=== PATIENT | female | born 1960 | race Caucasian/White ===

== ENCOUNTER → 2017-06-03 19:57 | Outpatient (CLI) | payer OTHER, SELFPAY | PROVIDERS: Family Provider Internal Medicine Critical Care Medicine; PCP Internal Medicine Critical Care Medicine; Visit Provider Nurse Practitioner Acute Care | DX: G47.33 Obstructive sleep apnea (adult) (pediatric) (principal) | CPT/HCPCS: 95810 ==

== ENCOUNTER → 2017-06-17 23:10 | Outpatient (CLI) | payer OTHER, SELFPAY | PROVIDERS: Family Provider Internal Medicine Critical Care Medicine; PCP Internal Medicine Critical Care Medicine; Visit Provider Nurse Practitioner Acute Care | DX: G47.33 Obstructive sleep apnea (adult) (pediatric) (principal) | CPT/HCPCS: 95811 ==

== ENCOUNTER → 2017-11-09 09:52 | Outpatient (CLI) | payer MEDICARE, SELFPAY ==
--- NOTE | 2017-11-09 14:39 | PFT ---
INTRODUCTION: The patient is a 57-year-old male presents for pulmonary function testing secondary to a diagnosis of COPD. Respiratory therapy reports good patient effort. Bronchodilators were used during testing. INTERPRETATION: Forced expiration spirometry demonstrates the presence of a moderate large airways obstructive ventilatory defect. There was a significant response to aerosolized bronchodilators noted in FEV1. Spirograms are of good quality and do not plateau indicating slow emptying of the lungs. Body plethysmography was performed and reveals lung volumes to be within normal limits. Diffusing capacity by single breath CO is moderately reduced at 59% of predicted. When compared to previous pulmonary function studies dated October 2016, there has been a 27% reduction in the patient's DLCO. IMPRESSION: These pulmonary function studies demonstrate the presence of a partially reversible moderate large airways obstructive ventilatory defect with symmetric reduction in diffusing capacity. There is been worsening the patient's DLCO since October 2016 as noted above.
== END ==
PROVIDERS: Family Provider Physician Assistant; PCP Physician Assistant; Visit Provider Internal Medicine Critical Care Medicine
DX: J44.9 Chronic obstructive pulmonary disease, unspecified (principal)
CPT/HCPCS: 94060; 94726; 94729

== ENCOUNTER → 2017-11-23 06:10 | Outpatient (CLI) | payer MEDICARE, SELFPAY ==
--- NOTE | 2017-11-23 21:58 | STRESSREP ---
Stress Test Report Pharmacologic myocardial perfusion stress test. 57-year-old lady with a history of chest pain. Medications atorvastatin aspirin Celebrex hydrochlorothiazide. Stress protocol: Resting EKG demonstrates normal sinus rhythm with rate of 56 bpm normal intervals and noted resting blood pressures 138/82 mmHg. 0.4 mg of regadenoson was infused per usual protocol followed by rapid intravenous and flush injection continuous EKG monitoring was performed. The patient maintained sinus rhythm throughout the recording. At rest there were no ST or T-wave changes noted suggest ischemia peak infusion no ST or T-wave changes were noted suggest ischemia. No clinical angina was noted the test was terminated due to completion of the test. Resting blood pressure is 132/82 with a peak blood pressure 148/92. Myocardial perfusion protocol. 11.9 mCi of technetium 99m sestamibi was injected at rest 0.4 mg of regadenoson was infused per usual protocol peak infusion 11.9 mCi of technetium 99m sestamibi was injected stress images were obtained stress and rest images were reconstructed and compared in the short axis vertical long and horizontal long axis. Gated images were also obtained next Perfusion SPECT analysis: Review of the stress images demonstrate normal uptake of tracer noted in all areas of myocardium. The resting images similarly demonstrate normal uptake of tracer noted in all areas myocardium. No areas of reversibility are noted suggest ischemia no previous infarct is noted. Gated SPECT analysis: The gated ejection fraction is noted to be 76%. Conclusion: Normal pharmacologic myocardial perfusion stress test. Preserved ejection fraction.
== END ==
PROVIDERS: Family Provider Physician Assistant; PCP Physician Assistant; Visit Provider Physician Assistant
DX: R07.9 Chest pain, unspecified (principal)
CPT/HCPCS: 78452; 93017; A9500; A4216; J2785

== ENCOUNTER → 2017-11-26 10:57 | Outpatient (CLI) | payer MEDICARE, SELFPAY ==
--- NOTE | 2017-11-26 10:59 | ECHOD_ITS ---
Reason For Study: DYSPNEA/SOB Procedure This was a 2D Doppler, Color Flow transthoracic echocardiogram. Exam performed in department. Left Ventricle Normal size and thickness. The estimated ejection fraction is 65 %. Stage 1 diastolic dysfunction. No regional wall motion abnormalities noted. Right Ventricle Normal size and thickness. Normal systolic function. Atria Normal left atrium. Normal right atrium. Normal atrial septum. Mitral Valve The mitral valve is structurally normal. No prolapse or stenosis seen. Trivial mitral valve insufficiency. Tricuspid Valve Normal tricuspid valve. Trivial tricuspid valve insufficiency. Right ventricular systolic pressure estimated to be 28 mmHg. Aortic Valve Normal aortic valve. Trisinus/trileaflet aortic valve. Pulmonic Valve Normal pulmonic valve. Great Vessels Normal aortic root. Normal arch. Normal inferior vena cava. Inferior vena cava collapse with sniff. Pericardium/Pleural No pericardial effusion. MMode/2D Measurements & Calculations LVIDd: 3.5 cm IVSd: 1.2 cm Ao root diam: 3.0 cm LVIDs: 2.4 cm LVPWd: 1.2 cm LA dimension: 3.4 cm RVDd: 2.3 cm FS: 30.1 % LAV(MOD-bp): 24.9 ml EDV(MOD-sp4): 61.2 ml SV(MOD-sp4): 39.1 ml LAV(MOD-bp) Indexed: 12.9 ml/m2 ESV(MOD-sp4): 22.1 ml LAV(MOD-sp2): 29.4 ml EF(MOD-sp4): 63.9 % LAV(MOD-sp4): 21.0 ml LA A4 area: 10.5 cm2 RA A4 area: 11.8 cm2 Time Measurements MV dec time: 0.31 sec Doppler Measurements & Calculations MV E max refugio: 62.7 cm/sec Lat Peak E' Refugio: 7.0 cm/sec Med Peak E' Refugio: 5.4 cm/sec MV A max refugio: 79.4 cm/sec E/E' lat: 9.0 E/E' med: 11.5 MV E/A: 0.79 Ao V2 max: 131.5 cm/sec LV V1 max: 127.3 cm/sec PA V2 max: 92.8 cm/sec Ao max P.9 mmHg LV V1 max P.5 mmHg TR max refugio: 240.9 cm/sec TR max P.2 mmHg Interpretation Summary The estimated ejection fraction is 65 %. Stage 1 diastolic dysfunction. Trivial mitral valve insufficiency. Trivial tricuspid valve insufficiency. Right ventricular systolic pressure estimated to be 28 mmHg. There is no comparison study available. Ordering Physician: Yonathan Guaman D.O. Referring Physician: Yonathan Guaman Performed By: Amelia Lakhani RDCS
== END ==
PROVIDERS: Family Provider Physician Assistant; PCP Physician Assistant; Visit Provider Internal Medicine Critical Care Medicine
DX: R06.02 Shortness of breath (principal); Z98.890 Other specified postprocedural states
CPT/HCPCS: 93306

== ENCOUNTER → 2017-12-29 08:45 | Outpatient (CLI) | payer MEDICARE, SELFPAY ==
[2017-12-29 09:13] VITALS: PULSE 72; PULSE 75; PULSE 80; PULSE 81; PULSE 84; PULSE 88; PULSE 91; O2SAT 90; O2SAT 92; O2SAT 93; O2SAT 94; O2SAT 96; O2SAT 97
--- NOTE | 2017-12-29 14:58 | PCM.PSN.6M ---
PSN 6 Minute Walk Test - 6 Minute Walk Test 6 Minute Walk Test: 6 Minute Walk Test PSN:6-Minute Walk Test Start: 12/29/17 09:12 Freq: Status: Active Protocol: RESP.6MINW Document 12/29/17 09:13 HG (Rec: 12/29/17 09:14 HG [id number]) 6 Minute Walk Test Date Performed 12/29/17 Time Performed 09:00 Height 5 ft 5 in Weight: 86.183 kg Weight in Pounds 190.[address]: Yoly Baez Assistive device used: None Pre-test Oxygen Delivery Method Room Air Pulse Ox (%) 96 Pulse Rate (60-100 beats/min) 75 Dyspnea Nimco Scale (0-10) 3 Exertion Nimco Scale (6-20) 13 1st minute Oxygen Delivery Method Room Air Pulse Ox (%) 97 Pulse Rate (60-100 beats/min) 72 2nd minute Oxygen Delivery Method Room Air Pulse Ox (%) 93 Pulse Rate (60-100 beats/min) 91 3rd minute Oxygen Delivery Method Room Air Pulse Ox (%) 92 Pulse Rate (60-100 beats/min) 91 4th minute Oxygen Delivery Method Room Air Pulse Ox (%) 92 Pulse Rate (60-100 beats/min) 84 Reported Symptoms Increased Work of Breathing Dizziness 5th minute Oxygen Delivery Method Room Air Pulse Ox (%) 94 Pulse Rate (60-100 beats/min) 81 6th minute Oxygen Delivery Method Room Air Pulse Ox (%) 90 Pulse Rate (60-100 beats/min) 88 Post-test Oxygen Delivery Method Room Air Pulse Ox (%) 96 Pulse Rate (60-100 beats/min) 80 Dyspnea Nimco Scale (0-10) 4 Exertion Nimco Scale (6-20) 14 Full Laps Walked 10 Partial Lap, Number of Tiles Walked 0 Total Distance Walked (ft) 590 - Interpretation Interpretation: The patient was able to ambulate only 590 feet over the course of 6 minutes on room air with no assistive devices, but one break secondary to dyspnea and dizziness. The patient did experience significant desaturation from a baseline of 96% to as low as 90% during testing. No significant tachycardia was noted. These findings are consistent with a respiratory limitation exercise tolerance. - Recommendations Recommendations: No supplemental oxygen is indicated at this time. However, patient should be followed closely given level of desaturation.
== END ==
LOC: PSN 08:45
PROVIDERS: Family Provider Physician Assistant; PCP Physician Assistant; Visit Provider Nurse Practitioner Acute Care
DX: R06.02 Shortness of breath (principal)
CPT/HCPCS: 94618

== ENCOUNTER → 2018-04-18 14:49 | Outpatient (CLI) | payer MEDICARE, SELFPAY ==
[2018-01-27 10:28] VITALS: BMI 32.3
--- NOTE | 2018-04-18 15:02 | RAD_ITS ---
STUDY: X-RAY CHEST REASON FOR EXAM: Female, 58 years old. Shortness of breath. History of lung resection. TECHNIQUE: Frontal and lateral views of the chest COMPARISON: 09/02/2016 FINDINGS: There are stable emphysematous changes in the lungs. There is scarring again noted in the right upper lobe. The lungs are otherwise clear. There are no pleural effusions. There is no pneumothorax. The heart is normal in size. The visualized osseous structures are within normal limits. RAD/Chest PA and Lateral IMPRESSION: No acute thoracic pathology. Electronically Signed: Wang Lofton, at 15:23 EST Tel , Service support ,
== END ==
PROVIDERS: Family Provider Physician Assistant; PCP Physician Assistant; Referring Provider Physician Assistant; Visit Provider Physician Assistant
DX: R09.89 Other specified symptoms and signs involving the circulatory and respiratory systems (principal)
CPT/HCPCS: 71046

== ENCOUNTER 2018-04-19 22:11 | Inpatient (IN) | payer MEDICARE, SELFPAY ==
[2018-04-19 22:11] VITALS: BP 138/96; PULSE 93; RESP 22; TEMP 37.4; O2SAT 94; BMI 33.3
--- NOTE | 2018-04-19 22:41 | EKG12_ITS ---
Test Reason : SOB Blood Pressure : / mmHG Vent. Rate : 088 BPM Atrial Rate : 088 BPM P-R Int : 158 ms QRS Dur : 078 ms QT Int : 370 ms P-R-T Axes : 060 -02 048 degrees QTc Int : 447 ms Normal sinus rhythm Normal ECG Confirmed by AGUSTIN TITUS, SUSANA ([id number]), book or script editor NICOLE ROCHA ([id number]) on 04/22/2018 9:08:47 AM Referred By: Suellen Lomax Confirmed By:SUSANA VELEZ MD
--- NOTE | 2018-04-19 22:48 | ED.DCSUM_ITS ---
- ER Visit Summary Date of Service: 04/19/18 Chief Complaint: Fever History of Present Illness: The patient is a 58 F presenting with fever x 8 days. Patient has had a dry cough, shortness of breath. She has rhinorrhea. She states she has had chest tightness which has been constant for the past week. She saw her primary care physician on Wednesday and was diagnosed with a UTI. She states she was given IM medications in the office and was given Bactrim for home. She has nausea with no vomiting. Denies diarrhea or constipation. Denies urinary complaints. She took Tylenol 4 hours ago. She did not receive a flu shot this year. Physical Examination: Vitals are stable. Temperature 99.4 Alert no acute distress. HEENT exam is unremarkable. Neck is supple. No meningismus Lungs are expiratory wheezing bilaterally. Heart is regular rate and rhythm. Abdomen is soft with mild suprapubic tenderness with no rebound or guarding Extremities are unremarkable. Skin is warm and dry. No rash No focal neurologic deficit. Remainder of exam is unremarkable. Emergency Department Course and Treatment: Patient given albuterol/Atrovent aerosol, Tylenol, IV fluids. CBC, chemistries unremarkable other than glucose 122. Troponin is negative. Influenza negative. EKG is sinus rate of 88. Chest x-ray shows no acute process. Patient was ambulated in the ED and had a pulse ox of 86% on room air. She was given Solumedrol IV. Discussed with the hospitalist for admission. Disposition: Admission Impression: COPD exacerbation, hypoxia This note was generated with [employer] dictation software. It may contain incorrect words, spelling, and punctuation that were not noted in review of the chart prior to signing ED Disposition - Plan for ED Patient: Chief Complaint: Shortness of Breath Referrals: Suellen Lomax PA [Primary Care Provider] -
--- NOTE | 2018-04-19 22:50 | RAD_ITS ---
STUDY: X-RAY CHEST REASON FOR EXAM: Female, 58 years old. Fever TECHNIQUE: Frontal view of the chest COMPARISON: 04/18/2018 FINDINGS: The lungs are clear. There are no pleural effusions. There is no pneumothorax. The heart is normal in size. The visualized osseous structures are within normal limits. RAD/Chest 1 View (Portable) IMPRESSION: No acute thoracic pathology. Electronically Signed: Wang Lofton, at 23:04 EST Tel , Service support ,
[2018-04-19] MEDS: Acetaminophen 500 MG Tablet 1000 MG PO (22:54)
[2018-04-19] MEDS: 0.9% Normal Saline 1,000 ML 1000 ML IV (22:54)
[2018-04-19 23:01] LABS: Absolute Lymphocyte Count 1.92 X10^3/ul (0.83-4.51); Absolute Neutrophil Count 6.7 X10^3/uL (2.0-7.7); Basophil# 0.12 X10^3/uL; Basophil% 1.2 % (0-1); Eosinophil# 0.63 X10^3/uL; Eosinophils% 6.2 % (0-5); Hematocrit 38.3 % (37-47); Hemoglobin 12.9 g/dl (12.0-15.0); Lymphocyte # 1.92 X10^3/ul (4.0); Lymphocyte % 18.9 % (19-41); Mean Corp Hgb Conc 33.7 g/gl (32-36); Mean Corpuscular Hgb 32.7 pg (27.0-32.0); Mean Platelet Vol. 9.2 fl (6.2-12.0); Monocyte% 7.9 % (0-10); Neutrophil # 6.65 X10^3/uL (2.7-7.7); Neutrophil % 65.6 % (47-70); Platelet Count 364 K/mm3 (150-450); RBC Distribution Width CV 12.1 % (11.6-14.6); RBC Distribution Width SD 41.7 fl (35.1-43.9); Red Blood Count 3.95 M/mm3 (4.2-5.4); White Blood Count 10.1 K/mm3 (4.4-11.0)
[2018-04-19 23:03] LABS: POSITIVE COUNT NO; POSITIVE DIFFERENTIAL NO; POSITIVE MORPHOLOGY NO
[2018-04-19 23:05] VITALS: PULSE 87; RESP 20; O2SAT 94
[2018-04-19] MEDS: Ipratropium/Albuterol Sulfate 3 ML AMPUL.NEB INHALATION (23:05)
[2018-04-19 23:14] LABS: Anion Gap 9 (5-15); BUN 14 mg/dL (7-18); BUN/Creat Ratio 14.6 RATIO (10-20); Calcium,Total 8.6 mg/dL (8.5-10.1); Chloride 100 mmol/L (98-107); Creatinine, Serum 0.96 mg/dL (0.55-1.02); EST Glomerular Filtration Rate 63 mL/min (>60); Est Glom Filt Rate - Afr Amer 76 mL/min (>60); Estimated Creatinine Clearance 56.78 ml/min; Glucose 122 mg/dL (74-106); Potassium 3.9 mmol/L (3.5-5.1); Sodium Level 136 mmol/L (136-145)
[2018-04-20] VITALS (12 sets, daily range): BP systolic 114–141; BP diastolic 72–83; PULSE 75–90; RESP 16–20; TEMP 36.4–38.2; O2SAT 91–96; BMI 33.0
[2018-04-20 00:06] LABS: Bacteria 0 SEEN /hpf (None Seen); Mucous, Urine 0 SEEN /hpf (<or=2+); Red Blood Cells-Urine 0 SEEN /hpf (0-5); Squamous Epithelial Cells - UA 0 SEEN /hpf (5-10)
[2018-04-20 00:09] LABS: Color, Urine Yellow (Yellow); Glucose, Dipstick Normal (Normal); Ketone-Dipstick Negative (Negative); Leukocyte Esterase-Dipstick 100 /ul (Negative); Nitrite-Dipstick Negative (Negative); Occult Blood-Urine 10 /ul (Negative); Protein-Dipstick Negative (Negative); Specific Gravity, Urine 1.015 (1.002-1.030); Urine Bilirubin Dipstick Negative (Negative); Urine Clarity Clear (Clear); Urine Urobilinogen 1 mg/dl (Normal); Urine pH 6.5 (5.0 - 8.0)
[2018-04-20 00:24] LABS: White Blood Cells 0-5 SEEN /hpf (0-5)
[2018-04-20] MEDS: MethylPREDNISolone 125 MG/2 ML Vial IV (00:41)
--- NOTE | 2018-04-20 00:46 | HP.PCM_ITS ---
Problem List (1) Acute hypoxemic respiratory failure Status: Acute (2) Pulmonary hypertension Status: Chronic Comment: Stage I diastolic dysfunction, RVSP 28 mmHg (3) COPD (chronic obstructive pulmonary disease) Status: Chronic Qualifiers: COPD type: unspecified COPD Qualified Code(s): J44.9 - Chronic obstructive pulmonary disease, unspecified (4) Hepatitis C Status: Chronic (5) COPD exacerbation Status: Chronic History of Present Illness Date of Admission: 04/20/18 Chief Complaint: fever The patient is a 58 year old F allergic rhinitis; COPD; pulmonary hypertension; sleep apnea; rheumatoid arthritis; hepatitis C; GERD; former smoker who presented because of 8-day history of persistent fever. Patient reported that at home her maximal temperature was 102.4 Fahrenheit. She went to her PCP and because of strong urinary odor she was started on Bactrim for UTI. Also she reported that she received some kind of shot at the PCPs office. Associated with her symptoms is progressively worsening shortness of breath. Shortness of breath is present at rest and with exertion. Also she has a tightness of her chest. She reported typically a tightness of her breath is associated with COPD. She reports cough productive for small amount of sputum she reported that her sputum is so small that she is unable to tell the color. She reports of some mild clear nasal discharge. Further she reports she reports of burning eyes; chills and night sweats. At emergency department rapid flu was negative. Patient walked at emergency department and her oxygen saturation dropped to 86% on room air. Patient was found to be tachypneic with respiratory rate about 20. Her T-max at emergency department was 100.7. At home patient does not use oxygen. While at home patient reported that walking short distances to her bathroom dropped her oxygen saturation to 84%. Patient did not receive flu shot this year because of previous adverse effect to the flu shot. Past Medical History Past Medical History (Chronic Problems): Chronic Problems (Last Reviewed 01/27/18 @ 11:38 by Yoly Baez NP-C) COPD exacerbation (Chronic) Pulmonary hypertension (Chronic) Stage I diastolic dysfunction, RVSP 28 mmHg COPD (chronic obstructive pulmonary disease) (Chronic) Hepatitis C (Chronic) Prediabetes (Chronic) Memory loss (Chronic) Cervical dysphagia (Chronic) Osteopenia (Chronic) Chronic lumbar radiculopathy (Chronic) Degenerative joint disease (Chronic) Degeneration of intervertebral disc (Chronic) Rheumatoid arthritis (Chronic) Psoriasis (Chronic) Chronic constipation (Chronic) NSAID induced gastritis (Chronic) GERD (gastroesophageal reflux disease) (Chronic) HTN (hypertension) (Chronic) Asthma (Chronic) Situational anxiety (Chronic) Depression (Chronic) Hypokalemia (Chronic) Hyperlipidemia (Chronic) Obesity (Chronic) Hypothyroidism (Chronic) Emphysema lung (Chronic) BEN (obstructive sleep apnea) (Chronic) CPAP 13 cm of water Tobacco dependence in remission (Chronic) Lung nodule (Chronic) H/O chronic obstructive lung disease (Chronic) Medical History: Medical History (Last Reviewed 04/20/18 @ 01:45 by Mane Lozano MD) Hepatitis C (Chronic) B19.20 Prediabetes (Chronic) R73.03 Memory loss (Chronic) R41.3 Atrophic vaginitis (Acute) N95.2 Cervical dysphagia (Chronic) R13.19 Osteopenia (Chronic) M85.80 Chronic lumbar radiculopathy (Chronic) M54.16 History of hysterectomy (Resolved) Z98.890, Z90.710 Degenerative joint disease (Chronic) M19.90 Degeneration of intervertebral disc (Chronic) Rheumatoid arthritis (Chronic) M06.9 Psoriasis (Chronic) L40.9 Chronic constipation (Chronic) K59.09 NSAID induced gastritis (Chronic) K29.60, T39.395A GERD (gastroesophageal reflux disease) (Chronic) K21.9 HTN (hypertension) (Chronic) I10 Asthma (Chronic) J45.909 Situational anxiety (Chronic) F41.8 Depression (Chronic) F32.9 Hypokalemia (Chronic) E87.6 Hyperlipidemia (Chronic) E78.5 Obesity (Chronic) E66.9 Hypothyroidism (Chronic) E03.9 Emphysema lung (Chronic) J43.9 BEN (obstructive sleep apnea) (Chronic) G47.33 CPAP 13 cm of water Tobacco dependence in remission (Chronic) F17.201 Lung nodule (Chronic) R91.1 SOB (shortness of breath) (Acute) R06.02 Allergic rhinitis (Acute) J30.9 H/O chronic obstructive lung disease (Chronic) Z87.09 Allergies No Known Allergies Allergy (Verified 12/27/17 07:39) Home Medications: Ambulatory Orders Medication Instructions Recorded Amlodipine [Norvasc] 5 mg PO DAILY 03/03/15 Atorvastatin Calcium [Lipitor] 40 mg PO QHS 03/03/15 Hydrochlorothiazide [Hctz] 25 mg PO DAILY 03/03/15 Levothyroxine [Synthroid] 50 mcg PO DAILY 03/03/15 leucovorin tablet 15 mg PO Q7D 03/03/15 albuterol sulfate 2.5 mg/3 mL 2.5 mg INHALATION Q4H PRN ml 05/14/17 (0.083 %) solution for nebulization albuterol sulfate HFA 90 2 puff INHALATION Q4H PRN g 05/14/17 mcg/actuation aerosol inhaler celecoxib 200 mg capsule 200 mg PO QDAY PRN 05/14/17 umeclidinium 62.5 mcg/actuation 1 inh INHALATION QDAY #1 device 05/19/17 blister powder for inhalation fluticasone 500 mcg-salmeterol 50 1 inh INHALATION BID #60 ea 03/10/18 mcg/dose blistr powdr for inhalation montelukast 10 mg tablet 10 mg PO QPM #30 tab 03/10/18 Surgical History: Surgical History (Last Reviewed 04/20/18 @ 01:46 by Mane Lozano MD) Hx of colonoscopy (Resolved) Z98.890 History of vein stripping (Resolved) Z98.890 History of thoracotomy (Resolved) Z98.890 History of eye surgery (Resolved) Z98.890 Surgical History: appendectomy, hysterectomy, - - Lung surgery for removal of precancerous lesion; bladder''; back surgery with pins at the back. Psychiatric History: Anxiety, Depression Lives: Spouse/ Significant Other Smoking Status: Former smoker - *Family History Maternal History Items: Cancer, Diabetes, Heart Disease - She reported multiple people in the maternal family have had heart surgery. Paternal History Items: Diabetes Review of Systems Constitutional: Reports: Chills, Fever. Denies: Weight Change HEENT: Reports: Sinus Drainage. Denies: Head Aches, Sinus Congestion, Sore Throat Cardiovascular: Reports: Chest Tightness. Denies: Chest Pain, Palpitations Respiratory: Reports: Cough, Shortness of breath at rest, Shortness of breath upon exertion, Sputum production Gastrointestinal: Denies: Abdominal Pain, Nausea, Vomiting Genitourinary: Denies: Dysuria Musculoskeletal: Denies: Joint Tenderness Skin: Denies: Rash, Wounds Neurological: Denies: Numbness, Tingling, Focal weakness Psychiatric: Reports: Anxiety, Depression Hematologic/ Lymphatic: Denies: Easy Bruising, Easy Bleeding VTE Information - Inpt Only VTE Present on Admission: No VTE Mechan Device Prophylaxis: None VTE Pharm Prophylaxis ordered?: Yes Patient Problems: Active and Suspected Problems (Last Reviewed 01/27/18 @ 11:38 by Yoly solorzano, TAX ACCOUNTANT-C) Acute hypoxemic respiratory failure (Acute) - Physical Exam General: Alert, Oriented x3, Cooperative HEENT: Atraumatic, PERRLA, EOMI, Normocephalic Neck: Supple, No JVD, Negative Carotid Bruits Lungs: Rales - Mild bilateral lower lobes., Tachypneic Cardiovascular: Regular rate, No murmurs Abdomen: Bowel Sounds Present, Soft, Non Tender Extremities: No edema, Capillary Refill Less than 3 Seconds Skin: No rashes, No breakdown Musculoskeletal: No Tenderness to Palpation of Joints or Extremities Neurological: Neuro grossly intact Psych/Mental Status: Normal Affect, Appropriate Vital Signs Temp Pulse Resp BP Pulse Ox 100.7 F H 88 16 141/77 H 92 04/20/18 00:35 04/20/18 00:32 04/20/18 00:32 04/20/18 00:32 04/20/18 00:32 Oxygen Flow Rate (L/min) 2 Oxygen Delivery Method Nasal Cannula Weight: 90.7 kg Body Mass Index (BMI) 33.3 Microbiology Past 72 Hours 04/19/18 23:05 Influenza Types A,B Direct FA (ARNULFO) - Final Mucosa - Nasopharyngeal Laboratory Tests Past 24 Hrs 04/19/18 04/19/18 04/20/18 22:50 22:50 00:00 WBC 10.1 RBC 3.95 L Hgb 12.9 Hct 38.3 MCV 97.0 MCH 32.7 H MCHC 33.7 RDW 12.1 RDW Differential 41.7 Plt Count 364 MPV 9.2 Immature Gran % (Auto) 0.200 Neut % (Auto) 65.6 Lymph % (Auto) 18.9 L [place] % (Auto) 7.9 Eos % (Auto) 6.2 H Baso % (Auto) 1.2 H Absolute Neuts (auto) 6.7 Absolute Lymphs (auto) 1.92 Total Counted Not Reportable Sodium 136 Potassium 3.9 Chloride 100 Carbon Dioxide 27.0 Anion Gap 9 BUN 14 Creatinine 0.96 Estim Creat Clear Calc 56.78 Est GFR (MDRD) Af Amer 76 Est GFR (MDRD) Non-Af 63 BUN/Creatinine Ratio 14.6 Glucose 122 H Calcium 8.6 Troponin I < 0.015 Urine Color Yellow Urine Clarity Clear Urine pH 6.5 Ur Specific [place] 1.015 Urine Protein Negative Urine Glucose (UA) Normal Urine Ketones Negative Urine Occult Blood 10 H Urine Nitrite Negative Urine Bilirubin Negative Urine Urobilinogen 1 H Ur Leukocyte Esterase 100 H Urine RBC 0 SEEN Urine WBC 0-5 SEEN Ur Squamous Epith Cells 0 SEEN Urine Bacteria 0 SEEN Urine Mucus 0 SEEN Assessment/Plan All Active Problems (Last Reviewed 01/27/18 @ 11:38 by Yoly Baez, TAMMY-C) Acute hypoxemic respiratory failure (Acute) Atrophic vaginitis (Acute) Hx of colonoscopy (Resolved) History of vein stripping (Resolved) History of thoracotomy (Resolved) History of hysterectomy (Resolved) History of eye surgery (Resolved) SOB (shortness of breath) (Acute) Allergic rhinitis (Acute) The patient is a 58 year old F with a significant history of allergic rhinitis; COPD; pulmonary hypertension; sleep apnea; rheumatoid arthritis; hepatitis C; GERD; former smoker who presented because of 8-day history of persistent fever; shortness of breath and found to be hypoxic on room air. Acute hypoxemic Respiratory failure. Patient reported 84% oxygen saturation while walking at home. At emergency department her oxygen saturation was 86% on room air. Further diagnosis include viral illness; or viral illness accentuating COPD. It is also possible that her COPD is causing a flare of a pulmonary hypertension. Patient received Solu-Medrol IV and breathing treatments at emergency department. We will continue to Solu-Medrol IV; as well as scheduled DuoNeb and as needed albuterol. Patient received sodium chloride IV bolus at emergency department. Patient received Tylenol at emergency department for fever. Continue Tylenol for fever more than 100.7 and for pain. Because of accompanying fever patient is a good candidate for antibiotic treatments for COPD. We will start patient on azithromycin IV. Although rapid flu was negative; will order comprehensive respiratory panel. Incentive spirometer and chest physiotherapy ordered. Incruse on hold since patient will be on scheduled DuoNeb. Montelukast continued. Oxygen as needed to maintain saturation above 92%. Mucinex ordered On home LABA-ICS. Inhaled steroid ordered. Diabetes mellitus type II Patient reported that she is borderline diabetic and her diabetes is controlled by diet. She reports that her A1c has gone down. Because patient is been started on steroid we will start patient on correction scale insulin. Hypoglycemia protocol ordered. Hypothyroidism Synthroid continued. Obstructive sleep apnea Patient reports that at home she is supposed to use CPAP. She has not use her CPAP for some time because of severe burning pain in her nares with use of CPAP. She follows up with [facility]. In the hospital CPAP was discussed with patient. However patient declined CPAP use . Rheumatoid arthritis Patient reported that she stopped use of methotrexate due to multiple side effects and subsequently stopped leucovorin use. Celebrex as needed continued Hypertension On admission blood pressure was not within goal. Home hydrochlorothiazide and amlodipine continued Trend blood pressure and adjust blood pressure medication as necessary. Hep C Patient stated that this is followed up outpatient. Continue outpatient follow up. Hyperlipidemia Lipitor continued. DVT prophylaxis Lovenox continued.
[2018-04-20] MEDS: 0.9% NaCl IVPB Med Flush (250 mL) 15 ML IV (04:58)
[2018-04-20] MEDS: 0.9% NaCl Peripheral Flush Adult/Peds IV ×4 (04:59→21:25)
[2018-04-20 06:03] LABS: Absolute Lymphocyte Count 0.79 X10^3/ul (0.83-4.51); Absolute Neutrophil Count 9.6 X10^3/uL (2.0-7.7); Basophil# 0.04 X10^3/uL; Basophil% 0.4 % (0-1); Eosinophil# 0.03 X10^3/uL; Eosinophils% 0.3 % (0-5); Hematocrit 39.4 % (37-47); Lymphocyte # 0.79 X10^3/ul (4.0); Lymphocyte % 7.4 % (19-41); Mean Corpuscular Hgb 32.2 pg (27.0-32.0); Mean Corpuscular Volume 97.5 fL (81-99); Mean Platelet Vol. 9.3 fl (6.2-12.0); Monocyte% 0.9 % (0-10); Neutrophil # 9.62 X10^3/uL (2.7-7.7); Neutrophil % 90.7 % (47-70); Platelet Count 372 K/mm3 (150-450); RBC Distribution Width SD 41.9 fl (35.1-43.9); Red Blood Count 4.04 M/mm3 (4.2-5.4); White Blood Count 10.6 K/mm3 (4.4-11.0)
[2018-04-20 06:12] LABS: POSITIVE COUNT NO; POSITIVE DIFFERENTIAL NO; POSITIVE MORPHOLOGY NO
[2018-04-20 06:25] LABS: Anion Gap 11 (5-15); BUN 13 mg/dL (7-18); BUN/Creat Ratio 14.1 RATIO (10-20); Calcium,Total 8.5 mg/dL (8.5-10.1); Chloride 105 mmol/L (98-107); Creatinine, Serum 0.92 mg/dL (0.55-1.02); EST Glomerular Filtration Rate 66 mL/min (>60); Est Glom Filt Rate - Afr Amer 80 mL/min (>60); Estimated Creatinine Clearance 59.25 ml/min; Glucose 173 mg/dL (74-106); Potassium 3.5 mmol/L (3.5-5.1); Sodium Level 137 mmol/L (136-145)
[2018-04-20] MEDS: Insulin Lispro 100 UNIT/ML INSULN.PEN SQ ×4 (06:37→21:25)
[2018-04-20 06:46] LABS: Bedside Glucose 154 mg/dL (70-110)
[2018-04-20] MEDS: Budesonide Respules 0.5 MG/2 ML AMPUL.NEB. INHALATION ×2 (07:04→19:12)
[2018-04-20] MEDS: Ipratropium/Albuterol Sulfate 3 ML AMPUL.NEB INHALATION ×5 (07:04→22:55)
[2018-04-20] MEDS: guaiFENesin 600 MG Tablet PO ×2 (09:35→21:25)
[2018-04-20] MEDS: Levothyroxine 50 MCG Tablet PO (09:35)
[2018-04-20] MEDS: hydroCHLOROthiazide 25 MG Tablet PO (09:35)
[2018-04-20] MEDS: Enoxaparin 40 MG/0.4 ML Syringe SC (09:35)
[2018-04-20] MEDS: amLODIPine 5 MG Tablet PO (09:35)
--- NOTE | 2018-04-20 11:50 | CASEMGMT ---
VIN BRAUN ASSESSMENT Face to Face with patient for initial transition planning/care coordination assessment. VIN BRAUN introduced self and role at [facility]. Pt voices understanding and consents to assessment at this time. Pt up in chair in no distress at this time. Pt is A/O at this time and answers all questions appropriately. Care providers, pharmacy, and demographics verified/updated at this time. PCP: Suellen MUNGUIA Specialists: Deniz and a Production Underwriter Preferred Pharmacy: [facility] on day of d/c only. [facility] thereafter Insurance: [facility], [employer] [facility]. Prescription Benefit: Yes Living Will/HPOA: Pt states she has a LW but does not currently have HCPOA. Interested in more information but states does not want to talk with SW at this time to complete paperwork. Provided information on advanced directives and given Social Service rac card with number to call if chooses in the future to utilize [facility] social work for advanced directive completion. Educated patient that, if patient so chooses, can come back to [facility] and meet with a SW as an outpatient to complete health care advanced directives. Patient expresses understanding. LNOK: Living Arrangements: Lives with and grandson and his . Live in a 2 1/2 story home. Kitchen and bathroom on main floor. Grandson and his use the 2nd floor, so pt does not need to go up those stairs. States her bedroom is 5 steps to go down to and they have rails. States she does not have problems with these. Transportation: Pt states drives self and states no transportation concerns at this time. also drives. DME/HHC: States has the following DME: Rails/grab bars, hand held shower, nebulizer, Cpap (but states has not been using it), cane and walker. States would like to get a shower chair. Informed that [facility] does not cover cost of shower chair, but that she could purchase it from [employer], [employer], or [employer]. Pt wishes to return home and states has no concerns with going home at time of discharge. CM to follow for home oxygen needs and any further discharge planning/needs. Will need Home oxygen qualification testing completed w/in 24 hrs of discharge. Pt voices no further concerns/needs at this time. Advised pt to ask for CM if any further questions/concerns/needs arise. Voices understanding. Plan: Home with family support and discharge plans in place. Fartun SCHMITTN RN CM
[2018-04-20 12:05] LABS: Bedside Glucose 220 mg/dL (70-110)
--- NOTE | 2018-04-20 12:17 | PN_ITS ---
<Dolly Cortez - Last Filed: 04/20/18 12:17> Patient Problems: Active and Suspected Problems (Last Updated 04/20/18 @ 10:54 by Selena Jones MD) Acute hypoxemic respiratory failure (Acute) Subjective: Patient seen and examined. Continues to have shortness of breath. States she is concerned about passing her illness to her mother who she cares for and is undergoing chemotherapy for cancer. Denies fever, chills. Denies productive cough. - Physical Exam General: Alert, Oriented x3, Cooperative HEENT: Atraumatic, PERRLA, EOMI, Normocephalic Neck: Supple, No JVD, Negative Carotid Bruits Lungs: Diminished, Wheezes Cardiovascular: Regular rate, Regular Rhythm, Normal S1, Normal S2, No murmurs Abdomen: Bowel Sounds Present, Soft, Non Tender, Non-Distended Extremities: No clubbing, No cyanosis, No edema, Capillary Refill Less than 3 Seconds Skin: No rashes, No breakdown Musculoskeletal: No Tenderness to Palpation of Joints or Extremities Neurological: Cranial nerves II-XII grossly intact, Neuro grossly intact Psych/Mental Status: Normal Affect, Appropriate Vital Signs Temp Pulse Resp BP Pulse Ox 97.6 F L 76 20 H 123/83 H 93 04/20/18 08:30 04/20/18 08:30 04/20/18 08:30 04/20/18 08:30 04/20/18 08:30 Oxygen Flow Rate (L/min) 2 Oxygen Delivery Method Nasal Cannula Weight: 198 lb 6.656 oz Body Mass Index (BMI) 33.0 Intake and Output for Last 24 Hours 04/18/18 04/19/18 04/20/18 23:59 23:59 23:59 Intake Total 750 / 750 Balance 750 / 750 Microbiology Past 72 Hours 04/20/18 02:30 Respiratory Panel (PCR) - Final Mucosa - Nasopharyngeal 04/19/18 23:05 Influenza Types A,B Direct FA (ARNULFO) - Final Mucosa - Nasopharyngeal Laboratory Tests Past 24 Hrs 04/19/18 04/19/18 04/20/18 22:50 22:50 00:00 WBC 10.1 RBC 3.95 L Hgb 12.9 Hct 38.3 MCV 97.0 MCH 32.7 H MCHC 33.7 RDW 12.1 RDW Differential 41.7 Plt Count 364 MPV 9.2 Immature Gran % (Auto) 0.200 Neut % (Auto) 65.6 Lymph % (Auto) 18.9 L Alcorn % (Auto) 7.9 Eos % (Auto) 6.2 H Baso % (Auto) 1.2 H Absolute Neuts (auto) 6.7 Absolute Lymphs (auto) 1.92 Total Counted Not Reportable Sodium 136 Potassium 3.9 Chloride 100 Carbon Dioxide 27.0 Anion Gap 9 BUN 14 Creatinine 0.96 Estim Creat Clear Calc 56.78 Est GFR (MDRD) Af Amer 76 Est GFR (MDRD) Non-Af 63 BUN/Creatinine Ratio 14.6 Glucose 122 H Calcium 8.6 Troponin I < 0.015 Urine Color Yellow Urine Clarity Clear Urine pH 6.5 Ur Specific [place] 1.015 Urine Protein Negative Urine Glucose (UA) Normal Urine Ketones Negative Urine Occult Blood 10 H Urine Nitrite Negative Urine Bilirubin Negative Urine Urobilinogen 1 H Ur Leukocyte Esterase 100 H Urine RBC 0 SEEN Urine WBC 0-5 SEEN Ur Squamous Epith Cells 0 SEEN Urine Bacteria 0 SEEN Urine Mucus 0 SEEN 04/20/18 04/20/18 05:10 05:10 WBC 10.6 RBC 4.04 L Hgb 13.0 Hct 39.4 MCV 97.5 MCH 32.2 H MCHC 33.0 RDW 12.0 RDW Differential 41.9 Plt Count 372 MPV 9.3 Immature Gran % (Auto) 0.300 Neut % (Auto) 90.7 H Lymph % (Auto) 7.4 L Alcorn % (Auto) 0.9 Eos % (Auto) 0.3 Baso % (Auto) 0.4 Absolute Neuts (auto) 9.6 H Absolute Lymphs (auto) 0.79 L Total Counted Not Reportable Sodium 137 Potassium 3.5 Chloride 105 Carbon Dioxide 21.0 Anion Gap 11 BUN 13 Creatinine 0.92 Estim Creat Clear Calc 59.25 Est GFR (MDRD) Af Amer 80 Est GFR (MDRD) Non-Af 66 BUN/Creatinine Ratio 14.1 Glucose 173 H Calcium 8.5 Troponin I Urine Color Urine Clarity Urine pH Ur Specific [place] Urine Protein Urine Glucose (UA) Urine Ketones Urine Occult Blood Urine Nitrite Urine Bilirubin Urine Urobilinogen Ur Leukocyte Esterase Urine RBC Urine WBC Ur Squamous Epith Cells Urine Bacteria Urine Mucus POC Glucose 04/20/18 04/20/18 11:51 06:32 POC Glucose 220 H 154 H Medical Necessity - Tobacco Use Smoking Status: Former smoker Assessment/Plan All Active Problems (Last Updated 04/20/18 @ 10:54 by Selena Jones MD) Acute hypoxemic respiratory failure (Acute) 1. Acute hypoxic respiratory insufficiency secondary to acute exacerbation of COPD-chest x-ray on admission without acute process. Respiratory panel negative. Influenza negative. Continue IV azithromycin empirically given fever on admission. IV Solu-Medrol. Albuterol and DuoNeb aerosols. Continue supplement oxygen to maintain O2 sat above 90%. Walking pulse ox prior to discharge. 2. Hypertension-stable, continue home amlodipine, HCTZ regimen. 3. Type 2 diabetes mellitus-diet controlled. Accu-Cheks before meals at bedtime given IV steroids. 4. Obstructive sleep apnea-CPAP nightly. 5. Rheumatoid arthritis-previously on methotrexate and leucovorin which she is no longer taking. Continue Celebrex. 6. Hypothyroidism-continue Synthroid regimen. 7. Hyperlipidemia-continue statin. 8. Hepatitis C-outpatient follow-up. 9. Former tobacco use-encouraged continued cessation. DVT prophylaxis-Lovenox This patient was seen by SELVIN SilvaC under the supervision of Dr. Jones. <Selena oJnes - Last Filed: 04/20/18 12:27> - Physical Exam Vital Signs Temp Pulse Resp BP Pulse Ox 97.6 F L 76 20 H 123/83 H 93 04/20/18 08:30 04/20/18 08:30 04/20/18 08:30 04/20/18 08:30 04/20/18 08:30 Oxygen Flow Rate (L/min) 2 Oxygen Delivery Method Nasal Cannula Weight: 198 lb 6.656 oz Body Mass Index (BMI) 33.0 Intake and Output for Last 24 Hours 04/18/18 04/19/18 04/20/18 23:59 23:59 23:59 Intake Total 750 / 750 Balance 750 / 750 Microbiology Past 72 Hours 04/20/18 02:30 Respiratory Panel (PCR) - Final Mucosa - Nasopharyngeal 04/19/18 23:05 Influenza Types A,B Direct FA (ARNULFO) - Final Mucosa - Nasopharyngeal Laboratory Tests Past 24 Hrs 04/19/18 04/19/18 04/20/18 22:50 22:50 00:00 WBC 10.1 RBC 3.95 L Hgb 12.9 Hct 38.3 MCV 97.0 MCH 32.7 H MCHC 33.7 RDW 12.1 RDW Differential 41.7 Plt Count 364 MPV 9.2 Immature Gran % (Auto) 0.200 Neut % (Auto) 65.6 Lymph % (Auto) 18.9 L Alcorn % (Auto) 7.9 Eos % (Auto) 6.2 H Baso % (Auto) 1.2 H Absolute Neuts (auto) 6.7 Absolute Lymphs (auto) 1.92 Total Counted Not Reportable Sodium 136 Potassium 3.9 Chloride 100 Carbon Dioxide 27.0 Anion Gap 9 BUN 14 Creatinine 0.96 Estim Creat Clear Calc 56.78 Est GFR (MDRD) Af Amer 76 Est GFR (MDRD) Non-Af 63 BUN/Creatinine Ratio 14.6 Glucose 122 H Calcium 8.6 Troponin I < 0.015 Urine Color Yellow Urine Clarity Clear Urine pH 6.5 Ur Specific [place] 1.015 Urine Protein Negative Urine Glucose (UA) Normal Urine Ketones Negative Urine Occult Blood 10 H Urine Nitrite Negative Urine Bilirubin Negative Urine Urobilinogen 1 H Ur Leukocyte Esterase 100 H Urine RBC 0 SEEN Urine WBC 0-5 SEEN Ur Squamous Epith Cells 0 SEEN Urine Bacteria 0 SEEN Urine Mucus 0 SEEN 04/20/18 04/20/18 05:10 05:10 WBC 10.6 RBC 4.04 L Hgb 13.0 Hct 39.4 MCV 97.5 MCH 32.2 H MCHC 33.0 RDW 12.0 RDW Differential 41.9 Plt Count 372 MPV 9.3 Immature Gran % (Auto) 0.300 Neut % (Auto) 90.7 H Lymph % (Auto) 7.4 L Alcorn % (Auto) 0.9 Eos % (Auto) 0.3 Baso % (Auto) 0.4 Absolute Neuts (auto) 9.6 H Absolute Lymphs (auto) 0.79 L Total Counted Not Reportable Sodium 137 Potassium 3.5 Chloride 105 Carbon Dioxide 21.0 Anion Gap 11 BUN 13 Creatinine 0.92 Estim Creat Clear Calc 59.25 Est GFR (MDRD) Af Amer 80 Est GFR (MDRD) Non-Af 66 BUN/Creatinine Ratio 14.1 Glucose 173 H Calcium 8.5 Troponin I Urine Color Urine Clarity Urine pH Ur Specific [place] Urine Protein Urine Glucose (UA) Urine Ketones Urine Occult Blood Urine Nitrite Urine Bilirubin Urine Urobilinogen Ur Leukocyte Esterase Urine RBC Urine WBC Ur Squamous Epith Cells Urine Bacteria Urine Mucus POC Glucose 04/20/18 04/20/18 11:51 06:32 POC Glucose 220 H 154 H Assessment/Plan Hospitalist note: I am seeing this patient in conjunction with Dolly Cortez. I independently seen and examined the patient. Progress note above, laboratory data and imaging studies reviewed and I concur with the above treatment plan. Patient was admitted for shortness of breath and dry cough. She was found to have acute COPD exacerbation. Chest x-ray showed no acute findings. Today, she reported mild improvement of her symptoms. She is on IV steroids, IV antibiotics and bronchodilators. Nasal swab for influenza a and B were negative. Respiratory panel for viruses were negative. Plan to continue same treatment, wean off oxygen as tolerated, possible DC home tomorrow. This note was generated with [employer] dictation software. It may contain incorrect words, spelling, and punctuation that were not noted in checking the note before signing.
[2018-04-20 18:36] LABS: Bedside Glucose 168 mg/dL (70-110)
[2018-04-20] MEDS: Atorvastatin Calcium 40 MG Tablet PO (21:25)
[2018-04-20] MEDS: Montelukast 10 MG Tablet PO (21:25)
[2018-04-20] MEDS: Zolpidem Tartrate 5 MG Tablet PO (21:49)
[2018-04-20 22:36] LABS: Bedside Glucose 188 mg/dL (70-110)
[2018-04-21] VITALS (13 sets, daily range): BP systolic 121–132; BP diastolic 69–89; PULSE 83–98; RESP 16–18; TEMP 36.4–36.6; O2SAT 87–96
[2018-04-21] MEDS: Ipratropium/Albuterol Sulfate 3 ML AMPUL.NEB INHALATION ×6 (03:50→22:45)
[2018-04-21] MEDS: Levothyroxine 50 MCG Tablet PO (06:25)
[2018-04-21] MEDS: 0.9% NaCl Peripheral Flush Adult/Peds IV ×4 (06:26→21:54)
[2018-04-21] MEDS: Insulin Lispro 100 UNIT/ML INSULN.PEN SQ ×3 (06:30→17:21)
[2018-04-21 06:36] LABS: Bedside Glucose 161 mg/dL (70-110)
[2018-04-21] MEDS: Enoxaparin 40 MG/0.4 ML Syringe SC (09:23)
[2018-04-21] MEDS: amLODIPine 5 MG Tablet PO (09:23)
[2018-04-21] MEDS: hydroCHLOROthiazide 25 MG Tablet PO (09:23)
[2018-04-21] MEDS: guaiFENesin 600 MG Tablet PO ×2 (09:23→21:44)
--- NOTE | 2018-04-21 10:19 | PCM.PROGNOTE ---
Patient Problems: Active and Suspected Problems (Last Updated 04/20/18 @ 10:54 by Selena Jones MD) Acute hypoxemic respiratory failure (Acute) Subjective: Chief complaint: Follow-up after admission for acute COPD exacerbation and acute hypoxic respiratory failure. Patient seen and examined. No acute events overnight. Today, she mentioned that her breathing is getting better but not back to her baseline yet. She still complaining of mild cough, no sputum production. Walking pulse oximeter done this morning and her pulse ox dropped down to 87% on room air with ambulation. Her other vital signs are stable. - Physical Exam General: Alert, Oriented x3, Cooperative, - - Minimally short of breath. HEENT: Atraumatic, PERRLA, EOMI, Normocephalic Oral: Moist Mucosa, No Gingival or Mucosal Lesions/ Ulcerations Neck: Supple, No JVD, Negative Carotid Bruits, Trachea Midline, Thyroid Normal Size and Texture Lungs: No rhonchi, No wheeze, Short of Breath, - - Decreased breath sounds bilateral, otherwise clear Cardiovascular: Regular rate, Regular Rhythm, Normal S1, Normal S2, PMI Normal Abdomen: Bowel Sounds Present, Soft, Non Tender, Non-Distended Extremities: No clubbing, No cyanosis, No edema Skin: No rashes, No breakdown Lymphatic: No Cervical, Supraclavicular, or Inguinal Adenopathy Neurological: Cranial nerves II-XII grossly intact, Neuro grossly intact Psych/Mental Status: Normal Affect, Appropriate, Alert and oriented to time, place, person, mood and affect Vital Signs Temp Pulse Resp BP Pulse Ox 97.6 F L 92 18 123/69 H 93 04/21/18 08:19 04/21/18 08:19 04/21/18 08:19 04/21/18 08:19 04/21/18 09:21 Oxygen Flow Rate (L/min) [ 2 AMBULATION with Oxygen] Oxygen Flow Rate (L/min) [ 0 AMBULATING on Room Air] Oxygen Flow Rate (L/min) [At 0 REST on Room Air] Oxygen Flow Rate (L/min) 1.5 Oxygen Delivery Method Room Air Weight: 198 lb 6.656 oz Body Mass Index (BMI) 33.0 Intake and Output for Last 24 Hours 04/19/18 04/20/18 04/21/18 23:59 23:59 23:59 Intake Total 1150 / 1150 850 / 850 Balance 1150 / 1150 850 / 850 Microbiology Past 72 Hours 04/20/18 02:30 Respiratory Panel (PCR) - Final Mucosa - Nasopharyngeal 04/19/18 23:05 Influenza Types A,B Direct FA (ARNULFO) - Final Mucosa - Nasopharyngeal POC Glucose 04/21/18 04/20/18 04/20/18 06:28 21:35 17:02 POC Glucose 161 H 188 H 168 H 04/20/18 11:51 POC Glucose 220 H Medical Necessity - Tobacco Use Smoking Status: Former smoker Assessment/Plan All Active Problems (Last Updated 04/20/18 @ 10:54 by Selena Jones MD) Acute hypoxemic respiratory failure (Acute) This is a 58 years old female patient presented to the emergency room because of fever and shortness of breath, found to have acute COPD exacerbation with acute hypoxic respiratory failure. #1 acute COPD exacerbation: She is on IV steroids, IV antibiotics and bronchodilators. Her symptoms is improving slowly but not back to her baseline yet. Her pulse ox dropped down to 87% on room air with ambulation and patient was very short of breath. Her chest x-ray showed no acute findings. Pneumonia ruled out. Patient has been afebrile. Plan to wean IV Solu-Medrol, continue other treatments, ambulate, anticipate discharge home tomorrow. #2 acute hypoxic respiratory failure: Secondary to above. Patient has not been on oxygen at home. She quit smoking long time ago. Plan as above, wean off oxygen as tolerated, repeat walking pulse oximetry tomorrow morning. #3 type 2 diabetes mellitus: Blood sugar has been stable. She has been on insulin sliding scale because she is on IV steroids. At home, she has been on diet control only. #4 hypertension: Blood pressure stable, continue Norvasc, HCTZ. #5 hypothyroidism: Stable, continue levothyroxine. #6 rheumatoid arthritis: Stable, continue Celebrex. In the past, she was on methotrexate and leucovorin but not at this time. #7 obstructive sleep apnea: Continue CPAP at night. #8 chronic hepatitis C: Recommend follow-up with her doctor as outpatient. #9 DVT prophylaxis: Subcutaneous Lovenox. This note was generated with [employer] software. It may contain incorrect words, spelling, and punctuation that were not noted in checking the note before signing. Code Visit Inpatient E&M: 54595 Subs Hosp L2
[2018-04-21] MEDS: Furosemide 20 MG/2 ML VIAL IV (12:18)
[2018-04-21 13:11] LABS: Bedside Glucose 188 mg/dL (70-110)
[2018-04-21 17:41] LABS: Bedside Glucose 152 mg/dL (70-110)
[2018-04-21] MEDS: Atorvastatin Calcium 40 MG Tablet PO (21:44)
[2018-04-21] MEDS: Montelukast 10 MG Tablet PO (21:44)
[2018-04-21 22:00] LABS: Bedside Glucose 144 mg/dL (70-110)
[2018-04-22] VITALS (10 sets, daily range): BP systolic 122–141; BP diastolic 74–95; PULSE 72–87; RESP 16–19; TEMP 36.4–36.8; O2SAT 85–96
[2018-04-22] MEDS: Ipratropium/Albuterol Sulfate 3 ML AMPUL.NEB INHALATION ×2 (03:53→07:04)
[2018-04-22] MEDS: Levothyroxine 50 MCG Tablet PO (06:18)
--- NOTE | 2018-04-22 06:31 | NURSING ---
ASSISTED PT WITH AMBULATION APPROXIMATELY 40 FEET, SPO2 88%, PT VERY SOB
[2018-04-22] MEDS: Insulin Lispro 100 UNIT/ML INSULN.PEN SQ (06:45)
[2018-04-22 06:51] LABS: Bedside Glucose 153 mg/dL (70-110)
[2018-04-22] MEDS: guaiFENesin 600 MG Tablet PO (09:29)
[2018-04-22] MEDS: 0.9% NaCl Peripheral Flush Adult/Peds IV (09:29)
[2018-04-22] MEDS: Enoxaparin 40 MG/0.4 ML Syringe SC (09:29)
[2018-04-22] MEDS: amLODIPine 5 MG Tablet PO (09:29)
[2018-04-22] MEDS: hydroCHLOROthiazide 25 MG Tablet PO (09:30)
--- NOTE | 2018-04-22 10:00 | CASEMGMT ---
Addendum entered by Rhonda Guerrero 04/22/18 13:25: Call received from [facility]. [facility] is not in network with [facility]. Script for O2 transferred to [facility]. Call received from [facility]. They stated they will be here within about 30 min to deliver portable oxygen to pt's room. Pt made aware. Fartun VILLALBA RN, CM Original Note: VIN BRAUN NOTE: *Home oxygen qualification testing completed and pt will need oxygen @ home. Script obtained from and faxed to [facility]. They are aware pt is discharging today and states will deliver the portable O2 soon. Pt made aware. Fartun VILLALBA RN, CM
--- NOTE | 2018-04-22 10:00 | DCINST_ITS ---
- Discharge Diagnoses Current Active Problems: Current Active and Chronic Problems (Last Updated 04/20/18 @ 10:54 by Selena Jones MD) Acute hypoxemic respiratory failure (Acute) COPD exacerbation (Chronic) You will use the following diet at home:: Cardiac Your food should be the consistency of: Regular Discharge Activity: Return to Normal Activity Weight Bearing Status: Weight bearing as tolerated Call your doctor if you observe: Fever of 101 or Higher, Shortness of breath, Dizziness, Fainting spells, Chest pain, Increased palpitations (irregular heartbeat), Uncontrolled pain Instructions: Discharge Instructions: COPD, Using Oxygen at Home Allergies/Adverse Reactions: Allergies No Known Allergies Allergy (Verified 12/27/17 07:39) Medications to take at Discharge Amlodipine [Norvasc] 5 mg PO DAILY 03/03/15 Atorvastatin Calcium [Lipitor] 40 mg PO QHS 03/03/15 Hydrochlorothiazide [Hctz] 25 mg PO DAILY 03/03/15 Levothyroxine [Synthroid] 50 mcg PO DAILY 03/03/15 albuterol sulfate 2.5 mg/3 mL (0.083 %) solution for nebulization 2.5 mg INHALATION Q4H PRN ml 05/14/17 albuterol sulfate HFA 90 mcg/actuation aerosol inhaler 2 puff INHALATION Q4H PRN g 05/14/17 celecoxib 200 mg capsule 200 mg PO QDAY PRN 05/14/17 umeclidinium 62.5 mcg/actuation blister powder for inhalation 1 inh INHALATION QDAY #1 device 05/19/17 fluticasone 500 mcg-salmeterol 50 mcg/dose blistr powdr for inhalation 1 inh INHALATION BID #60 ea 03/10/18 montelukast 10 mg tablet 10 mg PO QPM #30 tab 03/10/18 Oxygen, Home [Home Oxygen] 2 lpm NASAL CONT #1 unit 04/22/18 Prednisone 10 mg PO UD #30 tab 04/22/18 The following prescriptions were given: Oxygen, Home [Home Oxygen] 2 lpm NASAL CONT #1 unit Prednisone 10 mg PO UD #30 tab Primary Care Physician: Suellen Lomax PA [Primary Care Provider] - Please follow up with your Primary Care Physician in: 1 week. Test Results: Test results from this visit will be discussed in further detail at your follow- up appointment, if applicable.
--- NOTE | 2018-04-22 12:07 | DS.PCM_ITS ---
Discharge Date and Diagnosis - Problem List Patient Problems: Active and Suspected Problems (Last Updated 04/20/18 @ 10:54 by Selena Joens MD) Acute hypoxemic respiratory failure (Acute) Date of Admission: 04/20/18 Date of Discharge: 04/22/18 - Primary Discharge Diagnosis Active and Suspected Problems (Last Updated 04/20/18 @ 10:54 by Selena Jones MD) #1 acute COPD exacerbation. #2 acute hypoxic respiratory failure, qualified for home oxygen, discharged on home oxygen to be able to ambulate around home and do her basic daily activities. - Secondary Discharge Diagnosis Chronic Problems (Last Updated 04/20/18 @ 10:54 by Selena Jones MD) COPD exacerbation (Chronic) Pulmonary hypertension (Chronic) Stage I diastolic dysfunction, RVSP 28 mmHg COPD (chronic obstructive pulmonary disease) (Chronic) Hepatitis C (Chronic) Prediabetes (Chronic) Memory loss (Chronic) Osteopenia (Chronic) Chronic lumbar radiculopathy (Chronic) Degenerative joint disease (Chronic) Rheumatoid arthritis (Chronic) Psoriasis (Chronic) NSAID induced gastritis (Chronic) GERD (gastroesophageal reflux disease) (Chronic) HTN (hypertension) (Chronic) Asthma (Chronic) Depression (Chronic) Hyperlipidemia (Chronic) Obesity (Chronic) Hypothyroidism (Chronic) BEN (obstructive sleep apnea) (Chronic) CPAP 13 cm of water Tobacco dependence in remission (Chronic) Lung nodule (Chronic) Hospital Course and Treatment Imaging Results: Clinical Impression(s) from Imaging Studies Chest X-Ray 04/19/18 22:50 IMPRESSION: No acute thoracic pathology. Electronically Signed: Wang Rolly, at 23:04 EST Tel , Service support , Operations: None Procedures: None Summary of Care Provided: Patient seen and examined on the day of discharge and appeared to be stable to be discharged home. Her symptoms continued to improve slowly. Still complaining of mild dry cough. Repeat walking pulse oximeter today revealed pulse ox of 85% on room air with ambulation and she did qualify for home oxygen. Her other vital signs are stable. The patient is a 58 year old F admitted because of shortness of breath and dry cough and she was found to have acute COPD exacerbation complicated by acute hypoxic respiratory failure. Chest x-ray showed no acute findings, pneumonia ruled out. Patient was treated with IV steroids, IV antibiotics and bronchodilators. Nasal swab for influenza a and B were negative. Respiratory panel for viruses were negative as well. Her routine blood work was unremarkable. Apart from hypoxia, her other vital signs were stable. With treatment, patient reported improvement of her symptoms. Walking pulse oximeter performed yesterday and her pulse ox went down to 87% on room air with ambulation. Patient did mention that she gets more short of breath upon ambulation. Today which is a day of discharge, repeat walking pulse oximeter also performed and her pulse ox dropped down to 85% on room air with ambulation she was short of breath. She did not qualify for home oxygen to be able to ambulate around her home and do her basic daily activities. Patient discharged home in a stable medical condition, she completed 3 days of IV Zithromax, no antibiotic given upon discharge, discharged on tapering course of prednisone, discharged on home oxygen at 2 L, may increase up to 3 L upon ambulation, recommended follow-up with PCP in 1 week. Patient Problems: Active and Suspected Problems (Last Updated 04/20/18 @ 10:54 by Selena Jones MD) Acute hypoxemic respiratory failure (Acute) - Physical Exam General: Alert, Oriented x3, Cooperative, No apparent distress HEENT: Atraumatic, PERRLA, EOMI, Normocephalic Oral: Moist Mucosa, No Gingival or Mucosal Lesions/ Ulcerations Neck: Supple, No JVD, Negative Carotid Bruits, Trachea Midline, Thyroid Normal Size and Texture Lungs: Clear to auscultation, No rhonchi, No wheeze, No rales, Diminished Cardiovascular: Regular rate, Regular Rhythm, Normal S1, Normal S2, No murmurs Abdomen: Bowel Sounds Present, Soft, Non Tender, Non-Distended, No Hepato- splenomegaly Extremities: No clubbing, No cyanosis, No edema Skin: No rashes, No breakdown Lymphatic: No Cervical, Supraclavicular, or Inguinal Adenopathy Neurological: Cranial nerves II-XII grossly intact, Neuro grossly intact Psych/Mental Status: Normal Affect, Appropriate Vital Signs Temp Pulse Resp BP Pulse Ox 98.2 F 80 18 128/74 H 92 04/22/18 07:39 04/22/18 07:46 04/22/18 07:39 04/22/18 07:39 04/22/18 08:16 Oxygen Flow Rate (L/min) [ 3 AMBULATION with Oxygen] Oxygen Flow Rate (L/min) [ 0 AMBULATING on Room Air] Oxygen Flow Rate (L/min) [At 0 REST on Room Air] Oxygen Flow Rate (L/min) 1.5 Oxygen Delivery Method Nasal Cannula Weight: 198 lb 6.656 oz Body Mass Index (BMI) 33.0 Intake and Output for Last 24 Hours 04/20/18 04/21/18 04/22/18 23:59 23:59 23:59 Intake Total 1150 / 1150 2730 / 2730 1781 / 1781 Balance 1150 / 1150 2730 / 2730 1781 / 1781 Microbiology Past 72 Hours 04/20/18 02:30 Respiratory Panel (PCR) - Final Mucosa - Nasopharyngeal 04/19/18 23:05 Influenza Types A,B Direct FA (ARNULFO) - Final Mucosa - Nasopharyngeal POC Glucose 04/22/18 04/21/18 04/21/18 06:44 21:49 17:19 POC Glucose 153 H 144 H 152 H 04/21/18 12:24 POC Glucose 188 H Discharge Activity: Return to Normal Activity Weight Bearing Status: Weight bearing as tolerated Call your doctor if you observe: Fever of 101 or Higher, Shortness of breath, Dizziness, Fainting spells, Chest pain, Increased palpitations (irregular heartbeat), Uncontrolled pain Home Medications: Medications to take at Discharge Amlodipine [Norvasc] 5 mg PO DAILY 03/03/15 Atorvastatin Calcium [Lipitor] 40 mg PO QHS 03/03/15 Hydrochlorothiazide [Hctz] 25 mg PO DAILY 03/03/15 Levothyroxine [Synthroid] 50 mcg PO DAILY 03/03/15 albuterol sulfate 2.5 mg/3 mL (0.083 %) solution for nebulization 2.5 mg INHALATION Q4H PRN ml 05/14/17 albuterol sulfate HFA 90 mcg/actuation aerosol inhaler 2 puff INHALATION Q4H PRN g 05/14/17 celecoxib 200 mg capsule 200 mg PO QDAY PRN 05/14/17 umeclidinium 62.5 mcg/actuation blister powder for inhalation 1 inh INHALATION QDAY #1 device 05/19/17 fluticasone 500 mcg-salmeterol 50 mcg/dose blistr powdr for inhalation 1 inh INHALATION BID #60 ea 03/10/18 montelukast 10 mg tablet 10 mg PO QPM #30 tab 03/10/18 Oxygen, Home [Home Oxygen] 2 lpm NASAL CONT #1 unit 04/22/18 Prednisone 10 mg PO UD #30 tab 04/22/18 Following Prescrptions Were Given to Patient: Oxygen, Home [Home Oxygen] 2 lpm NASAL CONT #1 unit Prednisone 10 mg PO UD #30 tab Primary Care Physician: Suellen Lomax PA [Primary Care Provider] - Please follow up with your Primary Care Physician in: 1 week. Patient Instructions: Using Oxygen at Home, Discharge Instructions: COPD Disposition: Home Minutes spent on discharge:: 27 Patient Condition:: Stable Medical Necessity - Tobacco Use Smoking Status: Former smoker Meaningful Use Info Meaningful Use Diagnoses (Choose all that apply): None applicable Code Visit Inpatient E&M: 84347 Disch Hosp
--- NOTE | 2018-04-22 14:07 | NURSING ---
Juana came and picked up portable oxygen tank- gentleman stated that pt does not need to sign for return. Notified this RN that [employer] should be coming to deliver home o2- per insurance.
--- NOTE | 2018-04-25 15:47 | CASEMGMT ---
VIN BRAUN Discharge Follow-up Phone Call: JEMIMA: Manjula Strata: 3 Call Date: 04/25/18 Discharge Date: 04/22/18 Time of Call: [id number] Duration: 1 MIN ? Admitting Diagnosis:COPD exac, acute respiratory failure. This VIN BRAUN attempted to contact pt regarding discharge follow-up. Voicemail received and message left requesting a return call if pt has any questions or concerns. Susan Chaparro RN
--- OUTSIDE RECORDS SUMMARY | 2018-06-06 00:56 | XMS RPT_ITS ---
:1960 Author Organization OHIP Support Name Relationship Address Phone D Unavailable Unavailable Unavailable SURJIT BULLOTHY Unavailable [address] + [place] [address] JULIAN GELLER Unavailable [address] + [place] [address] NOT GIVEN Unavailable Unavailable Unavailable JULIAN GELLER Unavailable [address] + [place] [address] JULIAN GELLER Unavailable [address] [place] [address] D Unavailable Unavailable Unavailable JORGITO ADI Unavailable [address] + [place] [address] JULIAN GELLER Unavailable [address] + [place] [address] D Unavailable Unavailable Unavailable BULL, ADI Unavailable [address] + [place] [address] JULIAN GELLER Unavailable [address] + [place] [address] D Unavailable Unavailable Unavailable BULL, ADI Unavailable [address] + [place] [address] JULIAN GELLER Unavailable [address] + [place] [address] D Unavailable Unavailable Unavailable BULL, ADI Unavailable [address] + [place] [address] JULIAN GELLER Unavailable [address] + [place] [address] D Unavailable Unavailable Unavailable BULL, ADI Unavailable [address] + [place] [address] JULIAN GELLER Unavailable [address] + [place] [address] D Unavailable Unavailable Unavailable BULL ADI Unavailable [address] + [place] [address] DUYEN JULIAN Unavailable [address] + [place] [address] NOT GIVEN Unavailable Unavailable Unavailable LIONEL GELLEREL Unavailable [address] + [place] [address] TIPJULIAN GARCIA Unavailable [address] [place] [address] D Unavailable Unavailable Unavailable BULL, ADI Unavailable [address] + [place] [address] DUYEN JULIAN Unavailable [address] + [place] [address] D Unavailable Unavailable Unavailable BULL, ADI Unavailable [address] + [place] [address] JULIAN GELLER Unavailable [address] + [place] [address] D Unavailable Unavailable Unavailable BULL, ADI Unavailable [address] + [place] [address] JULIAN GELLER Unavailable [address] + [place] [address] D Unavailable Unavailable Unavailable BULL, ADI Unavailable [address] + [place] [address] JULIAN GELLER Unavailable [address] + [place] [address] BULL, ADI Unavailable [address] + [place] [address] JULIAN GELLER Unavailable [address] + [place] [address] UE Unavailable Unavailable Unavailable BULL, ADI Unavailable [address] + [place] [address] LIONEL GELLEREL Unavailable [address] + [place] [address] UE Unavailable Unavailable Unavailable BULL, ADI Unavailable [address] + [place] [address] JULIAN GELLER Unavailable [address] + [place] [address] UE Unavailable Unavailable Unavailable BULL, ADI Unavailable [address] + [place] [address] LIONEL GELLEREL Unavailable [address] + [place] [address] UE Unavailable Unavailable Unavailable BULL, ADI Unavailable [address] + [place] [address] JULIAN GELLER Unavailable [address] + [place] [address] UE Unavailable Unavailable Unavailable BULL, ADI Unavailable [address] + [place] [address] JULIAN GELLER Unavailable [address] + [place] [address] UE Unavailable Unavailable Unavailable BULL, ADI Unavailable [address] + [place] [address] JULIAN GELLER Unavailable [address] + [place] [address] UE Unavailable Unavailable Unavailable BULL, ADI Unavailable [address] + [place] [address] JULIAN GELLER Unavailable [address] + [place] [address] UE Unavailable Unavailable Unavailable BULL, ADI Unavailable [address] + [place] [address] JULIAN GELLER Unavailable [address] + [place] [address] UE Unavailable Unavailable Unavailable Care Team Providers Name Role Phone LOMAXAALIYAH RESENDIZ Admitting Unavailable LOMAX, AALIYAH Wilfrid Attending Unavailable LOMAX, AALIYAH Wilfrid Primary Care Unavailable LOMAX, AALIYAH J Consulting Unavailable PROVIDER, UNKNOWN Consulting Unavailable CHALO GUAMAN Admitting Unavailable CHALO GUAMAN Attending Unavailable CHALO GUAMAN Primary Care Unavailable LOMAXAALIYAH Consulting Unavailable PROVIDER, UNKNOWN Consulting Unavailable LOMAXAALIYAH Attending Unavailable LOMAX, AALIYAH Referring Unavailable LOMAX, AALIYAH Primary Care Unavailable LOMAX, AALIYAH Primary Care Unavailable Mane Lozano Admitting Unavailable Selena Jones Attending Unavailable Mane Lozano Admitting Unavailable Mane Lozano Attending Unavailable LOMAX, AALIYAH Primary Care Unavailable Agyepong, Mane Consulting Unavailable Agyepong, Mane Admitting Unavailable Ashelfah, Ghasem Attending Unavailable LOMAX, AALIYAH Primary Care Unavailable Ashelfah, Ghasem Consulting Unavailable Agyepong, Mane Admitting Unavailable Ashelfah, Ghasem Attending Unavailable LOMAX, AALIYAH Primary Care Unavailable Ashelfah, Ghasem Consulting Unavailable Noam Osorio Attending Unavailable LOMAX, AALIYAH Referring Unavailable Baez, Yoly Attending Unavailable Yonathan Brown, D.O. Primary Care Unavailable Baez, Yoly Attending Unavailable Yonathan Brown, D.O. Primary Care Unavailable Yonathan Brown, D.O. Attending Unavailable Yonathan Brown, D.O. Referring Unavailable LOMAX, AALIYAH Primary Care Unavailable Yonathan Brown, D.O. Attending Unavailable LOMAX, AALIYAH Attending Unavailable LOMAX, AALIYAH Referring Unavailable LOMAX, AALIYAH Primary Care Unavailable Yonathan Brown, D.O. Attending Unavailable Yonathan Brown, D.O. Referring Unavailable LOMAX, AALIYAH Primary Care Unavailable Yonathan Brown, D.O. Attending Unavailable Yonathan Brown, D.O. Referring Unavailable LOMAX, AALIYAH Primary Care Unavailable Chalo Guaman Attending Unavailable Chalo Guaman Referring Unavailable Ahmet Valdivia Attending Unavailable Julian Reid Attending Unavailable Baez, Yoly Attending Unavailable LOMAX, AALIYAH Referring Unavailable Baez, Yoly Attending Unavailable Baez, Yoly Referring Unavailable LOMAX, AALIYAH Primary Care Unavailable Noam Osorio Attending Unavailable Nestor, Yoly Referring Unavailable Baez, Yoly Attending Unavailable LOMAX, AALIYAH Referring Unavailable PROBLEMS PROBLEMS DATE TYPE CONDITION / CODE ATTENDING STATUS SOURCE 04/27/2018 Unknown J44.9 - Chronic Devon, Noam Active [facility] obstructive [facility] pulmonary disease, Hospital unspecified / Repository J44.9(ICD-10) 04/27/2018 Unknown M06.9 - Rheumatoid Devon, Noam Active [facility] arthritis, Community unspecified / Hospital M06.9(ICD-10) Repository 02/01/2018 Unknown G47.33 - Obstructive Baez, Active [facility] sleep apnea (adult) [facility] (pediatric) / Hospital G47.33(ICD-10) Repository 02/01/2018 Unknown I27.20 - Pulmonary Baez, Active [facility] hypertension, [facility] unspecified / Hospital I27.20(ICD-10) Repository 01/06/2018 Unknown R06.02 - Shortness Devon, Noam Active [place] of breath / Community R06.02(ICD-10) Hospital Repository 12/21/2017 Unknown R07.9 - Chest pain, Skip, Langdon Active [facility] unspecified / Community R07.9(ICD-10) Hospital Repository 11/18/2017 Unknown Z98.890 - Other Yonathan Guaman, Active [facility] specified D.O. Community postprocedural Hospital states / Repository Z98.890(ICD-10) 11/18/2017 Unknown E66.9 - Obesity, Yonathan Guaman, Active [place] unspecified / D.O. Community E66.9(ICD-10) Hospital Repository 11/18/2017 Unknown F17.201 - Nicotine Yonathan Guaman, Active [facility] dependence, D.O. Community unspecified, in Hospital remission / Repository F17.201(ICD-10) PROCEDURES PROCEDURES No Procedure Records FoundRESULTS RESULTS BASIC METABOLIC Collected: 05/24/2018 Status: F Source: [place] PROFILE (BMP) 4:15 PM [facility] REPOSITORY TYPE CODE TESTS RESULT OUT OF RANGE REFERENCE UNITS LAB L501.0100 74-106 mg/dL Normal GLU 77 Result Comment: Please note revised GLUCOSE reference range effective 2017. LAB L501.1000 7-18 mg/dL Normal BUN 16 LAB L501.1100 0.55-1.02 mg/dL Normal CREAT,SERUM 0.88 Result Comment: The validity of the calculated GFR AND GFRAA in patients over 70 years has not been determined. Clinical correlation is essential. LAB L501.1110 >60 mL/min Normal EST GFR 70 Result Comment: Non- GFR Calc LAB L501.1115 >60 mL/min Normal EST GFR - AA 85 Result Comment: GFR Calc LAB L501.1300 10-20 RATIO Normal BUN/CRE 18.2 LAB L501.2200 8.5-10.1 mg/dL CA Normal 9.4 LAB L501.5300 136-145 mmol/L NA Normal 137 LAB L501.5600 3.5-5.1 mmol/L Low K 3.3 LAB L501.5900 98-107 mmol/L CL Normal 100 LAB L501.6100 21.0-32.0 mmol/L Normal CO2 28.0 LAB L501.6200 5-15 Normal GAP 9 Performed By: #### L500.2500 #### [facility] [address] [place], [address] PULMONARY VISIT REPORT Observed: 04/27/2018 Status: F Source: [place] 9:13 AM [facility] REPOSITORY [facility] [address] [place] [address] OFFICE VISIT Date of Service: 04/27/18 MR#: [id number] Acct: [id number] Name: SYDNIE GELLER Rep #: [id number] : 1960 Provider: Noam Osorio MD Age/Sex: 58/F Location: [facility].PMW Status: Signed Assessment AND Plan Problems 1. Pulmonary hypertension I27.20 2. COPD exacerbation J44.1 3. Rheumatoid arthritis M06.9 4. BEN (obstructive sleep apnea) G47.33 5. Class 1 obesity due to excess calories with serious comorbidity and body mass index (BMI) of 33.0 to 33.9 in adult E66.09; Z68.33 Plan Patient appears to be doing okay following discharge from the hospital. Unfortunately, patient is currently on supplemental oxygen, but the takes provided her very large and cumbersome. We will attempt to get patient a POC. Patient is currently on triple therapy. This will be continued. Will obtain a complete pulmonary function test walking oximetry prior to next visit. Stressed to the patient the importance of using CPAP to help with memory problems. Also talked with patient about using a Docu dose system to help with compliance with therapy. Patient was instructed to complete steroid taper as ordered. Continue triple therapy. Complete steroid taper. Complete PFT and walking oximetry prior to next visit. Encourage compliance with CPAP therapy. Orders Orders: Plan Detail Follow Up 3 Months (CSM) HPI 3 M FU: Chief Complaint: Shortness of breath on exertion Details: Patient is a 58-year-old female, currently under the care of Aaliyah Lomax, who presents for evaluation secondary to shortness of breath on exertion. Patient was recently admitted the [facility] and feels that she is back to about 60% of her baseline function. Patient is still on 20 mg of prednisone. Patient does believe that the oxygen that she was discharged on makes a significant difference. Patient has been wearing this around the clock and states her saturations are 95-96% at rest and desaturated to 90% with ambulation. Patient has been compliant with her inhaler therapy as prescribed. Patient denies any complications such as thrush, or sore throat. Patient reports that she is not been compliant with CPAP therapy. Patient states that she wore it once and felt great the next morning, but on the second night started to have significant nasal burning. Patient states he has been using the humidifier and does not think that she had excessively time at night, but is not tried it again. Patient states that this took weeks to get over. Patient is currently only using oxygen therapy with sleep. Patient reports some concerns over forgetting her normal medications. Patient states that she tends to remember inhalers because his breathing is always on my mind. However, patient states that she is forgetting her pills frequently. 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 Documentation reviewed The pages of documentation from patient's recent hospitalization at [facility] from 04/20/2018 until 04/22/2018 were reviewed. Patient was admitted with a COPD exacerbation and acute hypoxic respiratory failure and was discharged on supplemental oxygen and a prednisone taper. Viral workup was negative at that time. Patient did have elevated glucoses associated with systemic steroids. HPI Comments Details: Intake Vital Signs04/27/18 Height 5 ft 5 in 04/27/18 Weight: 90.265 kg 04/27/18 Body Mass Index (BMI) 33.1 Intake Visit Reasons: 3 M FU [facility] Vendor: [employer] Accompanied by: Self Allergies No Known Allergies Allergy (Verified 04/27/18 08:27) Medications Amlodipine [Norvasc] 5 mg PO DAILY 03/03/15 [History Confirmed 04/27/18] Atorvastatin Calcium [Lipitor] 40 mg PO QHS 03/03/15 [History Confirmed 04/27/18] Hydrochlorothiazide [Hctz] 25 mg PO DAILY 03/03/15 [History Confirmed 04/27/18] Levothyroxine [Synthroid] 50 mcg PO DAILY 03/03/15 [History Confirmed 04/27/18] albuterol sulfate 2.5 mg/3 mL (0.083 %) solution for nebulization 2.5 mg INHALATION Q4H PRN ml 05/14/17 [History Confirmed 04/27/18] albuterol sulfate HFA 90 mcg/actuation aerosol inhaler 2 puff INHALATION Q4H PRN g 05/14/17 [History Confirmed 04/27/18] celecoxib 200 mg capsule 200 mg PO QDAY PRN 05/14/17 [History Confirmed 04/27/18] umeclidinium 62.5 mcg/actuation blister powder for inhalation 1 inh INHALATION QDAY #1 device 05/19/17 [Rx Confirmed 04/27/18] fluticasone 500 mcg-salmeterol 50 mcg/dose blistr powdr for inhalation 1 inh INHALATION BID #60 ea 03/10/18 [Rx Confirmed 04/27/18] montelukast 10 mg tablet 10 mg PO QPM #30 tab 03/10/18 [Rx Confirmed 04/27/18] Oxygen, Home [Home Oxygen] 2 lpm NASAL CONT #1 unit 04/22/18 [Rx Confirmed 04/27/18] Prednisone 10 mg PO UD #30 tab 04/22/18 [Rx Confirmed 04/27/18] PFSH Medical History Hepatitis C (Chronic) Prediabetes (Chronic) Memory loss (Chronic) Osteopenia (Chronic) Chronic lumbar radiculopathy (Chronic) Degenerative joint disease (Chronic) Rheumatoid arthritis (Chronic) Psoriasis (Chronic) NSAID induced gastritis (Chronic) GERD (gastroesophageal reflux disease) (Chronic) HTN (hypertension) (Chronic) Asthma (Chronic) Depression (Chronic) Hyperlipidemia (Chronic) Obesity (Chronic) Hypothyroidism (Chronic) BEN (obstructive sleep apnea) (Chronic) Tobacco dependence in remission (Chronic) Lung nodule (Chronic) Social History Smoking Status: Former smoker how long ago did patient quit smokin second hand exposure: Yes alcohol intake: current alcohol intake frequency: a few times a month Alcohol type: wine, beer substance use type: does not use Review of Systems Const CONSTITUTIONAL: Positive fatigue; negative anorexia, body ache, chills, daytime sleepiness, fever(s), night sweats, oral thrush, stops breathing during sleep, weight loss, sleeping in chair, weight loss, weight gain, frequent colds, seasonal allergies, other, headache(s) or orthopnea EETM Ear Nose Throat Mouth: Positive hearing normal; negative hoarseness, dry mouth in morning, change in vision, itchy eyes, eye pain, swallowing Difficulty, ear pain, headache(s), mouth pain, nasal congestion, nasal discharge, sinus pain, sinus pressure, sore throat, other, hard of hearing, nose bleed or post nasal drip Cardio Cardiovascular: Positive edema; negative chest pain, chest pain at rest, chest pain with activity, irregular heart rhythm, shortness of breath when lying down, palpitations, other or murmur Resp Respiratory: Positive as per HPI, shortness of breath shortness of breath: Positive with activity and cough cough: Positive non-productive; negative pain with cough, wheezing, chest congestion, chest tightness, pain on inspiration, inhalers, increase use of rescue inhalers, snoring, apnea or other Gastro Gastrointestional: Negative bloody stools, change in appetite, difficulty swallowing, reflux, hematemesis, melena stool, loose stool, constipation or other Genitourinary: Negative blood in urine, nocturia, pain with urination or other Musc Musculoskeletal: Negative body pain, back pain, neck pain or other Skin/Breast Skin/Breast: Negative dry skin, itching, unusual bruising, breast lump, other or rash Neuro Neurological: Negative restless legs, confusion, weakness or other Psych Psychocological: Positive anxiety; negative abnormal sleep pattern, thoughts of hurting self/others, hopelessness or other Lymph Lymphatic: Negative easy bleeding, easy bruising, other or swollen lymph nodes Exam Const Constitutional: Positive conversant, cooperative, in no acute respiratory distress, healthy appearing, well developed, well nourished, good hygiene, obese, appears older than stated age and wearing supplemental oxygen; negative smells of smoke or ill appearing Head Head: Positive normocephalic and atraumatic; negative cyanosis of lips/distal nose, frontal sinus tenderness or maxillary sinus tenderness Eyes Eye: Positive clear conjunctiva; negative nystagmus, scleral abnormality or cataract present Ears Ear: Positive hearing normal and external ears normal; negative hard of hearing Nose Nose: Positive external nose normal, septum normal and no nasal discharge; negative epistaxis or nasal polyp Mouth Mouth: Positive oral mucosae normal, no lesions and crowded posterior oropharynx; negative post nasal drip, malodorous breath or oral thrush present Mallampati Score: III: Mallampati Score Neck Neck: Positive normal visual inspection, full ROM, trachea midline and female neck greater than 37 cm (15 in); negative lymphadenopathy or JVD Chest Wall Chest: Positive symmetric chest movement and increased A/P diameter; negative crepitus or tenderness Resp lung sounds: Positive wheeze present on forced exhalation, prolonged expiratory time and normal chronic state of increased work of breathing; negative wheezes, rhonchi, rales, use of accessory muscles or dullness to percussion Cardio Cardiac: Positive regular rate, regular rhythm, S1 normal and S2 normal; negative murmur, rub or gallop GI GI: Positive normal to inspection, normal bowel sounds and obese; negative distended, ascites or epigastric tenderness Genitourinary: Positive deferred Musc Musculoskeletal: Negative steady gait (Awkward with oxygen weight), using an assistive device for ambulation, kyphosis or scoliosis Skin Pulmonary Skin Exam: Positive intact and dermal atrophy; negative rash, lesion, ulcers or erythema Pulses Pulse: Yes radial pulses present Extremities Extremities: Yes capillary refill normal, Yes clubbing, No cyanosis, No edema, No stasis dermatitis Neuro Neurologic: Yes conversant, Yes no focal neuro deficits, No normal concentration, Yes understands questions, Yes cooperative, Yes normal cognition, Yes normal coordination Lymph Lymphatic: No lymphadenopathy Psych Appearance: Positive grossly normal Mental Status: Positive mental status grossly normal Mood: Positive congruent mood Affect: Positive normal affect Coding Level of Care Code Off vis,est,level 5 Diagnoses Pulmonary hypertension I27.20 COPD exacerbation J44.1 Rheumatoid arthritis M06.9 BEN (obstructive sleep apnea) G47.33 Class 1 obesity due to excess calories with serious comorbidity and body mass index (BMI) of 33.0 to 33.9 in adult E66.09; Z68.33 Obesity type: due to excess calories Obesity classification: adult class 1 (BMI 30 - 34.9) Serious obesity comorbidity presence: with serious comorbidity Body mass index: BMI 33.0-33.9 04/27/18 0913 <Electronically signed by Noam Osorio MD> Date Noam Osorio MD Cosigner Signature: Date (if applicable) CC: NILDA LOMAX DISCHARGE SUMMARY Observed: 04/22/2018 Status: F Source: [place] 12:07 PM [facility] REPOSITORY [facility] Medical Records Department [address] [place] [address] Discharge Summary 04/22/18 1201 MR#: [id number] Acct: [id number] Name: SYDNIE GELLER Rep #: [id number] : 1960 58 From: Selena Jones MD PCP: NILDA MEDELLIN Status: ADM IN Y Location: [place] [address]-1 Discharge Date and Diagnosis - Problem List Patient Problems: Active and Suspected Problems (Last Updated 04/20/18 @ 10:54 by Selena Jones MD) Acute hypoxemic respiratory failure (Acute) Date of Admission: 04/20/18 Date of Discharge: 04/22/18 - Primary Discharge Diagnosis Active and Suspected Problems (Last Updated 04/20/18 @ 10:54 by Selena Jones MD) #1 acute COPD exacerbation. #2 acute hypoxic respiratory failure, qualified for home oxygen, discharged on home oxygen to be able to ambulate around home and do her basic daily activities. - Secondary Discharge Diagnosis Chronic Problems (Last Updated 04/20/18 @ 10:54 by Selena Jones MD) COPD exacerbation (Chronic) Pulmonary hypertension (Chronic) Stage I diastolic dysfunction, RVSP 28 mmHg COPD (chronic obstructive pulmonary disease) (Chronic) Hepatitis C (Chronic) Prediabetes (Chronic) Memory loss (Chronic) Osteopenia (Chronic) Chronic lumbar radiculopathy (Chronic) Degenerative joint disease (Chronic) Rheumatoid arthritis (Chronic) Psoriasis (Chronic) NSAID induced gastritis (Chronic) GERD (gastroesophageal reflux disease) (Chronic) HTN (hypertension) (Chronic) Asthma (Chronic) Depression (Chronic) Hyperlipidemia (Chronic) Obesity (Chronic) Hypothyroidism (Chronic) BEN (obstructive sleep apnea) (Chronic) CPAP 13 cm of water Tobacco dependence in remission (Chronic) Lung nodule (Chronic) Hospital Course and Treatment Imaging Results: Clinical Impression(s) from Imaging Studies Chest X-Ray 04/19/18 22:50 IMPRESSION: No acute thoracic pathology. Electronically Signed: Wang Lofton, at 23:04 EST Tel , Service support , Operations: None Procedures: None Summary of Care Provided: Patient seen and examined on the day of discharge and appeared to be stable to be discharged home. Her symptoms continued to improve slowly. Still complaining of mild dry cough. Repeat walking pulse oximeter today revealed pulse ox of 85% on room air with ambulation and she did qualify for home oxygen. Her other vital signs are stable. The patient is a 58 year old F admitted because of shortness of breath and dry cough and she was found to have acute COPD exacerbation complicated by acute hypoxic respiratory failure. Chest x-ray showed no acute findings, pneumonia ruled out. Patient was treated with IV steroids, IV antibiotics and bronchodilators. Nasal swab for influenza a and B were negative. Respiratory panel for viruses were negative as well. Her routine blood work was unremarkable. Apart from hypoxia, her other vital signs were stable. With treatment, patient reported improvement of her symptoms. Walking pulse oximeter performed yesterday and her pulse ox went down to 87% on room air with ambulation. Patient did mention that she gets more short of breath upon ambulation. Today which is a day of discharge, repeat walking pulse oximeter also performed and her pulse ox dropped down to 85% on room air with ambulation she was short of breath. She did not qualify for home oxygen to be able to ambulate around her home and do her basic daily activities. Patient discharged home in a stable medical condition, she completed 3 days of IV Zithromax, no antibiotic given upon discharge, discharged on tapering course of prednisone, discharged on home oxygen at 2 L, may increase up to 3 L upon ambulation, recommended follow-up with PCP in 1 week. Patient Problems: Active and Suspected Problems (Last Updated 04/20/18 @ 10:54 by Selena Jones MD) Acute hypoxemic respiratory failure (Acute) - Physical Exam General: Alert, Oriented x3, Cooperative, No apparent distress HEENT: Atraumatic, PERRLA, EOMI, Normocephalic Oral: Moist Mucosa, No Gingival or Mucosal Lesions/ Ulcerations Neck: Supple, No JVD, Negative Carotid Bruits, Trachea Midline, Thyroid Normal Size and Texture Lungs: Clear to auscultation, No rhonchi, No wheeze, No rales, Diminished Cardiovascular: Regular rate, Regular Rhythm, Normal S1, Normal S2, No murmurs Abdomen: Bowel Sounds Present, Soft, Non Tender, Non-Distended, No Hepato-splenomegaly Extremities: No clubbing, No cyanosis, No edema Skin: No rashes, No breakdown Lymphatic: No Cervical, Supraclavicular, or Inguinal Adenopathy Neurological: Cranial nerves II-XII grossly intact, Neuro grossly intact Psych/Mental Status: Normal Affect, Appropriate Vital Signs Temp Pulse Resp BP Pulse Ox 98.2 F 80 18 128/74 H 92 04/22/18 07:39 04/22/18 07:46 04/22/18 07:39 04/22/18 07:39 04/22/18 08:16 Oxygen Flow Rate (L/min) [ 3 AMBULATION with Oxygen] Oxygen Flow Rate (L/min) [ 0 AMBULATING on Room Air] Oxygen Flow Rate (L/min) [At 0 REST on Room Air] Oxygen Flow Rate (L/min) 1.5 Oxygen Delivery Method Nasal Cannula Weight: 198 lb 6.656 oz Body Mass Index (BMI) 33.0 Intake and Output for Last 24 Hours Intake Total 1150 / 1150 2730 / 2730 1781 / 1781 Balance 1150 / 1150 2730 / 2730 1781 / 1781 Microbiology Past 72 Hours 04/20/18 02:30 Respiratory Panel (PCR) - Final Mucosa - Nasopharyngeal 04/19/18 23:05 Influenza Types A,B Direct FA (ARNULFO) - Final Mucosa - Nasopharyngeal POC Glucose POC Glucose 153 H 144 H 152 H POC Glucose 188 H Discharge Activity: Return to Normal Activity Weight Bearing Status: Weight bearing as tolerated Call your doctor if you observe: Fever of 101 or Higher, Shortness of breath, Dizziness, Fainting spells, Chest pain, Increased palpitations (irregular heartbeat), Uncontrolled pain Home Medications: Medications to take at Discharge Amlodipine [Norvasc] 5 mg PO DAILY 03/03/15 Atorvastatin Calcium [Lipitor] 40 mg PO QHS 03/03/15 Hydrochlorothiazide [Hctz] 25 mg PO DAILY 03/03/15 Levothyroxine [Synthroid] 50 mcg PO DAILY 03/03/15 albuterol sulfate 2.5 mg/3 mL (0.083 %) solution for nebulization 2.5 mg INHALATION Q4H PRN ml 05/14/17 albuterol sulfate HFA 90 mcg/actuation aerosol inhaler 2 puff INHALATION Q4H PRN g 05/14/17 celecoxib 200 mg capsule 200 mg PO QDAY PRN 05/14/17 umeclidinium 62.5 mcg/actuation blister powder for inhalation 1 inh INHALATION QDAY #1 device 05/19/17 fluticasone 500 mcg-salmeterol 50 mcg/dose blistr powdr for inhalation 1 inh INHALATION BID #60 ea 03/10/18 montelukast 10 mg tablet 10 mg PO QPM #30 tab 03/10/18 Oxygen, Home [Home Oxygen] 2 lpm NASAL CONT #1 unit 04/22/18 Prednisone 10 mg PO UD #30 tab 04/22/18 Following Prescrptions Were Given to Patient: Oxygen, Home [Home Oxygen] 2 lpm NASAL CONT #1 unit Prednisone 10 mg PO UD #30 tab Primary Care Physician: Aaliyah Lomax PA [Primary Care Provider] - Please follow up with your Primary Care Physician in: 1 week. Patient Instructions: Using Oxygen at Home, Discharge Instructions: COPD Disposition: Home Minutes spent on discharge:: 27 Patient Condition:: Stable Medical Necessity - Tobacco Use Smoking Status: Former smoker Meaningful Use Info Meaningful Use Diagnoses (Choose all that apply): None applicable Code Visit Inpatient E AND M: 41655 Disch Hosp 04/22/18 1207 <Electronically signed by Selena Jones MD> Date Selena Jones MD Cosigner Signature (if applicable): Date CC: NILDA LOMAX; Selena Jones Signed DISCHARGE INSTRUCTION Observed: 04/22/2018 Status: F Source: [place] 10:00 AM [facility] REPOSITORY [facility] Medical Records Department [address] [place] [address] Instructions for Home/Discharge Instructions 04/22/18 0959 MR#: [id number] Acct: [id number] Name: SYDNIE GELLER Rep #: [id number] : 1960 58 From: Selena Jones MD PCP: NILDA MEDELLIN Status: ADM IN - Discharge Diagnoses Current Active Problems: Current Active and Chronic Problems (Last Updated 04/20/18 @ 10:54 by Selena Jones MD) Acute hypoxemic respiratory failure (Acute) COPD exacerbation (Chronic) You will use the following diet at home:: Cardiac Your food should be the consistency of: Regular Discharge Activity: Return to Normal Activity Weight Bearing Status: Weight bearing as tolerated Call your doctor if you observe: Fever of 101 or Higher, Shortness of breath, Dizziness, Fainting spells, Chest pain, Increased palpitations (irregular heartbeat), Uncontrolled pain Instructions: Discharge Instructions: COPD, Using Oxygen at Home Allergies/Adverse Reactions: Allergies No Known Allergies Allergy (Verified 12/27/17 07:39) Medications to take at Discharge Amlodipine [Norvasc] 5 mg PO DAILY 03/03/15 Atorvastatin Calcium [Lipitor] 40 mg PO QHS 03/03/15 Hydrochlorothiazide [Hctz] 25 mg PO DAILY 03/03/15 Levothyroxine [Synthroid] 50 mcg PO DAILY 03/03/15 albuterol sulfate 2.5 mg/3 mL (0.083 %) solution for nebulization 2.5 mg INHALATION Q4H PRN ml 05/14/17 albuterol sulfate HFA 90 mcg/actuation aerosol inhaler 2 puff INHALATION Q4H PRN g 05/14/17 celecoxib 200 mg capsule 200 mg PO QDAY PRN 05/14/17 umeclidinium 62.5 mcg/actuation blister powder for inhalation 1 inh INHALATION QDAY #1 device 05/19/17 fluticasone 500 mcg-salmeterol 50 mcg/dose blistr powdr for inhalation 1 inh INHALATION BID #60 ea 03/10/18 montelukast 10 mg tablet 10 mg PO QPM #30 tab 03/10/18 Oxygen, Home [Home Oxygen] 2 lpm NASAL CONT #1 unit 04/22/18 Prednisone 10 mg PO UD #30 tab 04/22/18 The following prescriptions were given: Oxygen, Home [Home Oxygen] 2 lpm NASAL CONT #1 unit Prednisone 10 mg PO UD #30 tab Primary Care Physician: Aaliyah Lomax PA [Primary Care Provider] - Please follow up with your Primary Care Physician in: 1 week. Test Results: Test results from this visit will be discussed in further detail at your follow-up appointment, if applicable. 04/22/18 1000 <Electronically signed by Selena Jones MD> Date Selena Jones MD CC: NILDA LOMAX 12 LEAD ELECTROCARDIOGRAM Observed: 04/22/2018 Status: F Source: [place] 9:09 AM [facility] REPOSITORY [facility] Cardiovascular Services [address] [place] [id number] 12 Lead EKG 04/19/18 2307 MR#: [id number] Acct: [id number] Name: SYDNIE GELLER Rep #: [id number] : 1960 58 From: Ahmet Valdivia MD Attending Dr: Selena Jones Status: ADM IN Ordering Dr: Shelia Colbert MD Date: 04/19/18 Location: [facility] Sex: F C Admitted: 04/20/18 Test Reason : SOB Blood Pressure : / mmHG Vent. Rate : 088 BPM Atrial Rate : 088 BPM P-R Int : 158 ms QRS Dur : 078 ms QT Int : 370 ms P-R-T Axes : 060 -02 048 degrees QTc Int : 447 ms Normal sinus rhythm Normal ECG Confirmed by AHMET VALDIVIA MD ([id number]), acquisition editor NICOLE ROCHA ([id number]) on 04/22/2018 9:08:47 AM Referred By: Aaliyah Lomax Confirmed By:AHMET VALDIVIA MD 04/22/18 0908 Date Ahmet Valdivia MD CC: NILDA LOMAX; Shelia Colbert MD; Selena Jones Signed BEDSIDE GLUCOSE Collected: 04/22/2018 Status: F Source: [place] 6:44 AM [facility] REPOSITORY TYPE CODE TESTS RESULT OUT OF REFERENCE UNITS RANGE LAB L501.080 70-110 mg/dL High BEDSIDE GLU 153 Result Comment: MANAGEMENT OF PATIENT CARE PER NURSING PROTOCOL Performed By: #### L501.080 #### [facility] Laboratory Point of Care [address] [place] [address] BEDSIDE GLUCOSE Collected: 04/21/2018 Status: F Source: [place] 9:49 PM [facility] REPOSITORY TYPE CODE TESTS RESULT OUT OF REFERENCE UNITS RANGE LAB L501.080 70-110 mg/dL High BEDSIDE GLU 144 Result Comment: MANAGEMENT OF PATIENT CARE PER NURSING PROTOCOL Performed By: #### L501.080 #### [facility] Point of Care [address] [place] [address] BEDSIDE GLUCOSE Collected: 04/21/2018 Status: F Source: [place] 5:19 PM [facility] REPOSITORY TYPE CODE TESTS RESULT OUT OF REFERENCE UNITS RANGE LAB L501.080 70-110 mg/dL High BEDSIDE GLU 152 Result Comment: MANAGEMENT OF PATIENT CARE PER NURSING PROTOCOL Performed By: #### L501.080 #### [facility] Point of Care [address] [place] [address] BEDSIDE GLUCOSE Collected: 04/21/2018 Status: F Source: [place] 12:24 PM [facility] REPOSITORY TYPE CODE TESTS RESULT OUT OF REFERENCE UNITS RANGE LAB L501.080 70-110 mg/dL High BEDSIDE GLU 188 Result Comment: MANAGEMENT OF PATIENT CARE PER NURSING PROTOCOL Performed By: #### L501.080 #### [facility] Point of Care [address] [place] [address] BEDSIDE GLUCOSE Collected: 04/21/2018 Status: F Source: [place] 6:28 AM [facility] REPOSITORY TYPE CODE TESTS RESULT OUT OF REFERENCE UNITS RANGE LAB L501.080 70-110 mg/dL High BEDSIDE GLU 161 Result Comment: MANAGEMENT OF PATIENT CARE PER NURSING PROTOCOL Performed By: #### L501.080 #### [facility] Point of Care [address] [place] [address] BEDSIDE GLUCOSE Collected: 04/20/2018 Status: F Source: [place] 9:35 PM [facility] REPOSITORY TYPE CODE TESTS RESULT OUT OF REFERENCE UNITS RANGE LAB L501.080 70-110 mg/dL High BEDSIDE GLU 188 Result Comment: MANAGEMENT OF PATIENT CARE PER NURSING PROTOCOL Performed By: #### L501.080 #### [facility] Point of Care [address] [place] [address] BEDSIDE GLUCOSE Collected: 04/20/2018 Status: F Source: [place] 5:02 PM [facility] REPOSITORY TYPE CODE TESTS RESULT OUT OF REFERENCE UNITS RANGE LAB L501.080 70-110 mg/dL High BEDSIDE GLU 168 Result Comment: MANAGEMENT OF PATIENT CARE PER NURSING PROTOCOL Performed By: #### L501.080 #### [facility] Point of Care [address] [place] [address] BEDSIDE GLUCOSE Collected: 04/20/2018 Status: F Source: [place] 11:51 AM [facility] REPOSITORY TYPE CODE TESTS RESULT OUT OF REFERENCE UNITS RANGE LAB L501.080 70-110 mg/dL High BEDSIDE GLU 220 Result Comment: MANAGEMENT OF PATIENT CARE PER NURSING PROTOCOL Performed By: #### L501.080 #### [facility] Point of Care [address] [place] [address] BEDSIDE GLUCOSE Collected: 04/20/2018 Status: F Source: [place] 6:32 AM [facility] REPOSITORY TYPE CODE TESTS RESULT OUT OF REFERENCE UNITS RANGE LAB L501.080 70-110 mg/dL High BEDSIDE GLU 154 Result Comment: MANAGEMENT OF PATIENT CARE PER NURSING PROTOCOL Performed By: #### L501.080 #### [facility] Point of Care [address] [place] [address] CBC W/DIFF, AUTOMATED Collected: 04/20/2018 Status: F Source: [place] 5:10 AM [facility] REPOSITORY TYPE CODE TESTS RESULT OUT OF RANGE REFERENCE UNITS LAB L100.1000 4.4-11.0 K/mm3 Normal WBC 10.6 LAB L100.1200 4.2-5.4 M/mm3 Low RBC 4.04 LAB L100.1300 12.0-15.0 g/dl Normal HGB 13.0 LAB L100.1400 37-47 % Normal HCT 39.4 LAB L100.1500 81-99 fL Normal MCV 97.5 LAB L100.1600 27.0-32.0 pg High MCH 32.2 LAB L100.1700 32-36 g/gl Normal MCHC 33.0 LAB L100.1810 11.6-14.6 % Normal RDW CV 12.0 LAB L100.1820 35.1-43.9 fl Normal RDW SD 41.9 LAB L100.1900 150-450 K/mm3 Normal PLT 372 LAB L100.2000 6.2-12.0 fl Normal MPV 9.3 LAB L100.2100 47-70 % High NEUT% 90.7 LAB L100.2200 19-41 % Low LY% 7.4 LAB L100.2300 0-10 % Normal MONO% 0.9 LAB L100.2400 0-5 % Normal EO% 0.3 LAB L100.2500 0-1 % Normal BASO% 0.4 LAB L100.2550 0.0-0.9 % Normal IM GRAN % 0.300 Result Comment: IG% - Immature Granulocytes (promyelocytes, myelocytes and metamyelocytes) > 1% indicates that a LEFT SHIFT is Present. LAB L100.2620 2.0-7.7 X10 3/uL High Absolute Neut 9.6 LAB L100.2720 0.83-4.51 X10 3/ul Low Absolute Lymph 0.79 Performed By: #### L100.0100 #### [facility] [address] [place], [address] BASIC METABOLIC Collected: 04/20/2018 Status: F Source: [place] PROFILE ([facility]) 5:10 AM [facility] REPOSITORY TYPE CODE TESTS RESULT OUT OF RANGE REFERENCE UNITS LAB L501.0100 74-106 mg/dL High GLU 173 Result Comment: Fasting Glucose result greater than or equal to 126 mg/dL suggests DIABETES MELLITUS per A.D.A. criteria. Please note revised GLUCOSE reference range effective 2017. LAB L501.1000 7-18 mg/dL Normal BUN 13 LAB L501.1100 0.55-1.02 mg/dL Normal CREAT,SERUM 0.92 Result Comment: The validity of the calculated GFR AND GFRAA in patients over 70 years has not been determined. Clinical correlation is essential. LAB L501.1110 >60 mL/min Normal EST GFR 66 Result Comment: Non- GFR Calc LAB L501.1115 >60 mL/min Normal EST GFR - AA 80 Result Comment: GFR Calc LAB L501.1255 ml/min Normal Estimated CRCL 59.25 LAB L501.1300 10-20 RATIO Normal BUN/CRE 14.1 LAB L501.2200 8.5-10 mg/dL Normal .1 CA 8.5 LAB L501.5300 136-14 mmol/L Normal 5 NA 137 LAB L501.5600 3.5-5. mmol/L Normal 1 K 3.5 LAB L501.5900 98-107 mmol/L Normal CL 105 LAB L501.6100 21.0-3 mmol/L Normal 2.0 CO2 21.0 LAB L501.6200 5-15 Normal GAP 11 Performed By: #### L500.2500 #### [facility] [address] [place], [place], [address] Observed: 04/20/2018 Status: F Source: [place] RESPIRATORY PANEL 2:30 AM [facility] MOLECULAR REPOSITORY RP PANEL ADENOVIRUS Not Detected HUMAN METAPHNEUMO Not Detected INFLUENZA A Not Detected INFLUENZA A (SUBTYPE H1) Not Detected INFLUENZA A (SUBTYPE H3) Not Detected INFLUENZA B Not Detected PARAINFLUENZA 1 Not Detected PARAINFLUENZA 2 Not Detected PARAINFLUENZA 3 Not Detected PARAINFLUENZA 4 Not Detected RHINOVIRUS Not Detected RSV A Not Detected RSV B Not Detected NAAT METHOD Testing was performed using nucleic acid amplification Performed By: #### M100.638 #### [facility] [address] [place], [place], [address] HISTORY AND PHYSICAL Observed: 04/20/2018 Status: F Source: [place] EXAM 2:19 AM [facility] REPOSITORY [facility] Medical Records Department [address] [place] [address] History and Physical 04/20/18 0046 MR#: [id number] Acct: [id number] Name: SYDNIE GELLER Rep #: [id number] : 1960 58 From: Mane Lozano MD PCP: NILDA MEDELLIN Status: ADM IN Y Location: [place] [id number] Problem List (1) Acute hypoxemic respiratory failure Status: Acute (2) Pulmonary hypertension Status: Chronic Comment: Stage I diastolic dysfunction, RVSP 28 mmHg (3) COPD (chronic obstructive pulmonary disease) Status: Chronic Qualifiers: COPD type: unspecified COPD Qualified Code(s): J44.9 - Chronic obstructive pulmonary disease, unspecified (4) Hepatitis C Status: Chronic (5) COPD exacerbation Status: Chronic History of Present Illness Date of Admission: 04/20/18 Chief Complaint: fever The patient is a 58 year old F allergic rhinitis; COPD; pulmonary hypertension; sleep apnea; rheumatoid arthritis; hepatitis C; GERD; former smoker who presented because of 8-day history of persistent fever. Patient reported that at home her maximal temperature was 102.4 Fahrenheit. She went to her PCP and because of strong urinary odor she was started on Bactrim for UTI. Also she reported that she received some kind of shot at the PCPs office. Associated with her symptoms is progressively worsening shortness of breath. Shortness of breath is present at rest and with exertion. Also she has a tightness of her chest. She reported typically a tightness of her breath is associated with COPD. She reports cough productive for small amount of sputum she reported that her sputum is so small that she is unable to tell the color. She reports of some mild clear nasal discharge. Further she reports she reports of burning eyes; chills and night sweats. At emergency department rapid flu was negative. Patient walked at emergency department and her oxygen saturation dropped to 86% on room air. Patient was found to be tachypneic with respiratory rate about 20. Her T-max at emergency department was 100.7. At home patient does not use oxygen. While at home patient reported that walking short distances to her bathroom dropped her oxygen saturation to 84%. Patient did not receive flu shot this year because of previous adverse effect to the flu shot. Past Medical History Past Medical History (Chronic Problems): Chronic Problems (Last Reviewed 01/27/18 @ 11:38 by Yoly Baez, BOOK CANVASSER-C) COPD exacerbation (Chronic) Pulmonary hypertension (Chronic) Stage I diastolic dysfunction, RVSP 28 mmHg COPD (chronic obstructive pulmonary disease) (Chronic) Hepatitis C (Chronic) Prediabetes (Chronic) Memory loss (Chronic) Cervical dysphagia (Chronic) Osteopenia (Chronic) Chronic lumbar radiculopathy (Chronic) Degenerative joint disease (Chronic) Degeneration of intervertebral disc (Chronic) Rheumatoid arthritis (Chronic) Psoriasis (Chronic) Chronic constipation (Chronic) NSAID induced gastritis (Chronic) GERD (gastroesophageal reflux disease) (Chronic) HTN (hypertension) (Chronic) Asthma (Chronic) Situational anxiety (Chronic) Depression (Chronic) Hypokalemia (Chronic) Hyperlipidemia (Chronic) Obesity (Chronic) Hypothyroidism (Chronic) Emphysema lung (Chronic) BEN (obstructive sleep apnea) (Chronic) CPAP 13 cm of water Tobacco dependence in remission (Chronic) Lung nodule (Chronic) H/O chronic obstructive lung disease (Chronic) Medical History: Medical History (Last Reviewed 04/20/18 @ 01:45 by Mane Lozano MD) Hepatitis C (Chronic) B19.20 Prediabetes (Chronic) R73.03 Memory loss (Chronic) R41.3 Atrophic vaginitis (Acute) N95.2 Cervical dysphagia (Chronic) R13.19 Osteopenia (Chronic) M85.80 Chronic lumbar radiculopathy (Chronic) M54.16 History of hysterectomy (Resolved) Z98.890, Z90.710 Degenerative joint disease (Chronic) M19.90 Degeneration of intervertebral disc (Chronic) Rheumatoid arthritis (Chronic) M06.9 Psoriasis (Chronic) L40.9 Chronic constipation (Chronic) K59.09 NSAID induced gastritis (Chronic) K29.60, T39.395A GERD (gastroesophageal reflux disease) (Chronic) K21.9 HTN (hypertension) (Chronic) I10 Asthma (Chronic) J45.909 Situational anxiety (Chronic) F41.8 Depression (Chronic) F32.9 Hypokalemia (Chronic) E87.6 Hyperlipidemia (Chronic) E78.5 Obesity (Chronic) E66.9 Hypothyroidism (Chronic) E03.9 Emphysema lung (Chronic) J43.9 BEN (obstructive sleep apnea) (Chronic) G47.33 CPAP 13 cm of water Tobacco dependence in remission (Chronic) F17.201 Lung nodule (Chronic) R91.1 SOB (shortness of breath) (Acute) R06.02 Allergic rhinitis (Acute) J30.9 H/O chronic obstructive lung disease (Chronic) Z87.09 Allergies No Known Allergies Allergy (Verified 12/27/17 07:39) Home Medications: Ambulatory Orders Medication Instructions Recorded Surgical History: Surgical History (Last Reviewed 04/20/18 @ 01:46 by Mane Lozano MD) Hx of colonoscopy (Resolved) Z98.890 History of vein stripping (Resolved) Z98.890 History of thoracotomy (Resolved) Z98.890 History of eye surgery (Resolved) Z98.890 Surgical History: appendectomy, hysterectomy, - - Lung surgery for removal of precancerous lesion; bladder''; back surgery with pins at the back. Psychiatric History: Anxiety, Depression Lives: Spouse/ Significant Other Smoking Status: Former smoker - *Family History Maternal History Items: Cancer, Diabetes, Heart Disease - She reported multiple people in the maternal family have had heart surgery. Paternal History Items: Diabetes Review of Systems Constitutional: Reports: Chills, Fever. Denies: Weight Change HEENT: Reports: Sinus Drainage. Denies: Head Aches, Sinus Congestion, Sore Throat Cardiovascular: Reports: Chest Tightness. Denies: Chest Pain, Palpitations Respiratory: Reports: Cough, Shortness of breath at rest, Shortness of breath upon exertion, Sputum production Gastrointestinal: Denies: Abdominal Pain, Nausea, Vomiting Genitourinary: Denies: Dysuria Musculoskeletal: Denies: Joint Tenderness Skin: Denies: Rash, Wounds Neurological: Denies: Numbness, Tingling, Focal weakness Psychiatric: Reports: Anxiety, Depression Hematologic/ Lymphatic: Denies: Easy Bruising, Easy Bleeding VTE Information - Inpt Only VTE Present on Admission: No VTE Mechan Device Prophylaxis: None VTE Pharm Prophylaxis ordered?: Yes Patient Problems: Active and Suspected Problems (Last Reviewed 01/27/18 @ 11:38 by Yoly Baez NP-C) Acute hypoxemic respiratory failure (Acute) - Physical Exam General: Alert, Oriented x3, Cooperative HEENT: Atraumatic, PERRLA, EOMI, Normocephalic Neck: Supple, No JVD, Negative Carotid Bruits Lungs: Rales - Mild bilateral lower lobes., Tachypneic Cardiovascular: Regular rate, No murmurs Abdomen: Bowel Sounds Present, Soft, Non Tender Extremities: No edema, Capillary Refill Less than 3 Seconds Skin: No rashes, No breakdown Musculoskeletal: No Tenderness to Palpation of Joints or Extremities Neurological: Neuro grossly intact Psych/Mental Status: Normal Affect, Appropriate Vital Signs Temp Pulse Resp BP Pulse Ox 100.7 F H 88 16 141/77 H 92 04/20/18 00:35 04/20/18 00:32 04/20/18 00:32 04/20/18 00:32 04/20/18 00:32 Oxygen Flow Rate (L/min) 2 Oxygen Delivery Method Nasal Cannula Weight: 90.7 kg Body Mass Index (BMI) 33.3 Microbiology Past 72 Hours 04/19/18 23:05 Influenza Types A,B Direct FA (ARNULFO) - Final Mucosa - Nasopharyngeal Laboratory Tests Past 24 Hrs WBC 10.1 Assessment/Plan All Active Problems (Last Reviewed 01/27/18 @ 11:38 by Yoly Baez, BOOK CANVASSER-C) Acute hypoxemic respiratory failure (Acute) Atrophic vaginitis (Acute) Hx of colonoscopy (Resolved) History of vein stripping (Resolved) History of thoracotomy (Resolved) History of hysterectomy (Resolved) History of eye surgery (Resolved) SOB (shortness of breath) (Acute) Allergic rhinitis (Acute) The patient is a 58 year old F with a significant history of allergic rhinitis; COPD; pulmonary hypertension; sleep apnea; rheumatoid arthritis; hepatitis C; GERD; former smoker who presented because of 8-day history of persistent fever; shortness of breath and found to be hypoxic on room air. Acute hypoxemic Respiratory failure. Patient reported 84% oxygen saturation while walking at home. At emergency department her oxygen saturation was 86% on room air. Further diagnosis include viral illness; or viral illness accentuating COPD. It is also possible that her COPD is causing a flare of a pulmonary hypertension. Patient received Solu-Medrol IV and breathing treatments at emergency department. We will continue to Solu-Medrol IV; as well as scheduled DuoNeb and as needed albuterol. Patient received sodium chloride IV bolus at emergency department. Patient received Tylenol at emergency department for fever. Continue Tylenol for fever more than 100.7 and for pain. Because of accompanying fever patient is a good candidate for antibiotic treatments for COPD. We will start patient on azithromycin IV. Although rapid flu was negative; will order comprehensive respiratory panel. Incentive spirometer and chest physiotherapy ordered. Incruse on hold since patient will be on scheduled DuoNeb. Montelukast continued. Oxygen as needed to maintain saturation above 92%. Mucinex ordered On home LABA-ICS. Inhaled steroid ordered. Diabetes mellitus type II Patient reported that she is borderline diabetic and her diabetes is controlled by diet. She reports that her A1c has gone down. Because patient is been started on steroid we will start patient on correction scale insulin. Hypoglycemia protocol ordered. Hypothyroidism Synthroid continued. Obstructive sleep apnea Patient reports that at home she is supposed to use CPAP. She has not use her CPAP for some time because of severe burning pain in her nares with use of CPAP. She follows up with [facility]. In the hospital CPAP was discussed with patient. However patient declined CPAP use . Rheumatoid arthritis Patient reported that she stopped use of methotrexate due to multiple side effects and subsequently stopped leucovorin use. Celebrex as needed continued Hypertension On admission blood pressure was not within goal. Home hydrochlorothiazide and amlodipine continued Trend blood pressure and adjust blood pressure medication as necessary. Hep C Patient stated that this is followed up outpatient. Continue outpatient follow up. Hyperlipidemia Lipitor continued. DVT prophylaxis Lovenox continued. 04/20/18218 <Electronically signed by Mane Lozano MD> Date [facility] Signature: Date (if applicable) CC: NILDA LOMAX; Mane Lozano MD Signed EMERGENCY DEPARTMENT Observed: 04/20/2018 Status: F Source: [place] SUMMARY 1:00 AM [facility] REPOSITORY [facility] Medical Records Department [address] [place] [address] Emergency Department Summary 04/19/18 2245 MR#: [id number] Acct: [id number] Name: SYDNIE GELLER Rep #: [id number] : 1960 58 From: Shelia Colbert MD PCP: NILDA MEDELLIN Status: REG ER - ER Visit Summary Date of Service: 04/19/18 Chief Complaint: Fever History of Present Illness: The patient is a 58 F presenting with fever x 8 days. Patient has had a dry cough, shortness of breath. She has rhinorrhea. She states she has had chest tightness which has been constant for the past week. She saw her primary care physician on Wednesday and was diagnosed with a UTI. She states she was given IM medications in the office and was given Bactrim for home. She has nausea with no vomiting. Denies diarrhea or constipation. Denies urinary complaints. She took Tylenol 4 hours ago. She did not receive a flu shot this year. Physical Examination: Vitals are stable. Temperature 99.4 Alert no acute distress. HEENT exam is unremarkable. Neck is supple. No meningismus Lungs are expiratory wheezing bilaterally. Heart is regular rate and rhythm. Abdomen is soft with mild suprapubic tenderness with no rebound or guarding Extremities are unremarkable. Skin is warm and dry. No rash No focal neurologic deficit. Remainder of exam is unremarkable. Emergency Department Course and Treatment: Patient given albuterol/Atrovent aerosol, Tylenol, IV fluids. CBC, chemistries unremarkable other than glucose 122. Troponin is negative. Influenza negative. EKG is sinus rate of 88. Chest x-ray shows no acute process. Patient was ambulated in the ED and had a pulse ox of 86% on room air. She was given Solumedrol IV. Discussed with the hospitalist for admission. Disposition: Admission Impression: COPD exacerbation, hypoxia This note was generated with MasteryConnect dictation software. It may contain incorrect words, spelling, and punctuation that were not noted in review of the chart prior to signing ED Disposition - Plan for ED Patient: Chief Complaint: Shortness of Breath Referrals: Aaliyah Lomax PA [Primary Care Provider] - What to do if you have Problems For any increased pain, shortness of breath, bleeding, nausea or vomiting, chest pain, or any unexpected problems, contact your Primary Care Provider. Call [facility] ([phone]) or report to the closest Emergency Room. Call 911 if necessary. 04/20/18 0100 <Electronically signed by Shelia Colbert MD> Date Shelia Wright Signature (If Indicated): Date CC: NILDA AALIYAH LOMAX URINALYSIS, COMPLETE Collected: 04/20/2018 Status: F Source: [place] 12:00 AM [facility] REPOSITORY Order Comment: Order Date: 04/19/18 How was Urine Obtained? CLEAN CATCH TYPE CODE TESTS RESULT OUT OF RANGE REFERENCE UNITS LAB L400.3000 Yellow COLOR Normal Yellow LAB L400.3050 Clear Normal CLARITY Clear LAB L400.3200 Normal mg/dl Normal GLUCOSE, UR Normal LAB L400.3300 Negative mg/dL Normal BILIRUBIN URINE Negative LAB L400.3400 Negative mg/dl Normal KETONE UR Negative LAB L400.3465 1.002-1.030 Normal SP.GR. DIPSTX 1.015 LAB L400.3550 5.0 - 8.0 pH UR Normal 6.5 LAB L400.3600 Negative mg/dl PROT Normal DIPSTX Negative LAB L400.3700 Normal mg/dl High 1 UROBILI LAB L400.3750 Negative Normal NITRITE UR Negative LAB L400.3780 Negative /ul High 10 OCCULT BLOOD-UR LAB L400.3800 Negative /ul High LEUK ESTERASE 100 LAB L400.4050 0-5 /hpf WBC Normal 0-5 SEEN LAB L400.4100 0-5 /hpf 0 Normal RBC-UA SEEN LAB L400.4150 5-10 /hpf SQUAM 0 Normal EPI SEEN LAB L400.4300 None Seen /hpf 0 Normal BACTERIA SEEN LAB L400.4350 <or=2+ /hpf 0 Normal MUCUS, URINE SEEN Performed By: #### L400.0001 #### [facility] [address] [place], [place], [id number] Observed: 04/19/2018 Status: F Source: [place] INFLUENZA A+B (RAPID 11:05 PM [facility]) REPOSITORY Order Date: 04/19/18 FLU A/B Rapid Negative test results should be confirmed by culture. Order Rapid Viral Culture for Influenzae A+B ([id number]) if clinically indicated. Influenza Ag, Direct Presumptive NEGATIVE for Influenza A/B Antigen (See Note) Performed By: #### M101.0101 #### [facility] [place], [address] CBC W/DIFF, AUTOMATED Collected: 04/19/2018 Status: F Source: [place] 10:50 PM [facility] REPOSITORY TYPE CODE TESTS RESULT OUT OF RANGE REFERENCE UNITS LAB L100.1000 4.4-11.0 K/mm3 Normal WBC 10.1 LAB L100.1200 4.2-5.4 M/mm3 Low RBC 3.95 LAB L100.1300 12.0-15.0 g/dl Normal HGB 12.9 LAB L100.1400 37-47 % Normal HCT 38.3 LAB L100.1500 81-99 fL Normal MCV 97.0 LAB L100.1600 27.0-32.0 pg High MCH 32.7 LAB L100.1700 32-36 g/gl Normal MCHC 33.7 LAB L100.1810 11.6-14.6 % Normal RDW CV 12.1 LAB L100.1820 35.1-43.9 fl Normal RDW SD 41.7 LAB L100.1900 150-450 K/mm3 Normal PLT 364 LAB L100.2000 6.2-12.0 fl Normal MPV 9.2 LAB L100.2100 47-70 % Normal NEUT% 65.6 LAB L100.2200 19-41 % Low LY% 18.9 LAB L100.2300 0-10 % Normal MONO% 7.9 LAB L100.2400 0-5 % High EO% 6.2 LAB L100.2500 0-1 % High BASO% 1.2 LAB L100.2550 0.0-0.9 % Normal IM GRAN % 0.200 Result Comment: IG% - Immature Granulocytes (promyelocytes, myelocytes and metamyelocytes) > 1% indicates that a LEFT SHIFT is Present. LAB L100.2620 2.0-7.7 X10 3/uL Normal Absolute Neut 6.7 LAB L100.2720 0.83-4.51 X10 3/ul Normal Absolute Lymph 1.92 Performed By: #### L100.0100 #### [facility] [address] [place], [address] BASIC METABOLIC Collected: 04/19/2018 Status: F Source: [place] PROFILE (BMP) 10:50 PM [facility] REPOSITORY TYPE CODE TESTS RESULT OUT OF RANGE REFERENCE UNITS LAB L501.0100 74-106 mg/dL High GLU 122 Result Comment: Fasting Glucose result from 100 to 125 mg/dL suggests IMPAIRED HOMEOSTASIS per A.D.A. criteria. Please note revised GLUCOSE reference range effective 2017. LAB L501.1000 7-18 mg/dL Normal BUN 14 LAB L501.1100 0.55-1.02 mg/dL Normal CREAT,SERUM 0.96 Result Comment: The validity of the calculated GFR AND GFRAA in patients over 70 years has not been determined. Clinical correlation is essential. LAB L501.1110 >60 mL/min Normal EST GFR 63 Result Comment: Non- GFR Calc LAB L501.1115 >60 mL/min Normal EST GFR - AA 76 Result Comment: GFR Calc LAB L501.1255 ml/min Normal Estimated CRCL 56.78 LAB L501.1300 10-20 RATIO Normal BUN/CRE 14.6 LAB L501.2200 8.5-10 mg/dL Normal .1 CA 8.6 LAB L501.5300 136-14 mmol/L Normal 5 NA 136 LAB L501.5600 3.5-5. mmol/L Normal 1 K 3.9 LAB L501.5900 98-107 mmol/L Normal CL 100 LAB L501.6100 21.0-3 mmol/L Normal 2.0 CO2 27.0 LAB L501.6200 5-15 Normal GAP 9 Performed By: #### L500.2500, L501.4010 #### [facility] [address] [place], [address] TROPONIN-I Collected: 04/19/2018 Status: F Source: [place] 10:50 PM [facility] REPOSITORY TYPE CODE TESTS RESULT OUT OF RANGE REFERENCE UNITS LAB L501.4010 <0.045 ng/mL Normal < 0.015 TROPONIN-I Result Comment: TROPONIN-I EXPECTED VALUES <0.045 Negative 0.045 - 0.590 Consistent with Cardiac Damage > OR = 0.600 Critical Value Not every elevated troponin is indicative of NH. These values should be used with clinical judgement in examining the patient's clinical picture for diagnosis. To establish a diagnosis of NH versus myocardial injury, there must be a demonstrated rise and/or fall in the troponin values, in addition to ischemic symptoms, EKG changes, new regional wall motion abnormality, and/or angiographical evidence. PLEASE NOTE: REFERENCE RANGES EDITED 17 Performed By: #### L500.2500, L501.4010 #### [facility] [address] [place], [address] CHEST 1 VIEW Observed: 04/19/2018 Status: F Source: [place] (PORTABLE) 10:43 PM [facility] REPOSITORY [facility] Imaging Services [address] [address] Chest 1 View (Portable) MR#: [id number] Acct: [id number] Name: SYDNIE GELLER Rep #: [id number] : 1960 F 58 From: Wang Lofton MD PCP: NILDA MEDELLIN Status: REG ER Study: Chest 1 View (Portable) Date of Exam: 04/19/18 Exam# [id number] Ordering Dr: Shelia Colbert MD STUDY: X-RAY CHEST REASON FOR EXAM: Female, 58 years old. Fever TECHNIQUE: Frontal view of the chest COMPARISON: 04/18/2018 FINDINGS: The lungs are clear. There are no pleural effusions. There is no pneumothorax. The heart is normal in size. The visualized osseous structures are within normal limits. RAD/Chest 1 View (Portable) IMPRESSION: No acute thoracic pathology. Electronically Signed: Wang Lofton, at 23:04 EST Tel , Service support , CC: NILDA LOMAX; Shelia Colbert MD Cyber Systems Operations Specialist: Signed CHEST PA AND LATERAL Observed: 04/18/2018 Status: F Source: [place] 3:00 PM [facility] REPOSITORY [facility] Imaging Services [address] [place] [address] Chest PA and Lateral MR#: [id number] Acct: [id number] Name: SYDNIE GELLER Rep #: [id number] : 1960 F 58 From: Wang Lofton MD PCP: NILDA MEDELLIN Status: REG CLI Study: Chest PA and Lateral Date of Exam: 04/18/18 Exam# [id number] Ordering Dr: Aaliyah Lomax STUDY: X-RAY CHEST REASON FOR EXAM: Female, 58 years old. Shortness of breath. History of lung resection. TECHNIQUE: Frontal and lateral views of the chest COMPARISON: 09/02/2016 FINDINGS: There are stable emphysematous changes in the lungs. There is scarring again noted in the right upper lobe. The lungs are otherwise clear. There are no pleural effusions. There is no pneumothorax. The heart is normal in size. The visualized osseous structures are within normal limits. RAD/Chest PA and Lateral IMPRESSION: No acute thoracic pathology. Electronically Signed: Wang Lofton, at 15:23 EST Tel , Service support , CC: NILDA LOMAX Cyber Systems Operations Specialist: Signed PULMONARY VISIT REPORT Observed: 01/27/2018 Status: F Source: [place] 11:44 AM [facility] REPOSITORY [facility] [address] [place] [address] OFFICE VISIT Date of Service: 01/27/18 MR#: [id number] Acct: [id number] Name: SYDNIE GELLER Rep #: [id number] : 1960 Provider: Yoly Baez Age/Sex: 58/F Location: [facility] [place].PMW Status: Signed Assessment AND Plan 1. Chronic obstructive pulmonary disease, unspecified COPD type J44.9 Plan Does not appear to be an exacerbation of COPD today. No need for prednisone or antibiotic. Continue current maintenance medication. No additional testing at this time. Contact the office for any new or worsening symptoms. An acute visit and typically be arranged within 1-2 days. Follow-up in 3 months. 2. Pulmonary hypertension I27.20 Plan Stable. Does not currently require supplemental oxygen. Plan to recheck at least every 6 months. She has been advised to contact the office if she finds that her oxygen saturations are less than 89% at home, she does currently have a portable pulse oximeter and checks her oxygen saturations. 3. BEN (obstructive sleep apnea) G47.33 Plan She is using and benefiting from Pap therapy. Encouraged to get at least 4 hours nightly. Instructed patient that if she awakens in the night to turn off the machine, turn the machine back on so that she goes through the ramp process which would allow her more comfort, she conveys understanding and is agreeable. Follow-up with Dr. Osorio in 3 months. Plan Detail Follow Up 3 Months ([facility]) HPI 1 M FU: Chief Complaint: Shortness of breath HPI Comments Details: This patient presents the office today follow-up on her shortness of breath and to discuss recent test results. The patient is ambulatory, currently on room air. She has not been seen in the ED or urgent care since her last office visit for any respiratory problems. She has not required any antibiotics or prednisone for any breathing illnesses. She is compliant with Advair twice daily. Reports rinsing her mouth after each use. She denies any medication side effects such as sore throat or thrush. She is also compliant with increased daily. She is currently utilizing her ProAir rescue inhaler 1-2 times daily. She continues to experience shortness of breath, most, with exertion. She has a cough that is productive of clear sputum. She denies any hemoptysis. She denies any lower extremity edema. She reports occasional chest pain associated with shortness of breath on exertion. She admits that she has not tried to utilize her rescue inhaler during this time. She denies any palpitations. She denies any wheezing. She has not experienced any fever, chills or body aches. See complete review of systems. She continues to work towards acclimating to Pap therapy. She reports some obstacles, her [id number] granddaughter sleeps with her when she is babysitting her and is scared of the Pap device. She also reports that sometimes she watches her sons to dogs which provide her with some difficulty because they jumped on her bed. She also reports that if she awakens during the night she finds it difficult to fall back asleep with the Pap device already on. She believes it is helping and reports feeling more rested when she is able to wear it. Pulmonary stress test completed on December 29, 2017 shows that the patient was able to ambulate 590 feet over the course of 6 minutes, she did experience shortness of breath and dizziness. She did desaturate below 89%, no supplemental oxygen is indicated. Her oxygen saturation did drop to 90% at minute 6 but recovered with rest post test. Complaints report for the past 30 days shows 37% compliance, average use is 1 hour and 58 minutes. Current setting is 13 7 m of water, AHI is controlled at an average of 1.3 events per hour. Leaks do not appear to be an issue. Intake Vital Signs01/27/18 Height 5 ft 5 in 01/27/18 Weight: 194 lb Intake Visit Reasons: 1 M FU Chief Complaint: Shortness of breath DME Vendor: [employer] Accompanied by: Self Allergies No Known Allergies Allergy (Verified 12/27/17 07:39) Medications Amlodipine [Norvasc] 5 mg PO DAILY 03/03/15 [History Confirmed 12/27/17] Atorvastatin Calcium [Lipitor] 40 mg PO QHS 03/03/15 [History Confirmed 12/27/17] Fluticasone/Salmeterol [Advair 500/50 Mcg Diskus] 1 puff INHALATION BID 03/03/15 [History Confirmed 12/27/17] Folic Acid 1 mg PO BIDCM 03/03/15 [History Confirmed 12/27/17] Hydrochlorothiazide [Hctz] 25 mg PO DAILY 03/03/15 [History Confirmed 12/27/17] Levothyroxine [Synthroid] 50 mcg PO DAILY 03/03/15 [History Confirmed 12/27/17] Methotrexate 2.5 mg PO Q7D 03/03/15 [History Confirmed 12/27/17] Potassium Chloride [K-Dur] 20 meq PO DAILY 03/03/15 [History Confirmed 12/27/17] leucovorin tablet 15 mg PO Q7D 03/03/15 [History Confirmed 12/27/17] Guaifenesin/Pseudoephedrne HCl [Mucinex D ER 1,200-120 mg Tab] 1 ea PO BID #14 tab.er.12h 09/02/16 [Rx Confirmed 12/27/17] albuterol sulfate 2.5 mg/3 mL (0.083 %) solution for nebulization 2.5 mg INHALATION Q4H PRN ml 05/14/17 [History Confirmed 12/27/17] albuterol sulfate HFA 90 mcg/actuation aerosol inhaler 2 puff INHALATION Q4H PRN g 05/14/17 [History Confirmed 12/27/17] celecoxib 200 mg capsule 200 mg PO QDAY PRN 05/14/17 [History Confirmed 12/27/17] ondansetron HCl 4 mg tablet 4 mg PO Q8H PRN tab 05/14/17 [History Confirmed 12/27/17] umeclidinium 62.5 mcg/actuation blister powder for inhalation 1 inh INHALATION QDAY #1 device 05/19/17 [Rx Confirmed 12/27/17] ranitidine 75 mg tablet 75 mg PO QDAY tab 11/16/17 [History Confirmed 12/27/17] PFSH Medical History Hepatitis C (Chronic) Prediabetes (Chronic) Memory loss (Chronic) Atrophic vaginitis (Acute) Cervical dysphagia (Chronic) Osteopenia (Chronic) Chronic lumbar radiculopathy (Chronic) Degenerative joint disease (Chronic) Degeneration of intervertebral disc (Chronic) Rheumatoid arthritis (Chronic) Psoriasis (Chronic) Chronic constipation (Chronic) NSAID induced gastritis (Chronic) GERD (gastroesophageal reflux disease) (Chronic) HTN (hypertension) (Chronic) Asthma (Chronic) Situational anxiety (Chronic) Depression (Chronic) Hypokalemia (Chronic) Hyperlipidemia (Chronic) Obesity (Chronic) Hypothyroidism (Chronic) Emphysema lung (Chronic) BEN (obstructive sleep apnea) (Chronic) Tobacco dependence in remission (Chronic) Lung nodule (Chronic) SOB (shortness of breath) (Acute) Allergic rhinitis (Acute) H/O chronic obstructive lung disease (Chronic) Surgical History Hx of colonoscopy (Resolved) History of vein stripping (Resolved) History of thoracotomy (Resolved) History of hysterectomy (Resolved) History of eye surgery (Resolved) Social History Smoking Status: Former smoker how long ago did patient quit smokin second hand exposure: Yes alcohol intake: current alcohol intake frequency: a few times a month Alcohol type: wine, beer substance use type: does not use Review of Systems Const CONSTITUTIONAL: Positive fatigue; negative anorexia, body ache, chills, daytime sleepiness, fever(s), night sweats, oral thrush, stops breathing during sleep, weight loss, sleeping in chair, weight loss, weight gain, frequent colds, seasonal allergies, other, headache(s) or orthopnea EETM Ear Nose Throat Mouth: Positive post nasal drip and hearing normal; negative hard of hearing, hoarseness, dry mouth in morning, change in vision, itchy eyes, eye pain, swallowing Difficulty, ear pain, nose bleed, headache(s), mouth pain, nasal congestion, nasal discharge, sinus pain, sinus pressure, sore throat or other Cardio Cardiovascular: Negative chest pain, chest pain at rest, chest pain with activity, irregular heart rhythm, edema, shortness of breath when lying down, palpitations, murmur or other Resp Respiratory: Positive as per HPI, shortness of breath shortness of breath: Positive with activity, cough cough: Positive productive color: Positive thick and clear and inhalers; negative pain with cough, wheezing, chest congestion, chest tightness, pain on inspiration, increase use of rescue inhalers, snoring, apnea or other Gastro Gastrointestional: Negative bloody stools, change in appetite, difficulty swallowing, reflux, hematemesis, melena stool, loose stool, constipation or other Genitourinary: Negative blood in urine, nocturia, pain with urination or other Musc Musculoskeletal: Negative body pain, back pain, neck pain or other Skin/Breast Skin/Breast: Negative dry skin, itching, rash, unusual bruising, breast lump or other Neuro Neurological: Negative restless legs, confusion, weakness or other Psych Psychocological: Negative abnormal sleep pattern, anxiety, thoughts of hurting self/others, hopelessness or other Lymph Lymphatic: Negative easy bleeding, easy bruising, swollen lymph nodes or other Exam Const Constitutional: Positive conversant, cooperative, in no acute respiratory distress, well developed, well nourished, good hygiene and frail appearing Head Head: Positive normocephalic and atraumatic; negative cyanosis of lips/distal nose Eyes Eye: Positive clear conjunctiva; negative nystagmus or scleral abnormality Ears Ear: Positive hearing normal and external ears normal; negative hard of hearing Nose Nose: Positive external nose normal and no nasal discharge; negative epistaxis Mouth Mouth: Positive post nasal drip, oral mucosae normal, dentures, no lesions and posterior oropharynx is adequate; negative malodorous breath or oral thrush present Mallampati Score: II: Mallampati Score Neck Neck: Positive normal visual inspection, full ROM and trachea midline; negative lymphadenopathy, JVD or tender Chest Wall Chest: Positive normal inspection of the chest and symmetric chest movement; negative increased A/P diameter Resp lung sounds: Positive clear to auscultation, diminished, normal expiratory time and normal respiratory effort; negative wheezes, rhonchi, rales, dullness to percussion or wheeze present on forced exhalation Cardio Cardiac: Positive regular rate, regular rhythm, S1 normal and S2 normal; negative murmur GI GI: Positive normal to inspection; negative distended Genitourinary: Positive deferred Musc Musculoskeletal: Positive steady gait and ROM normal; negative kyphosis or scoliosis Skin Pulmonary Skin Exam: Positive intact; negative rash Pulses Pulse: Yes pulses normal x4 extremities Extremities Extremities: Yes capillary refill normal, No clubbing, No cyanosis, No edema Neuro Neurologic: Yes conversant, Yes no focal neuro deficits, Yes normal concentration, Yes understands questions, Yes cooperative, Yes normal cognition, Yes normal coordination Lymph Lymphatic: No lymphadenopathy, No tenderness, No cervical adenopathy Psych Appearance: Positive grossly normal, eye contact and well kempt Mental Status: Positive mental status grossly normal Mood: Positive anxious mood Affect: Positive anxious affect Coding Level of Care Code Off vis,est,level 3 Diagnoses Chronic obstructive pulmonary disease, unspecified COPD type J44.9 COPD type: unspecified COPD Pulmonary hypertension I27.20 BEN (obstructive sleep apnea) G47.33 01/27/18 1144 <Electronically signed by Yoly MONTALVOC> Date Yoly Wright Signature: Date (if applicable) CC: NILDA LOMAX 6 MINUTE WALK TEST Observed: 12/29/2017 Status: F Source: [place] 2:59 PM [facility] REPOSITORY [facility] Pulmonary Services/Neurology [address] [place] [address] MR#: [id number] Acct: [id number] Name: SYDNIE GELLER Rep #: [id number] : 1960 57 From: Noam Osorio MD Referring Dr: Yoly Baez NP Date: Ordering Dr: Sex: F C Location: PSN PSN 6 Minute Walk Test - 6 Minute Walk Test 6 Minute Walk Test: 6 Minute Walk Test PSN:6-Minute Walk Test Start: 12/29/17 09:12 Freq: Status: Active Protocol: RESP.6MINW Document 12/29/17 09:13 HG (Rec: 12/29/17 09:14 HG [id number]) 6 Minute Walk Test Date Performed 12/29/17 Time Performed 09:00 Height 5 ft 5 in Weight: 86.183 kg Weight in Pounds 190.[address]: Yoly Baez Assistive device used: None Pre-test Oxygen Delivery Method Room Air Pulse Ox (%) 96 Pulse Rate (60-100 beats/min) 75 Dyspnea Nimco Scale (0-10) 3 Exertion Nimco Scale (6-20) 13 1st minute Oxygen Delivery Method Room Air Pulse Ox (%) 97 Pulse Rate (60-100 beats/min) 72 2nd minute Oxygen Delivery Method Room Air Pulse Ox (%) 93 Pulse Rate (60-100 beats/min) 91 3rd minute Oxygen Delivery Method Room Air Pulse Ox (%) 92 Pulse Rate (60-100 beats/min) 91 4th minute Oxygen Delivery Method Room Air Pulse Ox (%) 92 Pulse Rate (60-100 beats/min) 84 Reported Symptoms Increased Work of Breathing Dizziness 5th minute Oxygen Delivery Method Room Air Pulse Ox (%) 94 Pulse Rate (60-100 beats/min) 81 6th minute Oxygen Delivery Method Room Air Pulse Ox (%) 90 Pulse Rate (60-100 beats/min) 88 Post-test Oxygen Delivery Method Room Air Pulse Ox (%) 96 Pulse Rate (60-100 beats/min) 80 Dyspnea Nimco Scale (0-10) 4 Exertion Nimco Scale (6-20) 14 Full Laps Walked 10 Partial Lap, Number of Tiles Walked 0 Total Distance Walked (ft) 590 - Interpretation Interpretation: The patient was able to ambulate only 590 feet over the course of 6 minutes on room air with no assistive devices, but one break secondary to dyspnea and dizziness. The patient did experience significant desaturation from a baseline of 96% to as low as 90% during testing. No significant tachycardia was noted. These findings are consistent with a respiratory limitation exercise tolerance. - Recommendations Recommendations: No supplemental oxygen is indicated at this time. However, patient should be followed closely given level of desaturation. 12/29/171458 <Electronically signed by Noam Osorio MD> Date Noam Osorio MD CC: Date Dictated: 12/29/171457 Date Transcribed: 12/29/171457 Cyber Systems Operations Specialist: Noam Osorio Signed PULMONARY VISIT REPORT Observed: 12/27/2017 Status: F Source: [place] 8:39 AM [facility] of [address] [place] [address] OFFICE VISIT Date of Service: 12/27/17 MR#: [id number] Acct: [id number] Name: SYDNIE GELLER Rep #: [id number] : 1960 Provider: Yoly Baez Age/Sex: 57/F Location: [facility] [place].PMW Status: Signed Assessment AND Plan 1. Shortness of breath R06.02 Plan Acutely worse, patient admits to using her neighbors supplemental oxygen at times. We will send her for a simple pulmonary stress test to identify any possible hypoxia with exertion, supplemental oxygen will be ordered if appropriate. Follow- up in 1 month. Orders Orders: 2. Chronic obstructive pulmonary disease, unspecified COPD type J44.9 Plan Continue current maintenance medications. Pulmonary stress test pending. Follow-up in 1 month. No antibiotics or prednisone today. Call the office with any new or worsening symptoms. 3. BEN (obstructive sleep apnea) G47.33 Status Chronic CPAP 13 cm of water Plan Deteriorated. Stage I diastolic dysfunction noted on recent echo, would benefit from PAP compliance. Patient has been issued a new machine but continues to struggle with CPAP at 13 cm of water. She attributes most of the difficulty to mask fit. She feels the pressure is comfortable. Follow-up closely at 1 month to evaluate patient's response. She has been encouraged to contact the office with any difficulties with further acclamation to the device. 4. Pulmonary hypertension I27.20 Stage I diastolic dysfunction, RVSP 28 mmHg Plan New. Pulmonary hypertension diet education provided today. Patient encouraged to avoid sodium intake. Patient also encouraged to become 100% compliant with Pap therapy. We will follow her closely at 1 month interval. Plan Detail Follow Up 1 Month ([facility]) HPI 6 wk FU: Chief Complaint: Shortness of breath HPI Comments Details: This patient presents the office today to follow- up after recently having some testing done. She is ambulatory and currently on room air. She has not been seen in the ED or urgent care for any respiratory illnesses since her last office visit. She has not required any antibiotics or prednisone for any breathing problems. She is compliant with Advair twice daily. She reports rinsing her mouth out after each use. She denies any medication side effects such as sore throat or thrush. She is also compliant with increased daily. She reports that she feels as though the Spiriva Respimat was more helpful than the increase, however her insurance coverage does not give her the ability to afford the Spiriva. She is now using her rescue inhaler 3- 4 times daily, and recently she has been using her albuterol nebulizer once daily. She attributes the increase in use of her rescue inhaler to the hot humid weather we have been experiencing. She does report relief of her shortness of breath temporarily when using the albuterol. Currently she is experiencing shortness of breath on exertion. She has some shortness of breath with conversation also. She denies any shortness of breath at rest. She currently has a cough that is productive of clear sputum. She denies any wheezing or chest tightness. She denies any chest pain or palpitations. She denies any lower extremity edema. She has been acclimating to CPAP. She reports that the pressure feels comfortable but she is having difficulty trying to adjust the humidity and trying to discover which mask is most comfortable. She is motivated and will continue to acclimate to the device. She does report feeling rested when using it, notices that it is helping. She reports that she eats a somewhat low-sodium diet. She admits to only adding salt to things like eggs. She denies currently that she eats any canned soups or lunch meats. Echocardiogram completed on November 26, 2017 shows an EF of 65% with stage I diastolic dysfunction and RVSP estimated to be 28 mmHg. Intake Vital Signs12/27/17 Height 5 ft 5 in 12/27/17 Weight: 194 lb Intake Visit Reasons: 6 wk FU Accompanied by: Self Allergies No Known Allergies Allergy (Verified 12/27/17 07:39) Medications Amlodipine [Norvasc] 5 mg PO DAILY 03/03/15 [History Confirmed 12/27/17] Atorvastatin Calcium [Lipitor] 40 mg PO QHS 03/03/15 [History Confirmed 12/27/17] Fluticasone/Salmeterol [Advair 500/50 Mcg Diskus] 1 puff INHALATION BID 03/03/15 [History Confirmed 12/27/17] Folic Acid 1 mg PO BIDCM 03/03/15 [History Confirmed 12/27/17] Hydrochlorothiazide [Hctz] 25 mg PO DAILY 03/03/15 [History Confirmed 12/27/17] Levothyroxine [Synthroid] 50 mcg PO DAILY 03/03/15 [History Confirmed 12/27/17] Methotrexate 2.5 mg PO Q7D 03/03/15 [History Confirmed 12/27/17] Potassium Chloride [K-Dur] 20 meq PO DAILY 03/03/15 [History Confirmed 12/27/17] leucovorin tablet 15 mg PO Q7D 03/03/15 [History Confirmed 12/27/17] Guaifenesin/Pseudoephedrne HCl [Mucinex D ER 1,200-120 mg Tab] 1 ea PO BID #14 tab.er.12h 09/02/16 [Rx Confirmed 12/27/17] albuterol sulfate 2.5 mg/3 mL (0.083 %) solution for nebulization 2.5 mg INHALATION Q4H PRN ml 05/14/17 [History Confirmed 12/27/17] albuterol sulfate HFA 90 mcg/actuation aerosol inhaler 2 puff INHALATION Q4H PRN g 05/14/17 [History Confirmed 12/27/17] celecoxib 200 mg capsule 200 mg PO QDAY PRN 05/14/17 [History Confirmed 12/27/17] ondansetron HCl 4 mg tablet 4 mg PO Q8H PRN tab 05/14/17 [History Confirmed 12/27/17] umeclidinium 62.5 mcg/actuation blister powder for inhalation 1 inh INHALATION QDAY #1 device 05/19/17 [Rx Confirmed 12/27/17] ranitidine 75 mg tablet 75 mg PO QDAY tab 11/16/17 [History Confirmed 12/27/17] PFSH Medical History Hepatitis C (Chronic) Prediabetes (Chronic) Memory loss (Chronic) Atrophic vaginitis (Acute) Cervical dysphagia (Chronic) Osteopenia (Chronic) Chronic lumbar radiculopathy (Chronic) Degenerative joint disease (Chronic) Degeneration of intervertebral disc (Chronic) Rheumatoid arthritis (Chronic) Psoriasis (Chronic) Chronic constipation (Chronic) NSAID induced gastritis (Chronic) GERD (gastroesophageal reflux disease) (Chronic) HTN (hypertension) (Chronic) Asthma (Chronic) Situational anxiety (Chronic) Depression (Chronic) Hypokalemia (Chronic) Hyperlipidemia (Chronic) Obesity (Chronic) Hypothyroidism (Chronic) Emphysema lung (Chronic) BEN (obstructive sleep apnea) (Chronic) Tobacco dependence in remission (Chronic) Lung nodule (Chronic) SOB (shortness of breath) (Acute) Allergic rhinitis (Acute) H/O chronic obstructive lung disease (Chronic) Surgical History Hx of colonoscopy (Resolved) History of vein stripping (Resolved) History of thoracotomy (Resolved) History of hysterectomy (Resolved) History of eye surgery (Resolved) Social History Smoking Status: Former smoker how long ago did patient quit smokin second hand exposure: Yes alcohol intake: current alcohol intake frequency: a few times a month Alcohol type: wine, beer substance use type: does not use FEV1% FEV1%: 71 RVSP RVSP: 28 mmHg Review of Systems Const CONSTITUTIONAL: Positive fatigue; negative anorexia, body ache, chills, daytime sleepiness, fever(s), night sweats, oral thrush, stops breathing during sleep, weight loss, sleeping in chair, weight loss, weight gain, frequent colds, seasonal allergies, other, headache(s) or orthopnea EETM Ear Nose Throat Mouth: Positive hearing normal and post nasal drip; negative hard of hearing, hoarseness, dry mouth in morning, change in vision, itchy eyes, eye pain, swallowing Difficulty, ear pain, nose bleed, headache(s), mouth pain, nasal congestion, nasal discharge, sinus pain, sinus pressure, sore throat or other Cardio Cardiovascular: Negative chest pain, chest pain at rest, chest pain with activity, irregular heart rhythm, edema, shortness of breath when lying down, palpitations, murmur or other Resp Respiratory: Positive as per HPI and shortness of breath shortness of breath: Positive with activity; negative pain with cough, wheezing, chest congestion, cough, chest tightness, pain on inspiration, inhalers, increase use of rescue inhalers, snoring, apnea or other Gastro Gastrointestional: Negative bloody stools, change in appetite, difficulty swallowing, reflux, hematemesis, melena stool, loose stool, constipation or other Genitourinary: Negative blood in urine, nocturia, pain with urination or other Musc Musculoskeletal: Positive back pain; negative body pain, neck pain or other Skin/Breast Skin/Breast: Negative dry skin, itching, rash, unusual bruising, breast lump or other Neuro Neurological: Negative restless legs, confusion, weakness or other Psych Psychocological: Negative abnormal sleep pattern, anxiety, thoughts of hurting self/others, hopelessness or other Lymph Lymphatic: Negative easy bleeding, easy bruising, swollen lymph nodes or other Exam Const Constitutional: Positive conversant, cooperative, in no acute respiratory distress, well developed, well nourished, good hygiene and dyspenic Head Head: Positive normocephalic and atraumatic; negative cyanosis of lips/distal nose Eyes Eye: Positive clear conjunctiva; negative nystagmus or scleral abnormality Ears Ear: Positive hearing normal and external ears normal; negative hard of hearing Nose Nose: Positive external nose normal and no nasal discharge; negative epistaxis Mouth Mouth: Positive post nasal drip, oral mucosae normal, no lesions, good dentition and posterior oropharynx is adequate; negative malodorous breath or oral thrush present Mallampati Score: I: Mallampati Score Neck Neck: Positive normal visual inspection, full ROM and trachea midline; negative lymphadenopathy, JVD or tender Chest Wall Chest: Positive normal inspection of the chest and symmetric chest movement; negative increased A/P diameter Resp lung sounds: Positive clear to auscultation, diminished, normal expiratory time and normal respiratory effort; negative wheezes, rhonchi, rales, dullness to percussion or wheeze present on forced exhalation Cardio Cardiac: Positive regular rate, regular rhythm, S1 normal and S2 normal; negative murmur GI GI: Positive normal to inspection; negative distended Genitourinary: Positive deferred Musc Musculoskeletal: Positive steady gait and ROM normal; negative kyphosis or scoliosis Skin Pulmonary Skin Exam: Positive intact; negative rash, lesion, ulcers, erythema or scaly Pulses Pulse: Yes pulses normal x4 extremities Extremities Extremities: Yes capillary refill normal, No cyanosis, No edema, No clubbing Neuro Neurologic: Yes conversant, Yes no focal neuro deficits, Yes normal concentration, Yes understands questions, Yes cooperative, Yes normal cognition, Yes normal coordination Lymph Lymphatic: No lymphadenopathy, No tenderness Psych Appearance: Positive grossly normal, eye contact and well kempt Mental Status: Positive mental status grossly normal Mood: Positive congruent mood Affect: Positive normal affect Coding Level of Care Code Off vis,est,level 4 Diagnoses Shortness of breath R06.02 Chronic obstructive pulmonary disease, unspecified COPD type J44.9 COPD type: unspecified COPD BEN (obstructive sleep apnea) G47.33 Pulmonary hypertension I27.20 12/27/17 0839 <Electronically signed by Yoly ROMEO> Date Yoly MOTNALVOC Cosigner Signature: Date (if applicable) CC: NILDA LOMAX ECHOCARDIOGRAM COMPLETE Observed: 11/26/2017 Status: F Source: [place] 1:33 PM [facility] REPOSITORY [facility] Cardiovascular Services [address] [place] [address] Echo Complete 11/26/17 1101 MR#: [id number] Acct: [id number] Name: SYDNIE GELLER Rep #: [id number] : 1960 57 From: Julian Reid MD Attending Dr: Yonathan Guaman D.O. Status: REG CLI Ordering Dr: Yonathan Guaman DO Date: 11/26/17 Location: [facility] Sex: F C Admitted: Reason For Study: DYSPNEA/SOB Procedure This was a 2D Doppler, Color Flow transthoracic echocardiogram. Exam performed in department. Left Ventricle Normal size and thickness. The estimated ejection fraction is 65 %. Stage 1 diastolic dysfunction. No regional wall motion abnormalities noted. Right Ventricle Normal size and thickness. Normal systolic function. Atria Normal left atrium. Normal right atrium. Normal atrial septum. Mitral Valve The mitral valve is structurally normal. No prolapse or stenosis seen. Trivial mitral valve insufficiency. Tricuspid Valve Normal tricuspid valve. Trivial tricuspid valve insufficiency. Right ventricular systolic pressure estimated to be 28 mmHg. Aortic Valve Normal aortic valve. Trisinus/trileaflet aortic valve. Pulmonic Valve Normal pulmonic valve. Great Vessels Normal aortic root. Normal arch. Normal inferior vena cava. Inferior vena cava collapse with sniff. Pericardium/Pleural No pericardial effusion. MMode/2D Measurements AND Calculations LVIDd: 3.5 cm IVSd: 1.2 cm Ao root diam: 3.0 cm LVIDs: 2.4 cm LVPWd: 1.2 cm LA dimension: 3.4 cm RVDd: 2.3 cm FS: 30.1 % LAV(MOD-bp): 24.9 ml EDV(MOD-sp4): 61.2 ml SV(MOD-sp4): 39.1 ml LAV(MOD-bp) Indexed: 12.9 ml/m2 ESV(MOD-sp4): 22.1 ml LAV(MOD-sp2): 29.4 ml EF(MOD-sp4): 63.9 % LAV(MOD-sp4): 21.0 ml LA A4 area: 10.5 cm2 RA A4 area: 11.8 cm2 Time Measurements MV dec time: 0.31 sec Doppler Measurements AND Calculations MV E max refugio: 62.7 cm/sec Lat Peak E' Refugio: 7.0 cm/sec Med Peak E' Refugio: 5.4 cm/sec MV A max refugio: 79.4 cm/sec E/E' lat: 9.0 E/E' med: 11.5 MV E/A: 0.79 Ao V2 max: 131.5 cm/sec LV V1 max: 127.3 cm/sec PA V2 max: 92.8 cm/sec Ao max P.9 mmHg LV V1 max P.5 mmHg TR max refugio: 240.9 cm/sec TR max P.2 mmHg Interpretation Summary The estimated ejection fraction is 65 %. Stage 1 diastolic dysfunction. Trivial mitral valve insufficiency. Trivial tricuspid valve insufficiency. Right ventricular systolic pressure estimated to be 28 mmHg. There is no comparison study available. Ordering Physician: Yonathan Guaman D.O. Referring Physician: Yonathan Guaman Performed By: Amelia Lakhani RDCS 11/26/17 1332 Date Julian Reid MD CC: NILDA LOMAX; Yonathan Guaman D.O. Date Dictated: 11/26/17 1101 Date Transcribed: 11/26/17 133 Cyber Systems Operations Specialist: Signed STRESS REPORT Observed: 11/23/2017 Status: F Source: [place] 10:00 PM [facility] REPOSITORY [facility] Cardiovascular Services [address] [place] [address] [place] [address] MR#: [id number] Acct: [id number] Name: SYDNIE GELLER Rep #: [id number] : 1960 57 From: Ahmet Valdivia MD Primary Care: NILDA MEDELLIN Status: REG CLI Ordering Dr: Sex: F C Stress Test Report Pharmacologic myocardial perfusion stress test. 57-year-old lady with a history of chest pain. Medications atorvastatin aspirin Celebrex hydrochlorothiazide. Stress protocol: Resting EKG demonstrates normal sinus rhythm with rate of 56 bpm normal intervals and noted resting blood pressures 138/82 mmHg. 0.4 mg of regadenoson was infused per usual protocol followed by rapid intravenous and flush injection continuous EKG monitoring was performed. The patient maintained sinus rhythm throughout the recording. At rest there were no ST or T-wave changes noted suggest ischemia peak infusion no ST or T-wave changes were noted suggest ischemia. No clinical angina was noted the test was terminated due to completion of the test. Resting blood pressure is 132/82 with a peak blood pressure 148/92. Myocardial perfusion protocol. 11.9 mCi of technetium 99m sestamibi was injected at rest 0.4 mg of regadenoson was infused per usual protocol peak infusion 11.9 mCi of technetium 99m sestamibi was injected stress images were obtained stress and rest images were reconstructed and compared in the short axis vertical long and horizontal long axis. Gated images were also obtained next Perfusion SPECT analysis: Review of the stress images demonstrate normal uptake of tracer noted in all areas of myocardium. The resting images similarly demonstrate normal uptake of tracer noted in all areas myocardium. No areas of reversibility are noted suggest ischemia no previous infarct is noted. Gated SPECT analysis: The gated ejection fraction is noted to be 76%. Conclusion: Normal pharmacologic myocardial perfusion stress test. Preserved ejection fraction. 11/23/170 <Electronically signed by Ahmet Valdivia MD> Date Ahmet Valdivia MD CC: NILDA LOMAX Date Dictated: 11/23/172157 Date Transcribed: 11/23/172157 Cyber Systems Operations Specialist: [place] Signed PULMONARY VISIT REPORT Observed: 11/16/2017 Status: F Source: [place] 10:38 AM [facility] Pulmonary Medicine of [address] [place] [address] OFFICE VISIT Date of Service: 11/16/17 MR#: [id number] Acct: [id number] Name: SYDNIE GELLER Rep #: [id number] : 1960 Provider: Yonathan Guaman D.O. Age/Sex: 57/F Location: [facility].PMW Status: Signed Assessment AND Plan 1. COPD (chronic obstructive pulmonary disease) J44.9 Plan The patient's recent PFTs demonstrated stable spirometry with moderate obstruction noted. However, the patient did have a 25% reduction in her DLCO. She reports interval worsening in her breathing quality, despite being on a triple therapy inhaler regimen. We will plan to obtain a baseline echocardiogram at this time to assess for LV function and potential pulmonary hypertension. She will be continued on Advair, Incruse and as needed albuterol. If the echocardiogram is unremarkable, may need to consider repeating dedicated chest imaging, given the drop off in DLCO. 2. BEN (obstructive sleep apnea) G47.33 Plan The patient has known BEN and is currently noncompliant with the use of CPAP, as she states that she had to give her machine back due to a change in her insurance. The patient would benefit from continued use of nocturnal Pap therapy. We will send a new prescription to the patient's DME provider in hopes of reestablishing the patient on nocturnal Pap therapy. 3. Obesity E66.9 Plan Weight loss through dietary modification and a graded exercise regimen is strongly encouraged. 4. Tobacco dependence in remission F17.201 Plan Ongoing tobacco cessation strongly encouraged. Plan Detail Other Orders Orders: Follow Up 6 Weeks ([facility]) HPI HPI Comments Details: The patient is a 57-year-old female who presents to the clinic today for a routine scheduled follow-up office visit due to underlying COPD. If you recall, the patient reported previously that she has been seen by a community marketing manager in [place] approximately 7 years ago. She stated that at that time she was also noted to have a suspicious lung lesion, which was surgically removed, presumably via wedge resection. The patient does have a smoking history of upwards of 2 packs per day. She initially began smoking at the age of 11 but quit 7 years ago. She also has a history of BEN, for which she is noncompliant with nocturnal Pap therapy. Her last polysomnogram was approximately 10 years ago. Pulmonary function testing completed in October 2016 revealed the presence of a moderate large airways obstructive ventilatory defect with an associated significant response to aerosolized bronchodilators. There was evidence of air trapping with preserved diffusing capacity. A 6 minute walk test showed no evidence of exertional hypoxemia. RAST testing and serum IgE level were largely unremarkable. The patient is currently being maintained on a triple therapy inhaler regimen. She did undergo a noncontrasted chest CT in December 2016 which revealed evidence of hyperinflation and upper lobe predominant emphysematous changes. The patient did eventually undergo a re-titration study for her underlying BEN in June 2017, for which it was recommended that she be placed on nasal CPAP with a pressure support setting of 13 cm of water. Although she was initiated on therapy, we did receive an update in October 2017 from the patient's DME provider that the patient had returned her CPAP due to not meeting her insurance compliance guidelines. Repeat pulmonary function testing completed in November 2017 revealed the presence of a partially reversible moderate large airways obstructive ventilatory defect with symmetric reduction in diffusing capacity. There had been worsening the patient's DLCO since October 2016. Today, the patient reports that she feels as if her breathing quality is worsening. She does report that it is been more difficult in light of the recent heat and humidity. She remains compliant with the use of her triple therapy inhaler regimen and reports that she is utilizing her rescue inhaler on average 4 times per day. She has not been evaluated in the emergency department or urgent care for breathing related issues since her last office visit. She does report recurrent episodes of chest tightness and burning, which is now occurring approximately 4 times per week. The patient is interested in being placed back on CPAP therapy and states that her CPAP was taken away from her due to a change in her insurance coverage. She denied being noncompliant with its use. Intake Vital Signs11/16/17 Height 5 ft 5 in 11/16/17 Weight: 192 lb Intake Visit Reasons: 6 M FU Allergies No Known Allergies Allergy (Verified 11/16/17 09:24) Medications Amlodipine [Norvasc] 5 mg PO DAILY 03/03/15 [History Confirmed 11/16/17] Atorvastatin Calcium [Lipitor] 40 mg PO QHS 03/03/15 [History Confirmed 11/16/17] Fluticasone/Salmeterol [Advair 500/50 Mcg Diskus] 1 puff INHALATION BID 03/03/15 [History Confirmed 11/16/17] Folic Acid 1 mg PO BIDCM 03/03/15 [History Confirmed 11/16/17] Hydrochlorothiazide [Hctz] 25 mg PO DAILY 03/03/15 [History Confirmed 11/16/17] Levothyroxine [Synthroid] 50 mcg PO DAILY 03/03/15 [History Confirmed 11/16/17] Methotrexate 2.5 mg PO Q7D 03/03/15 [History Confirmed 11/16/17] Potassium Chloride [K-Dur] 20 meq PO DAILY 03/03/15 [History Confirmed 11/16/17] leucovorin tablet 15 mg PO Q7D 03/03/15 [History Confirmed 11/16/17] Guaifenesin/Pseudoephedrne HCl [Mucinex D ER 1,200-120 mg Tab] 1 ea PO BID #14 tab.er.12h 09/02/16 [Rx Confirmed 11/16/17] albuterol sulfate 2.5 mg/3 mL (0.083 %) solution for nebulization 2.5 mg INHALATION Q4H PRN ml 05/14/17 [History Confirmed 11/16/17] albuterol sulfate HFA 90 mcg/actuation aerosol inhaler 2 puff INHALATION Q4H PRN g 05/14/17 [History Confirmed 11/16/17] celecoxib 200 mg capsule 200 mg PO QDAY PRN 05/14/17 [History Confirmed 11/16/17] ondansetron HCl 4 mg tablet 4 mg PO Q8H PRN tab 05/14/17 [History Confirmed 11/16/17] umeclidinium 62.5 mcg/actuation blister powder for inhalation 1 inh INHALATION QDAY #1 device 05/19/17 [Rx Confirmed 11/16/17] ranitidine 75 mg tablet 75 mg PO QDAY tab 11/16/17 [History Confirmed 11/16/17] PFSH Medical History Hepatitis C (Chronic) Prediabetes (Chronic) Memory loss (Chronic) Atrophic vaginitis (Acute) Cervical dysphagia (Chronic) Osteopenia (Chronic) Chronic lumbar radiculopathy (Chronic) Degenerative joint disease (Chronic) Degeneration of intervertebral disc (Chronic) Rheumatoid arthritis (Chronic) Psoriasis (Chronic) Chronic constipation (Chronic) NSAID induced gastritis (Chronic) GERD (gastroesophageal reflux disease) (Chronic) HTN (hypertension) (Chronic) Asthma (Chronic) Situational anxiety (Chronic) Depression (Chronic) Hypokalemia (Chronic) Hyperlipidemia (Chronic) Obesity (Chronic) Hypothyroidism (Chronic) Emphysema lung (Chronic) BEN (obstructive sleep apnea) (Chronic) Tobacco dependence in remission (Chronic) Lung nodule (Chronic) SOB (shortness of breath) (Acute) Allergic rhinitis (Acute) H/O chronic obstructive lung disease (Chronic) Surgical History Hx of colonoscopy (Resolved) History of vein stripping (Resolved) History of thoracotomy (Resolved) History of hysterectomy (Resolved) History of eye surgery (Resolved) Social History Smoking Status: Former smoker how long ago did patient quit smokin second hand exposure: Yes alcohol intake: current alcohol intake frequency: a few times a month Alcohol type: wine, beer substance use type: does not use Review of Systems Const CONSTITUTIONAL: Negative anorexia, body ache, chills, daytime sleepiness, fever(s), night sweats, oral thrush, stops breathing during sleep, weight loss, sleeping in chair, fatigue, weight loss, weight gain, frequent colds, seasonal allergies, other, orthopnea or headache(s) EETM Ear Nose Throat Mouth: Positive hearing normal; negative hard of hearing, hoarseness, dry mouth in morning, change in vision, itchy eyes, eye pain, swallowing Difficulty, ear pain, nose bleed, headache(s), mouth pain, nasal congestion, nasal discharge, post nasal drip, sinus pain, sinus pressure, sore throat or other Cardio Cardiovascular: Positive chest pain; negative chest pain at rest, chest pain with activity, irregular heart rhythm, edema, shortness of breath when lying down, palpitations, murmur or other Resp Respiratory: Positive as per HPI, shortness of breath shortness of breath: Positive with activity and worsening, cough cough: Positive non-productive, chest tightness, inhalers and increase use of rescue inhalers; negative pain with cough, wheezing, chest congestion, pain on inspiration, snoring, apnea or other Gastro Gastrointestional: Negative bloody stools, change in appetite, difficulty swallowing, reflux, hematemesis, melena stool, loose stool, constipation or other Genitourinary: Negative blood in urine, nocturia, pain with urination or other Musc Musculoskeletal: Negative body pain, back pain, neck pain or other Skin/Breast Skin/Breast: Negative dry skin, itching, rash, unusual bruising, breast lump or other Neuro Neurological: Negative restless legs, confusion, weakness or other Psych Psychocological: Negative abnormal sleep pattern, anxiety, thoughts of hurting self/others, hopelessness or other Lymph Lymphatic: Negative easy bleeding, easy bruising, swollen lymph nodes or other Exam Const Constitutional: Positive conversant, cooperative, in no acute respiratory distress, well developed, well nourished and good hygiene Head Head: Positive normocephalic and atraumatic; negative cyanosis of lips/distal nose Eyes Eye: Positive clear conjunctiva; negative nystagmus or scleral abnormality Ears Ear: Positive hearing normal and external ears normal; negative hard of hearing Nose Nose: Positive external nose normal; negative epistaxis Mouth Mouth: Positive oral mucosae normal and posterior oropharynx is adequate; negative no lesions or post nasal drip Mallampati Score: II: Mallampati Score Neck Neck: Positive normal visual inspection and trachea midline; negative lymphadenopathy Chest Wall Chest: Positive symmetric chest movement Normal AP diameter. Resp lung sounds: Positive diminished diminished: Positive bialteral and normal expiratory time; negative wheezes, rhonchi or rales Cardio Cardiac: Positive regular rate, regular rhythm, S1 normal and S2 normal; negative rub, gallop or murmur GI GI: Positive normal bowel sounds Soft without distention Genitourinary: Positive deferred Musc Musculoskeletal: Positive steady gait Skin Pulmonary Skin Exam: Positive intact; negative lesion, ulcers, dermal atrophy or rash Pulses Pulse: Yes Pedal pulses present: Extremities Extremities: No clubbing, No cyanosis, No edema Neuro Neurologic: Yes conversant, Yes no focal neuro deficits, Yes cooperative Lymph Lymphatic: No lymphadenopathy Psych Appearance: Positive grossly normal Mental Status: Positive mental status grossly normal Mood: Positive congruent mood Affect: Positive normal affect Coding Level of Care Code Off vis,est,level 4 Diagnoses COPD (chronic obstructive pulmonary disease) J44.9 BEN (obstructive sleep apnea) G47.33 Obesity E66.9 Tobacco dependence in remission F17.201 11/16/17 1038 <Electronically signed by Yonathan Guaman DO> Date Yonathan Guaman DO Cosigner Signature: Date (if applicable) CC: Yonathan Guaman D.O. PULMONARY FUNCTION Observed: 11/09/2017 Status: F Source: NATANAEL TEST 2:42 PM [facility] REPOSITORY [facility] Pulmonary Services/Neurology [facility] [place] [address] MR#: [id number] Acct: [id number] Name: SYDNIE GELLER Rep #: [id number] : 1960 57 From: Yonathan Guaman DO Referring Dr: Yonathan Guaman D.O. Status: REG CLI Ordering Dr: Date: Location: [facility] Sex: F C INTRODUCTION: The patient is a 57-year-old male presents for pulmonary function testing secondary to a diagnosis of COPD. Respiratory therapy reports good patient effort. Bronchodilators were used during testing. INTERPRETATION: Forced expiration spirometry demonstrates the presence of a moderate large airways obstructive ventilatory defect. There was a significant response to aerosolized bronchodilators noted in FEV1. Spirograms are of good quality and do not plateau indicating slow emptying of the lungs. Body plethysmography was performed and reveals lung volumes to be within normal limits. Diffusing capacity by single breath CO is moderately reduced at 59% of predicted. When compared to previous pulmonary function studies dated October 2016, there has been a 27% reduction in the patient's DLCO. IMPRESSION: These pulmonary function studies demonstrate the presence of a partially reversible moderate large airways obstructive ventilatory defect with symmetric reduction in diffusing capacity. There is been worsening the patient's DLCO since October 2016 as noted above. 11/09/17 1442 <Electronically signed by Yonathan Guaman DO> Date Yonathan Guaman DO CC: NILDA LOMAX; Yonathan Guaman D.O. Date Dictated: 11/09/171438 Date Transcribed: 11/09/171438 [employer] Systems Operations Specialist: TEVIN Signed ALLERGIES ALLERGIES DATE TYPE / CODE NAME / CODE REACTION SEVERITY SOURCE 04/27/2018 Drug No Known Unknown [facility] Allergy/637819589(S Allergies/F0019 [facility]OM[facility]) 05852(RXNORM) Hospital Repository Miscellaneous No Known Moderate Eddie Pomerene Allergy/882324914(S Allergies ([facility]) Modifier) Hospital (Qualifier Repository Value) ENCOUNTERS ENCOUNTERS ADMIT/DISCHARGE ACCOUNT ADMITTING ENCOUNTER LOCATION SOURCE NUMBER CLASS 05/24/2018 [id number] Ambulatory Eros Eros 2 [facility] ing:LAB Repository 05/24/2018 [id number] CHALO GUAMAN [facility] Repository 04/27/2018/ [id number] Ambulatory BMSBuilding:B Eros 8 5 MS.[facility] Hospital Repository 04/20/2018/ [id number] Agyepong, Inpatient Natanael Eros 8 9 Mane Encounter [facility] ing:ZC8Rilr: Repository WE465Nvo: 1 04/20/2018 [id number] Agyepong, Ambulatory BMSBuilding:B Natanael 9 Mane MS.[facility] Repository 04/20/2018 [id number] Agyepong, Ambulatory BMSBuilding:B Eros 2 Mane MS.[facility] Repository 04/20/2018 [id number] Agyepong, Ambulatory BMSBuilding:B Eros 2 Mane MS.[facility] Repository 04/18/2018 [id number] Ambulatory Natanael Eros 7 [facility] ing:RAD Repository 02/18/2018/ [id number] LOMAX, [facility] 8 [facility] Repository 01/27/2018/ [id number] Ambulatory BMSBuilding:B Natanael 8 [address] [facility] Repository 12/29/2017 [id number] Ambulatory Natanael Natanael 7 [facility] Hospital ing:PSN Repository 12/29/2017 [id number] Ambulatory BMSBuilding:W Eros 6 [facility] Repository 12/27/2017/ [id number] Ambulatory BMSBuilding:B Eros 8 [address] [facility] Repository 11/26/2017 [id number] Ambulatory Natanael Eros 8 [facility] Hospital ing:CVS Repository 11/26/2017 [id number] Ambulatory BMSBuilding:W Eros 8 [facility] Hospital Repository 11/23/2017 [id number] Ambulatory Eros Natanael 4 [facility] Hospital ing:CVS Repository 11/23/2017 [id number] Ambulatory BMSBuilding:W Natanael 6 [facility] Repository 11/16/2017/ [id number] Ambulatory BMSBuilding:B Eros 8 [address] [facility] Repository 11/09/2017 [id number] Ambulatory Natanael Natanael 8 [facility] ing:PSN Repository 11/09/2017 [id number] Ambulatory BMSBuilding:W Natanael 3 [facility] Repository 06/17/2017 [id number] Ambulatory Natanael Natanael 1 [facility] ing:SL Repository 06/03/2017 [id number] Ambulatory Eros Natanael 0 [facility] ing:SL Repository PAYERS PAYERS ENCOUNTER GUARANTOR PAYER SUBSCRIBER SOURCE 05/24/2018 JULIAN Pinzon Primary SYDNIE Man Natanael [id number] Insurance:HUMANA TIPPLEDOB: Community [place]olicy [id number] Number: Repository [address]Lji: 330 [id number] [phone] () Date:1478-03-32QI [address] [place] [address]FT: 05/24/2018 Secondary NOT GIVENUNK Natanael Insurance:SELF PAY [facility] Number: Effective Repository Date:2018-05-24 05/24/2018 SYDNIE G Primary SYDNIE Saucedo TIPPLEDOB: Insurance:HUMANA TIPPLEDOB: [facility] MEDICARE ADVANTAGE [id number] Repository [place], [place] Number: [place] [id number]: [id number] Date:Plan Name: () 04/27/2018 JULIAN Alberta Primary SYDNIE Andradeoster [id number] Insurance:HUMANA TIPPLEDOB: Community [place] MEDIC[place] PPOPolicy [id number] Number: Repository [address]Evw: 330 [id number] [phone] () Date:4396-61-67ZU [address] [place] [address]ZR: 04/27/2018 Secondary NOT GIVENUNK Eros Insurance:SELF PAY [facility] Number: Effective Repository Date:2018-04-20 04/20/2018 JULIAN Pinzon Primary SYDNIE G Eros [id number] Insurance:HUMANA TIPPLEDOB: Community [place] MED[place] PPOPolicy [id number] [place] Number[facility] Repository [address]Eba: (330 [id number] [phone] (HP) Date:5054-91-92XX[address] [address]HQ: 04/20/2018 Secondary NOT GIVENUNK Eros Insurance:SELF PAY [facility] Hospital Number: Effective Repository Date:2018-04-19 04/20/2018 JULIAN Pinzon Primary SYDNIE G Eros [id number] Insurance:HUMANA TIPPLEDOB: Community [place] PPOPolicy [id number] [place] Number: Repository [address]Uiw: (330 [id number] [phone] (HP) Date:7736-86-20AI[address]4601WP: 04/20/2018 Secondary NOT GIVENUNK Natanael Insurance:SELF PAY [facility] Hospital Number: Effective Repository Date:2018-04-20 04/20/2018 JULIAN Pinzon Primary SYDNIE G Eros [id number] Insurance:HUMANA TIPPLEDOB: Community [place]IC[place] PPOPolicy [id number] [place] Number: Repository [address]Yun: (330 [id number] [phone]) Date:9957-76-23EP[address] [address]AP: 04/20/2018 Secondary NOT GIVENUNK Natanael Insurance:SELF PAY [facility] Hospital Number: Effective Repository Date:2018-04-20 04/20/2018 JULIAN Pinzon Primary SYDNIE G Eros [id number] Insurance:HUMANA TIPPLEDOB: Community [place] PPOPolicy [id number] [facility] [place] Number: Repository [address]Pvi: (330 [id number] [phone] (HP) Date:6155-81-32GZ [address] [place] [phone]: 04/20/2018 Secondary NOT GIVENUNK Eros Insurance:SELF PAY [facility] Number: Effective Repository Date:2018-04-20 04/18/2018 JULIAN Pinzon Primary SYDNIE Man Natanael [id number] Insurance:MEDICARE TIPPLEDOB: [facility] PART A BPolicy Number: [id number], [place] [id number] Repository [address]Xut: 330) Date:2018-04-18 [phone] () 04/18/2018 Secondary SYDNIE G Eros Insurance:HUMANA TIPPLEDOB: Community MEDICARE PPOPolicy [id number] Hospital Number: Repository [id number] Date:7466-82-74SC [address] [address]FL: 04/18/2018 Tertiary NOT GIVENUNK Eros Insurance:SELF PAY [facility] Hospital Number: Effective Repository Date:2018-04-18 02/18/2018 SYDNIE G Primary SYDNIE G Eddie Saucedo TIPPLEDOB: Insurance:HUMANA TIPPLEDOB: [facility] MEDICARE ADVANTAGE [id number] [place] [address] Repository [place], [place] Number: [place] [id number]: [id number] Date:Plan Name: () 01/27/2018 Julian Pinzon Primary SYDNIE G Natanael [id number] Insurance:HUMANA TIPPLEDOB: Community [place] MEDICARE PPOPolicy [id number] Number: Repository [address]Mwn: 330 [id number] [phone] () Date:2328-28-36QG [address] [place] [address]NQ: 01/27/2018 Secondary NOT GIVENUNK Natanael Insurance:SELF PAY [facility] Hospital Number: Effective Repository Date:2018-01-20 12/29/2017 Julian Pinzon Primary SYDNIE G Eros [id number] Insurance:HUMANA TIPPLEDOB: Community [place] MEDICARE PPOPolicy [id number] [place] Number: Repository [address]Krn: (330 [id number] [phone] (HP) Date:5182-08-37OR [place] 8568312-[address]WP: 12/29/2017 Secondary NOT GIVENUNK Natanael Insurance:SELF PAY [facility] Number: Effective Repository Date:2017-12-27 12/29/2017 Julian Pinzon Primary SYDNIE G Natanael [id number] Insurance:HUMANA TIPPLEDOB: Community [place] MEDICARE PPOPolicy [id number] Rehabilitation [facility] [place] Number[place] Repository [address]Jfz: (330 [id number] [phone]) Date:2591-50-63RA [place] [address]WP: 12/29/2017 Secondary NOT GIVENUNK Eros Insurance:SELF PAY [facility] Hospital Number: Effective Repository Date:2017-12-29 12/27/2017 Julian Pinzon Primary SYDNIE G Natanael [id number] Insurance:HUMANA TIPPLEDOB: Community [place] MEDICARE PPOPolicy [id number] [facility] [place] Number: Repository [address]Ftf: (330 [id number] [phone] (HP) Date:6384-59-90JG [address]4601WP: 12/27/2017 Secondary NOT GIVENUNK Natanael Insurance:SELF PAY [facility] Number: Effective Repository Date:2017-12-20 11/26/2017 Julian Pinzon Primary SYDNIE G Natanael [id number] Insurance:HUMANA TIPPLEDOB: Community [place] MEDICARE PPOPolicy [id number] [facility] [place] Number: Repository [address]Kfo: (330 [id number] [phone] (HP) Date:2159-26-60YV[address] [address]CM: 11/26/2017 Secondary NOT GIVENUNK Eros Insurance:SELF PAY [facility] Number: Effective Repository Date:2017-11-17 11/26/2017 Julian Pinzon Primary SYDNIE Man Eros [id number] Insurance:HUMANA TIPPLEDOB: Community [place] MEDICARE PPOPolicy [id number] [place] Number: Repository [address]Gll: (330 [id number] [phone] (HP) Date:2037-62-48DQ[address] [address]XO: 11/26/2017 Secondary NOT GIVENUNK Eros Insurance:SELF PAY [facility] Number: Effective Repository Date:2017-11-26 11/23/2017 Julian Pinzon Primary SYDNIE G Natanael [id number] Insurance:HUMANA TIPPLEDOB: Community [place] MEDICARE PPOPolicy [id number] [facility] [place] Number: Repository [address]Upy: 330 [id number] [phone] (HP) Date:7260-81-77DW [address] [address]QF: 11/23/2017 Secondary NOT GIVENUNK Eros Insurance:SELF PAY [facility] Number: Effective Repository Date:2017-11-18 11/23/2017 Julian Pinzon Primary SYDNIE Donovan Natanael [id number] Insurance:HUMANA TIPPLEDOB: Community [place] MEDICARE PPOPolicy [id number] [facility] [place] Number[place] Repository [address]Tkb: 330 [id number] [phone] (HP) Date:9951-81-92WI [address] [address]RR: 11/23/2017 Secondary NOT GIVENUNK Natanael Insurance:SELF PAY [facility] Hospital Number: Effective Repository Date:2017-11-23 11/16/2017 Julian Pinzon Primary SYDNIE G Eros [id number] Insurance:HUMANA TIPPLEDOB: Community [place] MEDICARE PPOPolicy [id number], [place] Number: Repository [address]Gbo: 330 [id number] [phone] () Date:2385-63-65YN [address] [address]IM: 11/16/2017 Secondary SYDNIE G Natanael Insurance:MEDICARE TIPPLEDOB: [facility]placed [facility] PART A BPolicy Number: [id number] Hospital [id number] Repository Date:2017-05-19 11/16/2017 Tertiary NOT GIVENUNK Natanael Insurance:SELF PAY [facility] Number: Effective Repository Date:2017-11-08 11/09/2017 Julian Alberta Primary SYDNIE G Eros [id number] Insurance:HUMANA TIPPLEDOB: Community [place] MEDICARE PPOPolicy [id number] Number: Repository [address]Gxi: (330 [id number] [phone] () Date:1718-64-13QB[address] [address]PL: 11/09/2017 Secondary NOT GIVENUNK Eros Insurance:SELF PAY [facility] Number: Effective Repository Date:2017-05-19 11/09/2017 Julian B Primary SYDNIE G Natanael [id number] Insurance:HUMANA TIPPLEDOB: Community [place] MEDICARE PPOPolicy [id number], [place] Number: Repository [address]Wbm: (330 [id number] [phone] (HP) Date:5166-79-31PZ[address] [address]ME: 11/09/2017 Secondary NOT GIVENUNK Eros Insurance:SELF PAY [facility] Number: Effective Repository Date:2017-11-09 06/17/2017 Julian Pinzon Primary SYDNIE Eros [id number] Insurance:CIGNAPolicy TIPPLEDOB: [facility] Number: [id number], [place] [id number] Repository [address]Duz: (330) Date:9628-24-67OV [phone] () 7930[address]SXBUMGYIFYP, [place] [address]DI: 06/17/2017 Secondary NOT GIVENUNK Natanael Insurance:SELF PAY [facility] Number: Effective Repository Date:2017-05-19 06/03/2017 Julian Alberta Primary SYDNIE Natanael [id number] [facility]rely TIPPLEDOB: [facility] Number: [id number], [place] [id number] Repository [address]Lsx: (330) Date:5882-24-71JY [phone] () [place]64[address]AVTZCNN[place], [place] [address]OC: 06/03/2017 Secondary NOT GIVENUNK Natanael Insurance:SELF PAY [facility] Number: Effective Repository Date:2017-05-19
== END 2018-04-22 14:49 | disposition home or self-care (01) | DRG 189 ==
LOC: ED 22:45 → MS2 04-20 01:00
PROVIDERS: Admitting Provider Hospitalist; Emergency Provider Emergency Medicine; Family Provider Physician Assistant; PCP Physician Assistant; Visit Provider Hospitalist
DX: J96.01 Acute respiratory failure with hypoxia (principal); J44.1 Chronic obstructive pulmonary disease with (acute) exacerbation; I27.20 Pulmonary hypertension, unspecified; L40.9 Psoriasis, unspecified; M06.9 Rheumatoid arthritis, unspecified; K21.9 Gastro-esophageal reflux disease without esophagitis; I10 Essential (primary) hypertension; F32.9 Major depressive disorder, single episode, unspecified; E78.5 Hyperlipidemia, unspecified; G47.33 Obstructive sleep apnea (adult) (pediatric); F17.201 Nicotine dependence, unspecified, in remission; E66.9 Obesity, unspecified; Z68.33 Body mass index [BMI] 33.0-33.9, adult; E03.9 Hypothyroidism, unspecified; M19.90 Unspecified osteoarthritis, unspecified site; B18.2 Chronic viral hepatitis C; R09.89 Other specified symptoms and signs involving the circulatory and respiratory systems
CPT/HCPCS: 36415; 71045; 71046; 80048; 81001; 82962; 84484; 85025; 87633; 87804; 93005; 94640; 94667; 94668; 97110; 97161; 97165; 97530; 97802; 99251; 99282; J7030; J7050; A4216; G0463; J1940

== ENCOUNTER → 2018-05-24 15:56 | Outpatient (CLI) | payer MEDICARE, SELFPAY ==
[2018-04-27 08:26] VITALS: BMI 33.1
[2018-05-24 17:31] LABS: Anion Gap 9 (5-15); BUN 16 mg/dL (7-18); BUN/Creat Ratio 18.2 RATIO (10-20); Calcium,Total 9.4 mg/dL (8.5-10.1); Chloride 100 mmol/L (98-107); Creatinine, Serum 0.88 mg/dL (0.55-1.02); EST Glomerular Filtration Rate 70 mL/min (>60); Est Glom Filt Rate - Afr Amer 85 mL/min (>60); Glucose 77 mg/dL (74-106); Potassium 3.3 mmol/L (3.5-5.1); Sodium Level 137 mmol/L (136-145)
== END ==
PROVIDERS: Family Provider Physician Assistant; PCP Physician Assistant; Referring Provider Family Medicine; Visit Provider Family Medicine
DX: E87.5 Hyperkalemia (principal)
CPT/HCPCS: 36415; 80048

== ENCOUNTER → 2018-06-07 13:10 | Outpatient (CLI) | payer MEDICARE, SELFPAY ==
[2018-04-27 08:26] VITALS: BMI 33.1
[2018-06-07 14:25] LABS: Potassium 3.5 mmol/L (3.5-5.1)
== END ==
PROVIDERS: Family Provider Physician Assistant; PCP Physician Assistant; Referring Provider Physician Assistant; Visit Provider Physician Assistant
DX: E87.6 Hypokalemia (principal)
CPT/HCPCS: 36415; 84132

== ENCOUNTER → 2018-07-13 08:46 | Outpatient (CLI) | payer MEDICARE, SELFPAY ==
[2018-04-27 08:26] VITALS: BMI 33.1
[2018-07-13 09:09] VITALS: PULSE 100; PULSE 73; PULSE 77; PULSE 84; PULSE 93; PULSE 94; PULSE 95; PULSE 97; O2SAT 88; O2SAT 90; O2SAT 91; O2SAT 95; O2SAT 96
--- NOTE | 2018-07-13 09:26 | CPS ---
Patient came in on NC pulse dose 2L. Patient on RA did not drop below 89% sitting. But at the 1 min nga patient's RA pulse ox was 88%. 2L pulse dose added for remainder of test. Dolly Suggs RRT
--- NOTE | 2018-07-15 11:32 | WT_ITS ---
PSN 6 Minute Walk Test - 6 Minute Walk Test 6 Minute Walk Test: 6 Minute Walk Test PSN:6-Minute Walk Test Start: 07/13/18 09:09 Freq: Status: Active Protocol: RESP.6MINW Document 07/13/18 09:09 QASIM (Rec: 07/13/18 09:28 JLMalissa [id number]) 6 Minute Walk Test Date Performed 07/13/18 Time Performed 09:00 Height 5 ft 5 in Weight: 193 lb 7.874 oz Weight in Pounds 193.[address]: Noam Osorio Assistive device used: None Pre-test Oxygen Delivery Method Room Air Pulse Ox (%) 90 Pulse Rate (60-100 beats/min) 73 Dyspnea Nimco Scale (0-10) 1 Exertion Nimco Scale (6-20) 6 1st minute Oxygen Delivery Method Room Air Pulse Ox (%) 88 Pulse Rate (60-100 beats/min) 84 Dyspnea Nimco Scale (0-10) 3 Exertion Nimco Scale (6-20) 11 2nd minute Oxygen Flow Rate (L/min) (L/min) 2 Oxygen Delivery Method Nasal Cannula Pulse Ox (%) 95 Pulse Rate (60-100 beats/min) 97 3rd minute Oxygen Flow Rate (L/min) (L/min) 2 Oxygen Delivery Method Nasal Cannula Pulse Ox (%) 91 Pulse Rate (60-100 beats/min) 100 4th minute Oxygen Flow Rate (L/min) (L/min) 2 Oxygen Delivery Method Nasal Cannula Pulse Ox (%) 96 Pulse Rate (60-100 beats/min) 94 5th minute Oxygen Flow Rate (L/min) (L/min) 2 Oxygen Delivery Method Nasal Cannula Pulse Ox (%) 95 Pulse Rate (60-100 beats/min) 95 6th minute Oxygen Flow Rate (L/min) (L/min) 2 Oxygen Delivery Method Nasal Cannula Pulse Ox (%) 95 Pulse Rate (60-100 beats/min) 93 Dyspnea Nimco Scale (0-10) 4 Exertion Nimco Scale (6-20) 13 Post-test Oxygen Flow Rate (L/min) (L/min) 2 Oxygen Delivery Method Nasal Cannula Pulse Ox (%) 95 Pulse Rate (60-100 beats/min) 77 Full Laps Walked 18 Partial Lap, Number of Tiles Walked 9 Total Distance Walked (ft) 1071 07/13/18 09:26 Cardiopulmonary Services by Dolly Saleem Patient came in on NC pulse dose 2L. Patient on RA did not drop below 89% sitting. But at the 1 min nga patient's RA pulse ox was 88%. 2L pulse dose added for remainder of test. Dolly Suggs APARTMENT GROUNDSKEEPER Initialized on 07/13/18 09:26 - END OF NOTE - Interpretation Interpretation: The patient ambulated 1071 feet over the course of 6 minutes beginning on room air without assistive devices or breaks. Pretesting oxygen saturation was noted to be 90% on room air. With ambulation, the samantha oxygen saturation was 88% at minute 1 of testing. 2 L/min of pulse dose supplemental oxygen was applied and the patient was able to complete the remainder of the test while maintaining appropriate oxygen saturations. - Recommendations Recommendations: 2 L/min of pulse dose supplemental oxygen should be utilized with exertion.
== END ==
PROVIDERS: Family Provider Physician Assistant; PCP Physician Assistant; Referring Provider Internal Medicine Critical Care Medicine; Visit Provider Internal Medicine Critical Care Medicine
DX: J44.9 Chronic obstructive pulmonary disease, unspecified (principal)
CPT/HCPCS: 94618

== ENCOUNTER → 2018-08-18 08:47 | Outpatient (CLI) | payer MEDICARE, SELFPAY ==
[2018-04-27 08:26] VITALS: BMI 33.1
--- NOTE | 2018-08-18 11:26 | PFT ---
INTRODUCTION: The patient is a 58-year-old female that presents for pulmonary function studies secondary to a diagnosis of COPD. Respiratory therapy reports good patient effort. Bronchodilators were used during testing. INTERPRETATION: Forced expiration spirometry demonstrates the presence of a moderate large airways obstructive ventilatory defect. There was a significant response to aerosolized bronchodilators, based upon change noted in FEV1. Spirograms are of good quality and do not plateau indicating slow emptying of the lungs. Body plethysmography was performed and reveals lung volumes to be within normal limits. Diffusing capacity by single breath CO is moderately reduced at 55% of predicted. IMPRESSION: Partially reversible moderate large airways obstructive ventilatory defect with symmetric reduction in diffusing capacity.
== END ==
PROVIDERS: Family Provider Physician Assistant; PCP Physician Assistant; Referring Provider Internal Medicine Critical Care Medicine; Visit Provider Internal Medicine Critical Care Medicine
DX: J44.9 Chronic obstructive pulmonary disease, unspecified (principal); M06.9 Rheumatoid arthritis, unspecified
CPT/HCPCS: 94060; 94726; 94729

== ENCOUNTER 2018-11-22 14:50 | Observation (INO) | payer MEDICARE, SELFPAY ==
[2018-09-06 13:51] VITALS: BMI 32.8
[2018-11-22] VITALS (8 sets, daily range): BP systolic 110–129; BP diastolic 75–82; PULSE 62–88; RESP 16; TEMP 36.3–36.6; O2SAT 95–97; BMI 31.6; BMI 32.1
--- NOTE | 2018-11-22 15:17 | RAD_ITS ---
STUDY: X-RAY CHEST REASON FOR EXAM: Female, 58 years old. Several day history of chest pain. TECHNIQUE: Single AP portable view of the chest. COMPARISON: Comparison is made with prior study dated April 19, 2018. FINDINGS: EKG electrodes are seen. The lungs are clear and expanded. There is no demonstrated pleural abnormality. Normal size heart. Normal mediastinum and cameron. Normal visualized pulmonary arteries. There is atherosclerotic calcification of the aortic arch with tortuosity. There are degenerative changes of the visualized thoracic spine. Normal visualized ribs, clavicles, and shoulders. There is no demonstrated abnormality of the visualized soft tissue structures of the upper abdomen. RAD/Chest 1 View (Portable) IMPRESSION: No acute abnormality is seen. Electronically Signed: Sami Campos, at 15:33 EDT , Service support ,
--- NOTE | 2018-11-22 15:17 | ED.DCSUM_ITS ---
- ER Visit Summary Date of Service: 11/22/18 Chief Complaint: Chest pain History of Present Illness: The patient is a 58 F presenting with chest pain. Patient states this has been intermittent for the past 2 days. She describes a midsternal chest pressure. She states it is worse anytime she tries to walk around or exert herself. She has chronic shortness of breath due to COPD. She has had a mild cough with no sputum production. She denies fever. Denies PE/DVT risk factors. She has a history of hypertension, hypercholesterolemia, diet-controlled diabetes. She is a previous smoker. Physical Examination: Vitals are stable. Patient is afebrile. Alert no acute distress. HEENT exam is unremarkable. Neck is supple. Lungs are clear and equal bilaterally. Heart is regular rate and rhythm. Abdomen is soft nontender nondistended. Extremities are unremarkable. Skin is warm and dry. No focal neurologic deficit. Remainder of exam is unremarkable. Emergency Department Course and Treatment: EKG is sinus rhythm rate is 76 with no acute ischemic changes. Patient was given aspirin on arrival. Chest x-ray shows no acute process. CBC, chemistries unremarkable other than BUN 19, creatinine 1.22. Troponin is negative. Due to patient's risk factors and exertional symptoms, will discuss with the hospitalist for observation. Disposition: Observation Impression: Chest pain This note was generated with [employer] dictation software. It may contain incorrect words, spelling, and punctuation that were not noted in review of the chart prior to signing ED Disposition - Plan for ED Patient: Referrals: Suellen Lomax PA [Primary Care Provider] -
--- NOTE | 2018-11-22 15:17 | EKG12_ITS ---
Test Reason : CP Blood Pressure : / mmHG Vent. Rate : 076 BPM Atrial Rate : 076 BPM P-R Int : 164 ms QRS Dur : 074 ms QT Int : 406 ms P-R-T Axes : 056 -23 045 degrees QTc Int : 456 ms Normal sinus rhythm Leftward [place] Poor R-wave Progression Confirmed by MATTI TITUS, BARB ([id number]), editorial cartoonist NICOLE ROCHA ([id number]) on 11/24/2018 1:33:30 PM Referred By: Vanessa Ramsey Confirmed By:BARB CHINO MD
[2018-11-22 15:29] LABS: Absolute Lymphocyte Count 2.82 X10^3/uL (0.83-4.51); Absolute Neutrophil Count 5.6 X10^3/uL (2.0-7.7); Basophil# 0.11 X10^3/uL; Basophil% 1.2 % (0-1); Eosinophil# 0.05 X10^3/uL; Eosinophils% 0.5 % (0-5); Hematocrit 41.5 % (37-47); Hemoglobin 14.4 g/dL (12.0-15.0); Lymphocyte # 2.82 X10^3/ul (4.0); Lymphocyte % 30.1 % (19-41); Mean Corp Hgb Conc 34.7 g/dL (32-36); Mean Corpuscular Hgb 32.5 pg (27.0-32.0); Mean Corpuscular Volume 93.7 fL (81-99); Monocyte# 0.78 X10^3/uL; Monocyte% 8.3 % (0-10); NRBC Flagged by Analyzer 0 % (0-5); Neutrophil # 5.59 X10^3/uL (2.7-7.7); Neutrophil % 59.8 % (47-70); Platelet Count 369 K/mm3 (150-450); RBC Distribution Width SD 41.7 fl (35.1-43.9); Red Blood Count 4.43 M/mm3 (4.2-5.4); White Blood Count 9.4 K/mm3 (4.4-11.0)
[2018-11-22] MEDS: Aspirin 81 MG TAB.CHEW 324 MG PO (15:39)
[2018-11-22 15:43] LABS: Anion Gap 9 (5-15); BUN 19 mg/dL (7-18); BUN/Creat Ratio 15.6 RATIO (10-20); Calcium,Total 9.7 mg/dL (8.5-10.1); Chloride 99 mmol/L (98-107); Creatinine, Serum 1.22 mg/dL (0.55-1.02); EST Glomerular Filtration Rate 48 mL/min (>60); Est Glom Filt Rate - Afr Amer 58 mL/min (>60); Estimated Creatinine Clearance 44.68 ml/min; Glucose 92 mg/dL (74-106); Potassium 4.1 mmol/L (3.5-5.1); Sodium Level 136 mmol/L (136-145)
--- NOTE | 2018-11-22 15:58 | HP.PCM_ITS ---
History of Present Illness Date of Admission: 11/22/18 Chief Complaint: chest pain The patient is a 58 year old F with a past medical history as listed. She was admitted with on 11/22/2018 through the ED with a complaint of chest pain. Chest pain is retrosternal, sometimes sharp and sometimes pressure-like, radiated up to the left side of her neck. She had associated palpitations since her chest pain was worse with exertion and relieved by rest. She did not have any increased sweating or associated nausea. She has had similar chest pain in the past and had a stress test a year ago which was negative. She states is been told by her rn perioperative in [place] that the upper part of her heart someti mes beats faster than the lower side of her heart, but she denies any never told that she had A. fib and was told that this condition was due to her severe COPD. Review of systems is otherwise negative. Vitals in the ED was negative and chemistry showed creatinine of 1.22. CBC was unremarkable. She was saturating 97% on her baseline 2 L of oxygen. Chest x-ray showed no acute abnormality. EKG showed normal sinus rhythm and initial troponin was negative. She has been admitted for chest pain rule out ACS. [] Past Medical History Past Medical History (Chronic Problems): Chronic Problems (Last Reviewed 09/06/18 @ 16:04 by Yoly Baez NP-C) Stage 2 moderate COPD by GOLD classification (Chronic) FEV1 82% of predicted COPD exacerbation (Chronic) Pulmonary hypertension (Chronic) Stage I diastolic dysfunction, RVSP 28 mmHg COPD (chronic obstructive pulmonary disease) (Chronic) Hepatitis C (Chronic) Prediabetes (Chronic) Memory loss (Chronic) Osteopenia (Chronic) Chronic lumbar radiculopathy (Chronic) Degenerative joint disease (Chronic) Rheumatoid arthritis (Chronic) Psoriasis (Chronic) NSAID induced gastritis (Chronic) GERD (gastroesophageal reflux disease) (Chronic) HTN (hypertension) (Chronic) Asthma (Chronic) Depression (Chronic) Hyperlipidemia (Chronic) Obesity (Chronic) Hypothyroidism (Chronic) BEN (obstructive sleep apnea) (Chronic) CPAP 13 cm of water Tobacco dependence in remission (Chronic) Lung nodule (Chronic) Medical History: Medical History (Last Reviewed 09/06/18 @ 16:04 by Yoly Baez NP-C) Hepatitis C (Chronic) B19.20 Prediabetes (Chronic) R73.03 Memory loss (Chronic) R41.3 Osteopenia (Chronic) M85.80 Chronic lumbar radiculopathy (Chronic) M54.16 Degenerative joint disease (Chronic) M19.90 Rheumatoid arthritis (Chronic) M06.9 Psoriasis (Chronic) L40.9 NSAID induced gastritis (Chronic) K29.60, T39.395A GERD (gastroesophageal reflux disease) (Chronic) K21.9 HTN (hypertension) (Chronic) I10 Asthma (Chronic) J45.909 Depression (Chronic) F32.9 Hyperlipidemia (Chronic) E78.5 Obesity (Chronic) E66.9 Hypothyroidism (Chronic) E03.9 BEN (obstructive sleep apnea) (Chronic) G47.33 CPAP 13 cm of water Tobacco dependence in remission (Chronic) F17.201 Lung nodule (Chronic) R91.1 Allergies No Known Allergies Allergy (Verified 09/06/18 13:51) Home Medications: Ambulatory Orders Medication Instructions Recorded Amlodipine [Norvasc] 5 mg PO DAILY 03/03/15 Atorvastatin Calcium [Lipitor] 40 mg PO QHS 03/03/15 Hydrochlorothiazide [Hctz] 25 mg PO DAILY 03/03/15 albuterol sulfate 2.5 mg/3 mL 2.5 mg INHALATION Q4H PRN ml 05/14/17 (0.083 %) solution for nebulization fluticasone 500 mcg-salmeterol 50 1 inh INHALATION BID #60 ea 03/10/18 mcg/dose blistr powdr for inhalation montelukast 10 mg tablet 10 mg PO QPM #30 tab 03/10/18 Albuterol Sulfate [Ventolin Hfa] 2 puff INHALATION Q4H PRN PRN 11/22/18 Escitalopram Oxalate 20 mg PO DAILY 11/22/18 Levothyroxine Sodium 75 mcg PO DAILY 11/22/18 Oxybutynin Chloride 5 mg PO DAILY 11/22/18 Umeclidinium [place] Inhaler 1 inh INHALATION DAILY 11/22/18 [Incruse Ellipta] Surgical History: appendectomy, hysterectomy, - - Lung surgery for removal of precancerous lesion; bladder''; back surgery with pins at the back. Psychiatric History: Anxiety, Depression Lives: Alone Smoking Status: Former smoker Tobacco Use: Cigarettes - quit 10 years ago Alcohol: Occasional Drugs: None - *Family History Maternal History Items: Cancer, Diabetes, Heart Disease - She reported multiple people in the maternal family have had heart surgery. Paternal History Items: Diabetes Review of Systems Constitutional: Denies: Chills, Fever, Weight Change Eyes: Denies: Blurred vision HEENT: Denies: Head Aches, Sinus Congestion, Sinus Drainage Cardiovascular: Reports: Chest Pain, Chest Pressure. Denies: Chest Tightness, Edema, Heaviness, Light Headedness, Orthopnea, Palpitations, Paroxysmal Noc. Dyspnea, Syncope Respiratory: Reports: Shortness of Breath - this is chronic, due to chronic respiratory failure due to COPD.. Denies: Cough, Shortness of breath at rest, Sputum production Gastrointestinal: Denies: Abdominal Pain, Nausea, Vomiting Genitourinary: Denies: Dysuria Musculoskeletal: Denies: Joint Pain, Joint Tenderness Skin: Denies: Rash, Wounds Neurological: Denies: Numbness, Tingling, Focal weakness Psychiatric: Denies: Anxiety, Depression, Homicidal Ideations, Suicidal Ideations Hematologic/ Lymphatic: Denies: Easy Bruising, Easy Bleeding VTE Information - Inpt Only VTE Present on Admission: No VTE Pharm Prophylaxis ordered?: Yes - Physical Exam General: Alert, Oriented x3, Cooperative, No apparent distress HEENT: Atraumatic, PERRLA, EOMI, Normocephalic Oral: Moist Mucosa Neck: Supple, No JVD, Negative Carotid Bruits Lungs: Clear to auscultation, Normal air movement, - - on 2L of oxygen, which is her baseline. Cardiovascular: Regular rate, Regular Rhythm, Normal S1, Normal S2, No murmurs Abdomen: Bowel Sounds Present, Soft, Non Tender, Non-Distended, No Hepato- splenomegaly Extremities: No clubbing, No cyanosis, No edema, Capillary Refill Less than 3 Seconds Skin: No rashes, No breakdown Musculoskeletal: No Tenderness to Palpation of Joints or Extremities Lymphatic: No Cervical, Supraclavicular, or Inguinal Adenopathy Neurological: Cranial nerves II-XII grossly intact, Neuro grossly intact, Motor Exam 5/5 strength throughout Psych/Mental Status: Normal Affect, Appropriate, Alert and oriented to time, place, person, mood and affect Vital Signs Temp Pulse Resp BP Pulse Ox 98 F 79 16 113/79 97 11/22/18 14:52 11/22/18 15:40 11/22/18 15:40 11/22/18 15:40 11/22/18 15:40 Oxygen Flow Rate (L/min) 2 Oxygen Delivery Method Nasal Cannula Weight: 190 lb Body Mass Index (BMI) 31.6 Laboratory Tests Past 24 Hrs 11/22/18 11/22/18 15:10 15:10 WBC 9.4 RBC 4.43 Hgb 14.4 Hct 41.5 MCV 93.7 MCH 32.5 H MCHC 34.7 RDW Std Deviation 41.7 RDW Coeff of Claude 12.0 Plt Count 369 MPV 9.0 Immature Gran % (Auto) 0.100 Neut % (Auto) 59.8 Lymph % (Auto) 30.1 [place] % (Auto) 8.3 Eos % (Auto) 0.5 Baso % (Auto) 1.2 H Absolute Neuts (auto) 5.6 Absolute Lymphs (auto) 2.82 Absolute Nucleated RBC 0.00 Nucleated RBC % 0 Sodium 136 Potassium 4.1 Chloride 99 Carbon Dioxide 28.0 Anion Gap 9 BUN 19 H Creatinine 1.22 H Estim Creat Clear Calc 44.68 Est GFR (MDRD) Af Amer 58 L Est GFR (MDRD) Non-Af 48 L BUN/Creatinine Ratio 15.6 Glucose 92 Calcium 9.7 Troponin I < 0.015 Diagnostic Data Chest X-Ray 11/22/18 15:17 IMPRESSION: No acute abnormality is seen. Electronically Signed: Sami Campos, at 15:33 EDT , Service support , Assessment/Plan All Active Problems (Last Reviewed 09/06/18 @ 16:04 by Yoly Baez, MINK SLICER-C) Acute hypoxemic respiratory failure (Acute) 58-year-old female admitted with a complaint of chest pain. 1. Chest pain to r/o ACS * admit to PCU with telemetry * initial troponin negative, will cycle * SL nitroglycerin prn, PO aspirin 81mg daily * EKG showed no acute ST changes * for stress test tomorrow if troponins remain negative. * 2. Chronic respiratory failure: due to COPD. on 2L of oxygen, which is her baseline. 3. COPD: stable. On breathing treatments; also on fluticasone-salmeterol and montelukast as well as Incruse Ellipta. 4. Elevated Cr: Cr is 1.22, doesnt meet criteria for ALONDRA. baseline is ~ 0.9. Gentle hydration with IVF 5. Hypertension: On hydrochlorothiazide and amlodipine. 6. Hyperlipidemia: On atorvastatin. DVT prophylaxis: lovenox Code Visit OBSV E&M: [id number] Initial observation care L2
[2018-11-22] MEDS: 0.9% Normal Saline 1,000 ML 75 ML IV (17:08)
--- NOTE | 2018-11-22 17:53 | EKG12_ITS ---
Test Reason : CP Blood Pressure : / mmHG Vent. Rate : 066 BPM Atrial Rate : 066 BPM P-R Int : 178 ms QRS Dur : 078 ms QT Int : 436 ms P-R-T Axes : 048 -16 030 degrees QTc Int : 457 ms Normal sinus rhythm Normal ECG When compared with ECG of 22-NOV-2018 14:56, MANUAL COMPARISON REQUIRED, DATA IS UNCONFIRMED Confirmed by AGUSTIN TITUS, SUSANA ([id number]), news editor NICOLE ROCHA ([id number]) on 11/24/2018 1:42:45 PM Referred By: Vanessa Ramsey Confirmed By:SUSANA VELEZ MD
[2018-11-22] MEDS: Ipratropium/Albuterol Sulfate 3 ML AMPUL.NEB INHALATION (19:32)
[2018-11-22] MEDS: Budesonide Respules 0.5 MG/2 ML AMPUL.NEB. INHALATION (19:32)
[2018-11-22] MEDS: Montelukast 10 MG Tablet PO (21:16)
[2018-11-22] MEDS: Atorvastatin Calcium 40 MG Tablet PO (21:16)
[2018-11-23 03:00] VITALS: PULSE 60
[2018-11-23 04:30] VITALS: BP 125/73; PULSE 55; RESP 18; TEMP 36.4; O2SAT 96
[2018-11-23 05:17] LABS: Anion Gap 8 (5-15); BUN 18 mg/dL (7-18); BUN/Creat Ratio 21.8 RATIO (10-20); Calcium,Total 8.5 mg/dL (8.5-10.1); Chloride 102 mmol/L (98-107); Creatinine, Serum 0.83 mg/dL (0.55-1.02); EST Glomerular Filtration Rate 75 mL/min (>60); Est Glom Filt Rate - Afr Amer 91 mL/min (>60); Estimated Creatinine Clearance 65.67 ml/min; Glucose 98 mg/dL (74-106); Potassium 3.6 mmol/L (3.5-5.1); Sodium Level 136 mmol/L (136-145)
[2018-11-23 05:20] LABS: Absolute Lymphocyte Count 3.01 X10^3/uL (0.83-4.51); Absolute Neutrophil Count 3.4 X10^3/uL (2.0-7.7); Basophil# 0.09 X10^3/uL; Basophil% 1.2 % (0-1); Eosinophil# 0.17 X10^3/uL; Eosinophils% 2.3 % (0-5); Hematocrit 39.6 % (37-47); Hemoglobin 13.1 g/dL (12.0-15.0); Lymphocyte # 3.01 X10^3/ul (4.0); Lymphocyte % 40.5 % (19-41); Mean Corp Hgb Conc 33.1 g/dL (32-36); Mean Corpuscular Hgb 31.9 pg (27.0-32.0); Mean Corpuscular Volume 96.4 fL (81-99); Mean Platelet Vol. 8.9 fl (6.2-12.0); Monocyte# 0.75 X10^3/uL; Monocyte% 10.1 % (0-10); NRBC Flagged by Analyzer 0 % (0-5); Neutrophil % 45.8 % (47-70); Platelet Count 329 K/mm3 (150-450); RBC Distribution Width CV 11.9 % (11.6-14.6); RBC Distribution Width SD 42.1 fl (35.1-43.9); Red Blood Count 4.11 M/mm3 (4.2-5.4); White Blood Count 7.4 K/mm3 (4.4-11.0)
[2018-11-23] MEDS: Levothyroxine 75 MCG Tablet PO (05:47)
[2018-11-23] MEDS: Aspirin 81 MG TAB.CHEW PO (05:47)
[2018-11-23 05:50] VITALS: BP 104/62; PULSE 61; RESP 16; TEMP 36.2; O2SAT 94
--- NOTE | 2018-11-23 05:55 | EKG12_ITS ---
Test Reason : AM EKG Blood Pressure : / mmHG Vent. Rate : 062 BPM Atrial Rate : 062 BPM P-R Int : 180 ms QRS Dur : 090 ms QT Int : 466 ms P-R-T Axes : 058 003 034 degrees QTc Int : 472 ms Normal sinus rhythm Normal ECG When compared with ECG of 22-NOV-2018 17:45, MANUAL COMPARISON REQUIRED, DATA IS UNCONFIRMED Confirmed by AGUSTIN TITUS, SUSANA ([id number]), art editor NICOLE ROCHA ([id number]) on 11/24/2018 1:41:34 PM Referred By: Vanessa Ramsey Confirmed By:SUSANA VELEZ MD
[2018-11-23 06:27] VITALS: PULSE 73
--- NOTE | 2018-11-23 09:36 | STRESSREP_ITS ---
Stress Test Report Date: 11-23-18 Procedure: Pharmacologic stress nuclear imaging study Indications: Chest pain Consent: Per the patient Procedure: The patient underwent pharmacologic (Regadenoson) evaluation with a peak heart rate of 93 beats per minute (57 %predicted maximal heart rate) and a peak blood pressure of 128/76 mmHg. The baseline ECG demonstrated sinus rhythm. The peak pharmacologic ECG demonstrated no obvious ECG changes. There were no cardiac dysrhythmias pretest, during pharmacologic infusion, or recovery. There was no complaint of chest discomfort during pharmacologic infusion or recovery. The examination was discontinued secondary to completion of protocol. Impression: 1. Pharmacologic (Regadenoson) evaluation 2. Peak pharmacologic ECG with no obvious ECG changes. 3. There were no cardiac dysrhythmias pretest, during pharmacologic infusion, or recovery. 4. Nuclear images pending Myocardial perfusion imaging study: Technique: The patient was injected with 11.8 millicuries of technetium 99m Cardiolite and subsequently rest SPECT Cardiolite nuclear imaging was obtained in the horizontal long, vertical long, and short axis views. The patient underwent pharmacologic (Regadenoson) evaluation with a peak heart rate of 93 beats per minute (57 % percent predicted maximal heart rate) and a peak blood pressure of 128/76 mmHg. The patient was injected with 32.1 millicuries of technetium 99m Cardiolite and subsequently stress SPECT Cardiolite nuclear imaging was obtained in the horizontal long, vertical long, and short axis views. A gated Cardiolite study at peak stress was obtained. Interpretation: Rest and stress SPECT Cardiolite nuclear imaging status post realignment, normalization, and attenuation correction demonstrate relative uniform tracer uptake and myocardial perfusion appearing within normal limits. There is end systolic thickening and brightening. The gated Cardiolite study demonstrates myocardial thickening and inward wall motion. The reported LVEF is 90 %. Impression: 1. Rest and stress SPECT Cardiolite nuclear imaging demonstrate relative uniform tracer uptake and myocardial perfusion appearing within normal limits. 2. The gated Cardiolite study reports an LVEF of 90 %. This note was generated with [email or web address] software. It may contain incorrect words, spelling, and punctuation that were not noted in checking the note before signing.
[2018-11-23 10:06] VITALS: BP 106/61; PULSE 62; RESP 16; TEMP 36.9; O2SAT 98
[2018-11-23] MEDS: hydroCHLOROthiazide 25 MG Tablet PO (10:07)
[2018-11-23] MEDS: amLODIPine 5 MG Tablet PO (10:07)
[2018-11-23] MEDS: Tolterodine Tartrate 2 MG CAP.SA PO (10:07)
[2018-11-23] MEDS: Acetaminophen 325 MG Tablet 650 MG PO (10:07)
[2018-11-23] MEDS: Escitalopram Oxalate 20 MG Tablet PO (10:07)
--- NOTE | 2018-11-23 11:33 | DCINST_ITS ---
You will use the following diet at home:: Cardiac Your food should be the consistency of: Regular Your liquids should be the consistency of: Regular/Thin Discharge Activity: Return to Normal Activity Allergies/Adverse Reactions: Allergies No Known Allergies Allergy (Verified 09/06/18 13:51) Medications to take at Discharge Amlodipine [Norvasc] 5 mg PO DAILY 03/03/15 Atorvastatin Calcium [Lipitor] 40 mg PO QHS 03/03/15 Hydrochlorothiazide [Hctz] 25 mg PO DAILY 03/03/15 albuterol sulfate 2.5 mg/3 mL (0.083 %) solution for nebulization 2.5 mg INHALATION Q4H PRN ml 05/14/17 fluticasone 500 mcg-salmeterol 50 mcg/dose blistr powdr for inhalation 1 inh INHALATION BID #60 ea 03/10/18 montelukast 10 mg tablet 10 mg PO QPM #30 tab 03/10/18 Albuterol Sulfate [Ventolin Hfa] 2 puff INHALATION Q4H PRN PRN 11/22/18 Escitalopram Oxalate 20 mg PO DAILY 11/22/18 Levothyroxine Sodium 75 mcg PO DAILY 11/22/18 Oxybutynin Chloride 5 mg PO DAILY 11/22/18 Umeclidinium [place] Inhaler [Incruse Ellipta Inhaler] 1 inh INHALATION DAILY 11/22/18 Primary Care Physician: Suellen Lomax PA [Primary Care Provider] - Please follow up with your Primary Care Physician in: 1-2 weeks Test Results: Test results from this visit will be discussed in further detail at your follow- up appointment, if applicable. Please Follow Up With: Noam Osorio MD When: 2 weeks Proposed Discharge Date: 11/23/18
--- NOTE | 2018-11-23 14:49 | PCM.DC.SUM ---
<Gabriele Slater - Last Filed: 11/23/18 14:49> Discharge Date and Diagnosis Date of Admission: 11/22/18 Date of Discharge: 11/23/18 - Primary Discharge Diagnosis Chest pain - musculoskeletal Chronic hypoxic respiratory failure 2/2 COPD, pulmonary HTN Hx chronic pain, RA, DJD, radiculopathy Hx gastritis, GERD Hx HTN, HLD Anx/Depression Hypothyroidism - Secondary Discharge Diagnosis Chronic Problems (Last Reviewed 09/06/18 @ 16:04 by Yoly Baez, TAMMY-C) Stage 2 moderate COPD by GOLD classification (Chronic) FEV1 82% of predicted COPD exacerbation (Chronic) Pulmonary hypertension (Chronic) Stage I diastolic dysfunction, RVSP 28 mmHg COPD (chronic obstructive pulmonary disease) (Chronic) Hepatitis C (Chronic) Prediabetes (Chronic) Memory loss (Chronic) Osteopenia (Chronic) Chronic lumbar radiculopathy (Chronic) Degenerative joint disease (Chronic) Rheumatoid arthritis (Chronic) Psoriasis (Chronic) NSAID induced gastritis (Chronic) GERD (gastroesophageal reflux disease) (Chronic) HTN (hypertension) (Chronic) Asthma (Chronic) Depression (Chronic) Hyperlipidemia (Chronic) Obesity (Chronic) Hypothyroidism (Chronic) BEN (obstructive sleep apnea) (Chronic) CPAP 13 cm of water Tobacco dependence in remission (Chronic) Lung nodule (Chronic) Hospital Course and Treatment Imaging Results: 11/23/18 05:55 Nuclear Stress Test - Chemical [NM] Routine Impression: 1. Rest and stress SPECT Cardiolite nuclear imaging demonstrate relative uniform tracer uptake and myocardial perfusion appearing within normal limits. 2. The gated Cardiolite study reports an LVEF of 90 %. RAD/Chest 1 View (Portable) IMPRESSION: No acute abnormality is seen. Operations: None Procedures: None Summary of Care Provided: Hospital Course: The patient is a 58 year old F with past medical history as above who presented to the emergency room with complaints of chest pain. This was described as a midsternal pressure, sometimes sharpness, that radiated up the left side of her neck. It was worse with exertion and associated with shortness of breath. In the emergency room she had a negative EKG, negative chest x-ray, and negative troponin. She was admitted to the PCU and placed on telemetry. No events on telemetry. She had negative troponin x3. The following morning she underwent a stress test which was normal. She did not have increased oxygen demand, however she did continue to have some discomfort and associated shortness of breath. Due to the sharp nature reported as her chest pain is felt that this was likely musculoskeletal. There is concerned that it may be related to her underlying COPD, chronic hypoxic respiratory failure, and pulmonary hypertension. She was discharged home in stable condition. I have advised her follow-up with her staff anesthesiologist in 2 weeks, she is also follow-up with her PCP in 1-2 weeks. This patient was seen by Gabriele Slater PA-C under the supervision of Doctor Krista. [] - Physical Exam General: Alert, Oriented x3, Cooperative HEENT: Atraumatic, PERRLA, EOMI, Normocephalic Neck: Supple, No JVD, Negative Carotid Bruits Lungs: Clear to auscultation, Normal air movement Cardiovascular: Regular rate, No murmurs Abdomen: Bowel Sounds Present, Soft, Non Tender Extremities: No edema, Capillary Refill Less than 3 Seconds Skin: No rashes, No breakdown Musculoskeletal: No Tenderness to Palpation of Joints or Extremities Neurological: Cranial nerves II-XII grossly intact Psych/Mental Status: Normal Affect, Appropriate, Alert and oriented to time, place, person, mood and affect Vital Signs Temp Pulse Resp BP Pulse Ox 98.4 F 62 16 106/61 98 11/23/18 10:06 11/23/18 10:06 11/23/18 10:06 11/23/18 10:06 11/23/18 10:06 Oxygen Flow Rate (L/min) 2 Oxygen Delivery Method Nasal Cannula Weight: 193 lb Body Mass Index (BMI) 32.1 Intake and Output for Last 24 Hours 11/21/18 11/22/18 11/23/18 23:59 23:59 23:59 Intake Total 1206 / 1206 554 / 554 Balance 1206 / 1206 554 / 554 Laboratory Tests Past 24 Hrs 11/22/18 11/22/18 11/22/18 15:10 15:10 17:35 WBC 9.4 RBC 4.43 Hgb 14.4 Hct 41.5 MCV 93.7 MCH 32.5 H MCHC 34.7 RDW Std Deviation 41.7 RDW Coeff of Claude 12.0 Plt Count 369 MPV 9.0 Immature Gran % (Auto) 0.100 Neut % (Auto) 59.8 Lymph % (Auto) 30.1 [place] % (Auto) 8.3 Eos % (Auto) 0.5 Baso % (Auto) 1.2 H Absolute Neuts (auto) 5.6 Absolute Lymphs (auto) 2.82 Absolute Nucleated RBC 0.00 Nucleated RBC % 0 Sodium 136 Potassium 4.1 Chloride 99 Carbon Dioxide 28.0 Anion Gap 9 BUN 19 H Creatinine 1.22 H Estim Creat Clear Calc 44.68 Est GFR (MDRD) Af Amer 58 L Est GFR (MDRD) Non-Af 48 L BUN/Creatinine Ratio 15.6 Glucose 92 Calcium 9.7 Troponin I < 0.015 < 0.015 11/22/18 11/23/18 11/23/18 20:30 04:34 04:34 WBC 7.4 RBC 4.11 L Hgb 13.1 Hct 39.6 MCV 96.4 MCH 31.9 MCHC 33.1 RDW Std Deviation 42.1 RDW Coeff of Claude 11.9 Plt Count 329 MPV 8.9 Immature Gran % (Auto) 0.100 Neut % (Auto) 45.8 L Lymph % (Auto) 40.5 [place] % (Auto) 10.1 H Eos % (Auto) 2.3 Baso % (Auto) 1.2 H Absolute Neuts (auto) 3.4 Absolute Lymphs (auto) 3.01 Absolute Nucleated RBC 0.00 Nucleated RBC % 0 Sodium 136 Potassium 3.6 Chloride 102 Carbon Dioxide 26.0 Anion Gap 8 BUN 18 Creatinine 0.83 Estim Creat Clear Calc 65.67 Est GFR (MDRD) Af Amer 91 Est GFR (MDRD) Non-Af 75 BUN/Creatinine Ratio 21.8 H Glucose 98 Calcium 8.5 Troponin I < 0.015 Discharge Diet: Low fat/ Low Cholesterol, 1800 Calorie Control Diet, 2000 mg Sodium Diet Discharge Activity: Return to Normal Activity Home Medications: Medications to take at Discharge Amlodipine [Norvasc] 5 mg PO DAILY 03/03/15 Atorvastatin Calcium [Lipitor] 40 mg PO QHS 03/03/15 Hydrochlorothiazide [Hctz] 25 mg PO DAILY 03/03/15 albuterol sulfate 2.5 mg/3 mL (0.083 %) solution for nebulization 2.5 mg INHALATION Q4H PRN ml 05/14/17 fluticasone 500 mcg-salmeterol 50 mcg/dose blistr powdr for inhalation 1 inh INHALATION BID #60 ea 03/10/18 montelukast 10 mg tablet 10 mg PO QPM #30 tab 03/10/18 Albuterol Sulfate [Ventolin Hfa] 2 puff INHALATION Q4H PRN PRN 11/22/18 Escitalopram Oxalate 20 mg PO DAILY 11/22/18 Levothyroxine Sodium 75 mcg PO DAILY 11/22/18 Oxybutynin Chloride 5 mg PO DAILY 11/22/18 Umeclidinium [place] Inhaler [Incruse Ellipta Inhaler] 1 inh INHALATION DAILY 11/22/18 Primary Care Physician: Suellen Lomax PA [Primary Care Provider] - Please follow up with your Primary Care Physician in: 1-2 weeks Please Follow Up With: Noam Osorio MD When: 2 weeks Disposition: Home Minutes spent on discharge:: 35 Patient Condition:: Stable Medical Necessity - Tobacco Use Smoking Status: Former smoker Tobacco Use: Cigarettes - quit 10 years ago Meaningful Use Info Meaningful Use Diagnoses (Choose all that apply): None applicable <Tim Velasco - Last Filed: 11/23/18 16:55> Discharge Date and Diagnosis - Secondary Discharge Diagnosis Chronic Problems (Last Reviewed 09/06/18 @ 16:04 by Yoly Baez NP-C) Stage 2 moderate COPD by GOLD classification (Chronic) FEV1 82% of predicted COPD exacerbation (Chronic) Pulmonary hypertension (Chronic) Stage I diastolic dysfunction, RVSP 28 mmHg COPD (chronic obstructive pulmonary disease) (Chronic) Hepatitis C (Chronic) Prediabetes (Chronic) Memory loss (Chronic) Osteopenia (Chronic) Chronic lumbar radiculopathy (Chronic) Degenerative joint disease (Chronic) Rheumatoid arthritis (Chronic) Psoriasis (Chronic) NSAID induced gastritis (Chronic) GERD (gastroesophageal reflux disease) (Chronic) HTN (hypertension) (Chronic) Asthma (Chronic) Depression (Chronic) Hyperlipidemia (Chronic) Obesity (Chronic) Hypothyroidism (Chronic) BEN (obstructive sleep apnea) (Chronic) CPAP 13 cm of water Tobacco dependence in remission (Chronic) Lung nodule (Chronic) Hospital Course and Treatment Summary of Care Provided: The patient is a 58 year old F [] - Physical Exam Vital Signs Temp Pulse Resp BP Pulse Ox 98.4 F 62 16 106/61 98 11/23/18 10:06 11/23/18 10:06 11/23/18 10:06 11/23/18 10:06 11/23/18 10:06 Oxygen Flow Rate (L/min) 2 Oxygen Delivery Method Nasal Cannula Weight: 193 lb Body Mass Index (BMI) 32.1 Intake and Output for Last 24 Hours 11/21/18 11/22/18 11/23/18 23:59 23:59 23:59 Intake Total 1206 / 1206 554 / 554 Balance 1206 / 1206 554 / 554 Laboratory Tests Past 24 Hrs 11/22/18 11/22/18 11/23/18 17:35 20:30 04:34 WBC 7.4 RBC 4.11 L Hgb 13.1 Hct 39.6 MCV 96.4 MCH 31.9 MCHC 33.1 RDW Std Deviation 42.1 RDW Coeff of Claude 11.9 Plt Count 329 MPV 8.9 Immature Gran % (Auto) 0.100 Neut % (Auto) 45.8 L Lymph % (Auto) 40.5 [place] % (Auto) 10.1 H Eos % (Auto) 2.3 Baso % (Auto) 1.2 H Absolute Neuts (auto) 3.4 Absolute Lymphs (auto) 3.01 Absolute Nucleated RBC 0.00 Nucleated RBC % 0 Sodium Potassium Chloride Carbon Dioxide Anion Gap BUN Creatinine Estim Creat Clear Calc Est GFR (MDRD) Af Amer Est GFR (MDRD) Non-Af BUN/Creatinine Ratio Glucose Calcium Troponin I < 0.015 < 0.015 11/23/18 04:34 WBC RBC Hgb Hct MCV MCH MCHC RDW Std Deviation RDW Coeff of Claude Plt Count MPV Immature Gran % (Auto) Neut % (Auto) Lymph % (Auto) [place] % (Auto) Eos % (Auto) Baso % (Auto) Absolute Neuts (auto) Absolute Lymphs (auto) Absolute Nucleated RBC Nucleated RBC % Sodium 136 Potassium 3.6 Chloride 102 Carbon Dioxide 26.0 Anion Gap 8 BUN 18 Creatinine 0.83 Estim Creat Clear Calc 65.67 Est GFR (MDRD) Af Amer 91 Est GFR (MDRD) Non-Af 75 BUN/Creatinine Ratio 21.8 H Glucose 98 Calcium 8.5 Troponin I Code Visit Addendum: Dr. Velasco I personally examined the patient and reviewed the chart. I agree with the above. 58-year-old female with history of COPD and pulmonary hypertension presenting with chest pain. She was not sure if it was her heart or feels lung pain so she came to the ER. She had a normal EKG and 3 normal troponins. She had a stress test today which was normal and she did not have any increase oxygen needs from her home O2 of 2 L, therefore she was discharged home with outpatient follow-up. OBSV E&M: [id number] Observation care discharge
== END 2018-11-23 11:34 | disposition home or self-care (01) ==
LOC: ED 15:28 → PCU 16:11
PROVIDERS: Admitting Provider Student in an Organized Health Care Education/Training Program; Emergency Provider Emergency Medicine; Family Provider Physician Assistant; PCP Physician Assistant; Referring Provider Student in an Organized Health Care Education/Training Program; Visit Provider Family Medicine
DX: R07.89 Other chest pain (principal); I10 Essential (primary) hypertension; J44.9 Chronic obstructive pulmonary disease, unspecified; E11.9 Type 2 diabetes mellitus without complications; I27.20 Pulmonary hypertension, unspecified; B18.2 Chronic viral hepatitis C; J96.11 Chronic respiratory failure with hypoxia; E78.5 Hyperlipidemia, unspecified; K21.9 Gastro-esophageal reflux disease without esophagitis; E03.9 Hypothyroidism, unspecified; G47.33 Obstructive sleep apnea (adult) (pediatric); E66.9 Obesity, unspecified; M06.9 Rheumatoid arthritis, unspecified; L40.9 Psoriasis, unspecified; Z87.891 Personal history of nicotine dependence; Z79.899 Other long term (current) drug therapy; Z79.51 Long term (current) use of inhaled steroids; Z68.32 Body mass index [BMI] 32.0-32.9, adult; Z71.3 Dietary counseling and surveillance; Z99.81 Dependence on supplemental oxygen; F41.9 Anxiety disorder, unspecified; F32.9 Major depressive disorder, single episode, unspecified
CPT/HCPCS: 36415; 71045; 78452; 80048; 84484; 85025; 93005; 93017; 94640; 96360; 96361; 99218; 99283; A9500; J7030; A4216; G0378; J2785

== ENCOUNTER 2018-12-23 18:39 | Emergency (ER) | payer MEDICARE, SELFPAY ==
[2018-12-13 08:18] VITALS: BMI 32.1
[2018-12-23 18:40] VITALS: BP 156/95; PULSE 73; RESP 18; TEMP 36.1; O2SAT 98; BMI 31.8
[2018-12-23 18:59] VITALS: PULSE 68; RESP 14; O2SAT 96
--- NOTE | 2018-12-23 19:18 | EKG12_ITS ---
Test Reason : DIZZINESS Blood Pressure : / mmHG Vent. Rate : 066 BPM Atrial Rate : 066 BPM P-R Int : 182 ms QRS Dur : 078 ms QT Int : 436 ms P-R-T Axes : 044 -21 030 degrees QTc Int : 457 ms Sinus rhythm with Premature supraventricular complexes Otherwise normal ECG Confirmed by APPLE TITUS, ZHANG ([id number]), commissioning editor WILL SUMMERS ([id number]) on 12/27/2018 1:48:12 PM Referred By: IBETH Confirmed By:IRASEMA CHIU MD
--- NOTE | 2018-12-23 19:18 | CT_ITS ---
STUDY: CT BRAIN WITHOUT CONTRAST REASON FOR EXAM: Female, 58 years old. Dizziness RADIATION DOSAGE (If Supplied By Facility): CTDIvol = ( 44.99 ) mGy, DLP = ( 779.24 ) mGycm TECHNIQUE: Transaxial CT imaging of the brain was performed without administration of intravenous contrast material. Individualized dose optimization techniques were used for this CT. COMPARISON: No relevant priors. FINDINGS: Normal soft tissue structures. Normal calvarium. Normal size ventricles and extra-axial spaces for the patient's age. Mild periventricular white matter ischemic changes.. Normal basal ganglia and thalami. Normal brainstem. Normal cerebellum. There is no intracranial hemorrhage. There are no findings of an acute ischemic infarction. Postsurgical changes of the orbits. Normal visualized paranasal sinuses. CT/Brain/Head without Contrast IMPRESSION: Mild periventricular white matter ischemic change. No evidence for acute bleed. If concern for acute infarct MRI recommended. Electronically Signed: Kailash Avilez MD at 20:07 EDT , Service support ,
--- NOTE | 2018-12-23 19:19 | ED.VIS.GEN ---
History of Present Illness Chief Complaint: Dizziness Informant: Patient Onset: Yesterday Timing: Waxes and wanes Current Severity: Mild Maximum Severity: Moderate Narrative: History of dizziness. She describes it as a lightheaded sensation as well as some movement or spinning. It waxes and wanes but never completely resolves. She did stop taking her Ativan this week, but states she has not felt depressed or anxious. She denies chest pain or palpitations. She has no headache. No recent injury. Past Medical History - Allergies and Home Meds Allergies/Adverse Reactions: Allergies No Known Allergies Allergy (Verified 12/23/18 18:39) Primary Care Physician: Suellen Lomax PA [Primary Care Provider] - Prior records reviewed: Yes Past Medical History: - - Reviewed Surgical History: appendectomy, hysterectomy, - - Lung surgery for removal of precancerous lesion; bladder''; back surgery with pins at the back. Smoking Status: Never smoker - Family History Maternal Family History: Reports: Cancer, Diabetes, Heart Disease - She reported multiple people in the maternal family have had heart surgery. Paternal Family History: Reports: Diabetes Review of Systems General: Denies: Chills, Fever Eyes: Denies: Visual changes - bilaterally ENT: Denies: Bilateral ear pain Cardiovascular: Denies: Chest pain, Palpitations Respiratory: Denies: Dyspnea, Cough Gastrointestinal: Denies: Abdominal pain, Nausea, Vomiting Musculoskeletal: Denies: Neck pain, Back pain Skin: Denies: Rash Neurological: Denies: Headache, Weakness, Parasthesia Psych: Denies: Depression, Anxiety Endocrine: Denies: Polyuria, Polydipsia Hematologic: Denies: Easy bruising Allergy: Denies: Uticaria Physical Exam Vital Signs/Narrative: Vital Signs Temp Pulse Resp BP Pulse Ox 12/23/18 18:59 68 14 96 12/23/18 18:40 96.9 F L 73 18 156/95 H 98 Inital Vital Signs reviewed: Yes General: Well nourished, Well developed Head: Normocephalic Eyes: Perrl, EOMI ENT: Moist mucous membranes Neck: Supple Cardiovascular: Regular rate, Regular rhythm Respiratory: No distress, CTA bilaterally Abdomen: Soft, Nontender Extremities: Nontender, No edema Skin: Normal color, No rash Neurological: Alert, Oriented x3, Normal Strength, Normal Sensation Psychological: Normal affect Diagnostic/Tx/Re-eval Impressions Brain CT 12/23/18 19:18 IMPRESSION: Mild periventricular white matter ischemic change. No evidence for acute bleed. If concern for acute infarct MRI recommended. Electronically Signed: Kailash Avilez MD at 20:07 EDT , Service support , Chest X-Ray 12/23/18 19:20 IMPRESSION: No acute cardiopulmonary pathology Electronically Signed: Kailash Avilez MD at 20:59 EDT , Service support , 12/23/18 19:18 Brain/Head without Contrast [CT] Stat 12/23/18 19:20 Chest 1 View (Portable) [RAD] Stat Laboratory Results 12/23/18 12/23/18 19:34 19:34 WBC 8.7 RBC 4.08 L Hgb 13.1 Hct 39.2 MCV 96.1 MCH 32.1 H MCHC 33.4 RDW Std Deviation 41.9 RDW Coeff of Claude 11.9 Plt Count 339 MPV 9.0 Immature Gran % (Auto) 0.200 Neut % (Auto) 48.8 Lymph % (Auto) 39.6 [place] % (Auto) 8.4 Eos % (Auto) 2.1 Baso % (Auto) 0.9 Absolute Neuts (auto) 4.3 Absolute Lymphs (auto) 3.46 Nucleated RBC % 0 Sodium 136 Potassium 3.9 Chloride 105 Carbon Dioxide 27.0 Anion Gap 4 L BUN 18 Creatinine 0.86 Estim Creat Clear Calc 63.38 Est GFR (MDRD) Af Amer 87 Est GFR (MDRD) Non-Af 72 BUN/Creatinine Ratio 21.0 H Glucose 87 Calcium 9.2 Troponin I < 0.015 - EKG Initial EKG Interpretation: Sinus Rhythm - Sinus at 66 with no acute ischemia. PAC noted. - Medical Decision Making Patient is given IV fluids. I felt the patient walked back from the bathroom. She stated that as long as she did not move her head she felt okay. She was given p.o. Antivert and on repeat evaluation feels significantly improved. Patient will be given a prescription for Antivert. She is given return instructions. ED Disposition - Plan for ED Patient: Disposition: Home or Assisted Living Diagnosis: Vertigo Instructions: Benign Positional Vertigo Prescriptions: Meclizine HCl [Antivert] 0.5 - 1 tab PO 4X/DAY PRN PRN #20 tablet PRN Reason: Dizziness Referrals: Suellen Lomax PA [Primary Care Provider] - 3-5 Days if not improving
--- NOTE | 2018-12-23 19:20 | RAD_ITS ---
STUDY: X-RAY CHEST REASON FOR EXAM: Female, 58 years old. Short of breath and dizziness TECHNIQUE: AP portable COMPARISON: None. FINDINGS: The lungs are clear and expanded. There is no demonstrated pleural abnormality. Normal size heart. Normal mediastinum and cameron. Normal visualized pulmonary arteries. Normal visualized aortic arch and descending thoracic aorta. Dorsal spine demonstrates spondylosis. Normal visualized ribs, clavicles, and shoulders. There is no demonstrated abnormality of the visualized soft tissue structures of the upper abdomen. No significant change since prior exam RAD/Chest 1 View (Portable) IMPRESSION: No acute cardiopulmonary pathology Electronically Signed: Kailash Avilez MD at 20:59 EDT , Service support ,
[2018-12-23] MEDS: 0.9% Normal Saline 1,000 ML 150 ML IV (19:34)
[2018-12-23 19:47] LABS: Absolute Lymphocyte Count 3.46 X10^3/uL (0.83-4.51); Absolute Neutrophil Count 4.3 X10^3/uL (2.0-7.7); Basophil# 0.08 X10^3/uL; Basophil% 0.9 % (0-1); Eosinophil# 0.18 X10^3/uL; Eosinophils% 2.1 % (0-5); Hematocrit 39.2 % (37-47); Hemoglobin 13.1 g/dL (12.0-15.0); Lymphocyte # 3.46 X10^3/ul (4.0); Lymphocyte % 39.6 % (19-41); Mean Corp Hgb Conc 33.4 g/dL (32-36); Mean Corpuscular Hgb 32.1 pg (27.0-32.0); Mean Corpuscular Volume 96.1 fL (81-99); Monocyte# 0.73 X10^3/uL; Monocyte% 8.4 % (0-10); NRBC Flagged by Analyzer 0 % (0-5); Neutrophil # 4.26 X10^3/uL (2.7-7.7); Neutrophil % 48.8 % (47-70); Platelet Count 339 K/mm3 (150-450); RBC Distribution Width CV 11.9 % (11.6-14.6); RBC Distribution Width SD 41.9 fl (35.1-43.9); Red Blood Count 4.08 M/mm3 (4.2-5.4); White Blood Count 8.7 K/mm3 (4.4-11.0)
[2018-12-23 20:00] LABS: Anion Gap 4 (5-15); BUN 18 mg/dL (7-18); Calcium,Total 9.2 mg/dL (8.5-10.1); Chloride 105 mmol/L (98-107); Creatinine, Serum 0.86 mg/dL (0.55-1.02); EST Glomerular Filtration Rate 72 mL/min (>60); Est Glom Filt Rate - Afr Amer 87 mL/min (>60); Estimated Creatinine Clearance 63.38 ml/min; Glucose 87 mg/dL (74-106); Potassium 3.9 mmol/L (3.5-5.1); Sodium Level 136 mmol/L (136-145)
[2018-12-23 20:41] VITALS: PULSE 65; RESP 12; O2SAT 97
[2018-12-23] MEDS: Meclizine HCl 25 MG Tablet PO (21:23)
[2018-12-23 22:18] VITALS: PULSE 62; RESP 18; O2SAT 97
[2018-12-23 22:35] VITALS: BP 149/89; PULSE 63; RESP 18; O2SAT 95
== END 2018-12-23 22:36 | disposition home or self-care (01) ==
PROVIDERS: Emergency Provider Emergency Medicine; Family Provider Physician Assistant; PCP Physician Assistant
DX: R42 Dizziness and giddiness (principal); I49.1 Atrial premature depolarization
CPT/HCPCS: 70450; 71045; 80048; 84484; 85025; 93005; 96360; 96361; 99285; J7030

== ENCOUNTER 2019-08-30 13:02 | Emergency (ER) | payer MEDICARE, SELFPAY ==
[2019-06-21 12:44] VITALS: BMI 31.8
[2019-08-30 13:02] VITALS: BP 157/96; PULSE 88; RESP 16; TEMP 36.4; O2SAT 96; BMI 32.3
--- NOTE | 2019-08-30 13:16 | ED.DCSUM_ITS ---
History of Present Illness Chief Complaint: Complaint Informant: Patient Onset: Days Context: Sudden Onset Timing: Continuous - Flank pain continuous since yesterday, Intermittent - Urinary symptoms intermittent over the past couple of days Quality: Pain Location: Right flank Current Severity: Mild Maximum Severity: Moderate Worsened by: Movement Relieved by: Nothing Associated Symptoms: Nausea, elevated blood sugar, flank pain and frequency Narrative: Patient is a 59-year-old woman who presents with concern for urinary tract infection/kidney infection. She states she is had intermittent urinary symptoms for the past several days. She reports right flank pain for the past 24 to 48 hours has been continuous. She does report nausea without vomiting diarrhea. She denies fever, chills night sweats. She denies headache, ocular, visual auditory symptoms. She denies chest pain or shortness of breath. There is no history of trauma. She denies history of renal/ureterolithiasis. Prior similar symptoms: Yes - Pyelonephritis Recent Illness/Hospitalization: No - Past Medical History (1) COPD (chronic obstructive pulmonary disease) Status: Chronic (2) Degenerative joint disease Status: Chronic (3) Depression Status: Chronic (4) GERD (gastroesophageal reflux disease) Status: Chronic (5) HTN (hypertension) Status: Chronic (6) Hepatitis C Status: Chronic (7) Hyperlipidemia Status: Chronic (8) Hypothyroidism Status: Chronic (9) BEN (obstructive sleep apnea) Status: Chronic Comment: CPAP 13 cm of water - noncompliant and sent back. (10) Obesity Status: Chronic (11) Pulmonary hypertension Status: Chronic Comment: Stage I diastolic dysfunction, RVSP 28 mmHg (12) Rheumatoid arthritis Status: Chronic (13) Tobacco dependence in remission Status: Chronic Past Medical History - Allergies and Home Meds Allergies/Adverse Reactions: Allergies No Known Allergies Allergy (Verified 08/30/19 13:03) Primary Care Physician: Suellen Lomax PA [Primary Care Provider] - Prior records reviewed: Yes Surgical History: appendectomy, hysterectomy, - - Lung surgery for removal of precancerous lesion; bladder''; back surgery with pins at the back. Lives: Alone Smoking Status: Never smoker Alcohol: None Drugs: None - Family History Maternal Family History: Reports: Cancer, Diabetes, Heart Disease - She reported multiple people in the maternal family have had heart surgery. Paternal Family History: Reports: Diabetes Review of Systems General: Denies: Chills, Fever, Malaise, Subjective, Sweats ENT: Denies: Rhinorrhea, Sore throat Respiratory: Denies: Dyspnea, Cough, Dyspnea on exertion Gastrointestinal: Reports: Nausea. Denies: Abdominal pain, Vomiting, Diarrhea, Constipation, Melena, Hematochezia, -, - Genitourinary: Reports: Frequency. Denies: Dysuria, Hematuria, -, - Musculoskeletal: Reports: Back pain. Denies: Myalgias, Arthralgias, Neck pain, Swelling, Extremity Pain, -, - Skin: Denies: Rash, Wounds Neurological: Denies: Headache, Weakness, Numbness Endocrine: Denies: Polyuria, Polydipsia Hematologic: Denies: Easy bruising, Easy bleeding Physical Exam Vital Signs/Narrative: Vital Signs Temp Pulse Resp BP Pulse Ox 08/30/19 13:02 97.6 F L 88 16 157/96 H 96 Inital Vital Signs reviewed: Yes General: Well nourished, Well developed, Obese, No Acute Distress Head: Normocephalic, Atraumatic Eyes: Perrl, EOMI. Negative for: Pale conjunctiva, Scleral icterus ENT: Moist mucous membranes, No rhinorrhea. Negative for: Nasal congestion Neck: Supple, Nontender, No lymphadenopathy, No JVD Cardiovascular: Regular rate, Regular rhythm, No murmurs, Normal S1, Normal S2 Respiratory: No distress, CTA bilaterally, Chest nontender Abdomen: Soft, Nontender, Nondistended, Normal bowel sounds, No masses Rectal: Deferred Back: Nontender, Normal Inspection, CVA tenderness. Negative for: Spinal tenderness Extremities: Nontender, No edema Skin: Normal color, No rash Neurological: Alert, Oriented x3, Cranial nerves II-XII grossly intact, Normal Strength, Normal Sensation Diagnostic/Tx/Re-eval Laboratory Results 08/30/19 08/30/19 08/30/19 13:30 13:41 13:41 WBC 7.2 RBC 4.44 Hgb 14.1 Hct 43.0 MCV 96.8 MCH 31.8 MCHC 32.8 RDW Std Deviation 40.5 RDW Coeff of Claude 11.5 L Plt Count 361 MPV 9.1 Immature Gran % (Auto) 0.100 Neut % (Auto) 52.2 Lymph % (Auto) 35.3 [place] % (Auto) 7.5 Eos % (Auto) 3.5 Baso % (Auto) 1.4 H Absolute Neuts (auto) 3.7 Absolute Lymphs (auto) 2.53 Nucleated RBC % 0 Sodium 138 Potassium 3.8 Chloride 104 Carbon Dioxide 29.0 Anion Gap 5 BUN 14 Creatinine 0.92 Estim Creat Clear Calc 58.51 Est GFR (MDRD) Af Amer 79 Est GFR (MDRD) Non-Af 66 BUN/Creatinine Ratio 15.1 Glucose 121 H Calcium 9.3 Urine Color Yellow Urine Clarity Clear Urine pH 6.5 Ur Specific [place] 1.015 Urine Protein Negative Urine Glucose (UA) Normal Urine Ketones Negative Urine Occult Blood Negative Urine Nitrite Negative Urine Bilirubin Negative Urine Urobilinogen Normal Ur Leukocyte Esterase 100 H Urine RBC 0 SEEN Urine WBC 0-5 SEEN Ur Squamous Epith Cells 0-5 SEEN Urine Bacteria RARE Urine Mucus 0 SEEN Since work-up is unremarkable. Urine is not indicative of urinary tract infection. Patient was made aware of lab results. She was informed there is no abnormalities suggest urinary tract infection. She informs pr nephro that she has pain lying on her right side, flexion of the right hip and twisting. Since there is no contraindication NSAID she was given a prescription for Naprosyn and instructed follow-up with her primary care physician. - Medical Decision Making With complaint urinary symptoms UA and appropriate blood work was obtained. Because patient reports increased urination with his diabetes will obtain basic metabolic panel to assess glucose and anion gap. CBC was obtained to assess for anemia as well as white count. Since symptoms are concerning for urinary tract infection. Since a culture was obtained she did receive dose of Rocephin in the emergency department. ED Disposition - Plan for ED Patient: Disposition: Home or Assisted Living Diagnosis: Acute right flank pain Instructions: ED Back Pain Acute or Chronic Prescriptions: Naproxen [Naprosyn] 500 mg PO BID #14 tab Transmission Status: Pending to [id number] Referrals: Suellen Lomax PA [Primary Care Provider] - 1 Week if not improving
[2019-08-30] MEDS: Ceftriaxone 1 GM/50 ML BAG IV (13:42)
[2019-08-30 13:43] VITALS: BP 157/96; PULSE 88; RESP 16; TEMP 36.4; O2SAT 96
[2019-08-30 13:45] LABS: Mucous, Urine 0 SEEN /hpf (<or=2+); Red Blood Cells-Urine 0 SEEN /hpf (0-5)
[2019-08-30 13:48] LABS: Absolute Lymphocyte Count 2.53 X10^3/uL (0.83-4.51); Absolute Neutrophil Count 3.7 X10^3/uL (2.0-7.7); Basophil% 1.4 % (0-1); Eosinophil# 0.25 X10^3/uL; Eosinophils% 3.5 % (0-5); Hemoglobin 14.1 g/dL (12.0-15.0); Lymphocyte # 2.53 X10^3/ul (4.0); Lymphocyte % 35.3 % (19-41); Mean Corp Hgb Conc 32.8 g/dL (32-36); Mean Corpuscular Hgb 31.8 pg (27.0-32.0); Mean Corpuscular Volume 96.8 fL (81-99); Mean Platelet Vol. 9.1 fl (6.2-12.0); Monocyte# 0.54 X10^3/uL; Monocyte% 7.5 % (0-10); NRBC Flagged by Analyzer 0 % (0-5); Neutrophil # 3.73 X10^3/uL (2.7-7.7); Neutrophil % 52.2 % (47-70); Platelet Count 361 K/mm3 (150-450); RBC Distribution Width CV 11.5 % (11.6-14.6); RBC Distribution Width SD 40.5 fl (35.1-43.9); Red Blood Count 4.44 M/mm3 (4.2-5.4); White Blood Count 7.2 K/mm3 (4.4-11.0)
[2019-08-30 13:49] LABS: Color, Urine Yellow (Yellow); Glucose, Dipstick Normal (Normal); Ketone-Dipstick Negative (Negative); Leukocyte Esterase-Dipstick 100 /ul (Negative); Nitrite-Dipstick Negative (Negative); Occult Blood-Urine Negative /ul (Negative); Protein-Dipstick Negative (Negative); Specific Gravity, Urine 1.015 (1.002-1.030); Urine Bilirubin Dipstick Negative (Negative); Urine Clarity Clear (Clear); Urine Urobilinogen Normal (Normal); Urine pH 6.5 (5.0 - 8.0)
[2019-08-30 14:01] LABS: Anion Gap 5 (5-15); BUN 14 mg/dL (7-18); BUN/Creat Ratio 15.1 RATIO (10-20); Calcium,Total 9.3 mg/dL (8.5-10.1); Chloride 104 mmol/L (98-107); Creatinine, Serum 0.92 mg/dL (0.55-1.02); EST Glomerular Filtration Rate 66 mL/min (>60); Est Glom Filt Rate - Afr Amer 79 mL/min (>60); Estimated Creatinine Clearance 58.51 ml/min; Glucose 121 mg/dL (74-106); Potassium 3.8 mmol/L (3.5-5.1); Sodium Level 138 mmol/L (136-145)
[2019-08-30 14:02] LABS: Squamous Epithelial Cells - UA 0-5 SEEN /hpf (5-10); White Blood Cells 0-5 SEEN /hpf (0-5)
[2019-08-30 14:03] LABS: Bacteria RARE /hpf (None Seen)
[2019-08-30 14:24] VITALS: BP 148/84; PULSE 68; RESP 18
== END 2019-08-30 14:25 | disposition home or self-care (01) ==
PROVIDERS: Emergency Provider Emergency Medicine; PCP Physician Assistant
DX: M54.9 Dorsalgia, unspecified (principal); R11.0 Nausea; R35.0 Frequency of micturition; E11.9 Type 2 diabetes mellitus without complications; I10 Essential (primary) hypertension; J44.9 Chronic obstructive pulmonary disease, unspecified; F32.9 Major depressive disorder, single episode, unspecified; K21.9 Gastro-esophageal reflux disease without esophagitis; E78.5 Hyperlipidemia, unspecified; E03.9 Hypothyroidism, unspecified; G47.33 Obstructive sleep apnea (adult) (pediatric); E66.9 Obesity, unspecified; I27.20 Pulmonary hypertension, unspecified; M06.9 Rheumatoid arthritis, unspecified; Z86.19 Personal history of other infectious and parasitic diseases; Z79.899 Other long term (current) drug therapy; F17.201 Nicotine dependence, unspecified, in remission
CPT/HCPCS: 80048; 81001; 85025; 87086; 87088; 96365; 99284; A4216

== ENCOUNTER → 2019-12-12 08:43 | Outpatient (CLI) | payer MEDICARE, MEDICAID, SELFPAY ==
[2019-06-21 12:44] VITALS: BMI 31.8
[2019-11-09 16:02] VITALS: BMI 32.6
--- NOTE | 2019-12-12 08:44 | ECHOCS_ITS ---
Reason For Study: Arrhythmia Procedure This was a 2D Doppler, Color Flow transthoracic echocardiogram. The study was technically difficult. Contrast injection was performed. Exam performed in department. Left Ventricle Normal LV size. Left ventricular systolic function is normal. The estimated ejection fraction is 60 %. Diastolic function is indeterminate. No regional wall motion abnormalities noted. Right Ventricle Normal RV size. Normal systolic function. Atria Normal left atrium. Normal right atrium. No doppler evidence for ASD. Mitral Valve There is no mitral annular calcification. Normal mitral valve. Mild (1+) mitral valve insufficiency. Tricuspid Valve Normal tricuspid valve. Trivial tricuspid valve insufficiency. Unable to estimate RV systolic pressure/pulmonary artery pressure due to technically difficult study. Aortic Valve Trisinus/trileaflet aortic valve. Normal aortic valve. Pulmonic Valve The pulmonic valve is not well visualized. Great Vessels Normal sized aortic root. Pericardium/Pleural No pericardial effusion. Medication 22 gauge I.V. with prn adaptor inserted into right arm. Diluted definity 4ml given slow IV push to enhance endocardial definition. MMode/2D Measurements & Calculations LVIDd: 4.3 cm IVSd: 1.2 cm Ao root diam: 3.0 cm LVIDs: 2.6 cm LVPWd: 1.1 cm LA dimension: 3.3 cm RVDd: 2.4 cm FS: 39.6 % LAV(MOD-bp): 32.0 ml LA A4 area: 11.8 cm2 RA A4 area: 10.9 cm2 LAV(MOD-bp) Indexed: 16.3 ml/m2 LAV(MOD-sp2): 34.6 ml LAV(MOD-sp4): 27.6 ml Time Measurements MV dec time: 0.34 sec Doppler Measurements & Calculations MV E max refugio: 44.5 cm/sec Lat Peak E' Refugio: 5.5 cm/sec Med Peak E' Refugio: 5.2 cm/sec MV A max refugio: 80.8 cm/sec E/E' lat: 8.1 E/E' med: 8.6 MV E/A: 0.55 MV V2 max: 82.3 cm/sec MV P1/2t max refugio: 53.6 cm/sec Ao V2 max: 118.2 cm/sec MV max P.7 mmHg MV P1/2t: 89.3 msec Ao max P.6 mmHg MV V2 mean: 39.8 cm/sec MV dec slope: 175.9 cm/sec2 MV mean P.75 mmHg MV V2 VTI: 22.1 cm MVA(P1/2t): 2.5 cm2 LV V1 max: 92.9 cm/sec PA V2 max: 81.9 cm/sec LV V1 max P.4 mmHg Interpretation Summary The study was technically difficult. Contrast injection was performed. Left ventricular systolic function is normal. The estimated ejection fraction is 60 %. Mild (1+) mitral valve insufficiency. Trivial tricuspid valve insufficiency. Unable to estimate RV systolic pressure/pulmonary artery pressure due to technically difficult study. Diastolic function is indeterminate. Ordering Physician: Sanjeev Perez Referring Physician: Suellen Lomax Performed By: Brodwolf, Nicolas, RCS
--- NOTE | 2019-12-12 14:59 | PFTCOMP ---
COMPLETE PULMONARY FUNCTION TEST INTERPRETATION Brief HPI: Patient is a 59 year old female, currently under the care of Dr. Perez, who presents to [facility] for complete pulmonary function tests secondary to diagnosis of COPD. Respiratory therapist reports good effort and reproducible results. Interpretation: Forced expiration spirometry shows a mild large airways obstructive ventilatory defect with an FEV1 of 74% predicted. There is no significant bronchodilator response by strict ATS criteria. Spirograms are of good quality and plateau slowly, indicating slowly emptying areas of the lungs. The respiratory flow volume loop shows decreased expiratory flow rates at all lung volumes consistent with airway obstruction. Lung volumes by body plethysmography show a normal total lung capacity at 4.24 L, 83% predicted. All other lung volumes are within normal limits. Diffusion capacity by carbon monoxide is decreased at 51% predicted. The airway resistance is normal. Compared to previous pulmonary function tests from 08/18/2018, there has been no significant change. Impression: Irreversible mild large airways obstructive ventilatory defect with a symmetric reduction diffusion capacity, but no significant rover tender the last year
== END ==
PROVIDERS: PCP Physician Assistant; Referring Provider Internal Medicine Cardiovascular Disease; Visit Provider Internal Medicine Cardiovascular Disease
DX: J44.9 Chronic obstructive pulmonary disease, unspecified (principal); I51.89 Other ill-defined heart diseases
CPT/HCPCS: 93306; 94060; 94726; 94729; Q9957; A4216; C8929

== ENCOUNTER 2020-04-06 22:22 | Emergency (ER) | payer MEDICARE, MEDICAID, SELFPAY ==
[2020-01-11 09:01] VITALS: BMI 32.9
[2020-04-06 22:23] VITALS: BP 135/85; PULSE 74; RESP 16; TEMP 36.7; O2SAT 96; BMI 32.8
[2020-04-06] MEDS: Acetaminophen 500 MG Tablet 1000 MG PO (22:38)
[2020-04-06] MEDS: Amox/Clavulanate 875 MG Tablet PO (22:38)
--- NOTE | 2020-04-06 22:40 | RAD_ITS ---
STUDY: X-RAY - RIGHT HAND REASON FOR EXAM: Female, 60 years old. Dog bite. TECHNIQUE: 3 view(s) of the hand. COMPARISON: None. FINDINGS: No visible fracture. No osseous destruction. Alignment anatomic. Mild degenerative changes. Soft tissues unremarkable. RAD/Hand Min 3 Views IMPRESSION: No acute osseous abnormality. Electronically Signed: Jah Real, at 23:22 EST Tel , Service support ,
--- NOTE | 2020-04-06 22:44 | ED.DCSUM_ITS ---
- ER Visit Summary Date of Service: 04/06/20 Chief Complaint: Dog bite right hand History of Present Illness: The patient is a [address] Lomax. She reports that approximately 530 this afternoon tubing was kinked she try to break up a fight between her dog and her son's dog and the dog bit her hand. The dog's immunizations are up-to-date. Her tetanus is up-to-date. She is left- hand dominant. She reports that she has an aching pain that is 1010 worsening to 10 currently. Is worsened by movement has been relieved by rest. She reports paresthesias in the third and fourth fingers. She denies any other complaints. Physical Examination: Vitals: Stable. Afebrile. General: Well-nourished and well-developed. Head: Normocephalic atraumatic. Neck: Supple, no lymphadenopathy. No JVD. Nontender. Cardiovascular: Regular rate and rhythm. No murmurs. Respiratory: No respiratory distress. Clear to auscultation bilaterally. Abdominal: Soft, nontender, nondistended, normal bowel sounds. No guarding, rebound, or peritoneal signs. Back: Nontender. Extremities: Hematoma to the dorsal surface of her hand over the fourth and fifth metacarpals. There is a 1 cm laceration over the fourth metacarpal head. There is no active bleeding. She is neuro vas intact distal sensation light touch less than 2-second capillary refill. Skin: Normal color, no rash. Neurologic: Alert and oriented ?3. Cranial nerves II through XII are intact. Normal strength and sensation. Psych: Normal affect. Test Results: Right hand x-ray shows no fracture or foreign body. Emergency Department Course and Treatment: Patient had her rings removed. She was treated with Tylenol Augmentin. She reports she cannot take stronger pain medications. She had her wounds cleansed and a dressing was placed. Treatment Plan: Patient will be discharged on Augmentin. Ice and elevate. Use Tylenol as needed for pain. Instructed to follow-up with her primary care physician in 2 days for a wound check. Return to the emergency department for any worsening symptoms. Disposition: To home in improved and stable condition. Impression: 1. Dog bite right hand. This note was generated with [employer] software. It may contain incorrect words, spelling, and punctuation that were not noted in review of the chart prior to signing ED Disposition - Plan for ED Patient: Instructions: ED BITE Dog Prescriptions: Amox/Clavulanate Tablet [Augmentin Tablet] 875 mg PO Q12H #20 tablet Referrals: Suellen Lomax PA [Primary Care Provider] - 2 Days for wound check
== END 2020-04-06 23:07 | disposition home or self-care (01) ==
LOC: ED 23:05
PROVIDERS: Emergency Provider Emergency Medicine; PCP Physician Assistant
DX: S60.571A Other superficial bite of hand of right hand, initial encounter (principal); W54.0XXA Bitten by dog, initial encounter; Y93.9 Activity, unspecified; Y92.9 Unspecified place or not applicable; J44.9 Chronic obstructive pulmonary disease, unspecified; I10 Essential (primary) hypertension; E11.9 Type 2 diabetes mellitus without complications; E03.9 Hypothyroidism, unspecified; I48.91 Unspecified atrial fibrillation; E78.00 Pure hypercholesterolemia, unspecified; Z79.82 Long term (current) use of aspirin; Z79.899 Other long term (current) drug therapy
CPT/HCPCS: 73130; 99283

== ENCOUNTER → 2020-07-11 13:36 | Outpatient (CLI) | payer MEDICARE, MEDICAID, SELFPAY ==
[2020-07-02 09:25] VITALS: BMI 30.9
--- NOTE | 2020-07-11 13:38 | CT_ITS ---
STUDY: LOW DOSE CT LUNG CANCER SCREENING REASON FOR EXAM: Female, 60 years old. Smoker and gt; 30 pack years quit 2009 RADIATION DOSAGE (If Supplied By Facility): CTDIvol = ( 3.02 ) mGy, DLP = ( 100.81 ) mGycm TECHNIQUE: No contrast was administered. Low dose technique was utilized (average mAS-38 and kVp 120). 1.25 mm axial source images with a slice interval of 1.25-mm were reconstructed in lung windows. 2.5 mm axial source images with a slice interval of 2.5-mm were reconstructed in lung windows. 5.0 mm axial source images with a slice interval of 5.0-mm were reconstructed in soft tissue windows. Nodule measured using lung windows on PACS and/or independent workstation with automated measurement of minimum and maximum diameter. Nodule measurement reported as average diameter rounded to the nearest whole number. Growth is defined as an increase ins size of greater than 1.5 mm. COMPARISON: Comparison is made with prior study dated 12/08/2016. NODULES: No suspicious nodules are seen. Emphysema: Hyperinflation. Diffuse emphysematous changes with centrilobular emphysematous changes worse in the upper lobes. Stable scarring in both upper lobes. Endobronchial lesion: None Aorta: Atherosclerotic calcification of the aortic arch. Coronary arteries: Coronary artery calcification. Heart: Unremarkable. Mediastinal nodes: Small benign-appearing lymph nodes. Other chest and abdominal findings: Degenerative changes of the thoracic spine. CT/Low Dose CT Lung Screening IMPRESSION: Lung-RADS category 2 - Continue annual screening with LDCT in 12 months. IMPORTANT NOTES FOR USE: ACR Lung-RADS Version 1.0 Assessment Categories Release Date: September 04, 2013 Category: Coded 0-4 bases on nodule(s) with highest degree of suspicion. Negative screen is defined as categories 1 and 2; a positive screen is defined as categories 3 and 4. Category 3 and 4A nodules that are unchanged on interval CT should be coded as category 2, and individuals returned to screening in 12 months. Category 4X: Category 3 or 4 nodules with additional imaging findings that increase the suspicion of lung cancer, such as spiculation, GGN that doubles in size in 1 year, enlarged lymph notes, etc. Category Modifiers: S (significant finding unrelated to lung cancer) and C (prior history of treated lung cancer) may be added to the 0-4 Lung-RADS Electronically Signed: Sami Campos MD at 14:39 EST , Service support ,
== END ==
PROVIDERS: PCP Physician Assistant; Referring Provider Nurse Practitioner Acute Care; Visit Provider Nurse Practitioner Acute Care
DX: F17.210 Nicotine dependence, cigarettes, uncomplicated (principal)
CPT/HCPCS: 71271

== ENCOUNTER 2020-10-11 18:31 | Observation (INO) | payer MEDICARE, MEDICAID, SELFPAY ==
[2020-07-29 09:16] VITALS: BMI 32.5
[2020-10-11] VITALS (7 sets, daily range): BP systolic 109–128; BP diastolic 73–77; PULSE 62–89; RESP 16–18; TEMP 36.6–36.8; O2SAT 95–99; BMI 33.5; BMI 32.8
--- NOTE | 2020-10-11 18:45 | EKG12_ITS ---
Test Reason : CP Blood Pressure : / mmHG Vent. Rate : 082 BPM Atrial Rate : 082 BPM P-R Int : 164 ms QRS Dur : 080 ms QT Int : 384 ms P-R-T Axes : 039 -15 053 degrees QTc Int : 448 ms Normal sinus rhythm Normal ECG Confirmed by MATTI TITUS, BARB ([id number]), publishing editor WILL SUMMERS ([id number]) on 10/15/2020 10:02:14 AM Referred By: ARTURO Confirmed By:BARB CHINO MD
--- NOTE | 2020-10-11 18:46 | EDS_ITS ---
HPI History of Present Illness Chief Complaint: Chest Pain Informant: patient Onset/Context/Timing Onset: Hours (1300) Activity at onset: sudden and activity on onset Timing: Intermittent Quality: Positive for Tightness Location: - (Started centrally and dissipated to the right and left) Current Severity: 1/10 Maximum Severity: 9/10 Worsened By: Exertion; Not Worsened By Movement of Arm, Movement of Torso, Eating, Palpation, Breathing and Coughing Relieved By: Rest Associated Symptoms: Positive for Nausea, Diaphoresis, Dyspnea and - (Radiated to anterior neck and left upper extremity); Negative for Vomiting Narrative Narrative: Patient is a 60-year-old woman with history of hypertension, COPD, d iet-controlled diabetes, and former smoker who presents with chest tightness that occurred while cleaning. She states she had intense tightness in her central chest that dissipated outward and radiated to her anterior neck and left upper extremity associated with increased shortness of breath from normal, nausea and mild diaphoresis. She denies history of coronary disease. 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 Her last stress test was 1 year ago. She states she never had a cardiac catheterization. She has multiple risk factors for coronary disease and family members with coronary artery disease at a young age. She denies history of VTE. She denies leg pain, swelling discoloration. She does have history of reflux. She denies history of hiatal hernia or peptic ulcer disease. She states this pain is different than her reflux pain. She denies intolerance to greasy or fried foods. Prior Similar Symptoms: No CVD Risk Factors: Positive for Hypertension, Diabetes, Hypercholesterolemia, Family History 1' </=55 and Smoking PE Risk Factors: Negative for Recent Travel/Surgery, Recent Immobilization, Prior DVT or PE, Cancer and OCP + Smoking + >/=35 TAD Risk Factors: Positive for Hypertension; Negative for Marfan's Syndrome and Family History [facility] Medical History Acute hypoxemic respiratory failure Asthma Chronic lumbar radiculopathy COPD (chronic obstructive pulmonary disease) COPD (chronic obstructive pulmonary disease) COPD exacerbation Degenerative joint disease Depression Diastolic dysfunction Essential hypertension GERD (gastroesophageal reflux disease) Hepatitis C Hyperlipidemia Hypertension Hypothyroidism Lung nodule Memory loss NSAID induced gastritis Obesity BEN (obstructive sleep apnea) Osteopenia Prediabetes Psoriasis Pulmonary hypertension Rheumatoid arthritis Stage 2 moderate COPD by GOLD classification Tachycardia Tobacco dependence in remission Home Medications atorvastatin 40 mg PO QHS 03/03/15 [History Last Taken 11/21/18] hydrochlorothiazide 25 mg PO DAILY 03/03/15 [History Last Taken 11/21/18] albuterol sulfate 2.5 mg INHALATION Q4H PRN ml 05/14/17 [History Last Taken 11/21/18] albuterol sulfate 2 puff INHALATION Q4H PRN PRN 11/22/18 [History Last Taken 11/22/18] levothyroxine 75 mcg PO DAILY 11/22/18 [History Last Taken 11/22/18] oxybutynin chloride 5 mg PO DAILY 11/22/18 [History Last Taken 11/21/18] meclizine 0.5 - 1 tab PO 4X/DAY PRN PRN #20 tab 12/23/18 [Rx Last Taken Unknown] aspirin 81 mg tablet,delayed release 81 mg PO DAILY 11/08/19 [History Last Taken Unknown] escitalopram oxalate 20 mg tablet 20 mg PO DAILY 11/08/19 [History Last Taken Unknown] ipratropium 0.5 mg-albuterol 3 mg (2.5 mg base)/3 mL nebulization soln 3 ml INHALATION Q4H PRN 11/08/19 [History Last Taken Unknown] metoprolol succinate 25 mg tablet,extended release 24 hr 25 mg PO DAILY #30 tab 12/18/19 [Rx Last Taken Unknown] montelukast 10 mg tablet 10 mg PO QPM #30 tab 12/29/19 [Rx Last Taken Unknown] fluticasone 500 mcg-salmeterol 50 mcg/dose blistr powdr for inhalation 1 inh INHALATION BID #60 ea 01/08/20 [Rx Last Taken Unknown] umeclidinium 62.5 mcg/actuation blister powder for inhalation 1 inh INHALATION DAILY #30 ea 03/18/20 [Rx Last Taken Unknown] fluticasone propionate 50 mcg/actuation nasal spray,suspension 2 spray INTRANASAL DAILY #16 g 07/02/20 [Rx Last Taken Unknown] lisinopril 20 mg tablet 20 mg PO DAILY #90 tab 07/18/20 [Rx Last Taken Unknown] Allergy/AdvReac Type Severity Reaction Status Date / Time No Known Allergies Allergy Verified 10/11/20 18:31 Family History Grandmother CVA (cerebral vascular accident) CAD (coronary artery disease) Diabetes Grandfather CVA (cerebral vascular accident) Diabetes Mother CAD (coronary artery disease) Hypertension Brother CAD (coronary artery disease) Hypertension Father Diabetes Surgical History Cataract extraction status History of appendectomy History of back surgery History of hysterectomy History of lobectomy of lung (~2009) Social History Smoking Status: Former smoker how long ago did patient quit smokin second hand exposure: Yes alcohol intake: current alcohol intake frequency: a few times a month Alcohol type: beer and wine substance use type: does not use caffeine: Yes Type: coffee Number of servings: 1 ROS ROS ED Constitutional Constitutional ED: Denies chills, fever(s), subjective or sweats Eyes Eyes: Denies blurry vision or change in vision ENT ENT ED: Denies ear pain, rhinorrhea or sore throat Cardiovascular Cardiovascular: Reports as per HPI; Denies orthopnea or paroxysmal nocturnal dyspnea Respiratory/Chest Respiratory/Chest: Reports dyspnea and dyspnea on exertion; Denies cough, orthopnea, paroxysmal nocturnal dyspnea or sputum Gastrointestinal Gastrointestinal: Reports nausea; Denies abdominal pain, diarrhea or melena Genitourinary Genitourinary ED: Denies dysuria, hematuria or urinary frequency Musculoskeletal Musculoskeletal: Reports neck pain; Denies arthralgias, back pain or myalgias Integumentary Denies rash Neurologic Neurologic: Denies paresthesias or weakness Hematologic/Lymphatic Hematologic/Lymphatic: Denies easy bleeding or easy bruising EXAM Physical Exam Const Vital Signs: 10/11/20 18:32 10/11/20 18:46 10/11/20 19:40 Temperature 98.2 F Temperature Source Temporal Pulse Rate 89 70 Respiratory Rate 16 Blood Pressure 127/77 H 109/75 Blood Pressure Mean 93 Pulse Ox 95 Oxygen Delivery Method Room Air Room Air Positive well nourished, well developed and obese General Appearance ED: well developed; Negative for pallor Nutritional Appearance: obese HEENT Reports moist mucous membranes HEENT Narrative: Face is symmetric. Nares patent. Posterior pharynx unremarkable. normocephalic and atraumatic Eyes PERRL and EOMs intact bilaterally General Eye ED: Negative for pale conjunctiva or scleral icterus Neck no lymphadenopathy, supple and no JVD Neck Narrative: There is no carotid bruit noted right or left. Chest Wall palpation of chest normal Resp normal respiratory effort and clear to auscultation bilaterally Effort and Inspection: respiratory distress Cardio regular rate, regular rhythm, S1 normal heart sound, S2 normal heart sound and no murmurs GI normal to inspection, nondistended, normoactive bowel sounds, soft to palpation and non-tender Back/Spine no CVA tenderness Extremity normal to inspection General Extremety ED: Negative for edema, pulses abnormal or tenderness General Extremity: Negative for edema or pulses abnormal Neuro oriented x3 and CN's II-XII intact bilaterally Sensorium / Orientation: awake and alert Psych mental status grossly normal Skin no rashes or lesions noted and no wounds General Skin Exam: Negative for jaundice or pallor Heart Score History: Moderately Suspicious ECG: Normal Age: >45 - <65 years Risk Factors: >/= 3 Risk Factors or History of CAD Troponin: </= Normal Limit Score: 4 MDM MDM MDM Narrative Medical decision making narrative: Patient presents with concerning story. She describes chest discomfort that came on with activity got better with rest and increased with activity. She has multiple risk factors. She reports having mild discomfort this time. Will obtain EKG to rule out acute ischemic changes. CBC to rule out anemia, BMP to assess renal function and troponin since onset of pain was approximately 5 hours ago. Patient did report improvement but not resolution of her discomfort with nitro. Case was discussed with hospitalist and Dr. Perez. Dr. Perez requested patient to be brought in for serial enzymes and if enzymes remain negative stress test. If there is a bump in enzymes he will catheter. Lab Data Attestation: I reviewed the patient's lab results. Labs: Laboratory Results - last 24 hr 10/11/20 10/11/20 18:40 18:40 WBC 9.6 RBC 4.19 L Hgb 13.6 Hct 40.6 MCV 96.9 MCH 32.5 H MCHC 33.5 RDW Std Deviation 42.3 RDW Coeff of [place] 11.9 Plt Count 379 MPV 9.0 Immature Gran % (Auto) 0.400 Neut % (Auto) 58.8 Lymph % (Auto) 29.6 [place] % (Auto) 9.4 Eos % (Auto) 0.9 Baso % (Auto) 0.9 Absolute Neuts (auto) 5.6 Absolute Lymphs (auto) 2.84 Nucleated RBC % 0 Sodium 136 Potassium 3.3 L Chloride 100 Carbon Dioxide 29.0 Anion Gap 7 BUN 18 Creatinine 1.27 H Estim Creat Clear Calc 41.86 Est GFR (MDRD) Af Amer 55 L Est GFR (MDRD) Non-Af 45 L BUN/Creatinine Ratio 14.2 Glucose 99 Calcium 9.5 Troponin I < 0.015 Radiography Chest X-Ray - ED: 1 View, Read by ED Physician, Heart, Mediastinum, Bony Structures, No Acute Disease and Chronic Changes Diagnostic Testing: Radiology Impression Chest X-Ray 10/11/20 19:00 IMPRESSION: No acute cardiopulmonary pathology Electronically Signed: Kailash Avilez MD at 19:16 EDT , Service support , Radiology report was read EKG Initial EKG: Interpretation: Sinus Rhythm (Normal sinus rhythm with a ventricular rate of 82. WA intervals 164 ms. Cures duration 80 ms. QT duration 384 ms. [place] is normal. EKG is normal.) Discharge Plan Triage Chief Complaint: Chest Pain ED Provider: Bc Judge Dx/Rx/DC Orders Clinical Impression: Chest pain, midsternal Prescriptions: No Action albuterol sulfate 2.5 mg /3 mL (0.083 %) solution for nebulization 2.5 mg INHALATION Q4H PRN (Reason: shortness of breath or wheezing) RF: 0 aspirin [Adult Low Dose Aspirin] 81 mg tablet,delayed release (DR/EC) 81 mg PO DAILY RF: 0 ipratropium-albuterol 0.5 mg-3 mg(2.5 mg base)/3 mL solution for nebulization 3 ml INHALATION Q4H PRNRF: 0 escitalopram oxalate [Lexapro] 20 mg tablet 20 mg PO DAILY RF: 0 fluticasone propionate 50 mcg/actuation spray,suspension 2 spray INTRANASAL DAILY Qty: 16 RF: 3 atorvastatin 40 MG tablet 40 mg PO QHS RF: 0 hydrochlorothiazide 25 MG tablet 25 mg PO DAILY RF: 0 levothyroxine 75 MCG tablet 75 mcg PO DAILY RF: 0 albuterol sulfate 18 GM HFA aerosol inhaler 2 puff inhalation Q4H PRN PRN (Reason: Sob &/Or Wheezing) RF: 0 oxybutynin chloride 5 MG tablet 5 mg PO DAILY RF: 0 meclizine 25 MG tablet 0.5 - 1 tab PO 4X/DAY PRN PRN (Reason: Dizziness) Qty: 20 RF: 0 metoprolol succinate 25 mg tablet extended release 24 hr 25 mg PO DAILY Qty: 30 RF: 12 montelukast [Singulair] 10 mg tablet 10 mg PO QPM Qty: 30 RF: 6 fluticasone propion-salmeterol 500-50 mcg/dose blister with device 1 inh INHALATION BID Qty: 60 RF: 8 umeclidinium 62.5 mcg/actuation blister with device 1 inh inhalation DAILY Qty: 30 RF: 11 lisinopril 20 mg tablet 20 mg PO DAILY Qty: 90 RF: 3 Primary Care Provider: Suellen Lomax Referrals: Suellen Lomax PA [Primary Care Provider] - Disposition Disposition: Acute Care Hospital [facility]
--- NOTE | 2020-10-11 19:00 | RAD_ITS ---
STUDY: X-RAY CHEST REASON FOR EXAM: Female, 60 years old. chest pain TECHNIQUE: AP portable COMPARISON: 12/23/2018 FINDINGS: The lungs are clear and expanded. There is no demonstrated pleural abnormality. Normal size heart. Normal mediastinum and cameron. Normal visualized pulmonary arteries. Minimally calcified aortic arch and descending thoracic aorta. Dorsal spine demonstrates degenerative change. Normal visualized ribs, clavicles, and shoulders. There is no demonstrated abnormality of the visualized soft tissue structures of the upper abdomen. RAD/Chest 1 View (Portable) IMPRESSION: No acute cardiopulmonary pathology Electronically Signed: Kailash Avilez MD at 19:16 EDT , Service support ,
[2020-10-11 19:09] LABS: Absolute Lymphocyte Count 2.84 X10^3/uL (0.83-4.51); Absolute Neutrophil Count 5.6 X10^3/uL (2.0-7.7); Basophil# 0.09 X10^3/uL; Basophil% 0.9 % (0-1); Eosinophil# 0.09 X10^3/uL; Eosinophils% 0.9 % (0-5); Hematocrit 40.6 % (37-47); Hemoglobin 13.6 g/dL (12.0-15.0); Lymphocyte # 2.84 X10^3/ul (0.83-4.51); Lymphocyte % 29.6 % (19-41); Mean Corp Hgb Conc 33.5 g/dL (32-36); Mean Corpuscular Hgb 32.5 pg (27.0-32.0); Mean Corpuscular Volume 96.9 fL (81-99); Monocyte% 9.4 % (0-10); NRBC Flagged by Analyzer 0 % (0-5); Neutrophil # 5.63 X10^3/uL (2.7-7.7); Neutrophil % 58.8 % (47-70); Platelet Count 379 K/mm3 (150-450); RBC Distribution Width CV 11.9 % (11.6-14.6); RBC Distribution Width SD 42.3 fl (35.1-43.9); Red Blood Count 4.19 M/mm3 (4.2-5.4); White Blood Count 9.6 K/mm3 (4.4-11.0)
[2020-10-11 19:20] LABS: Anion Gap 7 (5-15); BUN 18 mg/dL (7-18); BUN/Creat Ratio 14.2 RATIO (10-20); Calcium,Total 9.5 mg/dL (8.5-10.1); Chloride 100 mmol/L (98-107); Creatinine, Serum 1.27 mg/dL (0.55-1.02); EST Glomerular Filtration Rate 45 mL/min (>60); Est Glom Filt Rate - Afr Amer 55 mL/min (>60); Estimated Creatinine Clearance 41.86 ml/min; Glucose 99 mg/dL (74-106); Potassium 3.3 mmol/L (3.5-5.1); Sodium Level 136 mmol/L (136-145)
[2020-10-11] MEDS: Nitroglycerin SL (ED/IMG/CATH) 0.4 MG TABLET SL (19:40)
--- NOTE | 2020-10-11 21:48 | EKG12_ITS ---
Test Reason : AM EKG Blood Pressure : / mmHG Vent. Rate : 061 BPM Atrial Rate : 061 BPM P-R Int : 186 ms QRS Dur : 082 ms QT Int : 440 ms P-R-T Axes : 059 -03 047 degrees QTc Int : 442 ms Normal sinus rhythm Normal ECG Confirmed by MATTI TITUS, BARB ([id number]), publication editor WILL SUMMERS ([id number]) on 10/15/2020 10:28:36 AM Referred By: MAISHA Confirmed By:BARB CHINO MD
--- NOTE | 2020-10-11 22:42 | PCM.HP.STD ---
HPI - General General Date of Admission: 10/11/20 Date of Service: 10/11/20 Chief Complaint: chest pain HPI Narrative SYDNIE GELLER, is a 60 F who presents to the emergency room with a complaint of chest discomfort, she describes it as a tightness, it is worse with exertion, its been present over the last 2 days, patient states that it radiates into her left neck area and then her left hand has some numbness also. Patient also complains of some shortness of breath with the chest discomfort. Patient does have a history of COPD, she does not currently smoke. Lab work obtained on the patient showed a normal CBC, chest x-ray showed no acute process, troponin was unremarkable, EKG showed normal sinus rhythm without evidence of ischemic changes. Potassium was low at 3.3, creatinine was elevated at 1.27. Patient tells this examiner she still has some chest discomfort, and all she states her chest discomfort has been present since 1 PM today-for approximately 8 hours. Patient will be placed in observation status on PCU, serial cardiac enzymes will be obtained, if these remain normal she will undergo a resting pharmacological nuclear stress test tomorrow. Patient had a stress test in 2019 which was unremarkable. [facility] Medical History (Updated 10/11/20 @ 22:21 by Jailene Veras) Acute hypoxemic respiratory failure Asthma Chronic lumbar radiculopathy COPD (chronic obstructive pulmonary disease) COPD (chronic obstructive pulmonary disease) COPD exacerbation Degenerative joint disease Depression Diastolic dysfunction Essential hypertension Former smoker GERD (gastroesophageal reflux disease) Hepatitis C Hernia Hyperlipidemia Hypertension Hypothyroidism Kidney stones Lung anomaly Lung nodule Memory loss NSAID induced gastritis Obesity BEN (obstructive sleep apnea) Osteopenia Prediabetes Psoriasis Pulmonary hypertension Rheumatoid arthritis Stage 2 moderate COPD by GOLD classification Tachycardia Tobacco dependence in remission Home Medications atorvastatin 40 mg PO QHS 03/03/15 [History Last Taken 10/10/20] hydrochlorothiazide 25 mg PO DAILY 03/03/15 [History Last Taken 10/10/20] albuterol sulfate 2.5 mg INHALATION Q4H PRN ml 05/14/17 [History Last Taken 10/11/20] albuterol sulfate 2 puff INHALATION Q4H PRN PRN 11/22/18 [History Last Taken 11/22/18] levothyroxine 75 mcg PO DAILY 11/22/18 [History Last Taken 10/11/20] oxybutynin chloride 5 mg PO DAILY 11/22/18 [History Last Taken 10/10/20] aspirin 81 mg tablet,delayed release 81 mg PO DAILY 11/08/19 [History Last Taken 10/11/20] escitalopram oxalate 20 mg tablet 20 mg PO DAILY 11/08/19 [History Last Taken 10/11/20] metoprolol succinate 25 mg tablet,extended release 24 hr 25 mg PO DAILY #30 tab 12/18/19 [Rx Last Taken 10/10/20] montelukast 10 mg tablet 10 mg PO QPM #30 tab 12/29/19 [Rx Last Taken 10/10/20] fluticasone 500 mcg-salmeterol 50 mcg/dose blistr powdr for inhalation 1 inh INHALATION BID #60 ea 01/08/20 [Rx Last Taken 10/11/20 10:00] umeclidinium 62.5 mcg/actuation blister powder for inhalation 1 inh INHALATION DAILY #30 ea 03/18/20 [Rx Last Taken 10/11/20] lisinopril 20 mg tablet 20 mg PO DAILY #90 tab 07/18/20 [Rx Last Taken 10/10/20] meloxicam [Mobic] 15 mg PO DAILY 10/11/20 [History Last Taken 10/10/20] omeprazole 20 mg PO DAILY 10/11/20 [History Last Taken Unknown] Allergy/AdvReac Type Severity Reaction Status Date / Time No Known Allergies Allergy Verified 10/11/20 18:31 Family History Grandmother CVA (cerebral vascular accident) CAD (coronary artery disease) Diabetes Grandfather CVA (cerebral vascular accident) Diabetes Mother CAD (coronary artery disease) Hypertension Brother CAD (coronary artery disease) Hypertension Father Diabetes Surgical History Cataract extraction status History of appendectomy History of back surgery History of hysterectomy History of lobectomy of lung (~2009) Social History Smoking Status: Former smoker how long ago did patient quit smokin second hand exposure: Yes alcohol intake: current alcohol intake frequency: a few times a month Alcohol type: beer and wine substance use type: does not use caffeine: Yes Type: coffee Number of servings: 1 ROS Constitutional Constitutional: Denies anorexia, change in weight, fever(s), night sweats or weakness Eyes Eyes: Denies blurry vision, change in vision, discharge from eye(s) or eye pain Cardiovascular Cardiovascular: Reports chest pain; Denies claudication, edema or palpitations Respiratory/Chest Respiratory/Chest: Reports shortness of breath at rest and shortness of breath with exertion; Denies cough or hemoptysis Gastrointestinal Gastrointestinal: Denies abdominal pain, constipation, diarrhea, hematemesis, hematochezia, melena, nausea or vomiting Genitourinary Genitourinary: Denies dysuria, hematuria, urinary frequency, urinary hesitancy, urinary incontinence or urinary urgency Musculoskeletal Musculoskeletal: Denies back pain, joint pain, joint stiffness, joint swelling, myalgias or neck pain Neurologic Neurologic: Denies abnormal gait, abnormal speech, dizziness, focal weakness, headache(s), loss of vision, numbness, other visual disturbances, paresthesias, syncope or tingling Psychiatric Psychiatric: Denies anxiety, cognitive impairment, depression, irritability, mood swings or suicidal ideation Endocrine Endocrinology: Denies change in body appearance, cold intolerance, excessive sweating, heat intolerance, polydipsia or polyuria Hematologic/Lymphatic Hematologic/Lymphatic: Denies none, anemia, easy bleeding, easy bruising or lymphadenopathy Allergic/Immunologic Allergic/Immunologic: Denies rhinitis, urticaria, eczemia or asthma Vital Signs Vital Signs Vital Signs: 10/11/20 18:32 10/11/20 18:46 10/11/20 19:40 Temperature 98.2 F Temperature Source Temporal Pulse Rate 89 70 Respiratory Rate 16 Blood Pressure 127/77 H 109/75 Blood Pressure Mean 93 Blood Pressure Source Blood Pressure Position Blood Pressure Location Pulse Ox 95 Oxygen Delivery Method Room Air Room Air Oxygen Flow Rate (L/min) 10/11/20 21:16 10/11/20 21:45 10/11/20 22:29 Temperature 98 F 97.9 F Temperature Source Oral Oral Pulse Rate 66 63 Respiratory Rate 17 18 Blood Pressure 128/75 H 124/73 H Blood Pressure Mean 92 90 Blood Pressure Source Monitor Blood Pressure Position Semi-Fowlers Blood Pressure Location Left Arm Pulse Ox 97 95 99 Oxygen Delivery Method Nasal Cannula Room Air Room Air Oxygen Flow Rate (L/min) 2 Weight Weight: 89.6 kg Body Mass Index (BMI) 32.8 Physical Exam Const alert, oriented x3, no apparent distress and healthy appearing General Appearance: cooperative, well kempt and well developed Orientation / Consciousness: awake, oriented to person, oriented to place and oriented to time HEENT normocephalic and moist oral mucous membranes Eyes PERRL, EOMs intact bilaterally and conjunctivae normal Neck nuchal rigidity, supple, no JVD, thyroid normal and no carotid bruits General: trachea midline Resp normal respiratory effort, no retractions, no use of accessory muscles and clear to auscultation bilaterally Auscultation: Negative for rales, rhonchi or wheezes Cardio regular rate, regular rhythm, S1 normal heart sound, S2 normal heart sound, no murmurs, no rub, no gallops and no clicks GI normal to inspection, nondistended, normoactive bowel sounds, soft to palpation, non-tender and non-distended Extremity no clubbing, cyanosis or edema Skin no rashes or lesions noted General Skin Exam: no breakdown Neuro oriented x3, CN's II-XII intact bilaterally, no focal motor deficits and no sensory deficits noted Sensorium / Orientation: awake and alert Speech: speech normal Motor Exam: strength 5/5 throughout Psych thought process normal and affect normal Results Lab / Micro Data Result Diagrams: 10/11/20 18:40 10/11/20 18:40 Labs: Laboratory Results - last 24 hr 10/11/20 10/11/20 10/11/20 18:40 18:40 21:58 WBC 9.6 RBC 4.19 L Hgb 13.6 Hct 40.6 MCV 96.9 MCH 32.5 H MCHC 33.5 RDW Std Deviation 42.3 RDW Coeff of Claude 11.9 Plt Count 379 MPV 9.0 Immature Gran % (Auto) 0.400 Neut % (Auto) 58.8 Lymph % (Auto) 29.6 [place] % (Auto) 9.4 Eos % (Auto) 0.9 Baso % (Auto) 0.9 Absolute Neuts (auto) 5.6 Absolute Lymphs (auto) 2.84 Nucleated RBC % 0 Sodium 136 Potassium 3.3 L Chloride 100 Carbon Dioxide 29.0 Anion Gap 7 BUN 18 Creatinine 1.27 H Estim Creat Clear Calc 41.86 Est GFR (MDRD) Af Amer 55 L Est GFR (MDRD) Non-Af 45 L BUN/Creatinine Ratio 14.2 Glucose 99 Calcium 9.5 Troponin I < 0.015 < 0.015 Radiology Impression Chest X-Ray 10/11/20 19:00 IMPRESSION: No acute cardiopulmonary pathology Electronically Signed: Kailash Avilez MD at 19:16 EDT , Service support , Assessment & Plan Assessment/Plan (1) Chest pain, midsternal: PLAN: 1. Precordial chest tightness-with radiation into the left neck area and into her left hand-etiology unclear at this point, I feel this is atypical chest discomfort, patient will be placed in observation status on PCU, serial enzymes will be drawn, if these remain negative, patient will undergo a pharmacological resting nuclear stress test tomorrow. I do not think the patient needs an echocardiogram. #2 hypokalemia-patient will be given oral potassium, this is probably secondary to hydrochlorothiazide usage #3 chronic obstructive pulmonary disease #4 essential hypertension #5 obstructive sleep apnea-noncompliant with CPAP #6 hypothyroidism Charges/Coding Visit Charges OBSV E&M: [id number] Initial observation care L3
[2020-10-11] MEDS: Atorvastatin Calcium 40 MG Tablet PO (23:31)
[2020-10-11] MEDS: 0.9% Saline Lock 10 ML Syringe IV (23:32)
[2020-10-12] VITALS (12 sets, daily range): BP systolic 92–147; BP diastolic 60–95; PULSE 59–80; RESP 17–20; TEMP 36.6–37.1; O2SAT 90–100
[2020-10-12] MEDS: Potassium Chloride Oral Tablet 20 MEQ 40 MEQ PO (00:16)
[2020-10-12] MEDS: Lisinopril 20 MG Tablet PO (05:06)
[2020-10-12] MEDS: Aspirin E.C. 81 MG Tablet PO (05:06)
[2020-10-12] MEDS: Levothyroxine 75 MCG Tablet PO (05:07)
--- NOTE | 2020-10-12 05:55 | EKG12_ITS ---
Test Reason : CP ADMISSION Blood Pressure : / mmHG Vent. Rate : 064 BPM Atrial Rate : 064 BPM P-R Int : 178 ms QRS Dur : 080 ms QT Int : 432 ms P-R-T Axes : 053 -10 044 degrees QTc Int : 445 ms Normal sinus rhythm Normal ECG Confirmed by MATTI TITUS, BARB ([id number]), news editor WILL SUMMERS ([id number]) on 10/15/2020 10:29:40 AM Referred By: MAISHA Confirmed By:BARB CHINO MD
[2020-10-12] MEDS: Budesonide Respules 0.5 MG/2 ML AMPUL.NEB. INHALATION ×2 (07:08→19:22)
[2020-10-12] MEDS: Ipratropium/Albuterol Sulfate 3 ML AMPUL.NEB INHALATION ×3 (07:08→19:22)
[2020-10-12 09:01] LABS: Anion Gap 6 (5-15); BUN 18 mg/dL (7-18); Calcium,Total 8.9 mg/dL (8.5-10.1); Chloride 103 mmol/L (98-107); EST Glomerular Filtration Rate 60 mL/min (>60); Est Glom Filt Rate - Afr Amer 72 mL/min (>60); Estimated Creatinine Clearance 53.16 ml/min; Glucose 102 mg/dL (74-106); Potassium 4.3 mmol/L (3.5-5.1); Sodium Level 136 mmol/L (136-145)
--- NOTE | 2020-10-12 09:06 | ECHOCS_ITS ---
Reason For Study: Chest Pain Procedure This was a 2D Doppler, Color Flow transthoracic echocardiogram. The study was technically difficult. Contrast injection was performed. Exam performed in department. Left Ventricle Normal LV size. Left ventricular systolic function is normal. The estimated ejection fraction is 65 %. No evidence for diastolic dysfunction. No regional wall motion abnormalities noted. Right Ventricle Normal RV size. Normal systolic function. Atria Normal left atrium. Normal right atrium. No doppler evidence for ASD. Mitral Valve There is no mitral annular calcification. Normal mitral valve. Trivial mitral valve insufficiency. Tricuspid Valve Normal tricuspid valve. Trivial tricuspid valve insufficiency. Right ventricular systolic pressure estimated to be 29 mmHg. Aortic Valve Trisinus/trileaflet aortic valve. Normal aortic valve. Pulmonic Valve The pulmonic valve is not well visualized. Great Vessels Normal sized aortic root. Pericardium/Pleural No pericardial effusion. Medication Diluted definity 3ml given slow IV push to enhance endocardial definition. MMode/2D Measurements & Calculations LVIDd: 4.1 cm IVSd: 1.1 cm LA dimension: 3.6 cm LVIDs: 2.2 cm LVPWd: 1.1 cm FS: 46.4 % LAV(MOD-bp): 27.8 ml LA A4 area: 12.0 cm2 RA A4 area: 7.2 cm2 LAV(MOD-bp) Indexed: 14.1 ml/m2 LAV(MOD-sp2): 25.0 ml LAV(MOD-sp4): 29.3 ml Time Measurements MV dec time: 0.31 sec Doppler Measurements & Calculations MV E max refugio: 62.4 cm/sec Lat Peak E' Refugio: 7.8 cm/sec Med Peak E' Refugio: 8.6 cm/sec MV A max refugio: 94.6 cm/sec E/E' lat: 8.0 E/E' med: 7.2 MV E/A: 0.66 MV V2 max: 87.6 cm/sec MV P1/2t max refugio: 67.7 cm/sec Ao V2 max: 128.8 cm/sec MV max P.1 mmHg MV P1/2t: 98.9 msec Ao max P.6 mmHg MV V2 mean: 45.1 cm/sec MV dec slope: 200.6 cm/sec2 MV mean P.97 mmHg MV V2 VTI: 25.9 cm MVA(P1/2t): 2.2 cm2 LV V1 max: 118.8 cm/sec PA V2 max: 84.7 cm/sec TR max refugio: 255.7 cm/sec LV V1 max P.6 mmHg TR max P.1 mmHg ECHO/Echo Complete W/ Contrast Interpretation Summary The study was technically difficult. Contrast injection was performed. Left ventricular systolic function is normal. The estimated ejection fraction is 65 %. Trivial mitral valve insufficiency. Trivial tricuspid valve insufficiency. Right ventricular systolic pressure estimated to be 29 mmHg. No evidence for diastolic dysfunction. Ordering Physician: Sanjeev Perez Referring Physician: Suellen Lomax Performed By: Nicolas Mayberry RCS
--- NOTE | 2020-10-12 10:57 | CON.PCM.CA_ITS ---
Assessment & Plan Assessment/Plan (1) Chest pain, midsternal: PLAN: The patient presented with recurrent chest discomfort. She has undergone noninvasive evaluation in the past. She has never had to undergo further invasive evaluation such as diagnostic cardiac catheterization. At the present time she has continued a noninvasive evaluation. Her cardiac enzymes have been negative. Her ECG demonstrates no new acute ECG changes. Her echocardiographic and pharmacologic stress nuclear imaging studies are as noted. Based upon these findings it was felt reasonable the patient be considered for further evaluation with diagnostic cardiac catheterization. The procedure and risk were discussed with her. She was agreeable to this approach. If a future cardiac catheterization is unremarkable with respect to explaining her ongoing symptoms and her findings then she should continue further noncardiac evaluation of her concerns. (2) Diastolic dysfunction: PLAN: The patient is reported as having a history of diastolic dysfunction. She has been treated medically in the past. (3) Hyperlipidemia: QUALIFIERS: Hyperlipidemia type: unspecified Qualified Code(s): E78.5 - Hyperlipidemia, unspecified PLAN: The patient has a history of hyperlipidemia. She has been treated medically in the past with lipid-lowering therapy/statins. (4) Essential hypertension: PLAN: The patient also has history of hypertension. She is continued antihypertensive therapy. Addt'l Comments Comment: The patient's case was discussed and reviewed with the patient and previously with the [facility] emergency department staff and Dr. Ramsey of the [facility] hospital staff. This note was generated using a voice recognition system and there may be incorrect words, spelling or punctuation that were not noted when reviewing the office note prior to saving. HPI Consult Data Date of Consult: 10/12/20 HPI Narrative HPI Narrative: SYDNIE GELLER, is a 60 white female who presents for cardiovascular consultation based upon concerns of chest discomfort superimposed upon a history of diastolic dysfunction, hyperlipidemia, and hypertension. She states that overall she has been doing well as long as she remained on her medical therapy. She does admit that she did not take her medications with respect to her beta-blockers for approximately 2 days prior to her emergency department visit. She notes that when she does take those she usually feels better. She noted crushing chest discomfort with some element of radiation to the lower neck and the left upper extremity. She did not appear to have associated acute dyspnea or diaphoresis. She states she felt somewhat nauseated. She was brought to the emergency department for further evaluation. She notes by the time she arrived in the emergency [place] she was feeling better. In the emergency department she was treated with nitroglycerin sublingual. She is unclear whether it made a significant difference in her course as she was already feeling better by the time of her arrival. She underwent evaluation which included cardiac enzymes which were considered negative. An ECG was performed which demonstrated normal sinus rhythm with no acute ECG changes. A chest x-ray was performed which was reported with no acute changes. She was subsequently placed in the PCU for further evaluation and care. She has continued without obvious acute recurrent symptoms. Her cardiac enzymes have remained negative. Her repeat ECG has demonstrated continued normal sinus rhythm with no acute ECG changes. The patient has undergone additional evaluation with both transthoracic echocardiogram and a pharmacologic stress nuclear imaging study. The results are noted below. [facility] Medical History (Updated 10/11/20 @ 22:21 by Jailene Veras) Acute hypoxemic respiratory failure Asthma Chronic lumbar radiculopathy COPD (chronic obstructive pulmonary disease) COPD (chronic obstructive pulmonary disease) COPD exacerbation Degenerative joint disease Depression Diastolic dysfunction Essential hypertension Former smoker GERD (gastroesophageal reflux disease) Hepatitis C Hernia Hyperlipidemia Hypertension Hypothyroidism Kidney stones Lung anomaly Lung nodule Memory loss NSAID induced gastritis Obesity BEN (obstructive sleep apnea) Osteopenia Prediabetes Psoriasis Pulmonary hypertension Rheumatoid arthritis Stage 2 moderate COPD by GOLD classification Tachycardia Tobacco dependence in remission Home Medications atorvastatin 40 mg PO QHS 03/03/15 [History Last Taken 10/10/20] hydrochlorothiazide 25 mg PO DAILY 03/03/15 [History Last Taken 10/10/20] albuterol sulfate 2.5 mg INHALATION Q4H PRN ml 05/14/17 [History Last Taken 10/11/20] albuterol sulfate 2 puff INHALATION Q4H PRN PRN 11/22/18 [History Last Taken 11/22/18] levothyroxine 75 mcg PO DAILY 11/22/18 [History Last Taken 10/11/20] oxybutynin chloride 5 mg PO DAILY 11/22/18 [History Last Taken 10/10/20] aspirin 81 mg tablet,delayed release 81 mg PO DAILY 11/08/19 [History Last Taken 10/11/20] escitalopram oxalate 20 mg tablet 20 mg PO DAILY 11/08/19 [History Last Taken 10/11/20] metoprolol succinate 25 mg tablet,extended release 24 hr 25 mg PO DAILY #30 tab 12/18/19 [Rx Last Taken 10/10/20] montelukast 10 mg tablet 10 mg PO QPM #30 tab 12/29/19 [Rx Last Taken 10/10/20] fluticasone 500 mcg-salmeterol 50 mcg/dose blistr powdr for inhalation 1 inh INHALATION BID #60 ea 01/08/20 [Rx Last Taken 10/11/20 10:00] umeclidinium 62.5 mcg/actuation blister powder for inhalation 1 inh INHALATION DAILY #30 ea 03/18/20 [Rx Last Taken 10/11/20] lisinopril 20 mg tablet 20 mg PO DAILY #90 tab 07/18/20 [Rx Last Taken 10/10/20] meloxicam [Mobic] 15 mg PO DAILY 10/11/20 [History Last Taken 10/10/20] omeprazole 20 mg PO DAILY 10/11/20 [History Last Taken Unknown] Allergy/AdvReac Type Severity Reaction Status Date / Time No Known Allergies Allergy Verified 10/11/20 18:31 Family History Grandmother CVA (cerebral vascular accident) CAD (coronary artery disease) Diabetes Grandfather CVA (cerebral vascular accident) Diabetes Mother CAD (coronary artery disease) Hypertension Brother CAD (coronary artery disease) Hypertension Father Diabetes Surgical History Cataract extraction status History of appendectomy History of back surgery History of hysterectomy History of lobectomy of lung (~2009) Social History Smoking Status: Former smoker how long ago did patient quit smokin second hand exposure: Yes alcohol intake: current alcohol intake frequency: a few times a month Alcohol type: beer and wine substance use type: does not use caffeine: Yes Type: coffee Number of servings: 1 ROS Constitutional Constitutional: Reports as per HPI Eyes Eyes: Reports as per HPI ENT HEENT: Reports as per HPI Cardiovascular Cardiovascular: Reports chest pain at rest Respiratory/Chest Respiratory/Chest: Reports as per HPI Gastrointestinal Gastrointestinal: Reports nausea Genitourinary Genitourinary: Reports as per HPI Musculoskeletal Musculoskeletal: Reports as per HPI Integumentary Integumentary: Reports as per HPI Neurologic Neurologic: Reports as per HPI Psychiatric Psychiatric: Reports as per HPI Physical Exam Const alert, oriented x3 and healthy appearing Orientation / Consciousness: awake HEENT normocephalic and head/scalp atraumatic Eyes PERRL and EOMs intact bilaterally Neck full ROM and supple Chest inspection of chest normal Resp normal respiratory effort and clear to auscultation bilaterally Cardio regular rate, regular rhythm, S1 normal heart sound and S2 normal heart sound GI normal to inspection, nondistended, normoactive bowel sounds Extremity normal to inspection Skin no rashes or lesions noted Neuro oriented x3, CN's II-XII intact bilaterally and moves all extremities Psych mental status grossly normal Procedure Criteria Type of Procedure Procedure Type: Elective Elective Risks - COVID COVID Risk Discussion: The surgeon/proceduralist and patient have discussed in detail the risk of exposure to and/or potential harm posed by the COVID-19 virus with having a surgery/procedure at this time versus the risk of delaying the surgery/procedure. It is not possible to know either the risk of delaying the surgery or procedure or chance of getting an infection with perfect accuracy, but a joint decision was made between the patient and the surgeon/proceduralist to proceed at this time with the scheduled surgery/procedure as indicated on the consent form. Objective Data Vital Signs: Vital Signs Temp Pulse Resp BP Pulse Ox 97.9 F 80 20 H 126/73 H 90 10/12/20 04:29 10/12/20 07:08 10/12/20 07:08 10/12/20 04:29 10/12/20 07:08 Oxygen Flow Rate (L/min) 2 Oxygen Delivery Method Room Air Weight: 197 lb 8.547 oz Body Mass Index (BMI) 32.8 Lab / Micro Data Result Diagrams: 10/11/20 18:40 10/12/20 08:38 Labs: Laboratory Results - last 24 hr 10/11/20 10/11/20 10/11/20 18:40 18:40 21:58 WBC 9.6 RBC 4.19 L Hgb 13.6 Hct 40.6 MCV 96.9 MCH 32.5 H MCHC 33.5 RDW Std Deviation 42.3 RDW Coeff of Claude 11.9 Plt Count 379 MPV 9.0 Immature Gran % (Auto) 0.400 Neut % (Auto) 58.8 Lymph % (Auto) 29.6 [place] % (Auto) 9.4 Eos % (Auto) 0.9 Baso % (Auto) 0.9 Absolute Neuts (auto) 5.6 Absolute Lymphs (auto) 2.84 Nucleated RBC % 0 Sodium 136 Potassium 3.3 L Chloride 100 Carbon Dioxide 29.0 Anion Gap 7 BUN 18 Creatinine 1.27 H Estim Creat Clear Calc 41.86 Est GFR (MDRD) Af Amer 55 L Est GFR (MDRD) Non-Af 45 L BUN/Creatinine Ratio 14.2 Glucose 99 Calcium 9.5 Troponin I < 0.015 < 0.015 10/12/20 10/12/20 00:45 08:38 WBC RBC Hgb Hct MCV MCH MCHC RDW Std Deviation RDW Coeff of Claude Plt Count MPV Immature Gran % (Auto) Neut % (Auto) Lymph % (Auto) [place] % (Auto) Eos % (Auto) Baso % (Auto) Absolute Neuts (auto) Absolute Lymphs (auto) Nucleated RBC % Sodium 136 Potassium 4.3 Chloride 103 Carbon Dioxide 27.0 Anion Gap 6 BUN 18 Creatinine 1.00 Estim Creat Clear Calc 53.16 Est GFR (MDRD) Af Amer 72 Est GFR (MDRD) Non-Af 60 BUN/Creatinine Ratio 18.0 Glucose 102 Calcium 8.9 Troponin I < 0.015 Cardiology Labs/Tests 10/11/20 18:40: WBC 9.6, RBC 4.19 L, Hgb 13.6, Hct 40.6, MCV 96.9, MCH 32.5 H, MCHC 33.5, Plt Count 379, MPV 9.0, Immature Gran % (Auto) 0.400, Neut % (Auto) 58.8, Lymph % (Auto) 29.6, [place] % (Auto) 9.4, Eos % (Auto) 0.9, Baso % (Auto) 0.9, Absolute Neuts (auto) 5.6, Nucleated RBC % 0 10/11/20 18:40: Sodium 136, Potassium 3.3 L, Chloride 100, Carbon Dioxide 29.0, Anion Gap 7, BUN 18, Creatinine 1.27 H, Est GFR (MDRD) Af Amer 55 L, Est GFR (MDRD) Non-Af 45 L, BUN/Creatinine Ratio 14.2, Glucose 99, Calcium 9.5, Troponin I < 0.015 10/11/20 21:58: Troponin I < 0.015 10/12/20 00:45: Troponin I < 0.015 10/12/20 08:38: Sodium 136, Potassium 4.3, Chloride 103, Carbon Dioxide 27.0, Anion Gap 6, BUN 18, Creatinine 1.00, Est GFR (MDRD) Af Amer 72, Est GFR (MDRD) Non-Af 60, BUN/Creatinine Ratio 18.0, Glucose 102, Calcium 8.9 Rhythm: Sinus rhythm EKG: As noted above ECHO: 12-12-2019 Interpretation Summary The study was technically difficult. Contrast injection was performed. Left ventricular systolic function is normal. The estimated ejection fraction is 60 %. Mild (1+) mitral valve insufficiency. Trivial tricuspid valve insufficiency. Unable to estimate RV systolic pressure/pulmonary artery pressure due to technically difficult study. Diastolic function is indeterminate. 10/12/2020 Interpretation Summary The study was technically difficult. Contrast injection was performed. Left ventricular systolic function is normal. The estimated ejection fraction is 65 %. Trivial mitral valve insufficiency. Trivial tricuspid valve insufficiency. Right ventricular systolic pressure estimated to be 29 mmHg. No evidence for diastolic dysfunction. Stress Test: Stress Test Report Date: 11-23-18 Procedure: Pharmacologic stress nuclear imaging study Indications: Chest pain Consent: Per the patient Procedure: The patient underwent pharmacologic (Regadenoson) evaluation with a peak heart rate of 93 beats per minute (57 %predicted maximal heart rate) and a peak blood pressure of 128/76 mmHg. The baseline ECG demonstrated sinus rhythm. The peak pharmacologic ECG demonstrated no obvious ECG changes. There were no cardiac dysrhythmias pretest, during pharmacologic infusion, or recovery. There was no complaint of chest discomfort during pharmacologic infusion or recovery. The examination was discontinued secondary to completion of protocol. Impression: 1. Pharmacologic (Regadenoson) evaluation 2. Peak pharmacologic ECG with no obvious ECG changes. 3. There were no cardiac dysrhythmias pretest, during pharmacologic infusion, or recovery. 4. Nuclear images pending Myocardial perfusion imaging study: Technique: The patient was injected with 11.8 millicuries of technetium 99m Cardiolite and subsequently rest SPECT Cardiolite nuclear imaging was obtained in the horizontal long, vertical long, and short axis views. The patient underwent pharmacologic (Regadenoson) evaluation with a peak heart rate of 93 beats per mi nute (57 % percent predicted maximal heart rate) and a peak blood pressure of 128/76 mmHg. The patient was injected with 32.1 millicuries of technetium 99m Cardiolite and subsequently stress SPECT Cardiolite nuclear imaging was obtained in the horizontal long, vertical long, and short axis views. A gated Cardiolite study at peak stress was obtained. Interpretation: Rest and stress SPECT Cardiolite nuclear imaging status post realignment, normalization, and attenuation correction demonstrate relative uniform tracer uptake and myocardial perfusion appearing within normal limits. There is end systolic thickening and brightening. The gated Cardiolite study demonstrates myocardial thickening and inward wall motion. The reported LVEF is 90 %. Impression: 1. Rest and stress SPECT Cardiolite nuclear imaging demonstrate relative uniform tracer uptake and myocardial perfusion appearing within normal limits. 2. The gated Cardiolite study reports an LVEF of 90 %. Stress Test Report Date: 10-12-2020 Procedure: Pharmacologic stress nuclear imaging study Indications: Chest pain Consent: Per the patient Procedure: The patient underwent pharmacologic (Regadenoson 0.4mg ) evaluation with a peak heart rate of 100 beats per minute (62%predicted maximal heart rate) and a peak blood pressure of 152/80 mmHg. The baseline ECG demonstrated sinus rhythm. The peak pharmacologic ECG demon strated in early recovery subtle horizontal ST segment depression in leads II, III, and aVF with associated nonspecific T wave abnormality in the aforementioned leads as well as V3 through V6 with subsequent gradual resolution to baseline. There were no cardiac dysrhythmias pretest, during pharmacologic infusion, or recovery. There was no complaint of chest discomfort during pharmacologic infusion or recovery. The examination was discontinued secondary to completion of protocol. Impression: 1. Pharmacologic (Regadenoson) evaluation 2. Peak pharmacologic ECG with early recovery subtle horizontal ST segment depression in leads II, III, and aVF with associated nonspecific T wave abnormal ity in the aforementioned leads as well as V3 through V6 with subsequent gradual resolution to baseline. 3. There were no cardiac dysrhythmias pretest, during pharmacologic infusion, or recovery. 4. Nuclear images pending Myocardial perfusion imaging study: Technique: The patient was injected with 12.9 millicuries of technetium 99m Cardiolite and subsequently rest SPECT Cardiolite nuclear imaging was obtained in the horizontal long, vertical long, and short axis views. The patient underwent pharmacologic (Regadenoson) evaluation with a peak heart rate of 100 beats per minute (62% percent predicted maximal heart rate) and a peak blood pressure of 152/8 mmHg. The patient was injected with 40.1 millicuries of technetium 99m Cardiolite and subsequently stress SPECT Cardiolite nuclear imaging was obtained in the horizontal long, vertical long, and short axis views. A gated Cardiolite study at peak stress was obtained. Interpretation: Rest and stress SPECT Cardiolite nuclear imaging status post realignment, normalization, and attenuation correction demonstrate at rest relative uniform tracer uptake and myocardial perfusion appearing within normal limits. Status post stress there is notation of subtle diminished tracer uptake in portions of the distal septal/septal apical segments noted predominantly on the horizontal long axis and vertical long axis views as well as on the stress polar map images. There is end systolic thickening and brightening. The gated Cardiolite study demonstrates myocardial thickening and inward wall motion. The reported LVEF is 84%. Impression: 1. Rest and stress SPECT cardiac nuclear imaging demonstrate status post stress the appearance of subtle diminished tracer uptake in portions of the distal septal/septal apical segments noted predominantly on the horizontal long axis and vertical long axis views as well is on the stress polar map images concerning for an area of stress-induced myocardial ischemia, however, an element of shifting soft tissue attenuation/artifact cannot necessarily be excluded. 2. The gated Cardiolite study reports an LVEF of 84%. Radiography Diagnostic Testing: Radiology Impression Chest X-Ray 10/11/20 19:00 IMPRESSION: No acute cardiopulmonary pathology Electronically Signed: Kailash Avilez MD at 19:16 EDT , Service support , Chest CT scan: 07-11-2020 NODULES: No suspicious nodules are seen. Emphysema: Hyperinflation. Diffuse emphysematous changes with centrilobular emphysematous changes worse in the upper lobes. Stable scarring in both upper lobes. Endobronchial lesion: None Aorta: Atherosclerotic calcification of the aortic arch. Coronary arteries: Coronary artery calcification. Heart: Unremarkable. Mediastinal nodes: Small benign-appearing lymph nodes. Other chest and abdominal findings: Degenerative changes of the thoracic spine. CT/Low Dose CT Lung Screening IMPRESSION: Lung-RADS category 2 - Continue annual screening with LDCT in 12 months. IMPORTANT NOTES FOR USE: ACR Lung-RADS Version 1.0 Assessment Categories Release Date: September 04, 2013 Category: Coded 0-4 bases on nodule(s) with highest degree of suspicion. Negative screen is defined as categories 1 and 2; a positive screen is defined as categories 3 and 4. Category 3 and 4A nodules that are unchanged on interval CT should be coded as category 2, and individuals returned to screening in 12 months. Category 4X: Category 3 or 4 nodules with additional imaging findings that increase the suspicion of lung cancer, such as spiculation, GGN that doubles in size in 1 year, enlarged lymph notes, etc. Category Modifiers: S (significant finding unrelated to lung cancer) and C (prior history of treated lung cancer) may be added to the 0-4 Lung-RADS Electronically Signed: Sami Campos MD at 14:39 EST
[2020-10-12] MEDS: Metoprolol(XL)Succ 25 MG Tablet PO (11:11)
[2020-10-12] MEDS: Oxybutynin 5 MG Tablet PO (11:11)
[2020-10-12] MEDS: Escitalopram Oxalate 20 MG Tablet PO (11:12)
[2020-10-12] MEDS: hydroCHLOROthiazide 25 MG Tablet PO (11:12)
--- NOTE | 2020-10-12 11:13 | STRESSREP_ITS ---
Stress Test Report Date: 10-12-2020 Procedure: Pharmacologic stress nuclear imaging study Indications: Chest pain Consent: Per the patient Procedure: The patient underwent pharmacologic (Regadenoson 0.4mg ) evaluation with a peak heart rate of 100 beats per minute (62%predicted maximal heart rate) and a peak blood pressure of 152/80 mmHg. The baseline ECG demonstrated sinus rhythm. The peak pharmacologic ECG demonstrated in early recovery subtle horizontal ST segment depression in leads II, III, and aVF with associated nonspecific T wave abnormality in the aforementioned leads as well as V3 through V6 with subsequent gradual resolution to baseline. There were no cardiac dysrhythmias pretest, during pharmacologic infusion, or recovery. There was no complaint of chest discomfort during pharmacologic infusion or recovery. The examination was discontinued secondary to completion of protocol. Impression: 1. Pharmacologic (Regadenoson) evaluation 2. Peak pharmacologic ECG with early recovery subtle horizontal ST segment depression in leads II, III, and aVF with associated nonspecific T wave abnormality in the aforementioned leads as well as V3 through V6 with subsequent gradual resolution to baseline. 3. There were no cardiac dysrhythmias pretest, during pharmacologic infusion, or recovery. 4. Nuclear images pending Myocardial perfusion imaging study: Technique: The patient was injected with 12.9 millicuries of technetium 99m Cardiolite and subsequently rest SPECT Cardiolite nuclear imaging was obtained in the horizontal long, vertical long, and short axis views. The patient underwent pharmacologic (Regadenoson) evaluation with a peak heart rate of 100 beats per minute (62% percent predicted maximal heart rate) and a peak blood pressure of 152/8 mmHg. The patient was injected with 40.1 millicuries of technetium 99m Cardiolite and subsequently stress SPECT Cardiolite nuclear imaging was obtained in the horizontal long, vertical long, and short axis views. A gated Cardiolite study at peak stress was obtained. Interpretation: Rest and stress SPECT Cardiolite nuclear imaging status post realignment, normalization, and attenuation correction demonstrate at rest relative uniform tracer uptake and myocardial perfusion appearing within normal limits. Status post stress there is notation of subtle diminished tracer uptake in portions of the distal septal/septal apical segments noted predominantly on the horizontal long axis and vertical long axis views as well as on the stress polar map images. There is end systolic thickening and brightening. The gated Cardiolite study demonstrates myocardial thickening and inward wall motion. The reported LVEF is 84%. Impression: 1. Rest and stress SPECT cardiac nuclear imaging demonstrate status post stress the appearance of subtle diminished tracer uptake in portions of the distal septal/septal apical segments noted predominantly on the horizontal long axis a nd vertical long axis views as well is on the stress polar map images concerning for an area of stress-induced myocardial ischemia, however, an element of shifting soft tissue attenuation/artifact cannot necessarily be excluded. 2. The gated Cardiolite study reports an LVEF of 84%. This note was generated with [employer] software. It may contain incorrect words, spelling, and punctuation that were not noted in checking the note before signing.
--- NOTE | 2020-10-12 11:46 | PCM.DC ---
Discharge Instructions Follow Up Care Test Results: Test results from this visit will be discussed in further detail at your follow-up appointment, if applicable. Discharge Plan Admission Admit Date/Time: 10/11/20 21:39 Attending Provider: Vanessa Ramsey Primary Care Provider: Suellen Lomax Discharge Orders/Prescriptions Prescriptions: No Action albuterol sulfate 2.5 mg /3 mL (0.083 %) solution for nebulization 2.5 mg INHALATION Q4H PRN (Reason: shortness of breath or wheezing) RF: 0 aspirin [Adult Low Dose Aspirin] 81 mg tablet,delayed release (DR/EC) 81 mg PO DAILY RF: 0 escitalopram oxalate [Lexapro] 20 mg tablet 20 mg PO DAILY RF: 0 atorvastatin 40 MG tablet 40 mg PO QHS RF: 0 hydrochlorothiazide 25 MG tablet 25 mg PO DAILY RF: 0 levothyroxine 75 MCG tablet 75 mcg PO DAILY RF: 0 albuterol sulfate 18 GM HFA aerosol inhaler 2 puff inhalation Q4H PRN PRN (Reason: Sob &/Or Wheezing) RF: 0 oxybutynin chloride 5 MG tablet 5 mg PO DAILY RF: 0 meloxicam [Mobic] 15 mg tablet 15 mg PO DAILY RF: 0 omeprazole 20 mg Capsule,Delayed Release(Dr/Ec) 20 mg PO DAILY RF: 0 metoprolol succinate 25 mg tablet extended release 24 hr 25 mg PO DAILY Qty: 30 RF: 12 montelukast [Singulair] 10 mg tablet 10 mg PO QPM Qty: 30 RF: 6 fluticasone propion-salmeterol 500-50 mcg/dose blister with device 1 inh INHALATION BID Qty: 60 RF: 8 umeclidinium 62.5 mcg/actuation blister with device 1 inh inhalation DAILY Qty: 30 RF: 11 lisinopril 20 mg tablet 20 mg PO DAILY Qty: 90 RF: 3 Referrals / Follow Up: Suellen Lomax PA [Primary Care Provider] - Disposition Disposition (needs filled in before D/C Order can be placed): Home, self care
[2020-10-12] MEDS: Clopidogrel Bisulfate 300 MG Tablet PO (13:16)
[2020-10-12] MEDS: Isosorbide Mononitrate 30 MG Tablet PO (13:16)
--- NOTE | 2020-10-12 13:18 | PN.HOSP_ITS ---
Documented by User: Dolly Cortez NP, CERAMIC SPRAYER-C 10/12/20 13:26 Subjective Subjective Patient seen and examined. Reports intermittent chest tightness. Worse with any movement. Denies other associated symptoms or complaints. Underwent stress test this morning which was abnormal, discussed with patient recommendations for heart cath and she is amenable to plan. Objective Data Objective Data Vital Signs: Vital Signs Temp Pulse Resp BP Pulse Ox 98.0 F 59 L 18 147/95 H 94 10/12/20 11:05 10/12/20 11:11 10/12/20 11:05 10/12/20 11:11 10/12/20 11:05 Oxygen Flow Rate (L/min) 2 Oxygen Delivery Method Room Air Weight: 197 lb 8.547 oz Body Mass Index (BMI) 32.8 Lab / Micro Data Result Diagrams: 10/11/20 18:40 10/12/20 08:38 Labs: Laboratory Results - last 24 hr 10/11/20 10/11/20 10/11/20 18:40 18:40 21:58 WBC 9.6 RBC 4.19 L Hgb 13.6 Hct 40.6 MCV 96.9 MCH 32.5 H MCHC 33.5 RDW Std Deviation 42.3 RDW Coeff of Claude 11.9 Plt Count 379 MPV 9.0 Immature Gran % (Auto) 0.400 Neut % (Auto) 58.8 Lymph % (Auto) 29.6 [place] % (Auto) 9.4 Eos % (Auto) 0.9 Baso % (Auto) 0.9 Absolute Neuts (auto) 5.6 Absolute Lymphs (auto) 2.84 Nucleated RBC % 0 Sodium 136 Potassium 3.3 L Chloride 100 Carbon Dioxide 29.0 Anion Gap 7 BUN 18 Creatinine 1.27 H Estim Creat Clear Calc 41.86 Est GFR (MDRD) Af Amer 55 L Est GFR (MDRD) Non-Af 45 L BUN/Creatinine Ratio 14.2 Glucose 99 Calcium 9.5 Troponin I < 0.015 < 0.015 10/12/20 10/12/20 00:45 08:38 WBC RBC Hgb Hct MCV MCH MCHC RDW Std Deviation RDW Coeff of Claude Plt Count MPV Immature Gran % (Auto) Neut % (Auto) Lymph % (Auto) [place] % (Auto) Eos % (Auto) Baso % (Auto) Absolute Neuts (auto) Absolute Lymphs (auto) Nucleated RBC % Sodium 136 Potassium 4.3 Chloride 103 Carbon Dioxide 27.0 Anion Gap 6 BUN 18 Creatinine 1.00 Estim Creat Clear Calc 53.16 Est GFR (MDRD) Af Amer 72 Est GFR (MDRD) Non-Af 60 BUN/Creatinine Ratio 18.0 Glucose 102 Calcium 8.9 Troponin I < 0.015 Radiography Diagnostic Testing: Radiology Impression Chest X-Ray 10/11/20 19:00 IMPRESSION: No acute cardiopulmonary pathology Electronically Signed: Kailash Avilez MD at 19:16 EDT , Service support , Echocardiogram 10/12/20 09:06 Interpretation Summary The study was technically difficult. Contrast injection was performed. Left ventricular systolic function is normal. The estimated ejection fraction is 65 %. Trivial mitral valve insufficiency. Trivial tricuspid valve insufficiency. Right ventricular systolic pressure estimated to be 29 mmHg. No evidence for diastolic dysfunction. __ Ordering Physician: Sanjeev Perez Referring Physician: Suellen Lomax Performed By: Nicolas Mayberry RCS Physical Exam Const alert, oriented x3 and no apparent distress Orientation / Consciousness: awake, oriented to person, oriented to place and oriented to time HEENT normocephalic and moist oral mucous membranes Eyes PERRL, EOMs intact bilaterally and conjunctivae normal Neck no lymphadenopathy Resp normal respiratory effort and clear to auscultation bilaterally Cardio regular rate, regular rhythm and no murmurs Peripheral Pulses: pulses 2+ throughout GI normal to inspection, nondistended, normoactive bowel sounds, non-tender and non-distended Extremity normal to inspection Skin no rashes or lesions noted Lesions: no lesions Rashes: no rashes Trauma: no lacerations or abrasions Neuro CN's II-XII intact bilaterally, no focal motor deficits, no sensory deficits noted and deep tendon reflexes 2+ bilaterally Psych mental status grossly normal and affect normal Assessment & Plan Assessment/Plan (1) Chest pain, midsternal: PLAN: 1. Chest pain-stress test abnormal. Cardiology consulted. Patient follows with Dr. Perez. Plan for heart cath on Wednesday. Continue aspirin, statin, Plavix, beta-nasir. Initiated on isosorbide. 2. History of chronic diastolic dysfunction-patient underwent echocardiogram which demonstrated an EF of 65%, RVSP estimated to be 29 mmHg. No evidence of diastolic dysfunction. 3. Stage II COPD/pulmonary hypertension/BEN-follows with Dr. Osorio, pulmonary medicine. As needed albuterol aerosols. Continue PAP regimen. 4. Hypertension-stable, continue metoprolol, lisinopril, HCTZ. 5. Hyperlipidemia-continue statin. 6. History of tobacco use-encouraged continued cessation. 7. Hypothyroidism-continue Synthroid regimen. 8. Depression-on escitalopram. 9. GERD-continue PPI. DVT prophylaxis-Lovenox subcu This patient was seen by OUSMANE Silva under the supervision of Dr. Shailesh arevalo. Documented by User: Dr. Vanessa Ramsey MD 10/12/20 15:13 Objective Data Lab / Micro Data Result Diagrams: 10/11/20 18:40 10/12/20 08:38 Charges/Coding Addendum Addendum: Patient seen by OUSMANE Silva under my supervision. Patient was admitted with a complaint of chest pain. Troponins x3 were negative. She says she is not having chest pain now and feels well. She has no complaints. Review of systems otherwise negative. She has remained hemodynam ically stable. O/E: Const alert, oriented x3 and no apparent distress Orientation / Consciousness: awake, oriented to person, oriented to place and oriented to time HEENT normocephalic and moist oral mucous membranes Eyes PERRL, EOMs intact bilaterally and conjunctivae normal Neck no lymphadenopathy Resp normal respiratory effort and clear to auscultation bilaterally Cardio regular rate, regular rhythm and no murmurs Peripheral Pulses: pulses 2+ throughout GI normal to inspection, nondistended, normoactive bowel sounds, non-tender and non-distended Extremity normal to inspection Skin no rashes or lesions noted Lesions: no lesions Rashes: no rashes Trauma: no lacerations or abrasions Neuro CN's II-XII intact bilaterally, no focal motor deficits, no sensory deficits noted and deep tendon reflexes 2+ bilaterally Psych mental status grossly normal and affect normal Patient stress test was abnormal and cardiology was consulted. She is for heart cath on Wednesday. Currently on aspirin, Plavix, beta-nasir and statin. Also started on Imdur. Continue breathing treatments with bronchodilators as needed. Lovenox for DVT prophylaxis. Rest as per OUSMANE Silva's note which I have reviewed and endorsed. Visit Charges OBSV E&M: 42980 Subsequent observation care L2
--- NOTE | 2020-10-12 13:25 | CASEMGMT ---
This RN CM to room with BARRY form, explanation done-pt voices understanding, and signs BARRY form at this time. Original to chart and copy to pt. Pt has MCR IP vs OBS booklet at bedside. Pt voices no further questions/concerns/needs. SStaten RN CM
--- NOTE | 2020-10-12 13:27 | CASEMGMT ---
According to the [facility], the following are in-network tertiary facilities: [facility], [facility], [facility], [facility], [facility], [facility], [employer], and . Gisella BANUELOS CM
[2020-10-12] MEDS: Atorvastatin Calcium 40 MG Tablet PO (21:04)
[2020-10-13] VITALS (12 sets, daily range): BP systolic 116–145; BP diastolic 71–90; PULSE 59–89; RESP 15–18; TEMP 36.4–37.2; O2SAT 92–97
[2020-10-13] MEDS: Levothyroxine 75 MCG Tablet PO (06:26)
[2020-10-13] MEDS: Enoxaparin 40 MG/0.4 ML Syringe SC (06:26)
[2020-10-13] MEDS: Ipratropium/Albuterol Sulfate 3 ML AMPUL.NEB INHALATION ×3 (07:06→21:15)
[2020-10-13] MEDS: Budesonide Respules 0.5 MG/2 ML AMPUL.NEB. INHALATION ×2 (07:06→21:15)
[2020-10-13] MEDS: Lisinopril 20 MG Tablet PO (08:37)
[2020-10-13] MEDS: Escitalopram Oxalate 20 MG Tablet PO (08:37)
[2020-10-13] MEDS: Isosorbide Mononitrate 30 MG Tablet PO (08:37)
[2020-10-13] MEDS: Clopidogrel Bisulfate 75 MG Tablet PO (08:37)
[2020-10-13] MEDS: Aspirin E.C. 81 MG Tablet PO (08:37)
[2020-10-13] MEDS: Oxybutynin 5 MG Tablet PO (08:37)
[2020-10-13] MEDS: hydroCHLOROthiazide 25 MG Tablet PO (08:37)
[2020-10-13] MEDS: Metoprolol(XL)Succ 25 MG Tablet PO (08:37)
--- NOTE | 2020-10-13 08:57 | PCM.PN.HOSP ---
Documented by User: Dolly Cortez NP, MAIL CARRIER TECHNICIAN-C 10/13/20 09:00 Subjective Subjective Patient seen and examined. States chest tightness has improved. Denies new symptoms or complaints. Plan for heart cath in a.m. Objective Data Objective Data Vital Signs: Vital Signs Temp Pulse Resp BP Pulse Ox 98.1 F 68 18 134/90 H 94 10/13/20 08:30 10/13/20 08:37 10/13/20 08:30 10/13/20 08:37 10/13/20 08:30 Oxygen Flow Rate (L/min) 2 Oxygen Delivery Method Room Air Weight: 197 lb 8.547 oz Body Mass Index (BMI) 32.8 Intake & Output: Intake and Output for Last 24 Hours 10/11/20 10/12/20 10/13/20 23:59 23:59 23:59 Intake Total 630 / 630 100 / 100 Balance 630 / 630 100 / 100 Lab / Micro Data Result Diagrams: 10/11/20 18:40 10/12/20 08:38 Labs: Laboratory Results - last 24 hr 10/12/20 08:38 Sodium 136 Potassium 4.3 Chloride 103 Carbon Dioxide 27.0 Anion Gap 6 BUN 18 Creatinine 1.00 Estim Creat Clear Calc 53.16 Est GFR (MDRD) Af Amer 72 Est GFR (MDRD) Non-Af 60 BUN/Creatinine Ratio 18.0 Glucose 102 Calcium 8.9 Radiography Diagnostic Testing: Radiology Impression Echocardiogram 10/12/20 09:06 Interpretation Summary The study was technically difficult. Contrast injection was performed. Left ventricular systolic function is normal. The estimated ejection fraction is 65 %. Trivial mitral valve insufficiency. Trivial tricuspid valve insufficiency. Right ventricular systolic pressure estimated to be 29 mmHg. No evidence for diastolic dysfunction. Ordering Physician: Sanjeev Perez Referring Physician: Suellen Lmoax Performed By: Nicolas Mayberry RCS Physical Exam Const alert, oriented x3 and no apparent distress Orientation / Consciousness: awake, oriented to person, oriented to place and oriented to time HEENT normocephalic and moist oral mucous membranes Eyes PERRL, EOMs intact bilaterally and conjunctivae normal Neck no lymphadenopathy Resp normal respiratory effort and clear to auscultation bilaterally Cardio regular rate, regular rhythm and no murmurs Peripheral Pulses: pulses 2+ throughout GI normal to inspection, nondistended, normoactive bowel sounds, non-tender and non-distended Extremity normal to inspection Skin no rashes or lesions noted Lesions: no lesions Rashes: no rashes Trauma: no lacerations or abrasions Neuro CN's II-XII intact bilaterally, no focal motor deficits, no sensory deficits noted and deep tendon reflexes 2+ bilaterally Psych mental status grossly normal and affect normal Assessment & Plan Assessment/Plan (1) Chest pain, midsternal: PLAN: 1. Chest pain-stress test abnormal. Cardiology consulted. Patient follows with Dr. Perez. Plan for heart cath on Wednesday, 10/14. Continue aspirin, statin, Plavix, beta-nasir. Initiated on isosorbide. 2. History of chronic diastolic dysfunction-patient underwent echocardiogram which demonstrated an EF of 65%, RVSP estimated to be 29 mmHg. No evidence of diastolic dysfunction. 3. Stage II COPD/pulmonary hypertension/BEN-follows with Dr. Osorio, pulmonary medicine. As needed albuterol aerosols. Continue PAP regimen. 4. Hypertension-stable, continue metoprolol, lisinopril, HCTZ. 5. Hyperlipidemia-continue statin. 6. History of tobacco use-encouraged continued cessation. 7. Hypothyroidism-continue Synthroid regimen. 8. Depression-on escitalopram. 9. GERD-continue PPI. DVT prophylaxis-Lovenox subcu This patient was seen by OUSMANE Silva under the supervision of Dr. Ramsey. Documented by User: Dr. Vanessa Ramsey MD 10/13/20 13:15 Objective Data Lab / Micro Data Result Diagrams: 10/11/20 18:40 10/12/20 08:38 Charges/Coding Addendum Addendum: Patient seen by OUSMANE Silva under my supervision. Patient seen and examined. She has no complaints today, and CXR didnt recur. REview of systems otherwise negative. She has remained hemodynamically stable. O/E: Const alert, oriented x3 and no apparent distress Orientation / Consciousness: awake, oriented to person, oriented to place and oriented to time HEENT normocephalic and moist oral mucous membranes Eyes PERRL, EOMs intact bilaterally and conjunctivae normal Neck no lymphadenopathy Resp normal respiratory effort and clear to auscultation bilaterally Cardio regular rate, regular rhythm and no murmurs Peripheral Pulses: pulses 2+ throughout GI normal to inspection, nondistended, normoactive bowel sounds, non-tender and non-distended Extremity normal to inspection Skin no rashes or lesions noted Lesions: no lesions Rashes: no rashes Trauma: no lacerations or abrasions Neuro CN's II-XII intact bilaterally, no focal motor deficits, no sensory deficits noted and deep tendon reflexes 2+ bilaterally Psych mental status grossly normal and affect normal Stress test was negative. She is due for cardiac cath tomorrow. On aspirin, plavix, beta nasir and statin, as well as Imdur. On breathing treatment with bronchodilators. On lovenox for DVT prophylaxis. Rest as per OUSMANE Silva's note which I have reviewed and endorsed. Visit Charges Inpatient E&M: 91595 Subs Hosp L2
--- NOTE | 2020-10-13 12:17 | PN.CARD_ITS ---
Subjective Subjective The patient is awake and alert. She states her chest does feel better today. She has no new acute symptoms. Objective Data Vital Signs: Vital Signs Temp Pulse Resp BP Pulse Ox 98.1 F 68 18 134/90 H 94 10/13/20 08:30 10/13/20 08:37 10/13/20 08:30 10/13/20 08:37 10/13/20 08:30 Oxygen Flow Rate (L/min) 2 Oxygen Delivery Method Room Air Weight: 197 lb 8.547 oz Body Mass Index (BMI) 32.8 Intake & Output: Intake and Output for Last 24 Hours 10/11/20 10/12/20 10/13/20 23:59 23:59 23:59 Intake Total 630 / 630 100 / 100 Balance 630 / 630 100 / 100 Lab / Micro Data Result Diagrams: 10/11/20 18:40 10/12/20 08:38 Cardiology Labs/Tests Rhythm: Sinus rhythm Physical Exam Const alert, oriented x3 and healthy appearing Orientation / Consciousness: awake HEENT normocephalic and head/scalp atraumatic Eyes PERRL and EOMs intact bilaterally Neck full ROM and supple Chest inspection of chest normal Resp normal respiratory effort and clear to auscultation bilaterally Cardio regular rate, regular rhythm, S1 normal heart sound and S2 normal heart sound GI normal to inspection, nondistended, normoactive bowel sounds Extremity normal to inspection Skin no rashes or lesions noted Neuro oriented x3, CN's II-XII intact bilaterally and moves all extremities Psych mental status grossly normal Assessment & Plan Assessment/Plan (1) Chest pain, midsternal: PLAN: The patient presented with recurrent chest discomfort. She has undergone noninvasive evaluation in the past. She has never had to undergo further invasive evaluation such as diagnostic cardiac catheterization. At the present time she has continued a noninvasive evaluation. Her cardiac enzymes have been negative. Her ECG demonstrates no new acute ECG changes. Her echocardiographic and pharmacologic stress nuclear imaging studies are as pr eviously noted. Based upon these findings it was felt reasonable the patient be considered for further evaluation with diagnostic cardiac catheterization. The procedure and risk were discussed with her. She was agreeable to this approach. If a future cardiac catheterization is unremarkable with respect to explaining her ongoing symptoms and her findings then she should continue further noncard iac evaluation of her concerns. (2) Diastolic dysfunction: PLAN: The patient is reported as having a history of diastolic dysfunction. She has been treated medically in the past. (3) Hyperlipidemia: QUALIFIERS: Hyperlipidemia type: unspecified Qualified Code(s): E78.5 - Hyperlipidemia, unspecified PLAN: The patient has a history of hyperlipidemia. She has been treated medically in the past with lipid-lowering therapy/statins. (4) Essential hypertension: PLAN: The patient also has history of hypertension. She is continued antihypertensive therapy. Addt'l Comments The patient's case has been discussed and reviewed with the patient. The aforementioned information has been conveyed to Dr. Ramsey of the [facility] staff. This note was generated using a voice recognition system and there may be inc orrect words, spelling or punctuation that were not noted when reviewing the office note prior to saving. Procedure Criteria Type of Procedure Procedure Type: Elective Elective Risks - COVID COVID Risk Discussion: The surgeon/proceduralist and patient have discussed in detail the risk of exposure to and/or potential harm posed by the COVID-19 virus with having a surgery/procedure at this time versus the risk of delaying the surgery/procedure. It is not possible to know either the risk of delaying the surgery or procedure or chance of getting an infection with perfect accuracy, but a joint decision was made between the patient and the surgeon/proceduralist to proceed at this time with the scheduled surgery/procedure as indicated on the consent form.
[2020-10-13] MEDS: Acetaminophen 325 MG Tablet 650 MG PO (14:11)
[2020-10-13] MEDS: Atorvastatin Calcium 40 MG Tablet PO (21:12)
[2020-10-14] VITALS (21 sets, daily range): BP systolic 99–156; BP diastolic 57–87; PULSE 59–70; RESP 15–17; TEMP 36.4–36.7; O2SAT 90–99
--- NOTE | 2020-10-14 05:55 | EKG12_ITS ---
Test Reason : AM EKG Blood Pressure : / mmHG Vent. Rate : 059 BPM Atrial Rate : 059 BPM P-R Int : 174 ms QRS Dur : 082 ms QT Int : 432 ms P-R-T Axes : 067 000 051 degrees QTc Int : 427 ms Sinus bradycardia Otherwise normal ECG Confirmed by MATTI TITUS, BARB ([id number]), international editorial producer WILL SUMMERS ([id number]) on 10/15/2020 10:42:25 AM Referred By: DR YA Confirmed By:BARB CHINO MD
[2020-10-14 06:00] LABS: Absolute Lymphocyte Count 2.71 X10^3/uL (0.83-4.51); Absolute Neutrophil Count 4.3 X10^3/uL (2.0-7.7); Basophil# 0.08 X10^3/uL; Eosinophil# 0.31 X10^3/uL; Eosinophils% 3.8 % (0-5); Hematocrit 38.7 % (37-47); Lymphocyte # 2.71 X10^3/ul (0.83-4.51); Lymphocyte % 33.6 % (19-41); Mean Corp Hgb Conc 33.6 g/dL (32-36); Mean Corpuscular Hgb 32.1 pg (27.0-32.0); Mean Corpuscular Volume 95.6 fL (81-99); Mean Platelet Vol. 9.1 fl (6.2-12.0); Monocyte# 0.71 X10^3/uL; Monocyte% 8.8 % (0-10); NRBC Flagged by Analyzer 0 % (0-5); Neutrophil # 4.25 X10^3/uL (2.7-7.7); Neutrophil % 52.7 % (47-70); Platelet Count 353 K/mm3 (150-450); RBC Distribution Width CV 11.3 % (11.6-14.6); RBC Distribution Width SD 39.9 fl (35.1-43.9); Red Blood Count 4.05 M/mm3 (4.2-5.4); White Blood Count 8.1 K/mm3 (4.4-11.0)
[2020-10-14 06:12] LABS: International Normalized Ratio 1.2; Prothrombin Time (Protime)PT. 14.2 SECONDS (11.7-14.9)
[2020-10-14 06:23] LABS: Anion Gap 8 (5-15); BUN 16 mg/dL (7-18); BUN/Creat Ratio 19.7 RATIO (10-20); Calcium,Total 8.9 mg/dL (8.5-10.1); Chloride 93 mmol/L (98-107); Creatinine, Serum 0.81 mg/dL (0.55-1.02); EST Glomerular Filtration Rate 76 mL/min (>60); Est Glom Filt Rate - Afr Amer 92 mL/min (>60); Estimated Creatinine Clearance 65.63 ml/min; Glucose 81 mg/dL (74-106); Sodium Level 129 mmol/L (136-145)
[2020-10-14] MEDS: Lisinopril 20 MG Tablet PO (06:24)
[2020-10-14] MEDS: Metoprolol(XL)Succ 25 MG Tablet PO (06:24)
[2020-10-14] MEDS: Isosorbide Mononitrate 30 MG Tablet PO (06:24)
[2020-10-14] MEDS: Clopidogrel Bisulfate 75 MG Tablet PO (06:24)
[2020-10-14] MEDS: Aspirin E.C. 81 MG Tablet PO (06:25)
[2020-10-14] MEDS: Levothyroxine 75 MCG Tablet PO (06:25)
[2020-10-14] MEDS: Budesonide Respules 0.5 MG/2 ML AMPUL.NEB. INHALATION (06:43)
[2020-10-14] MEDS: Ipratropium/Albuterol Sulfate 3 ML AMPUL.NEB INHALATION ×2 (06:43→12:58)
--- NOTE | 2020-10-14 08:35 | CL.D_ITS ---
Patient Name: SYDNIE GELLER Study Date: 10/14/2020 Performing: aSnjeev Perez MD Ht: 65 inches 165 cm : 1960 Wt: 198.7 lbs 90 kg Age: 60 Gender: female BSA: 1.97 PROCEDURE(S) PERFORMED NV06-BEE/COR/LV CLINICAL PROFILE AND INDICATIONS Indications: Worsening Angina, Suspected CAD Heart Failure: None Stress/Imaging Date: 10/12/2020tress Test with SPECT MPI: Positive Intermediate Risk Angina Classification Anginal Classification w/in 2 Weeks: CCS III CAD Presentations: Unstable angina. CONCLUSIONS Elevated Left Ventricular End Diastolic Pressure Normal LV size, wall motion,and systolic function LVEF: by LV gram 65 % RECOMMENDATIONS Risk factor modification Medical therapy Case discussed / reviewed with Dr. Hoang of interventional cardiology DESCRIPTION OF PROCEDURE The patient arrived to the procedure lab. The risks and benefits of the procedure as well as a full d escription of our services here and current unavailability of surgical backup were fully explained to the patient and/or their significant other prior to the catheterization. The Timeout was completed, verifying the correct patient and procedure. The patient's procedural site was prepped and draped in the usual fashion. Local anesthetic was given subcutaneously to right radial region with Lidocaine 2% . Using a modified Seldinger technique, arterial access was obtained via the right radial artery, a 6 Fr sheath was inserted. Left Coronary Artery selective angiography was performed in multiple views u sing a 5 Fr. 4.0 [place] catheter. Right Coronary Artery selective angiography was then performed in mu ltiple views using a 5 Fr. 4.0 [place] catheter. Left Ventriculography was performed in SALDANA projection using a 5 Fr. Pigtail catheter. LV to AO pullback pressures were then recorded.The arterial sheath was pulled and a TR Band was applied for hemostasis, sheath was aspirated and flushed , 11 cc of air applied CORONARY ANGIOGRAPHY DOMINANCE: Right Dominant LEFT HEART ASSESSMENT Left Ventricular Ejection Fraction: by LV Gram 65 % Normal LV wall motion Elevated Left Ventricular End Diastolic Pressure LVEDP: 27 mmHg LEFT MAIN: Angiographically normal LEFT ANTERIOR DESCENDING ARTERY: Angiographically normal DIAGONAL 1: Ostial - 50 % Stenosis, Proximal - 75 % Stenosis CIRCUMFLEX ARTERY: Angiographically normal RAMUS: Angiographically normal RIGHT CORONARY ARTERY: MID RCA: eccentric: 25 % Stenosis DISTAL RCA: diffuse: eccentric: 25 % Stenosis AORTIC ROOT: Angiographically normal COMPLICATIONS No Complications PROCEDURE MEDICATIONS Fentanyl 50 mcg IV Versed 1 mg IV Oxygen: 2 L/min via nasal cannula Heparin given IA 10/14/2020 08:01:24 Zofran 4 mg IV 10/14/2020 07:55:44 SUMMARY OF HEMODYNAMIC DATA Time AIR REST ECG 07:20:03 AO 74/55 (65) SA 08:02:54 LV 119/0, 24 08:11:02 LV 117/0, 27 08:11:08 LV 123/-1, 28 08:12:04 LVp 119/-3, 29 08:12:08 AOp 119/65 (89) 08:12:13 Signed By Sanjeev Perez MD On 10/14/2020 08:34:30 Sanjeev Perez MD
[2020-10-14] MEDS: 0.9% Normal Saline 1,000 ML 75 ML IV (08:40)
--- NOTE | 2020-10-14 09:15 | NURSING ---
RNCM Note: In [facility] for Insurance [place]: SANJUANA Rodriguez, Mariel, [facility], [facility], [facility], [facility], Joe, [place], [place]. Mary Richardson, VINCM
[2020-10-14] MEDS: Metoprolol(XL)Succ 50 MG Tablet PO (10:01)
[2020-10-14] MEDS: hydroCHLOROthiazide 25 MG Tablet PO (10:01)
[2020-10-14] MEDS: Escitalopram Oxalate 20 MG Tablet PO (10:01)
[2020-10-14] MEDS: Oxybutynin 5 MG Tablet PO (10:01)
--- NOTE | 2020-10-14 10:55 | PCM.DC ---
Discharge Instructions Diet Discharge Diet: Low fat / Low cholesterol Activity Discharge Activity: Return to Normal Activity Additional Activity Instructions:: Follow-up post heart cath instructions Dressing / Incision Call your doctor if your incision/area has: Continuous Slow Oozing, Sudden Increased Bleeding, Increased Pain/ Swelling, Increased Redness, Foul Smelling Discharge and Swelling at the incision site Call your doctor if you observe: Shortness of breath, Dizziness and Chest pain Follow Up Care Test Results: Test results from this visit will be discussed in further detail at your follow-up appointment, if applicable. Discharge Plan Admission Admit Date/Time: 10/11/20 21:39 Primary Reason for Your Visit: Chest pain Attending Provider: Tim Velasco Primary Care Provider: Suellen Lomax Discharge Orders/Prescriptions Prescriptions: New metoprolol succinate 50 mg Tablet Extended Release 24 Hr 50 mg PO DAILY Qty: 30 RF: 0 isosorbide mononitrate 30 mg Tablet Extended Release 24 Hr 30 mg PO DAILY Qty: 30 RF: 0 Continued albuterol sulfate 2.5 mg /3 mL (0.083 %) solution for nebulization 2.5 mg INHALATION Q4H PRN (Reason: shortness of breath or wheezing) RF: 0 aspirin [Adult Low Dose Aspirin] 81 mg tablet,delayed release (DR/EC) 81 mg PO DAILY RF: 0 escitalopram oxalate [Lexapro] 20 mg tablet 20 mg PO DAILY RF: 0 atorvastatin 40 MG tablet 40 mg PO QHS RF: 0 hydrochlorothiazide 25 MG tablet 25 mg PO DAILY RF: 0 levothyroxine 75 MCG tablet 75 mcg PO DAILY RF: 0 albuterol sulfate 18 GM HFA aerosol inhaler 2 puff inhalation Q4H PRN PRN (Reason: Sob &/Or Wheezing) RF: 0 oxybutynin chloride 5 MG tablet 5 mg PO DAILY RF: 0 meloxicam [Mobic] 15 mg tablet 15 mg PO DAILY RF: 0 omeprazole 20 mg Capsule,Delayed Release(Dr/Ec) 20 mg PO DAILY RF: 0 montelukast [Singulair] 10 mg tablet 10 mg PO QPM Qty: 30 RF: 6 fluticasone propion-salmeterol 500-50 mcg/dose blister with device 1 inh INHALATION BID Qty: 60 RF: 8 umeclidinium 62.5 mcg/actuation blister with device 1 inh inhalation DAILY Qty: 30 RF: 11 lisinopril 20 mg tablet 20 mg PO DAILY Qty: 90 RF: 3 Discontinued metoprolol succinate 25 mg tablet extended release 24 hr 25 mg PO DAILY Qty: 30 RF: 12 Referrals / Follow Up: Suellen Lomax PA [Primary Care Provider] - Kelly Red PA [PHYSICIAN MILLER APPRENTICE] - See Referral Note (As scheduled 11/07/20) Disposition Disposition (needs filled in before D/C Order can be placed): Home, self care
--- NOTE | 2020-10-14 11:13 | PCM.DC.SUM ---
Documented by User: Dolly Cortez NP, GEOPHYSICAL LABORATORY SUPERVISOR-C 10/14/20 11:17 Providers Date of Admission: 10/11/20 Date of Discharge: 10/14/20 Primary Care Physician: NILDA Cooper Reason For Visit: CHEST PAIN Diagnosis Discharge Diagnosis (1) Chest pain, midsternal: Status: Acute Code(s): R07.89 - Other chest pain (2) Diastolic dysfunction: Status: Acute Code(s): I51.89 - Other ill-defined heart diseases (3) Hyperlipidemia: Status: Chronic Code(s): E78.5 - Hyperlipidemia, unspecified Qualifiers: Hyperlipidemia type: unspecified Qualified Code(s): E78.5 - Hyperlipidemia, unspecified (4) Essential hypertension: Status: Chronic Code(s): I10 - Essential (primary) hypertension Medications at Discharge Home Medications atorvastatin 40 mg PO QHS 03/03/15 hydrochlorothiazide 25 mg PO DAILY 03/03/15 albuterol sulfate 2.5 mg INHALATION Q4H PRN ml 05/14/17 albuterol sulfate 2 puff INHALATION Q4H PRN PRN 11/22/18 levothyroxine 75 mcg PO DAILY 11/22/18 oxybutynin chloride 5 mg PO DAILY 11/22/18 aspirin 81 mg tablet,delayed release 81 mg PO DAILY 11/08/19 escitalopram oxalate 20 mg tablet 20 mg PO DAILY 11/08/19 montelukast 10 mg tablet 10 mg PO QPM #30 tab 12/29/19 fluticasone 500 mcg-salmeterol 50 mcg/dose blistr powdr for inhalation 1 inh INHALATION BID #60 ea 01/08/20 umeclidinium 62.5 mcg/actuation blister powder for inhalation 1 inh INHALATION DAILY #30 ea 03/18/20 lisinopril 20 mg tablet 20 mg PO DAILY #90 tab 07/18/20 meloxicam [Mobic] 15 mg PO DAILY 10/11/20 omeprazole 20 mg PO DAILY 10/11/20 isosorbide mononitrate 30 mg PO DAILY #30 tab 10/14/20 metoprolol succinate 50 mg PO DAILY #30 tab 10/14/20 Hospital Course Operations None Procedures Cardiac catheterization and Stress test Summary of Care Provided Minutes Spent on Discharge: 35 Hospital Course: Patient is a 60-year-old female admitted 10/11/2020 due to chest pain. 1. Chest pain active CAD-stress test abnormal. Cardiology consulted during admission. Patient follows with Dr. Perez. Patient underwent heart cath which demonstrated diagonal 1 ostial 50% stenosis, proximal 75% stenosis, mid RCA 25% stenosis, distal RCA 25% stenosis. Plan to continue medical management. Continue aspirin, statin, beta-nasir. Initiated on isosorbide. Follow-up with cardiology as scheduled 11/07/2020 2. History of chronic diastolic dysfunction-patient underwent echocardiogram which demonstrated an EF of 65%, RVSP estimated to be 29 mmHg. No evidence of diastolic dysfunction. 3. Stage II COPD/pulmonary hypertension/BEN-follows with Dr. Osorio, pulmonary medicine. Continue home inhaler/Pap regimen. 4. Hypertension-stable, continue metoprolol, lisinopril, HCTZ. Metoprolol increased to 50 mg daily. Initiated on isosorbide 30 mg daily. 5. Hyperlipidemia-continue statin. 6. History of tobacco use-encouraged continued cessation. 7. Hypothyroidism-continue Synthroid regimen. 8. Depression-on escitalopram. 9. GERD-continue PPI. Physical Exam Const alert, oriented x3 and no apparent distress Orientation / Consciousness: awake, oriented to person, oriented to place and oriented to time HEENT normocephalic and moist oral mucous membranes Eyes PERRL, EOMs intact bilaterally and conjunctivae normal Neck no lymphadenopathy Resp normal respiratory effort and clear to auscultation bilaterally Cardio regular rate, regular rhythm and no murmurs Peripheral Pulses: pulses 2+ throughout GI normal to inspection, nondistended, normoactive bowel sounds, non-tender and non-distended Extremity normal to inspection Skin no rashes or lesions noted Lesions: no lesions Rashes: no rashes Trauma: no lacerations or abrasions Neuro CN's II-XII intact bilaterally, no focal motor deficits, no sensory deficits noted and deep tendon reflexes 2+ bilaterally Psych mental status grossly normal and affect normal Patient seen and examined prior to discharge. Physical assessment as noted above. Patient is stable for discharge with follow up recommendations as noted above. This patient was seen by OUSMANE Silva under the supervision of Dr. Velasco. ABG / Lab / Microbiology Data Result Diagrams: 10/14/20 05:04 10/14/20 05:04 Laboratory: Laboratory Results - last 24 hr 10/14/20 10/14/20 10/14/20 05:04 05:04 05:04 WBC 8.1 RBC 4.05 L Hgb 13.0 Hct 38.7 MCV 95.6 MCH 32.1 H MCHC 33.6 RDW Std Deviation 39.9 RDW Coeff of Claude 11.3 L Plt Count 353 MPV 9.1 Immature Gran % (Auto) 0.100 Neut % (Auto) 52.7 Lymph % (Auto) 33.6 Sierra % (Auto) 8.8 Eos % (Auto) 3.8 Baso % (Auto) 1.0 Absolute Neuts (auto) 4.3 Absolute Lymphs (auto) 2.71 Nucleated RBC % 0 PT 14.2 INR 1.2 Sodium 129 L Potassium 4.0 Chloride 93 L Carbon Dioxide 28.0 Anion Gap 8 BUN 16 Creatinine 0.81 Estim Creat Clear Calc 65.63 Est GFR (MDRD) Af Amer 92 Est GFR (MDRD) Non-Af 76 BUN/Creatinine Ratio 19.7 Glucose 81 Calcium 8.9 D/C Instructions Discharge Diet: Low fat / Low cholesterol Additional Activity Instructions: Follow-up post heart cath instructions Call your doctor if your incision/area has: Continuous Slow Oozing, Sudden Increased Bleeding, Increased Pain/ Swelling, Increased Redness, Foul Smelling Discharge and Swelling at the incision site Call your doctor if you observe: Shortness of breath, Dizziness and Chest pain Meaningful Use Info Meaningful Use Diagnoses (Choose all that apply): None applicable Discharge Plan Admission Admit Date/Time: 10/11/20 21:39 Primary Reason for Your Visit: Chest pain Attending Provider: Tim Velasco Primary Care Provider: Suellen Lomax Discharge Orders/Prescriptions Prescriptions: New metoprolol succinate 50 mg Tablet Extended Release 24 Hr 50 mg PO DAILY Qty: 30 RF: 0 isosorbide mononitrate 30 mg Tablet Extended Release 24 Hr 30 mg PO DAILY Qty: 30 RF: 0 Continued albuterol sulfate 2.5 mg /3 mL (0.083 %) solution for nebulization 2.5 mg INHALATION Q4H PRN (Reason: shortness of breath or wheezing) RF: 0 aspirin [Adult Low Dose Aspirin] 81 mg tablet,delayed release (DR/EC) 81 mg PO DAILY RF: 0 escitalopram oxalate [Lexapro] 20 mg tablet 20 mg PO DAILY RF: 0 atorvastatin 40 MG tablet 40 mg PO QHS RF: 0 hydrochlorothiazide 25 MG tablet 25 mg PO DAILY RF: 0 levothyroxine 75 MCG tablet 75 mcg PO DAILY RF: 0 albuterol sulfate 18 GM HFA aerosol inhaler 2 puff inhalation Q4H PRN PRN (Reason: Sob &/Or Wheezing) RF: 0 oxybutynin chloride 5 MG tablet 5 mg PO DAILY RF: 0 meloxicam [Mobic] 15 mg tablet 15 mg PO DAILY RF: 0 omeprazole 20 mg Capsule,Delayed Release(Dr/Ec) 20 mg PO DAILY RF: 0 montelukast [Singulair] 10 mg tablet 10 mg PO QPM Qty: 30 RF: 6 fluticasone propion-salmeterol 500-50 mcg/dose blister with device 1 inh INHALATION BID Qty: 60 RF: 8 umeclidinium 62.5 mcg/actuation blister with device 1 inh inhalation DAILY Qty: 30 RF: 11 lisinopril 20 mg tablet 20 mg PO DAILY Qty: 90 RF: 3 Discontinued metoprolol succinate 25 mg tablet extended release 24 hr 25 mg PO DAILY Qty: 30 RF: 12 Referrals / Follow Up: Kelly Red PA [PHYSICIAN RECEPTIONIST DOCTOR'S OFFICE] - See Referral Note (As scheduled 11/07/20) Suellen Lomax PA [Primary Care Provider] - Disposition Disposition (needs filled in before D/C Order can be placed): Home, self care Documented by User: Dr. Tim Velasco MD 10/14/20 16:21 Providers Date of Admission: 10/11/20 Reason For Visit: CHEST PAIN Medications at Discharge Home Medications atorvastatin 40 mg PO QHS 03/03/15 hydrochlorothiazide 25 mg PO DAILY 03/03/15 albuterol sulfate 2.5 mg INHALATION Q4H PRN ml 05/14/17 albuterol sulfate 2 puff INHALATION Q4H PRN PRN 11/22/18 levothyroxine 75 mcg PO DAILY 11/22/18 oxybutynin chloride 5 mg PO DAILY 11/22/18 aspirin 81 mg tablet,delayed release 81 mg PO DAILY 11/08/19 escitalopram oxalate 20 mg tablet 20 mg PO DAILY 11/08/19 montelukast 10 mg tablet 10 mg PO QPM #30 tab 12/29/19 fluticasone 500 mcg-salmeterol 50 mcg/dose blistr powdr for inhalation 1 inh INHALATION BID #60 ea 01/08/20 umeclidinium 62.5 mcg/actuation blister powder for inhalation 1 inh INHALATION DAILY #30 ea 03/18/20 lisinopril 20 mg tablet 20 mg PO DAILY #90 tab 07/18/20 meloxicam [Mobic] 15 mg PO DAILY 10/11/20 omeprazole 20 mg PO DAILY 10/11/20 isosorbide mononitrate 30 mg PO DAILY #30 tab 10/14/20 metoprolol succinate 50 mg PO DAILY #30 tab 10/14/20 ABG / Lab / Microbiology Data Result Diagrams: 10/14/20 05:04 10/14/20 05:04 Discharge Plan Admission Admit Date/Time: 10/11/20 21:39 Primary Reason for Your Visit: Chest pain Attending Provider: Tim Velasco Primary Care Provider: Suellen Lomax Discharge Orders/Prescriptions Prescriptions: New metoprolol succinate 50 mg Tablet Extended Release 24 Hr 50 mg PO DAILY Qty: 30 RF: 0 isosorbide mononitrate 30 mg Tablet Extended Release 24 Hr 30 mg PO DAILY Qty: 30 RF: 0 Continued albuterol sulfate 2.5 mg /3 mL (0.083 %) solution for nebulization 2.5 mg INHALATION Q4H PRN (Reason: shortness of breath or wheezing) RF: 0 aspirin [Adult Low Dose Aspirin] 81 mg tablet,delayed release (DR/EC) 81 mg PO DAILY RF: 0 escitalopram oxalate [Lexapro] 20 mg tablet 20 mg PO DAILY RF: 0 atorvastatin 40 MG tablet 40 mg PO QHS RF: 0 hydrochlorothiazide 25 MG tablet 25 mg PO DAILY RF: 0 levothyroxine 75 MCG tablet 75 mcg PO DAILY RF: 0 albuterol sulfate 18 GM HFA aerosol inhaler 2 puff inhalation Q4H PRN PRN (Reason: Sob &/Or Wheezing) RF: 0 oxybutynin chloride 5 MG tablet 5 mg PO DAILY RF: 0 meloxicam [Mobic] 15 mg tablet 15 mg PO DAILY RF: 0 omeprazole 20 mg Capsule,Delayed Release(Dr/Ec) 20 mg PO DAILY RF: 0 montelukast [Singulair] 10 mg tablet 10 mg PO QPM Qty: 30 RF: 6 fluticasone propion-salmeterol 500-50 mcg/dose blister with device 1 inh INHALATION BID Qty: 60 RF: 8 umeclidinium 62.5 mcg/actuation blister with device 1 inh inhalation DAILY Qty: 30 RF: 11 lisinopril 20 mg tablet 20 mg PO DAILY Qty: 90 RF: 3 Discontinued metoprolol succinate 25 mg tablet extended release 24 hr 25 mg PO DAILY Qty: 30 RF: 12 Referrals / Follow Up: Kelly Red PA [PHYSICIAN RECEPTIONIST DOCTOR'S OFFICE] - See Referral Note (As scheduled 11/07/20) Suellen Lomax PA [Primary Care Provider] - Disposition Disposition (needs filled in before D/C Order can be placed): Home, self care Charges/Coding Addendum Addendum: Dr. Velasco: I personally reviewed the chart and examined the patient, and agree with the above findings. 60-year-old female presented to the hospital with chest pain. She described it as tightness that was worse with exertion has been present over the last 2 days. She says that she has had this pain previously and she does not know why it is going on. She was admitted over the weekend and on Wednesday had a stress test which showed a subtle diminished tracer uptake in portions of the distal septal and septal apical segments that could be concerning for a stress-induced IA. She was kept over the weekend and had a cardiac cath today which demonstrated a proximal LAD stenosis of 75% however cardiology felt that this could be managed medically. She will need to follow-up with cardiology as an outpatient. Of note on the day of discharge her chest pain had completely resolved. Visit Charges OBSV E&M: [id number] Observation care discharge
--- NOTE | 2020-10-14 14:27 | PHA.DC.MC ---
Pharmacy Service has performed discharge medication reconciliation and counseling for this patient. 1. ISOSORBIDE MONONITRATE 30MG PO DAILY The patient's discharge medication list was reviewed for discrepancies and discrepancies were resolved. Home Medications atorvastatin 40 mg PO QHS 03/03/15 hydrochlorothiazide 25 mg PO DAILY 03/03/15 albuterol sulfate 2.5 mg INHALATION Q4H PRN ml 05/14/17 albuterol sulfate 2 puff INHALATION Q4H PRN PRN 11/22/18 levothyroxine 75 mcg PO DAILY 11/22/18 oxybutynin chloride 5 mg PO DAILY 11/22/18 aspirin 81 mg tablet,delayed release 81 mg PO DAILY 11/08/19 escitalopram oxalate 20 mg tablet 20 mg PO DAILY 11/08/19 montelukast 10 mg tablet 10 mg PO QPM #30 tab 12/29/19 fluticasone 500 mcg-salmeterol 50 mcg/dose blistr powdr for inhalation 1 inh INHALATION BID #60 ea 01/08/20 umeclidinium 62.5 mcg/actuation blister powder for inhalation 1 inh INHALATION DAILY #30 ea 03/18/20 lisinopril 20 mg tablet 20 mg PO DAILY #90 tab 07/18/20 meloxicam [Mobic] 15 mg PO DAILY 10/11/20 omeprazole 20 mg PO DAILY 10/11/20 isosorbide mononitrate 30 mg PO DAILY #30 tab 10/14/20 metoprolol succinate 50 mg PO DAILY #30 tab 10/14/20 The patient was counseled on the following discharge medications and changes in medications for homegoing were reviewed. The Reason for Use, instructions for use, and potential side effects were reviewed for all new medications. The patient's questions regarding all of their medications were answered. The patient was able to verbally demonstrate an understanding of their discharge medications.
--- NOTE | 2020-10-14 15:33 | NURSING ---
Home medications given back to patient.
--- NOTE | 2020-10-14 16:18 | PN.CARD_ITS ---
Subjective Subjective The patient was evaluated earlier this day. She had undergone diagnostic cardiac catheterization with no new adverse events. Objective Data Vital Signs: Vital Signs Temp Pulse Resp BP Pulse Ox 98.1 F 62 15 114/68 93 10/14/20 14:06 10/14/20 15:17 10/14/20 15:17 10/14/20 15:17 10/14/20 15:17 Oxygen Flow Rate (L/min) 2 Oxygen Delivery Method Room Air Weight: 197 lb 8.547 oz Body Mass Index (BMI) 32.8 Intake & Output: Intake and Output for Last 24 Hours 10/12/20 10/13/20 10/14/20 23:59 23:59 23:59 Intake Total 630 / 630 710 / 710 906.25 / 906.25 Balance 630 / 630 710 / 710 906.25 / 906.25 Lab / Micro Data Result Diagrams: 10/14/20 05:04 10/14/20 05:04 Labs: Laboratory Results - last 24 hr 10/14/20 10/14/20 10/14/20 05:04 05:04 05:04 WBC 8.1 RBC 4.05 L Hgb 13.0 Hct 38.7 MCV 95.6 MCH 32.1 H MCHC 33.6 RDW Std Deviation 39.9 RDW Coeff of Claude 11.3 L Plt Count 353 MPV 9.1 Immature Gran % (Auto) 0.100 Neut % (Auto) 52.7 Lymph % (Auto) 33.6 [place]own[place] % (Auto) 8.8 Eos % (Auto) 3.8 Baso % (Auto) 1.0 Absolute Neuts (auto) 4.3 Absolute Lymphs (auto) 2.71 Nucleated RBC % 0 PT 14.2 INR 1.2 Sodium 129 L Potassium 4.0 Chloride 93 L Carbon Dioxide 28.0 Anion Gap 8 BUN 16 Creatinine 0.81 Estim Creat Clear Calc 65.63 Est GFR (MDRD) Af Amer 92 Est GFR (MDRD) Non-Af 76 BUN/Creatinine Ratio 19.7 Glucose 81 Calcium 8.9 Cardiology Labs/Tests 10/14/20 05:04: WBC 8.1, RBC 4.05 L, Hgb 13.0, Hct 38.7, MCV 95.6, MCH 32.1 H, MCHC 33.6, Plt Count 353, MPV 9.1, Immature Gran % (Auto) 0.100, Neut % (Auto) 52.7, Lymph % (Auto) 33.6, [place] % (Auto) 8.8, Eos % (Auto) 3.8, Baso % (Auto) 1.0, Absolute Neuts (auto) 4.3, Nucleated RBC % 0 10/14/20 05:04: PT 14.2, INR 1.2 10/14/20 05:04: Sodium 129 L, Potassium 4.0, Chloride 93 L, Carbon Dioxide 28.0, Anion Gap 8, BUN 16, Creatinine 0.81, Est GFR (MDRD) Af Amer 92, Est GFR (MDRD) Non-Af 76, BUN/Creatinine Ratio 19.7, Glucose 81, Calcium 8.9 Rhythm: Sinus rhythm EKG: Sinus bradycardia Cardiac Cath: CONCLUSIONS Elevated Left Ventricular End Diastolic Pressure Normal LV size, wall motion,and systolic function LVEF: by LV gram 65 % RECOMMENDATIONS Risk factor modification Medical therapy Case discussed / reviewed with Dr. Hoang of interventional cardiology DESCRIPTION OF PROCEDURE The patient arrived to the procedure lab. The risks and benefits of the procedure as well as a full description of our services here and current unavailability of surgical backup were fully explained to the patient and/or their significant other prior to the catheterization. The Timeout was completed, verifying the correct patient and procedure. The patient's procedural site was prepped and draped in the usual fashion. Local anesthetic was given subcutaneously to right radial region with Lidocaine 2%. Using a modified Seldinger technique, arterial access was obtained via the right radial artery, a 6Fr sheath was inserted. Left Coronary Artery selective angiography was performed in multiple views using a 5 Fr. 4.0 Cecil catheter. Right Coronary Artery selective angiography was then performed in multiple views using a 5 Fr. 4.0 Cecil catheter. Left Ventriculography was performed in SALDANA projection using a 5 Fr. Pigtail catheter. LV to AO pullback pressures were then recorded.The arterial sheath was pulled and a TR Band was applied for hemostasis, sheath was aspirated and flushed, 11 cc of air applied CORONARY ANGIOGRAPHY DOMINANCE: Right Dominant LEFT HEART ASSESSMENT Left Ventricular Ejection Fraction: by LV Gram 65 % Normal LV wall motion Elevated Left Ventricular End Diastolic Pressure LVEDP: 27 mmHg LEFT MAIN: Angiographically normal LEFT ANTERIOR DESCENDING ARTERY: Angiographically normal DIAGONAL 1: Ostial - 50 % Stenosis, Proximal - 75 % Stenosis CIRCUMFLEX ARTERY: Angiographically normal RAMUS: Angiographically normal RIGHT CORONARY ARTERY: MID RCA: eccentric: 25 % Stenosis DISTAL RCA: diffuse: eccentric: 25 % Stenosis AORTIC ROOT: Angiographically normal Physical Exam Const alert, oriented x3 and healthy appearing Orientation / Consciousness: awake HEENT normocephalic and head/scalp atraumatic Eyes PERRL and EOMs intact bilaterally Neck full ROM and supple Chest inspection of chest normal Resp normal respiratory effort and clear to auscultation bilaterally Cardio regular rate, regular rhythm, S1 normal heart sound and S2 normal heart sound GI normal to inspection, nondistended, normoactive bowel sounds Extremity normal to inspection Extremity Narrative: Right radial artery area: No obvious bruit: No obvious hematoma Peripheral Pulses: Yes radial pulses present right 2+ Skin no rashes or lesions noted Neuro oriented x3, CN's II-XII intact bilaterally and moves all extremities Psych mental status grossly normal Assessment & Plan Assessment/Plan (1) Chest pain, midsternal: PLAN: The patient has been reevaluated. This included a diagnostic cardiac catheterization. 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 Though she has been recommended for continued medical management and follow-up. (2) Diastolic dysfunction: PLAN: The patient is reported as having a history of diastolic dysfunction. She has been treated medically in the past. (3) Hyperlipidemia: QUALIFIERS: Hyperlipidemia type: unspecified Qualified Code(s): E78.5 - Hyperlipidemia, unspecified PLAN: The patient has a history of hyperlipidemia. She has been treated medically in the past with lipid-lowering therapy/statins. (4) Essential hypertension: PLAN: The patient also has history of hypertension. She is continued antihypertensive therapy. Addt'l Comments The aforementioned information was discussed and reviewed with the patient and also conveyed to the [facility] hospitalist team. This note was generated using a voice recognition system and there may be incorrect words, spelling or punctuation that were not noted when reviewing the office note prior to saving.
== END 2020-10-14 10:58 | disposition home or self-care (01) ==
LOC: ED 20:53 → PCU 21:53
PROVIDERS: Nurse Practitioner Family; Student in an Organized Health Care Education/Training Program; Admitting Provider Internal Medicine; Emergency Provider Emergency Medicine; PCP Physician Assistant; Visit Provider Family Medicine
DX: I25.110 Atherosclerotic heart disease of native coronary artery with unstable angina pectoris (principal); J44.9 Chronic obstructive pulmonary disease, unspecified; E11.9 Type 2 diabetes mellitus without complications; M54.16 Radiculopathy, lumbar region; E03.9 Hypothyroidism, unspecified; I10 Essential (primary) hypertension; K21.9 Gastro-esophageal reflux disease without esophagitis; E78.5 Hyperlipidemia, unspecified; F32.9 Major depressive disorder, single episode, unspecified; G47.33 Obstructive sleep apnea (adult) (pediatric); M06.9 Rheumatoid arthritis, unspecified; E66.9 Obesity, unspecified; I27.20 Pulmonary hypertension, unspecified; I08.1 Rheumatic disorders of both mitral and tricuspid valves; E87.6 Hypokalemia; Z87.891 Personal history of nicotine dependence; Z79.899 Other long term (current) drug therapy; Z79.82 Long term (current) use of aspirin; Z79.51 Long term (current) use of inhaled steroids; Z68.32 Body mass index [BMI] 32.0-32.9, adult; Z91.19 Patient's noncompliance with other medical treatment and regimen
CPT/HCPCS: 36415; 71045; 78452; 80048; 84484; 85025; 85610; 93005; 93017; 93306; 93458; 94640; 96360; 96361; 96372; 99152; 99153; 99218; 99285; A9500; J7030; Q9957; Q9967; A4216; C1769; C1894; C8929; G0378; J2405; J2785; J3490

== ENCOUNTER → 2021-02-20 09:17 | Outpatient (CLI) | payer MEDICARE, MEDICAID, SELFPAY ==
[2021-02-20 09:30] VITALS: BP 131/92; PULSE 64; RESP 16; TEMP 36.2; O2SAT 97; BMI 32.4
[2021-02-20] MEDS: Benralizumab 30 MG/ML Syringe SC (09:47)
[2021-02-20 10:47] VITALS: BP 147/87; PULSE 58; RESP 16; TEMP 36.3; O2SAT 93
== END ==
PROVIDERS: PCP Physician Assistant; Referring Provider Nurse Practitioner Acute Care; Visit Provider Nurse Practitioner Acute Care
DX: J45.50 Severe persistent asthma, uncomplicated (principal)
CPT/HCPCS: 96372; J0517

== ENCOUNTER → 2021-03-20 09:22 | Outpatient (CLI) | payer MEDICARE, MEDICAID, SELFPAY ==
[2021-03-20 09:27] VITALS: BP 150/97; PULSE 71; RESP 16; TEMP 36.4; O2SAT 94
[2021-03-20] MEDS: Benralizumab 30 MG/ML Syringe SC (09:50)
== END ==
PROVIDERS: PCP Physician Assistant; Referring Provider Nurse Practitioner Acute Care; Visit Provider Nurse Practitioner Acute Care
DX: J45.50 Severe persistent asthma, uncomplicated (principal)
CPT/HCPCS: 96372; J0517

== ENCOUNTER 2021-05-15 09:27 | Outpatient (CLI) | payer MEDICARE, MEDICAID, SELFPAY ==
[2021-05-15 09:20] VITALS: BP 155/88; PULSE 62; RESP 16; TEMP 36.3; O2SAT 99
[2021-05-15] MEDS: Benralizumab 30 MG/ML Syringe SC (09:36)
== END 2021-05-15 23:59 | disposition short-term general hospital (02) ==
LOC: MEDOUTP 09:29
PROVIDERS: PCP Physician Assistant; Referring Provider Nurse Practitioner Acute Care; Visit Provider Nurse Practitioner Acute Care
DX: J45.50 Severe persistent asthma, uncomplicated (principal)
CPT/HCPCS: 96372; J0517

== ENCOUNTER 2021-07-10 09:19 | Outpatient (CLI) | payer MEDICARE, MEDICAID, SELFPAY ==
[2021-07-10] MEDS: Benralizumab 30 MG/ML Syringe SC (09:27)
[2021-07-10 09:31] VITALS: BP 136/85; PULSE 58; RESP 16; TEMP 35.8; O2SAT 95; BMI 32.5
== END 2021-07-10 23:59 | disposition home or self-care (01) ==
LOC: MEDOUTP 09:19
PROVIDERS: PCP Physician Assistant; Referring Provider Nurse Practitioner Acute Care; Visit Provider Nurse Practitioner Acute Care
DX: J45.50 Severe persistent asthma, uncomplicated (principal)
CPT/HCPCS: 96372; J0517

== ENCOUNTER 2021-07-23 14:51 | Outpatient (CLI) | payer MEDICARE, MEDICAID, SELFPAY ==
[2021-07-23 17:54] LABS: Absolute Lymphocyte Count 2.66 X10^3/uL (0.83-4.51); Absolute Neutrophil Count 3.4 X10^3/uL (2.0-7.7); Basophil# 0.03 X10^3/uL; Basophil% 0.5 % (0-1); Hematocrit 42.2 % (37-47); Hemoglobin 14.5 g/dL (12.0-15.0); Lymphocyte # 2.66 X10^3/ul (0.83-4.51); Lymphocyte % 40.7 % (19-41); Mean Corp Hgb Conc 34.4 g/dL (32-36); Mean Corpuscular Hgb 32.9 pg (27.0-32.0); Mean Corpuscular Volume 95.7 fL (81-99); Mean Platelet Vol. 9.2 fl (6.2-12.0); Monocyte# 0.48 X10^3/uL; Monocyte% 7.3 % (0-10); NRBC Flagged by Analyzer 0 % (0-5); Neutrophil # 3.36 X10^3/uL (2.7-7.7); Neutrophil % 51.3 % (47-70); Platelet Count 304 K/mm3 (150-450); RBC Distribution Width CV 12.1 % (11.6-14.6); RBC Distribution Width SD 43.1 fl (35.1-43.9); Red Blood Count 4.41 M/mm3 (4.2-5.4); White Blood Count 6.5 K/mm3 (4.4-11.0)
[2021-07-23 18:15] LABS: AST(SGOT) 50 U/L (15-37); Alanine Aminotransfer ALT/SGPT 84 U/L (13-56); Albumin, Serum 3.6 g/dL (3.2-5.0); Alkaline Phosphatase 99 U/L (45-117); Anion Gap 6 (5-15); BUN 15 mg/dL (7-18); BUN/Creat Ratio 15.3 RATIO (10-20); Bilirubin, Direct 0.12 mg/dL (0.00-0.30); Calcium,Total 8.8 mg/dL (8.5-10.1); Chloride 103 mmol/L (98-107); Creatinine, Serum 0.98 mg/dL (0.55-1.02); EST Glomerular Filtration Rate 61 mL/min (>60); Est Glom Filt Rate - Afr Amer 74 mL/min (>60); Globulin 3.8 g/dL (2.2-4.2); Glucose 137 mg/dL (74-106); Potassium 3.7 mmol/L (3.5-5.1); Protein, Total 7.4 g/dL (6.4-8.2); Sodium Level 136 mmol/L (136-145)
[2021-07-24 09:24] LABS: Hepatitis C Antibody Non-Reactive (Nonreactive)
[2021-07-25 20:08] LABS: Hepatitis Be Ab Negative (Negative); Hepatitis Be Ag Negative (Negative); QNTFERON TB Mitogen Value > 10.00 IU/mL (.); QNTFERON TB Nil Value 0.06 IU/mL (.); QNTFERON TB1+ Ag Value 0.08 IU/mL (.); QNTFERON TB2+ Ag Value 0.07 IU/mL (.)
[2021-07-25 21:29] LABS: Hepatitis B Core Ab Total Negative (Negative); QNTIFERON TB Positive Criteria Negative (Negative)
== END 2021-07-23 23:59 | disposition home or self-care (01) ==
PROVIDERS: PCP Physician Assistant; Referring Provider Dermatology; Visit Provider Dermatology
DX: L40.0 Psoriasis vulgaris (principal); Z79.899 Other long term (current) drug therapy
CPT/HCPCS: 36415; 80048; 80076; 85025; 86480; 86704; 86707; 86803; 87350

== ENCOUNTER → 2021-09-05 | Outpatient (CLI) | payer MEDICARE, MEDICAID, SELFPAY ==
[2021-09-05 09:44] VITALS: BP 129/76; PULSE 54; RESP 18; TEMP 35.8; O2SAT 95
[2021-09-05] MEDS: Benralizumab 30 MG/ML Syringe SC (09:50)
== END | disposition home or self-care (01) ==
LOC: MEDOUTP 09:26
PROVIDERS: PCP Physician Assistant; Referring Provider Nurse Practitioner Acute Care; Visit Provider Nurse Practitioner Acute Care
DX: J45.50 Severe persistent asthma, uncomplicated (principal)
CPT/HCPCS: 96372; J0517

== ENCOUNTER → 2021-09-23 | Outpatient (CLI) | payer MEDICARE, SELFPAY ==
--- NOTE | 2021-09-23 16:30 | MRI_ITS ---
STUDY: MRI LUMBAR SPINE WITH AND WITHOUT CONTRAST REASON FOR EXAM: Female, 61 years old. Low back pain. TECHNIQUE: Standardized fat and water weighted pulse sequences were obtained in the sagittal and axial planes. 18 mL IV Dotarem was administered for the contrast portion of the examination. COMPARISON: MRI lumbar spine without contrast 07/10/2015. FINDINGS: T10-T11 and T11-T12: (Sagittal only). Normal endplates. Mild disc space height narrowing. No central canal and bilateral intervertebral neural foramina. T12-L1: (Sagittal only). Normal endplates. Mild disc space height narrowing. Normal central canal and bilateral intervertebral neural foramina. Normal lumbar lordosis. There is no substantial scoliosis. Normal conus medullaris that terminates at the upper L1 vertebral body level. L1-2: Normal endplates. Pronounced posterior disc space height narrowing. Minimal ventral extradural defect due to small posterior bulging annulus is unchanged. Normal facet joints. Normal central canal and bilateral lateral recesses. Normal bilateral intervertebral neural foramina. Left posterior renal cyst is visible at this level. This level is unchanged. L2-3: MODIC type II degenerative vertebral marrow fatty changes underneath the posterior vertebral endplates. Pronounced posterior disc space height narrowing. Mild ventral extra dural defect due to posterior bulging annulus, previously prominent and eccentric to the right. Mild central canal stenosis with an AP canal diameter of 9.1 mm but the transverse canal diameter is 13.8 mm wide. Normal bilateral lateral recesses, previously moderate stenosis of the right lateral recess. Normal bilateral intervertebral neural foramina. L3-4: Normal endplates. Mild disc space height narrowing. Mild bilateral degenerative facet arthropathy. Pronounced central canal stenosis with an AP canal diameter of 5 mm, previously 9 mm. Normal bilateral lateral recesses. Normal bilateral intervertebral neural foramina. L4-5: Normal endplates. Mild disc space height narrowing. Improvement of severe central canal stenosis following posterior decompression laminectomy and fusion. Postsurgical absence of the spinous processes and lamina. Ovoid postop fluid collection behind the midline laminectomy site. Normal bilateral lateral recesses. Moderate bilateral degenerative facet arthropathy. Normal bilateral intervertebral neural foramina. Pedicular screws and rods causing signal distortion artifacts. L5-S1: Normal endplates. Normal disc height and morphology. Moderately pronounced right degenerative facet arthropathy with air-fluid distention of the facet joint. This was previously mild. Mild left degenerative facet arthropathy is unchanged. Moderate central canal stenosis with an AP canal diameter of 7 mm, previously 10 mm. Normal bilateral lateral recesses. Pedicular screws causing signal distortion artifacts on the right intervertebral neural foramen. Normal left intervertebral neural foramen despite pedicular signal distortion artifacts. Normal visualized sacral ala. Normal visualized paraspinous soft tissue structures. Following IV contrast administration, there are no suspicious abnormal enhancing lesions intradurally and extradurally. MRI/Spine Lumbar W/WO Contrast IMPRESSION: 1. Pronounced central canal stenosis at L3-L4 disc space level with an AP canal diameter of 5 mm, previously 9 mm. 2. Moderate central canal stenosis at L5-S1 disc space level with an AP canal diameter of 7 mm, previously 10 mm. 3. Interval improvement of severe central canal stenosis at L4-L5 disc space level following posterior decompression laminectomy fusion. 4. No MRI evidence of lumbar extruded disc fragment. 5. Interval improvement of the L2-L3 posterior bulging annulus, previously more prominent and eccentric to the right. 6. Mild increased size of left posterior renal cyst measuring 1.9 cm, previously 0.80 cm. Electronically Signed: Shalom Ngo MD at 8:58 EDT ,
[2021-09-23 17:00] LABS: CREATININE FINGERSTICK < 0.9 mg/dL (0.55-1.02); EGFR FINGERSTICK > 60.0000 mL/min (>60)
== END | disposition home or self-care (01) ==
LOC: MRI 16:29
PROVIDERS: PCP Physician Assistant; Referring Provider Orthopaedic Surgery; Visit Provider Orthopaedic Surgery
DX: M54.17 Radiculopathy, lumbosacral region (principal)
CPT/HCPCS: 72158; A9575

== ENCOUNTER → 2021-10-02 | Outpatient (CLI) | payer MEDICARE, MEDICAID, SELFPAY ==
--- NOTE | 2021-10-02 07:49 | AAVD_ITS ---
Reason For Study: Dilitation of aorta Aorta Measurements Aorta Doppler Measurements Proximal aorta measures2.40 x 2.40cm. in cross- Peak systolic flow velocities within the proximal sectional axis. aorta measure 54.4 cm/sec. Proximal aorta measures2.44cm. in longitudinal Peak systolic flow velocities within the mid aorta axis. measure 54.4 cm/sec. Mid aorta measures1.87 x 1.89cm. in cross- Peak systolic flow velocities within the distal sectional axis. aorta measure 40.3 cm/sec. Mid aorta measures1.82cm. in longitudinal axis. Distal aorta measures2.26 x 2.29cm. in cross- sectional axis. Distal aorta measures2.25cm. in longitudinal axis. Left Iliac Artery Left iliac artery measures 0.66 x 0.68 cm. in the cross-sectional axis. Left iliac artery measures 0.68 cm. in the longitudinal axis. Peak systolic velocity in the left iliac artery measures 113.3 cm/sec. Right Iliac Artery Right iliac artery measures 0.59 x 0.59 cm. in the cross-sectional axis. Right iliac artery measures 0.57 cm. in the longitudinal axis. Peak systolic velocity in the right iliac artery measures 130.8 cm/sec. Procedure Aorta IVC Iliac vasculature or bypass grafts [id number]. Exam performed in department. VL/Abd Aortic/IVC Duplex scan Interpretation Summary Maximal aortic dimensions of the proximal abdominal aorta at 2.4 x 2.4 cm in di ameter. Normal aortic flow velocity Left common iliac normal at 0.66 x 0.68 cm in diameter Right, neck 0.59 x 0.59 cm in diameter Normal findings. Ordering Physician: Sanjeev Perez Referring Physician: Suellen Lomax Performed By: Navya Ellington RVT
== END | disposition home or self-care (01) ==
LOC: CVS 07:48
PROVIDERS: PCP Physician Assistant; Referring Provider Internal Medicine Cardiovascular Disease; Visit Provider Internal Medicine Cardiovascular Disease
DX: I77.819 Aortic ectasia, unspecified site (principal); I70.0 Atherosclerosis of aorta; R93.89 Abnormal findings on diagnostic imaging of other specified body structures
CPT/HCPCS: 93978

== ENCOUNTER → 2021-10-31 | Outpatient (CLI) | payer MEDICARE, MEDICAID, SELFPAY ==
[2021-10-31 09:18] VITALS: BP 152/97; PULSE 57; RESP 16; TEMP 35.6; O2SAT 97
[2021-10-31] MEDS: Benralizumab 30 MG/ML Syringe SC (09:21)
== END | disposition home or self-care (01) ==
LOC: MEDOUTP 09:14
PROVIDERS: PCP Physician Assistant; Referring Provider Nurse Practitioner Acute Care; Visit Provider Nurse Practitioner Acute Care
DX: J45.50 Severe persistent asthma, uncomplicated (principal)
CPT/HCPCS: 96372; J0517

== ENCOUNTER → 2021-11-07 | Outpatient (CLI) | payer MEDICARE, MEDICAID, SELFPAY ==
--- NOTE | 2021-11-07 15:42 | CT_ITS ---
STUDY: LOW DOSE CT LUNG CANCER SCREENING REASON FOR EXAM: Female, 61 years old. smoker and gt; 30 pack years quit 2009 RADIATION DOSAGE (If Supplied By Facility): CTDIvol = ( 3.18 ) mGy, DLP = ( 99.66 ) mGycm TECHNIQUE: No contrast was administered. Low dose technique was utilized (average mAS-38 and kVp 120). 1.25 mm axial source images with a slice interval of 1.25-mm were reconstructed in lung windows. 2.5 mm axial source images with a slice interval of 2.5-mm were reconstructed in lung windows. COMPARISON: July 11, 2020 CT low dose chest. NODULES: Nodule #: 1 Density: Solid Lung location: Left lung apex lobe: 0.6 cm from pleura Location in series: Series Number: 2 Image: 33 Size - 2 mm average diameter Margin: Circumscribed Shape: Round Calcification: None Fat: None Temporal comparison: Unchanged from December 08, 2016 Nodule #: 2 Density: Solid Lung location: Left lung apex lobe: on pleura Location in series: Series Number: 2 Image: 36 Size :1.5 mm average diameter Margin: Circumscribed Shape: Round Calcification: None Fat: None Temporal comparison: Unchanged from December 08, 2016 Nodule #: 3 Density: Solid Lung location: Right lateral posterior apex lobe: 3 mm from lateral pleura Location in series: Series Number: 2 Image: 45 Size -. 1.5 mm average diameter Margin: Circumscribed Shape: Oval Calcification: Posteriorly along scarring Fat: None Temporal comparison: Unchanged from December 08, 2016 Right basilar 1 mm calcified granuloma, series 2 image 176 unchanged from prior exam. Posterior right apical anastomosis. No consolidation, effusion, pneumothorax. Focal fat density pleural thickening at the posterior right lung. Total lung nodules (excluding granulomas): 3 Emphysema: Diffuse bilateral emphysematous change, most prominent throughout the upper lungs. Endobronchial lesion: No endobronchial lesion. Mild diffuse peribronchial thickening. Aorta: Mild scattered aortic atherosclerosis, predominantly within left anterior descending CORONARY ARTERIES: Mild coronary atherosclerosis. Heart: No cardiomegaly or pericardial effusion. Prominent pericardial fat. Pulmonary artery: Unremarkable for nonangiogram study. Mediastinal nodes: Few scattered mediastinal lymph nodes are subcentimeter in short axis with preserved fatty hilum, unchanged prior CT. Other chest and abdominal findings: Unchanged few calcified lymph nodes in the jefferson hepatis. CT/Low Dose CT Lung Screening IMPRESSION: 1. Few pulmonary nodules less than up to 2 mm in size, unchanged from December 08, 2016, with additional basilar calcified granuloma, overall: LUNG-Rad 2, Benign Appearance or Behavior 2. Emphysematous change and prior right apical surgical change. 3. Atherosclerosis. RECOMMENDATION: Continue annual screening with low dose CT in 12 months. IMPORTANT NOTES FOR USE: ACR Lung-RADS Version 1.1 Assessment Categories Release Date: 2018 Category: Coded 0-4 bases on nodule(s) with highest degree of suspicion. Negative screen is defined as categories 1 and 2; a positive screen is defined as categories 3 and 4. Category 3 and 4A nodules that are unchanged on interval CT should be coded as category 2, and individuals returned to screening in 12 months. Category 4X: Category 3 or 4 nodules with additional imaging findings that increase the suspicion of lung cancer, such as spiculation, GGN that doubles in size in 1 year, enlarged lymph notes, etc. Category Modifiers: S (significant finding unrelated to lung cancer) Electronically Signed: Alexei Flores MD at 7:56 EDT ,
== END | disposition home or self-care (01) ==
LOC: CT 15:41
PROVIDERS: PCP Physician Assistant; Referring Provider Nurse Practitioner Acute Care; Visit Provider Nurse Practitioner Acute Care
DX: F17.210 Nicotine dependence, cigarettes, uncomplicated (principal)
CPT/HCPCS: 71271

== ENCOUNTER → 2021-12-26 | Outpatient (CLI) | payer MEDICARE, MEDICAID, SELFPAY ==
[2021-12-26 09:09] VITALS: BP 148/89; PULSE 58; RESP 16; TEMP 36.6; O2SAT 96; BMI 31.6
[2021-12-26] MEDS: Benralizumab 30 MG/ML Syringe SC (09:21)
== END | disposition home or self-care (01) ==
LOC: MEDOUTP 08:48
PROVIDERS: PCP Physician Assistant; Referring Provider Nurse Practitioner Acute Care; Visit Provider Nurse Practitioner Acute Care
DX: J45.50 Severe persistent asthma, uncomplicated (principal)
CPT/HCPCS: 96372; J0517

== ENCOUNTER 2022-02-21 15:20 | Emergency (ER) | payer MEDICARE, MEDICAID, SELFPAY ==
[2022-02-21 15:20] VITALS: BP 178/110; PULSE 81; RESP 18; TEMP 36.3; O2SAT 97; BMI 32.5
--- NOTE | 2022-02-21 15:30 | CT_ITS ---
STUDY: CT BRAIN WITHOUT CONTRAST REASON FOR EXAM: Female, 62 years old. htn, headache RADIATION DOSAGE (If Supplied By Facility): CTDIvol = ( 44.99 ) mGy, DLP = ( 796.11 ) mGycm TECHNIQUE: Transaxial CT imaging of the brain was performed without administration of intravenous contrast material. Individualized dose optimization techniques were used for this CT. COMPARISON: 12/23/2018 FINDINGS: Normal soft tissue structures. Normal calvarium. Normal size ventricles and extra-axial spaces for the patient''s age. Normal white matter tracts of the cerebral hemispheres. Normal basal ganglia and thalami. Normal brainstem. Normal cerebellum. There is no intracranial hemorrhage. There are no findings of an acute ischemic infarction. Normal visualized paranasal sinuses. CT/Brain/Head without Contrast IMPRESSION: Normal unenhanced CT scan of the brain. Electronically Signed: Ricardo Tavarez MD at 16:07 EDT ,
--- NOTE | 2022-02-21 15:31 | EKG12_ITS ---
Test Reason : HTN Blood Pressure : / mmHG Vent. Rate : 075 BPM Atrial Rate : 075 BPM P-R Int : 154 ms QRS Dur : 074 ms QT Int : 404 ms P-R-T Axes : 057 -24 061 degrees QTc Int : 451 ms Normal sinus rhythm Leftward axis Poor R wave progression Confirmed by MATTI TITUS, BARB ([id number]), business editor WILL SUMMERS ([id number]) on 02/24/2022 8:12:42 AM Referred By: Confirmed By:BARB CHINO MD
--- NOTE | 2022-02-21 15:32 | EX.ED.DYSGE1 ---
HPI History of Present Illness Chief Complaint: Hypertension Detail of Chief Complaint: Hypertension x4 days Informant: patient Narrative Narrative: Patient presents to the emergency department with increased blood pressures over the last 4 days. Patient states that normally her pressures run around 139/65 but her last several days they have been as high as 190/110. Patient also has been having headaches that are frontal with nausea. She normally does not get headaches. She denies photophobia. She denies chest pain or shortness of breath. Patient states that she was taken off of her hydrochlorothiazide 2 months ago because of some abnormal blood work. Otherwise she takes lisinopril 10 mg daily as well as metoprolol 25 mg daily. No new medications added recently. No other changes in medications. Prior similar symptoms: No PFSH PFSH Medical History Abnormal finding on CT scan Acute hypoxemic respiratory failure Asthma Atherosclerotic heart disease of [place] coronary artery without angina pectoris Calcification of aorta Chronic lumbar radiculopathy COPD (chronic obstructive pulmonary disease) COPD exacerbation COVID-19 (~02/2020) Degenerative joint disease Depression Diastolic dysfunction Dilatation of aorta Essential hypertension Former smoker GERD (gastroesophageal reflux disease) Hepatitis C Hernia Hyperlipidemia Hypothyroidism Kidney stones Lung anomaly Lung nodule Memory loss NSAID induced gastritis Obesity BEN (obstructive sleep apnea) Osteopenia Prediabetes Psoriasis Pulmonary hypertension Rheumatoid arthritis Stage 2 moderate COPD by GOLD classification Tachycardia Tobacco dependence in remission Home Medications atorvastatin 40 mg tablet 40 mg PO QHS cholesterol 03/03/15 [History Last Taken 10/10/20] albuterol sulfate 2.5 mg/3 mL (0.083 %) solution for nebulization 2.5 mg inhalation Q4H PRN shortness of breath or wheezing 05/14/17 [History Last Taken 10/11/20] albuterol sulfate 90 mcg/actuation aerosol inhaler 2 puff inhalation Q4H PRN PRN Sob &/Or Wheezing 11/22/18 [History Last Taken 11/22/18] levothyroxine 75 mcg tablet 75 mcg PO DAILY thyroid 11/22/18 [History Last Taken 10/11/20] aspirin 81 mg tablet,delayed release (Adult Low Dose Aspirin) 81 mg PO DAILY 11/08/19 [History Last Taken 10/11/20] umeclidinium 62.5 mcg/actuation blister powder for inhalation 1 inh inhalation DAILY #30 ea 03/18/20 [Rx Last Taken 10/11/20] meloxicam 15 mg tablet (Mobic) 15 mg PO DAILY arthritis 10/11/20 [History Last Taken 10/10/20] omeprazole 20 mg capsule,delayed release 20 mg PO DAILY gerd 10/11/20 [History Last Taken Unknown] escitalopram oxalate 10 mg tablet 10 mg PO DAILY 11/07/20 [History Last Taken Unknown] oxybutynin chloride 5 mg tablet,extended release 24 hr 5 mg PO DAILY 11/07/20 [History Last Taken Unknown] benralizumab 30 mg/mL subcutaneous auto-injector (Fasenra Pen) 30 mg subcut Q8W #1 mL 12/06/20 [Rx Last Taken Unknown] cetirizine 10 mg tablet 10 mg PO DAILY #90 tabs 03/18/21 [Rx Last Taken Unknown] nitroglycerin 0.4 mg sublingual tablet 0.4 mg sublingual Q5-15M PRN chest pain #90 tabs 07/30/21 [Rx Last Taken Unknown] clotrimazole 10 mg cuong 10 mg mucous membrane TID #90 tabs 08/05/21 [Rx Last Taken Unknown] benzonatate 100 mg capsule 200 mg PO TID PRN cough #30 caps 11/18/21 [Rx Last Taken Unknown] isosorbide mononitrate 30 mg tablet,extended release 24 hr 30 mg PO DAILY #90 tabs 12/01/21 [Rx Last Taken Unknown] lisinopril 10 mg tablet 10 mg PO DAILY #90 tabs 12/01/21 [Rx Last Taken Unknown] fluticasone propionate 50 mcg/actuation nasal spray,suspension 2 spray intranasal DAILY #16 grams 12/29/21 [Rx Last Taken Unknown] montelukast 10 mg tablet (Singulair) 10 mg PO QPM #90 tabs 01/17/22 [Rx Last Taken Unknown] fluticasone 500 mcg-salmeterol 50 mcg/dose blistr powdr for inhalation 1 inh inhalation BID 01/29/22 [History Last Taken Unknown] guselkumab 100 mg/mL subcutaneous auto-injector (Tremfya) 100 mg subcut Q12W 01/29/22 [History Last Taken Unknown] metoprolol succinate 25 mg tablet,extended release 24 hr 25 mg PO DAILY #30 tabs 01/29/22 [Rx Last Taken Unknown] Allergy/AdvReac Type Severity Reaction Status Date / Time No Known Allergies Allergy Verified 02/21/22 15:22 Family History Grandmother CVA (cerebral vascular accident) CAD (coronary artery disease) Diabetes Grandfather CVA (cerebral vascular accident) Diabetes Mother CAD (coronary artery disease) Hypertension Brother CAD (coronary artery disease) Hypertension Father Diabetes Surgical History Cataract extraction status History of appendectomy History of back surgery History of hysterectomy History of left heart catheterization (LHC) (~10/14/20) History of lobectomy of lung (~2009) Social History Smoking Status: Former smoker how long ago did patient quit smokin second hand exposure: Yes alcohol intake: current alcohol intake frequency: a few times a month Alcohol type: beer and wine substance use type: does not use caffeine: Yes Type: coffee Number of servings: 1 ROS ROS ED ROS Narrative Hypertension Review of Systems ROS Unobtainable: other Constitutional Constitutional ED: Reports lethargy; Denies chills, fever(s), sweats or weight loss Eyes Eyes: Denies blurry vision, change in vision or diplopia ENT ENT ED: Denies rhinorrhea or sore throat Cardiovascular Cardiovascular: Reports chest pain and racing heartbeat; Denies orthopnea Respiratory/Chest Respiratory/Chest: Reports dyspnea and dyspnea on exertion; Denies cough, orthopnea or sputum Gastrointestinal Gastrointestinal: Denies abdominal pain, diarrhea, nausea or vomiting Genitourinary Genitourinary ED: Denies dysuria, hematuria or urinary frequency Musculoskeletal Musculoskeletal: Denies arthralgias, back pain, myalgias or neck pain Integumentary Denies abscess, Abrasions or rash Neurologic Neurologic: Reports headache(s); Denies weakness Psychiatric Psychiatric: Denies anxiety, depression or suicidal thoughts Endocrine Endocrinology: Denies polydipsia, polyphagia or polyuria Hematologic/Lymphatic Hematologic/Lymphatic: Denies easy bleeding, easy bruising or lymphadenopathy Allergic/Immunologic Allergic/Immunologic ED: Denies mouth swelling, tongue swelling or urticaria EXAM Physical Exam Const Vital Signs: 02/21/22 15:20 02/21/22 15:41 02/21/22 16:50 Temperature 97.3 F L Temperature Source Temporal Pulse Rate 81 69 Respiratory Rate 18 12 Respiratory Pattern Normal Blood Pressure 178/110 H 159/90 H Blood Pressure Mean 132 113 Pulse Ox 97 Oxygen Delivery Method Room Air 02/21/22 17:15 Temperature Temperature Source Pulse Rate 70 Respiratory Rate Respiratory Pattern Blood Pressure 180/116 H Blood Pressure Mean 137 Pulse Ox Oxygen Delivery Method Positive well nourished and well developed General Appearance ED: well developed and NAD HEENT Reports TM's clear and moist mucous membranes normocephalic and atraumatic; Negative for trauma or tenderness Tympanic Membrane ED: Yes TM's clear Eyes PERRL and EOMs intact bilaterally General Eye ED: Negative for pale conjunctiva or scleral icterus Neck no lymphadenopathy, supple and no JVD General: Negative for tenderness Chest Wall inspection of chest normal and palpation of chest normal Chest: Negative for tenderness Resp normal respiratory effort and clear to auscultation bilaterally Effort and Inspection: Negative for respiratory distress or pain with movement Auscultation: Negative for rhonchi, wheezes or diminished lung sounds Cardio regular rate, regular rhythm, S1 normal heart sound, S2 normal heart sound and no murmurs Peripheral Pulses: pulses 2+ throughout GI normal to inspection, nondistended, normoactive bowel sounds, soft to palpation, non-tender, non-distended and no masses Back/Spine no CVA tenderness and no thoracic nor lumbar tenderness Extremity normal to inspection General Extremety ED: Negative for edema General Extremity: Negative for edema Neuro oriented x3, CN's II-XII intact bilaterally, no sensory deficits noted and gait normal Sensorium / Orientation: awake, alert, oriented to person, oriented to place and oriented to time Motor Exam: strength 5/5 throughout and strength abnormal Psych mental status grossly normal Skin no rashes or lesions noted and no wounds MDM MDM MDM Narrative Medical decision making narrative: IV line established on arrival. Patient initially was observed on the monitor and initially her pressure came down to 159 over 90s but then did go back up to 210/110. Patient was given hydralazine 5 mg IV. Case was discussed with her physicians on-call physician Dr. Goldberg who recommended increasing her lisinopril to 20 mg daily and they will reach out to the patient for follow-up. Patient comfortable with plan. At this point she will be discharged to home with diagnosis of hypertension. Lab Data Attestation: I reviewed the patient's lab results. Labs: Laboratory Results - last 24 hr 02/21/22 02/21/22 02/21/22 15:40 15:40 16:45 WBC 7.8 RBC 4.35 Hgb 14.5 Hct 44.4 MCV 102.1 H MCH 33.3 H MCHC 32.7 RDW Std Deviation 46.0 H RDW Coeff of [place] 12.2 Plt Count 317 MPV 9.2 Immature Gran % (Auto) 0.100 Neut % (Auto) 56.4 Lymph % (Auto) 35.4 [place] % (Auto) 7.5 Eos % (Auto) 0.0 Baso % (Auto) 0.6 Absolute Neuts (auto) 4.4 Absolute Lymphs (auto) 2.77 Nucleated RBC % 0 Sodium 137 Potassium 3.9 Chloride 104 Carbon Dioxide 27.0 Anion Gap 6 BUN 17 Creatinine 0.96 Estim Creat Clear Calc 53.97 Est GFR (MDRD) Af Amer 75 Est GFR (MDRD) Non-Af 62 BUN/Creatinine Ratio 17.7 Glucose 120 H Calcium 9.4 Troponin I High Sens 7 Urine Color Yellow Urine Clarity Clear Urine pH 6.5 Ur Specific [place] 1.020 Urine Protein Negative Urine Glucose (UA) Normal Urine Ketones Negative Urine Occult Blood Negative Urine Nitrite Negative Urine Bilirubin Negative Urine Urobilinogen 1 H Ur Leukocyte Esterase 25 H Urine RBC 0 SEEN Urine WBC 0 SEEN Ur Squamous Epith Cells 0 SEEN Urine Bacteria 0 SEEN Urine Mucus 0 SEEN Radiography Diagnostic Testing: Clinical Impression(s) from Imaging Studies Brain CT 02/21/22 15:30 IMPRESSION: Normal unenhanced CT scan of the brain. Electronically Signed: Ricardo Tavarez MD at 16:07 EDT , EKG Initial EKG: Attestation: I personally reviewed and interpreted this EKG as follows: Comments: Sinus rhythm with a rate of 75 bpm with no acute ST segment changes Discharge Plan Triage Chief Complaint: Hypertension ED Provider: Polina Garza Dx/Rx/DC Orders Clinical Impression: Hypertension, Headache Instructions: ED Hypertension, Established Prescriptions: No Action albuterol sulfate 2.5 mg /3 mL (0.083 %) solution for nebulization 2.5 mg INHALATION Q4H PRN (Reason: shortness of breath or wheezing) aspirin [Adult Low Dose Aspirin] 81 mg tablet,delayed release (DR/EC) 81 mg PO DAILY escitalopram oxalate 10 mg tablet 10 mg PO DAILY oxybutynin chloride 5 mg tablet extended release 24hr 5 mg PO DAILY nitroglycerin 0.4 mg tablet, sublingual 0.4 mg sublingual Q5-15M PRN (Reason: chest pain) Qty: 90 3RF Rx Instructions: do not exceed 3 doses per episode Fasenra Pen 30 mg/mL auto-injector 30 mg subcut Q8W Qty: 1 6RF fluticasone propion-salmeterol 500-50 mcg/dose blister with device 1 inh INHALATION BID Tremfya 100 mg/mL auto-injector 100 mg subcut Q12W metoprolol succinate 25 mg tablet extended release 24 hr 25 mg PO DAILY Qty: 30 3RF benzonatate 100 mg capsule 200 mg PO TID PRN (Reason: cough) Qty: 30 0RF atorvastatin 40 MG tablet 40 mg PO QHS levothyroxine 75 MCG tablet 75 mcg PO DAILY albuterol sulfate 18 GM HFA aerosol inhaler 2 puff inhalation Q4H PRN PRN (Reason: Sob &/Or Wheezing) meloxicam [Mobic] 15 mg tablet 15 mg PO DAILY omeprazole 20 mg Capsule,Delayed Release(Dr/Ec) 20 mg PO DAILY umeclidinium 62.5 mcg/actuation blister with device 1 inh inhalation DAILY Qty: 30 11RF cetirizine 10 mg tablet 10 mg PO DAILY Qty: 90 3RF clotrimazole 10 mg cuong 10 mg mucous membrane TID Qty: 90 6RF isosorbide mononitrate 30 mg tablet extended release 24 hr 30 mg PO DAILY Qty: 90 3RF lisinopril 10 mg tablet 10 mg PO DAILY Qty: 90 3RF fluticasone propionate 50 mcg/actuation spray,suspension 2 spray intranasal DAILY Qty: 16 3RF montelukast [Singulair] 10 mg tablet 10 mg PO QPM Qty: 90 3RF Primary Care Provider: Suellen Lomax Referrals: Suellen Lomax, PA [Primary Care Provider] - 3-5 Days Activity Restrictions/Additional Instructions: Increase your lisinopril to 20 mg daily Disposition Disposition: Home, Self Care
[2022-02-21] MEDS: 0.9% Normal Saline 1,000 ML 150 ML IV (15:47)
[2022-02-21 15:51] LABS: Absolute Lymphocyte Count 2.77 X10^3/uL (0.83-4.51); Absolute Neutrophil Count 4.4 X10^3/uL (2.0-7.7); Basophil# 0.05 X10^3/uL; Basophil% 0.6 % (0-1); Hematocrit 44.4 % (37-47); Hemoglobin 14.5 g/dL (12.0-15.0); Lymphocyte # 2.77 X10^3/ul (0.83-4.51); Lymphocyte % 35.4 % (19-41); Mean Corp Hgb Conc 32.7 g/dL (32-36); Mean Corpuscular Hgb 33.3 pg (27.0-32.0); Mean Corpuscular Volume 102.1 fL (81-99); Mean Platelet Vol. 9.2 fl (6.2-12.0); Monocyte# 0.59 X10^3/uL; Monocyte% 7.5 % (0-10); NRBC Flagged by Analyzer 0 % (0-5); Neutrophil % 56.4 % (47-70); Platelet Count 317 K/mm3 (150-450); RBC Distribution Width CV 12.2 % (11.6-14.6); Red Blood Count 4.35 M/mm3 (4.2-5.4); White Blood Count 7.8 K/mm3 (4.4-11.0)
[2022-02-21 16:07] LABS: Anion Gap 6 (5-15); BUN 17 mg/dL (7-18); BUN/Creat Ratio 17.7 RATIO (10-20); Calcium,Total 9.4 mg/dL (8.5-10.1); Chloride 104 mmol/L (98-107); Creatinine, Serum 0.96 mg/dL (0.55-1.02); EST Glomerular Filtration Rate 62 mL/min (>60); Est Glom Filt Rate - Afr Amer 75 mL/min (>60); Estimated Creatinine Clearance 53.97 ml/min; Glucose 120 mg/dL (74-106); Potassium 3.9 mmol/L (3.5-5.1); Sodium Level 137 mmol/L (136-145); Troponin-I HS 7 pg/mL (3.0-54.0)
[2022-02-21 16:50] VITALS: BP 159/90; PULSE 69; RESP 12
[2022-02-21 16:51] LABS: Bacteria 0 SEEN /hpf (None Seen); Mucous, Urine 0 SEEN /hpf (<or=2+); Red Blood Cells-Urine 0 SEEN /hpf (0-5); Squamous Epithelial Cells - UA 0 SEEN /hpf (5-10); White Blood Cells 0 SEEN /hpf (0-5)
[2022-02-21 16:56] LABS: Color, Urine Yellow (Yellow); Glucose, Dipstick Normal (Normal); Ketone-Dipstick Negative (Negative); Leukocyte Esterase-Dipstick 25 /ul (Negative); Nitrite-Dipstick Negative (Negative); Occult Blood-Urine Negative /ul (Negative); Protein-Dipstick Negative (Negative); Urine Bilirubin Dipstick Negative (Negative); Urine Clarity Clear (Clear); Urine Urobilinogen 1 mg/dl (Normal); Urine pH 6.5 (5.0 - 8.0)
[2022-02-21 17:15] VITALS: BP 180/116; PULSE 70
[2022-02-21] MEDS: hydrALAZINE 20 MG/ML Vial 5 MG IV (17:15)
[2022-02-21 17:41] VITALS: BP 185/95; PULSE 70; RESP 16
== END 2022-02-21 17:43 | disposition home or self-care (01) ==
PROVIDERS: Emergency Provider Emergency Medicine; PCP Physician Assistant; Visit Provider Emergency Medicine
DX: I10 Essential (primary) hypertension (principal); J44.9 Chronic obstructive pulmonary disease, unspecified; R11.0 Nausea; E78.5 Hyperlipidemia, unspecified; I25.10 Atherosclerotic heart disease of native coronary artery without angina pectoris; R51.9 Headache, unspecified; Z87.891 Personal history of nicotine dependence; R07.9 Chest pain, unspecified
CPT/HCPCS: 70450; 80048; 81001; 84484; 85025; 93005; 96361; 96374; 99284; J7030; A4216

== ENCOUNTER → 2022-02-23 | Outpatient (CLI) | payer MEDICARE, MEDICAID, SELFPAY ==
[2022-02-23 10:29] VITALS: BP 172/94; PULSE 59; RESP 18; TEMP 36.4; O2SAT 98; BMI 32.5
[2022-02-23] MEDS: Benralizumab 30 MG/ML Syringe SC (10:33)
== END | disposition home or self-care (01) ==
LOC: MEDOUTP 10:23
PROVIDERS: PCP Physician Assistant; Referring Provider Nurse Practitioner Acute Care; Visit Provider Nurse Practitioner Acute Care
DX: J45.50 Severe persistent asthma, uncomplicated (principal)
CPT/HCPCS: 96372; J0517

== ENCOUNTER → 2022-04-17 | Outpatient (CLI) | payer MEDICARE, MEDICAID, SELFPAY ==
[2022-04-17 10:20] VITALS: BP 187/98; PULSE 56; TEMP 36.2; O2SAT 96
[2022-04-17] MEDS: Benralizumab 30 MG/ML Syringe SC (10:27)
== END | disposition home or self-care (01) ==
LOC: MEDOUTP 09:58
PROVIDERS: PCP Physician Assistant; Referring Provider Nurse Practitioner Acute Care; Visit Provider Nurse Practitioner Acute Care
DX: J45.50 Severe persistent asthma, uncomplicated (principal)
CPT/HCPCS: 96372; J0517

== ENCOUNTER → 2022-04-27 | Outpatient (CLI) | payer MEDICARE, MEDICAID, SELFPAY | END | disposition home or self-care (01) | PROVIDERS: PCP Physician Assistant; Referring Provider Nurse Practitioner Acute Care; Visit Provider Nurse Practitioner Acute Care | DX: R50.9 Fever, unspecified (principal) | CPT/HCPCS: 87631; C9803 ==

== ENCOUNTER 2022-04-29 17:25 | Emergency (ER) | payer MEDICARE, MEDICAID, SELFPAY ==
[2022-04-29 17:26] VITALS: BP 140/102; PULSE 92; RESP 16; TEMP 37.1; O2SAT 94; BMI 32.9
--- NOTE | 2022-04-29 17:44 | RAD_ITS ---
EXAM: XR CHEST, 2 VIEWS CLINICAL INDICATION: cough TECHNIQUE: Frontal and lateral views of the chest. This report was created using [employer] report generation technology. COMPARISON: 10/11/2020 FINDINGS: LUNGS AND PLEURAL SPACES: Unremarkable. No consolidation or edema. No pneumothorax. No effusion. HEART: Unremarkable. Cardiac silhouette not enlarged. MEDIASTINUM: Central airways and mediastinal contour are unremarkable. BONES/JOINTS: Unremarkable. SOFT TISSUES: Unremarkable. RAD/Chest PA and Lateral IMPRESSION: No radiographic evidence of acute cardiopulmonary disease. Electronically Signed: Jairo Agarwal MD at 18:14 [facility] ,
[2022-04-29] MEDS: 0.9% Normal Saline 1,000 ML 999 ML IV (18:13)
[2022-04-29 18:20] LABS: Absolute Lymphocyte Count 2.51 X10^3/uL (0.83-4.51); Absolute Neutrophil Count 6.7 X10^3/uL (2.0-7.7); Basophil# 0.02 X10^3/uL; Basophil% 0.2 % (0-1); Hematocrit 43.8 % (37-47); Hemoglobin 14.6 g/dL (12.0-15.0); Lymphocyte # 2.51 X10^3/ul (0.83-4.51); Lymphocyte % 25.2 % (19-41); Mean Corp Hgb Conc 33.3 g/dL (32-36); Mean Corpuscular Hgb 32.8 pg (27.0-32.0); Mean Corpuscular Volume 98.4 fL (81-99); Mean Platelet Vol. 8.7 fl (6.2-12.0); Monocyte# 0.72 X10^3/uL; Monocyte% 7.2 % (0-10); NRBC Flagged by Analyzer 0 % (0-5); Neutrophil % 67.1 % (47-70); Platelet Count 290 K/mm3 (150-450); RBC Distribution Width CV 11.6 % (11.6-14.6); RBC Distribution Width SD 42.2 fl (35.1-43.9); Red Blood Count 4.45 M/mm3 (4.2-5.4)
[2022-04-29 18:27] LABS: Anion Gap 1 (5-15); BUN 8 mg/dL (7-18); BUN/Creat Ratio 9.3 RATIO (10-20); Calcium,Total 9.1 mg/dL (8.5-10.1); Chloride 93 mmol/L (98-107); Creatinine, Serum 0.86 mg/dL (0.55-1.02); EST Glomerular Filtration Rate 71 mL/min (>60); Est Glom Filt Rate - Afr Amer 86 mL/min (>60); Estimated Creatinine Clearance 60.25 ml/min; Glucose 100 mg/dL (74-106); Potassium 4.4 mmol/L (3.5-5.1); Sodium Level 127 mmol/L (136-145)
[2022-04-29 19:04] VITALS: PULSE 88; RESP 19; O2SAT 93; O2SAT 95
--- NOTE | 2022-04-29 19:09 | EDS_ITS ---
HPI History of Present Illness Chief Complaint: Shortness of Breath Narrative Narrative: 62-year-old female past medical history of asthma and COPD, has been using her albuterol MDI and nebulizer treatments has had increasing shortness of breath and cough since Wednesday, approximately 6 days ago. She states her symptoms started with runny nose and congestion. She has postnasal drip and has become hoarse, and is losing her voice. She states that she is coughing more and increasing shortness of breath. She may have felt feverish with chills, but her main concern is that she is afraid she may be getting pneumonia because her shortness of breath is not improving. She has not used prednisone as a steroid in the last few months. [facility] Medical History Abnormal finding on CT scan Acute hypoxemic respiratory failure Asthma Atherosclerotic heart disease of [place] coronary artery without angina pectoris Calcification of aorta Chronic lumbar radiculopathy COPD (chronic obstructive pulmonary disease) COPD exacerbation COVID-19 (~02/2020) Degenerative joint disease Depression Diastolic dysfunction Dilatation of aorta Essential hypertension Former smoker GERD (gastroesophageal reflux disease) Hepatitis C Hernia Hyperlipidemia Hypothyroidism Kidney stones Lung anomaly Lung nodule Memory loss NSAID induced gastritis Obesity BEN (obstructive sleep apnea) Osteopenia Prediabetes Psoriasis Pulmonary hypertension Rheumatoid arthritis Stage 2 moderate COPD by GOLD classification Tachycardia Tobacco dependence in remission Home Medications atorvastatin 40 mg tablet 40 mg PO QHS cholesterol 03/03/15 [History Last Taken 10/10/20] albuterol sulfate 2.5 mg/3 mL (0.083 %) solution for nebulization 2.5 mg inhalation Q4H PRN shortness of breath or wheezing 05/14/17 [History Last Taken 10/11/20] albuterol sulfate 90 mcg/actuation aerosol inhaler 2 puff inhalation Q4H PRN PRN Sob &/Or Wheezing 11/22/18 [History Last Taken 11/22/18] levothyroxine 75 mcg tablet 75 mcg PO DAILY thyroid 11/22/18 [History Last Taken 10/11/20] aspirin 81 mg tablet,delayed release (Adult Low Dose Aspirin) 81 mg PO DAILY 11/08/19 [History Last Taken 10/11/20] meloxicam 15 mg tablet (Mobic) 15 mg PO DAILY arthritis 10/11/20 [History Last Taken 10/10/20] omeprazole 20 mg capsule,delayed release 20 mg PO DAILY gerd 10/11/20 [History Last Taken Unknown] escitalopram oxalate 10 mg tablet 10 mg PO DAILY 11/07/20 [History Last Taken Unknown] oxybutynin chloride 5 mg tablet,extended release 24 hr 5 mg PO DAILY 11/07/20 [ History Last Taken Unknown] benralizumab 30 mg/mL subcutaneous auto-injector (Fasenra Pen) 30 mg subcut Q8W #1 mL 12/06/20 [Rx Last Taken Unknown] nitroglycerin 0.4 mg sublingual tablet 0.4 mg sublingual Q5-15M PRN chest pain #90 tabs 07/30/21 [Rx Last Taken Unknown] clotrimazole 10 mg cuong 10 mg mucous membrane TID #90 tabs 08/05/21 [Rx Last Taken Unknown] isosorbide mononitrate 30 mg tablet,extended release 24 hr 30 mg PO DAILY #90 tabs 12/01/21 [Rx Last Taken Unknown] fluticasone propionate 50 mcg/actuation nasal spray,suspension 2 spray intranasal DAILY #16 grams 12/29/21 [Rx Last Taken Unknown] montelukast 10 mg tablet (Singulair) 10 mg PO QPM #90 tabs 01/17/22 [Rx Last Taken Unknown] fluticasone 500 mcg-salmeterol 50 mcg/dose blistr powdr for inhalation 1 inh inhalation BID 01/29/22 [History Last Taken Unknown] guselkumab 100 mg/mL subcutaneous auto-injector (Tremfya) 100 mg subcut Q12W 01/29/22 [History Last Taken Unknown] metoprolol succinate 25 mg tablet,extended release 24 hr 25 mg PO DAILY #30 tabs 01/29/22 [Rx Last Taken Unknown] benzonatate 100 mg capsule 200 mg PO TID PRN cough #30 caps 03/24/22 [Rx Last Taken Unknown] cetirizine 10 mg tablet 10 mg PO DAILY #90 tabs 03/24/22 [Rx Last Taken Unknown] umeclidinium 62.5 mcg/actuation blister powder for inhalation 1 inh inhalation DAILY #30 ea 03/24/22 [Rx Last Taken Unknown] lisinopril 10 mg tablet 20 mg PO DAILY 04/17/22 [History Last Taken Unknown] oseltamivir 75 mg capsule (Tamiflu) 75 mg PO DAILY #7 caps 04/28/22 [Rx Last Taken Unknown] albuterol sulfate 2.5 mg/3 mL (0.083 %) solution for nebulization 2.5 mg (3 mL) inhalation Q4H PRN #25 vials 04/29/22 [Rx Last Taken Unknown] prednisone 20 mg tablet 40 mg PO DAILY #14 tabs 04/29/22 [Rx Last Taken Unknown] Allergy/AdvReac Type Severity Reaction Status Date / Time No Known Allergies Allergy Verified 04/29/22 17:26 Family History Grandmother CVA (cerebral vascular accident) CAD (coronary artery disease) Diabetes Grandfather CVA (cerebral vascular accident) Diabetes Mother CAD (coronary artery disease) Hypertension Brother CAD (coronary artery disease) Hypertension Father Diabetes Surgical History Cataract extraction status History of appendectomy History of back surgery History of hysterectomy History of left heart catheterization (LHC) (~10/14/20) History of lobectomy of lung (~2009) Social History Smoking Status: Former smoker how long ago did patient quit smokin second hand exposure: Yes alcohol intake: current alcohol intake frequency: a few times a month Alcohol type: beer and wine substance use type: does not use caffeine: Yes Type: coffee Number of servings: 1 ROS ROS ED ROS Narrative Constitutional: No fever, no chills. HEENT: No sore throat. Hoarse voice. No neck pain. No loss of vision. Positive nasal congestion and rhinorrhea. Cardiovascular: No chest pain. No palpitations. No pedal edema. Respiratory: Positive cough, increasing shortness of breath. Abdominal: No abdominal pain. No nausea. No vomiting. Genitourinary: No dysuria. No hematuria. Musculoskeletal: No myalgias. No arthralgias. Neurologic: No headaches. No dizziness. No lightheadedness. Skin: No rash. No change in color. Psychiatric: No depression. No anxiety. EXAM Physical Exam Narrative Exam Narrative: Afebrile. Vital signs noted. Nontoxic-appearing. HEENT: Normocephalic. Atraumatic. PERRL, EOMI. Neck soft and supple. No point tenderness or step off. Cardiovascular: Regular rate and rhythm. No murmurs, rubs, or gallops appreciated. Respiratory: No tachypnea. Speaking in full sentences. Moving a good amount of air. Occasional rhonchi bilaterally. No accessory muscle use or expiratory wheezing. Gastrointestinal: Abdomen soft, nontender, with normoactive bowel sounds. No rebound or guarding. Neurological: Awake. Alert. Nonfocal, nonlateralizing. Skin: No rash. Normal color. No pallor. Musculoskeletal: No pedal edema. Full range of motion extremities. Const Vital Signs: 04/29/22 17:26 Temperature 98.7 F Temperature Source Temporal Pulse Rate 92 Respiratory Rate 16 Blood Pressure 140/102 H Blood Pressure Mean 114 Pulse Ox 94 Oxygen Delivery Method Room Air MDM MDM MDM Narrative Medical decision making narrative: Nursing protocol labs and chest x-ray were entered. She was bolused normal saline 1 L intravenously. CBC shows normal white count of 10.0, hemoglobin normal at 14.6, platelet count normal at 290. Sodium is low at 127 with a chloride of 93 consistent with mild dehydration. Once again, she had been bolu sed normal saline. Chest x-ray interpreted by myself shows no acute infiltrate or pneumothorax. I do not feel antibiotics are indicated. I do feel she has more of an upper respiratory infection and asthmatic bronchitis. She states that she has enough albuterol MDI, but needs a refill on her nebulizer treatments. She was given her first loading dose of prednisone 60 mg orally here, and a prescription written for a burst of 40 mg for the next 7 days. I feel she can be discharged safely home with follow-up. Return instructions to the emergency department were reviewed. Disposition is discharged home in stable condition. Lab Data Attestation: I reviewed the patient's lab results. Labs: Laboratory Results - last 24 hr 04/29/22 04/29/22 18:09 18:09 WBC 10.0 RBC 4.45 Hgb 14.6 Hct 43.8 MCV 98.4 MCH 32.8 H MCHC 33.3 RDW Std Deviation 42.2 RDW Coeff of Claude 11.6 Plt Count 290 MPV 8.7 Immature Gran % (Auto) 0.300 Neut % (Auto) 67.1 Lymph % (Auto) 25.2 [place] % (Auto) 7.2 Eos % (Auto) 0.0 Baso % (Auto) 0.2 Absolute Neuts (auto) 6.7 Absolute Lymphs (auto) 2.51 Nucleated RBC % 0 Sodium 127 L Potassium 4.4 Chloride 93 L Carbon Dioxide 33.0 H Anion Gap 1 L BUN 8 Creatinine 0.86 Estim Creat Clear Calc 60.25 Est GFR (MDRD) Af Amer 86 Est GFR (MDRD) Non-Af 71 BUN/Creatinine Ratio 9.3 L Glucose 100 Calcium 9.1 Radiography Diagnostic Testing: Clinical Impression(s) from Imaging Studies Chest X-Ray 04/29/22 17:44 IMPRESSION: No radiographic evidence of acute cardiopulmonary disease. Electronically Signed: Jairo Agarwal MD at 18:14 EST , Discharge Plan Triage Chief Complaint: Shortness of Breath ED Provider: Shalom Rodriguez Dx/Rx/DC Orders Clinical Impression: URI (upper respiratory infection), Bronchitis, Dehydration Instructions: ED Bronchitis, No Antibiotic (Adult), ED Dehydration (Adult), ED URI, Viral W/ Wheezing (Adult) Prescriptions: New prednisone 20 mg tablet 40 mg PO DAILY Qty: 14 0RF albuterol sulfate 2.5 mg /3 mL (0.083 %) solution for nebulization 2.5 mg inhalation Q4H PRN Qty: 25 0RF Rx Instructions: Use q4 hours and PRN for wheezing No Action albuterol sulfate 2.5 mg /3 mL (0.083 %) solution for nebulization 2.5 mg INHALATION Q4H PRN (Reason: shortness of breath or wheezing) aspirin [Adult Low Dose Aspirin] 81 mg tablet,delayed release (DR/EC) 81 mg PO DAILY escitalopram oxalate 10 mg tablet 10 mg PO DAILY oxybutynin chloride 5 mg tablet extended release 24hr 5 mg PO DAILY nitroglycerin 0.4 mg tablet, sublingual 0.4 mg sublingual Q5-15M PRN (Reason: chest pain) Qty: 90 3RF Rx Instructions: do not exceed 3 doses per episode Fasenra Pen 30 mg/mL auto-injector 30 mg subcut Q8W Qty: 1 6RF fluticasone propion-salmeterol 500-50 mcg/dose blister with device 1 inh INHALATION BID Tremfya 100 mg/mL auto-injector 100 mg subcut Q12W metoprolol succinate 25 mg tablet extended release 24 hr 25 mg PO DAILY Qty: 30 3RF atorvastatin 40 MG tablet 40 mg PO QHS levothyroxine 75 MCG tablet 75 mcg PO DAILY albuterol sulfate 18 GM HFA aerosol inhaler 2 puff inhalation Q4H PRN PRN (Reason: Sob &/Or Wheezing) meloxicam [Mobic] 15 mg tablet 15 mg PO DAILY omeprazole 20 mg Capsule,Delayed Release(Dr/Ec) 20 mg PO DAILY lisinopril 10 mg tablet 20 mg PO DAILY clotrimazole 10 mg cuong 10 mg mucous membrane TID Qty: 90 6RF isosorbide mononitrate 30 mg tablet extended release 24 hr 30 mg PO DAILY Qty: 90 3RF fluticasone propionate 50 mcg/actuation spray,suspension 2 spray intranasal DAILY Qty: 16 3RF montelukast [Singulair] 10 mg tablet 10 mg PO QPM Qty: 90 3RF benzonatate 100 mg capsule 200 mg PO TID PRN (Reason: cough) Qty: 30 0RF cetirizine 10 mg tablet 10 mg PO DAILY Qty: 90 3RF umeclidinium 62.5 mcg/actuation blister with device 1 inh inhalation DAILY Qty: 30 11RF oseltamivir [Tamiflu] 75 mg capsule 75 mg PO DAILY Qty: 7 0RF Primary Care Provider: Suellen Lomax Referrals: Suellen Lomax PA [Primary Care Provider] - 3-5 Days if not improving Activity Restrictions/Additional Instructions: Start steroids tomorrow. Continue use of your albuterol nebulizers and MDI. Follow-up with your primary care provider and/your glove operator within the next week if not improving. Return with increased difficulty breathing, new or worsening symptoms. Disposition Disposition: Home, Self Care
[2022-04-29] MEDS: predniSONE 20 MG Tablet 60 MG PO (19:17)
== END 2022-04-29 19:21 | disposition home or self-care (01) ==
PROVIDERS: Emergency Medicine; Emergency Provider Emergency Medicine; PCP Physician Assistant; Visit Provider Emergency Medicine
DX: J06.9 Acute upper respiratory infection, unspecified (principal); J40 Bronchitis, not specified as acute or chronic; E86.0 Dehydration; I25.10 Atherosclerotic heart disease of native coronary artery without angina pectoris; G47.33 Obstructive sleep apnea (adult) (pediatric); Z86.16 Personal history of COVID-19; Z87.891 Personal history of nicotine dependence
CPT/HCPCS: 71046; 80048; 85025; 99284

== ENCOUNTER → 2022-06-26 | Outpatient (CLI) | payer MEDICARE, MEDICAID, SELFPAY ==
[2022-06-26 12:27] VITALS: BP 106/73; PULSE 72; RESP 16; TEMP 36.8; O2SAT 96; BMI 33.3
[2022-06-26] MEDS: Benralizumab 30 MG/ML Syringe SC (12:31)
== END | disposition home or self-care (01) ==
LOC: MEDOUTP 12:15
PROVIDERS: PCP Physician Assistant; Referring Provider Nurse Practitioner Acute Care; Visit Provider Nurse Practitioner Acute Care
DX: J45.50 Severe persistent asthma, uncomplicated (principal)
CPT/HCPCS: 96372; J0517

== ENCOUNTER → 2022-08-28 | Outpatient (CLI) | payer MEDICARE, MEDICAID, SELFPAY ==
[2022-08-28 13:07] VITALS: BP 134/81; PULSE 61; RESP 16; TEMP 35.7; O2SAT 96; BMI 33.3
[2022-08-28] MEDS: Benralizumab 30 MG/ML Syringe SC (13:10)
== END | disposition home or self-care (01) ==
PROVIDERS: PCP Physician Assistant; Referring Provider Nurse Practitioner Acute Care; Visit Provider Nurse Practitioner Acute Care
DX: J45.50 Severe persistent asthma, uncomplicated (principal)
CPT/HCPCS: 96372; J0517

== ENCOUNTER → 2022-10-22 | Outpatient (CLI) | payer MEDICARE, MEDICAID, SELFPAY ==
[2022-10-24 15:08] LABS: Hepatitis B Core Ab Total Negative (Negative); QNTFERON TB Mitogen Value > 10.00 IU/mL (.); QNTFERON TB Nil Value 0.02 IU/mL (.); QNTFERON TB1+ Ag Value 0.03 IU/mL (.); QNTFERON TB2+ Ag Value 0.02 IU/mL (.); QNTIFERON TB Positive Criteria Negative (Negative)
== END | disposition home or self-care (01) ==
PROVIDERS: PCP Physician Assistant; Referring Provider Physician Assistant; Visit Provider Physician Assistant
DX: L40.0 Psoriasis vulgaris (principal); Z79.899 Other long term (current) drug therapy
CPT/HCPCS: 36415; 86480; 86704

== ENCOUNTER 2022-10-23 12:51 | Outpatient (CLI) | payer MEDICARE, MEDICAID, SELFPAY ==
[2022-10-23 13:09] VITALS: BP 103/74; PULSE 57; RESP 16; TEMP 36.3; O2SAT 96; BMI 33.3
[2022-10-23] MEDS: Benralizumab 30 MG/ML Syringe SC (13:32)
== END 2022-10-23 12:52 | disposition home or self-care (01) ==
LOC: MEDOUTP 12:51
PROVIDERS: PCP Physician Assistant; Referring Provider Nurse Practitioner Acute Care; Visit Provider Nurse Practitioner Acute Care
DX: J45.50 Severe persistent asthma, uncomplicated (principal)
CPT/HCPCS: 96372; J0517

== ENCOUNTER 2022-12-28 11:56 | Outpatient (CLI) | payer MEDICARE, MEDICAID, SELFPAY ==
[2022-12-28 12:15] VITALS: BP 104/77; PULSE 63; RESP 16; TEMP 36.4; O2SAT 96; BMI 33.3
[2022-12-28] MEDS: Benralizumab 30 MG/ML Syringe SC (12:16)
== END 2022-12-28 11:57 | disposition home or self-care (01) ==
PROVIDERS: PCP Physician Assistant; Referring Provider Nurse Practitioner Acute Care; Visit Provider Nurse Practitioner Acute Care
DX: J45.50 Severe persistent asthma, uncomplicated (principal)
CPT/HCPCS: 96372; J0517

== ENCOUNTER 2022-12-28 13:00 | Outpatient (RCR) | payer MEDICARE, MEDICAID, SELFPAY ==
--- NOTE | 2022-11-09 14:07 | HP.PTEVAL_ITS ---
Patient's Visit Information Visit Information Visit Information: SYDNIE NARANJO is a 62 year old F referred to Physical Therapy by Dr. Barbra Quick MD with a diagnosis of BACK AND LEG PAIN. Date of Evaluation: 11/09/22 Physical Therapist: Ben Masterson, PT, Cert MDT, OCS Visit Plan Frequency: 2x /Week Duration: Indefinite Plan: PT INTERVTIONS AQUATIC THERAPY WITH DLS ,POSTURAL EX'S ,STRENGTHENING BLE AND LUMBAR ROM Subjective Subjective: This 62 y/o female presents to physical therapy with back and leg pain. Patient has had lumbar radiculopathy for ~ 2 years. Patient has h/o lumbar radiculopathy ~ 10 years ago . Patient symptoms progressively return slowly in back and leg pain ~ several months. Patient fell on porch swing and landed on buttock .Patient seen DR Young tried epidural injections and had h/o x-rays. DR Young recommends Aquatic therapy . Aggravating factors walking/standing/sitting/bending/lifting. Alleviating factors rest. Patient has volterian cream. Patient pain affects sleeping. Bowel/bladder -. Coughing/sneezing -. Denies paresthesia/tingling-.Patient condition affects QOL and function. Patient goals to decrease pain. SOCIAL: VOCATION: disability Pain Bilateral Back: Pain Intensity (Out of 10): 4 Pain Intensity Range: 10 Left Lower Extremity: Pain Intensity (Out of 10): 4 Pain Intensity Range: 10 Objective Objective: POSTURE: mild forward posture GAIT: reciprocal pattern slow antalgic pattern due to pain NEURO: denies paresthesia/tingling reflexes L3-4,L4-5,L5-S1 2/3 PALAPTION: tender LS/SI LUMBAR ROM: flexion mod loss ,extension severe loss pain ,side glides mod loss MMT: quads/hams 4-5.hip flexion 3+/5 ,ankle 4/5 Special Tests L/S Slump test left side: Negative L/S Slump test right side: Negative L/S Left Straight Leg Raise: Negative L/S Right Straight Leg Raise: Negative Balance/Special Test Scores Oswestry Low Back Score: 33 Goals Goal 1:: Patient to be I with Aquatic therapy Goal Time Frame: 4-6 Weeks Goal 2:: Patient to demonstrate 50% improvement with less pain and improved function Goal Time Frame: 4-6 Weeks Goal 3:: Patient to improve lumbar ROM for function of recovery to put on shoes Goal Time Frame: 4-6 Weeks Goal 4:: Patient to increase strength BLE by 4/5 quads/hams and hip 4-/5 to improve gait Goal Time Frame: 4-6 Weeks Goal 5:: Patient to improve back oswestry score by 5 points or> to improve function Goal Time Frame: 4-6 Weeks Goal 6:: Patient to normalize gait with less pain 80% of time Goal Time Frame: 4-6 Weeks Rehabilitation Potential Physical Therapy Diagnosis: This patient has lumbar radiculopathy with symptoms with pain with walking/standing, worse with positioning and motioning testing along with weakness in legs thus benefit from skilled PT Rehabilitation Potential: Good Anticipated Interventions Patient/Client Instruction: Educate patient on: Condition and Plan of Care For the Purpose of:: To decrease pain, To increase ROM, To improve muscle performance and motor function, To improve ability to perform ADL's, To increase tolerance to activity/condition/position, To improve ability of physical actions for home/community/work/leisure, To improve health of tissue, To decrease soft tissue restriction, To increase flexibility/ROM, To improve balance, To improve safety with gait and To prevent re-injury Therapeutic Exercise to Include: Strength training, Endurance training, Body mechanics, Postural training, Flexibilty training, In an aquatic setting and Dynamic Lumbar Stabilization Comment: BLE For the Purpose of:: To decrease pain, To increase ROM, To improve muscle performance and motor function, To improve ability to perform ADL's, To increase tolerance to activity/condition/position, To improve ability of physical actions for home/community/work/leisure, To improve gait and locomotor functions, To improve health of tissue, To decrease soft tissue restriction and To increase flexibility/ROM Text: Thank you for the opportunity to evaluate your patient. For Medicare and Medicare HMO plans, please review the plan of care and approve it. It will need to be FAXED BACK to us at [phone] for Medicare purposes. For Medicare only, by signing this I certify the plan of care. Please let me know if there are questions or concerns regarding this plan of care. Physician Signature: Date:
== END 2022-12-28 19:00 | disposition home or self-care (01) ==
LOC: PT 13:00
PROVIDERS: PCP Physician Assistant; Referring Provider Anesthesiology Pain Medicine; Visit Provider Anesthesiology Pain Medicine
DX: M54.9 Dorsalgia, unspecified (principal); M79.662 Pain in left lower leg
CPT/HCPCS: 97113; 97162

== ENCOUNTER 2023-02-19 13:00 | Outpatient (CLI) | payer MEDICARE, MEDICAID, SELFPAY ==
[2023-02-19 13:12] VITALS: BP 123/76; PULSE 78; RESP 16; TEMP 35.6; O2SAT 95; BMI 34.2
[2023-02-19] MEDS: Benralizumab 30 MG/ML Syringe SC (13:14)
== END 2023-02-19 13:01 | disposition home or self-care (01) ==
LOC: MEDOUTP 13:00
PROVIDERS: PCP Physician Assistant; Referring Provider Nurse Practitioner Acute Care; Visit Provider Nurse Practitioner Acute Care
DX: J45.50 Severe persistent asthma, uncomplicated (principal)
CPT/HCPCS: 96372; J0517

== ENCOUNTER 2023-04-22 12:57 | Outpatient (CLI) | payer MEDICARE, MEDICAID, SELFPAY ==
[2023-04-22 13:05] VITALS: BP 159/90; PULSE 67; RESP 16; TEMP 36.6; O2SAT 99
[2023-04-22] MEDS: Benralizumab 30 MG/ML Syringe SC (13:14)
== END 2023-04-22 12:58 | disposition home or self-care (01) ==
LOC: MEDOUTP 12:57
PROVIDERS: PCP Physician Assistant; Referring Provider Nurse Practitioner Acute Care; Visit Provider Nurse Practitioner Acute Care
DX: J45.50 Severe persistent asthma, uncomplicated (principal)
CPT/HCPCS: 96372; J0517

== ENCOUNTER → 2023-05-04 | Outpatient (CLI) | payer MEDICARE, MEDICAID, SELFPAY ==
--- NOTE | 2023-05-04 15:43 | MRI_ITS ---
EXAM: MR CERVICAL SPINE WITHOUT INTRAVENOUS CONTRAST CLINICAL INDICATION: Cervical Myelopathy, NECK PAIN TECHNIQUE: Multiplanar and multisequence MR images of the cervical spine without intravenous contrast were performed. COMPARISON: None. FINDINGS: Several sequences degraded by patient motion. VERTEBRAE: Unremarkable. Normal vertebral bodies and posterior elements. Normal alignment. Normal craniocervical junction and cervicothoracic junction. No spondylolisthesis. There is preservation of the normal cervical lordosis. SPINAL CORD: Unremarkable in signal and morphology. SOFT TISSUES: Unremarkable. No prevertebral soft tissue swelling. LYMPH NODES: Unremarkable. There is no cervical adenopathy. DISCS/SPINAL CANAL/NEURAL FORAMINA: C2-3: Normal disc height and morphology. Normal central canal. Foramina are patent. C3-4: Mild disc space narrowing. Mild spondylotic bar causes borderline canal stenosis. Severe foraminal stenosis due to uncinate hypertrophy. C4-5: Normal disc height and morphology. Normal central canal. Severe right foraminal stenosis due to uncinate and facet hypertrophy. C5-6: Disc space narrowing. Mild spondylotic bar causes mild cord flattening and mild canal stenosis. Severe foraminal stenosis due to uncinate hypertrophy. C6-7: Disc space narrowing. Mild, noncompressive spondylotic bar. Borderline canal stenosis. Severe foraminal stenosis due to uncinate hypertrophy. C7-T1: Normal disc height and morphology. Normal central canal. Foramina are patent. MRI/Spine Cervical (Routine) IMPRESSION: Mild cord flattening and canal stenosis at C5-6. Borderline canal stenosis at C3-4 and C6-7. Severe foraminal stenosis C3-4 through C6-7. Electronically Signed: So Pelayo MD at 21:37 EST Reading Location ID and State: [id number] / Tel , Service support ,
== END | disposition home or self-care (01) ==
LOC: MRI 15:42
PROVIDERS: PCP Physician Assistant; Referring Provider Orthopaedic Surgery Orthopaedic Surgery of the Spine; Visit Provider Orthopaedic Surgery Orthopaedic Surgery of the Spine
DX: G95.9 Disease of spinal cord, unspecified (principal)
CPT/HCPCS: 72141

== ENCOUNTER → 2023-05-14 | Outpatient (CLI) | payer MEDICARE, MEDICAID, SELFPAY ==
--- NOTE | 2023-05-14 11:05 | MRI_ITS ---
STUDY: MRI BRAIN WITH AND WITHOUT CONTRAST REASON FOR EXAM: Female, 63 years old. dizziness,memory disturbances TECHNIQUE: Standardized multiplanar fat and water weighted pulse sequences were obtained. IV 19cc clariscan was administered for the contrast portion of the examination. COMPARISON: Head CT dated February 21, 2022. FINDINGS: There is moderate cerebral atrophy with widening of the extra-axial spaces and ventricular dilatation. There are a limited number of small white matter hyperintensities, distributed throughout the deep white matter tracts of the cerebral hemispheres, consistent with mild chronic white matter ischemic changes. There is no evidence for recent intracranial ischemia or other cause of cytotoxic edema on diffusion weighted imaging (DWI). Normal T2* images of the brain without demonstrated susceptibility artifact. There is no demonstrated hemosiderin stain. There are no demyelinating plagues of the supratentorial brain, brainstem or cerebellum. There are no findings suspicious for multiple sclerosis (MS). No hydrocephalus is present. There are no ring enhancing lesions of the brain parenchyma. There is no abnormal thickening or enhancement of meninges or dura. Normal bilateral basal ganglia. Normal thalami. There is no extra-axial fluid accumulation. Normal flow voids within the major intracranial circulation suggesting patency by spin echo criteria. Normal venous enhancement. There is no enhancing intra-axial or extra-axial abnormality. Normal sella turcica, pituitary gland, infundibular stalk, optic chiasm and hypothalamus. Normal tectal plate and pineal gland. Normal midbrain, kelley and medulla. Normal cerebellum. Normal basal cisterns. Normal bilateral temporal bones. Normal bilateral internal auditory canals. No demonstrated orbital abnormality, within the constraints of a routine brain study. Normal visualized paranasal sinuses. Normal calvarium and skull base. Normal visualized soft tissue structures. Normal visualized upper cervical spine. MRI/Brain W/WO Contrast IMPRESSION: Involutional and mild chronic ischemic changes of the brain, as described above. Electronically Signed: Yaron Godfrey MD at 14:15 EST ,
[2023-05-14 11:47] LABS: CREATININE FINGERSTICK < 1.0 mg/dL (0.55-1.02); EGFR FINGERSTICK > 60.0000 mL/min (>60)
--- OUTSIDE RECORDS SUMMARY | 2023-05-14 12:18 | XMS RPT_ITS | CCD ---
Author Name Unknown Address [id number] [place] [address] Organization [facility] Care Team Providers Care Demolition Engineer Name Role Phone AALIYAH ANDERSEN Attending Unavailable AALIYAH ANDERSEN Consulting Unavailable AALIYAH ANDERSEN Primary Care Unavailable AALIYAH ANDERSEN Admitting Unavailable PROVIDER, UNKNOWN Consulting Unavailable Results Test Name Value Interpretation Reference Range Facil ity Encounters Encounter Date Encounter Type Care Provider Facility Start: 04-08-2023 End: 04-08-2023 ambulatory AALIYAH ANDERSEN [facility] Payers Date Payer Category Payer Unknown [id number] Medicare [id number] Summary Purpose Family History No Family History Records FoundNo Family History Records Found Advance Directives No Advanced Directives Records FoundNo Advanced Directives Records Found Additional Source Comments INFORMATION SOURCE (unrecogn ized section and content) DATE CREATED AUTHOR AUTHOR'S ORGANIZ ATION 04/10/2023 [facility] FOR RECORDS PERTAINING TO PATIENTS WHO ARE OR HAVE BEEN ENROLLED IN A CHEMICAL DEPENDENCY/SUBSTANCEABUSE PROGRAM, SOME INFORMATION MAY BE OMITTED. This clinical summary was aggregated from multiple sources. Caution should be exercised in using it in the provision of clinical care. This summary normalizes information from multiple sources, and as a consequence, information in this document may materially change the coding, format and clinical context of patient data. In addition, data may be omitted in some cases. CLINICAL DECISIONS SHOULD BE BASED ON THE PRIMARY CLINICAL RECORDS. [facility] [employer] provides no warranty or guarantee of the accuracy or completeness of information in this document.
== END | disposition home or self-care (01) ==
LOC: MRI 11:04
PROVIDERS: PCP Physician Assistant; Referring Provider Orthopaedic Surgery Orthopaedic Surgery of the Spine; Visit Provider Orthopaedic Surgery Orthopaedic Surgery of the Spine
DX: R42 Dizziness and giddiness (principal); R41.3 Other amnesia
CPT/HCPCS: 70553; A9575

== ENCOUNTER → 2023-05-31 | Outpatient (CLI) | payer MEDICARE, MEDICAID, SELFPAY ==
--- OUTSIDE RECORDS SUMMARY | 2023-05-31 07:11 | XMS RPT_ITS | CCD ---
Author Name Unknown Address [facility] [place] [address] Organization [facility] Care Team Providers Care Store Clerk Cashier Name Role Phone AALIYAH ANDERSEN Attending Unavailable AALIYAH ANDERSEN Consulting Unavailable AALIYAH ANDERSEN Primary Care Unavailable AALIYAH ANDERSEN Admitting Unavailable PROVIDER, UNKNOWN Consulting Unavailable Results Test Name Value Interpretation Reference Range Facil ity Encounters Encounter Date Encounter Type Care Provider Facility Start: 04-08-2023 End: 04-08-2023 ambulatory AALIYAH ANDERSEN [facility] Payers Date Payer Category Payer Unknown [id number] Medicare [id number] Summary Purpose Family History No Family History Records FoundNo Family History Records Found Advance Directives No Advanced Directives Records FoundNo Advanced Directives Records Found Additional Source Comments INFORMATION SOURCE (unrecogn ized section and content) DATE CREATED AUTHOR AUTHOR'S ORGANIZ ATION 04/10/2023 [facility] FOR RECORDS PERTAINING TO PATIENTS WHO ARE [...] BE BASED ON THE PRIMARY CLINICAL RECORDS. [facility] [employer] provides no warranty or guarantee of the accuracy or completeness of information in this document.
--- NOTE | 2023-06-01 10:02 | PFT ---
INTRODUCTION: The patient is a 63-year-old female who presents for pulmonary function studies secondary to a diagnosis of COPD. Respiratory therapy reported good patient effort. Bronchodilators were used during testing. INTERPRETATION: Forced expiration spirometry demonstrated the presence of a mild large airways obstructive ventilatory defect. There was no significant response to aerosolized bronchodilators. Body plethysmography was performed and revealed lung volumes to be within normal limits. Diffusing capacity by single breath CO was reduced at 67% of predicted. IMPRESSION: Irreversible mild large airways obstructive ventilatory defect with symmetric reduction in diffusion capacity.
== END | disposition home or self-care (01) ==
LOC: PSN 07:00
PROVIDERS: PCP Physician Assistant; Referring Provider Nurse Practitioner Acute Care; Visit Provider Nurse Practitioner Acute Care
DX: J44.9 Chronic obstructive pulmonary disease, unspecified (principal)
CPT/HCPCS: 94060; 94726; 94729

== ENCOUNTER → 2023-06-01 | Outpatient (CLI) | payer MEDICARE, MEDICAID, SELFPAY ==
[2023-06-01 08:22] VITALS: PULSE 100; PULSE 102; PULSE 103; PULSE 90; PULSE 91; PULSE 94; PULSE 98; O2SAT 92; O2SAT 93; O2SAT 94; O2SAT 95
--- NOTE | 2023-06-01 08:25 | CPS ---
PATIENT AMBULATED SLOWLY AND USED A CANE FOR TESTING DUE TO LEG WEAKNESS. ENTIRE WALK TEST DONE ON ROOM AIR. (PT DOES HAVE OXYGEN AT NIGHT THROUGH [facility]). PATIENT DENIED NEED FOR REST BREAKS DURING TESTING.
--- OUTSIDE RECORDS SUMMARY | 2023-06-01 08:33 | XMS RPT_ITS | CCD ---
Author Name Unknown Address [facility] [place] [address] Organization [facility] Care Team Providers Care Scene Painter Name Role Phone AALIYAH ANDERSEN Attending Unavailable AALIYAH ANDERSEN Consulting Unavailable AALIYAH ANDERSEN Primary Care Unavailable AALIYAH ANDERSEN Admitting Unavailable PROVIDER, UNKNOWN Consulting Unavailable Results Test Name Value Interpretation Reference Range Facil ity Encounters Encounter Date Encounter Type Care Provider Facility Start: 04-08-2023 End: 04-08-2023 ambulatory AALIYAH ANDERSEN [facility] Payers Date Payer Category Payer Unknown [id number] Medicare [id number] Summary Purpose Family History No Family History Records FoundNo Family History Records Found Advance Directives No Advanced Directives Records FoundNo Advanced Directives Records Found Additional Source Comments INFORMATION SOURCE (unrecogn ized section and content) DATE CREATED AUTHOR AUTHOR'S ORGANIZ ATION 04/10/2023 [facility] FOR RECORDS PERTAINING TO PATIENTS WHO [...] BE BASED ON THE PRIMARY CLINICAL RECORDS. [facility] [employer] provides no warranty or guarantee of the accuracy or completeness of information in this document.
--- NOTE | 2023-06-01 10:04 | WT_ITS ---
PSN 6 Minute Walk Test 6 Minute Walk Test 6 Minute Walk Test: 6 Minute Walk Test PSN:6-Minute Walk Test Start: 06/01/23 08:22 Freq: Status: Active Protocol: RESP.6MINW Document 06/01/23 08:22 [facility] (Rec: 06/01/23 08:30 [facility] [id number]) 6 Minute Walk Test Date Performed 06/01/23 Time Performed 08:10 Height 5 ft 5 in Weight: 205 lb Weight in Pounds 205.[address]: Yoly Baez CLASSROOM INSTRUCTIONAL AIDE Assistive device used: Cane Pre-test Oxygen Delivery Method Room Air Pulse Ox 94 Pulse Rate (60-100) 91 Dyspnea Nimco Scale (0-10) 2 1st minute Oxygen Delivery Method Room Air Pulse Ox 95 Pulse Rate (60-100) 94 Dyspnea Nimco Scale (0-10) 2 Number of Rests Taken 0 2nd minute Oxygen Delivery Method Room Air Pulse Ox 92 Pulse Rate (60-100) 100 Dyspnea Nimco Scale (0-10) 2 Number of Rests Taken 0 3rd minute Oxygen Delivery Method Room Air Pulse Ox 92 Pulse Rate (60-100) 100 Dyspnea Nimco Scale (0-10) 3 Number of Rests Taken 0 Reported Symptoms Increased Work of Breathing 4th minute Oxygen Delivery Method Room Air Pulse Ox 93 Pulse Rate (60-100) 98 Dyspnea Nimco Scale (0-10) 3 Number of Rests Taken 0 Reported Symptoms Increased Work of Breathing 5th minute Oxygen Delivery Method Room Air Pulse Ox 93 Pulse Rate (60-100) 102 H Dyspnea Nimco Scale (0-10) 3 Number of Rests Taken 0 Reported Symptoms Increased Work of Breathing 6th minute Oxygen Delivery Method Room Air Pulse Ox 94 Pulse Rate (60-100) 103 H Dyspnea Nimco Scale (0-10) 3 Number of Rests Taken 0 Reported Symptoms Increased Work of Breathing Post-test Oxygen Delivery Method Room Air Pulse Ox 95 Pulse Rate (60-100) 90 Dyspnea Nimco Scale (0-10) 2 Full Laps Walked 8 Partial Lap, Number of Tiles Walked 21 Total Distance Walked (ft) 493 06/01/23 08:25 Cardiopulmonary Services by Cristina Christie PATIENT AMBULATED SLOWLY AND USED A CANE FOR TESTING DUE TO LEG WEAKNESS. ENTIRE WALK TEST DONE ON ROOM AIR. (PT DOES HAVE OXYGEN AT NIGHT THROUGH [facility]). PATIENT DENIED NEED FOR REST BREAKS DURING TESTING. Initialized on 06/01/23 08:25 - END OF NOTE Interpretation Interpretation: The patient ambulated 493 feet over the course of 6 minutes beginning on room air with use of a cane. Pretesting oxygen saturation was noted to be 94% on room air. With ambulation, the samantha oxygen saturation was 92%. Although there was evidence of impaired walk distance, there was no significant exertional oxygen desaturation. Recommendations Recommendations: There is no indication for the use of supplemental oxygen at this time.
== END | disposition home or self-care (01) ==
LOC: PSN 08:06
PROVIDERS: PCP Physician Assistant; Referring Provider Nurse Practitioner Acute Care; Visit Provider Nurse Practitioner Acute Care
DX: J44.9 Chronic obstructive pulmonary disease, unspecified (principal)
CPT/HCPCS: 94618

== ENCOUNTER 2023-06-22 12:50 | Outpatient (CLI) | payer MEDICARE, MEDICAID, SELFPAY ==
[2023-06-22 13:01] VITALS: BP 112/71; PULSE 65; RESP 16; TEMP 36.5; O2SAT 92; BMI 34.1
[2023-06-22] MEDS: Benralizumab 30 MG/ML Syringe SC (13:04)
--- OUTSIDE RECORDS SUMMARY | 2023-06-22 13:24 | XMS RPT_ITS | CCD ---
Author Name Unknown Address [address] [place] [address] [address] [place] [address] Organization [facility] Care Team Providers Care Noodle Press Operator Name Role Phone AALIYAH ANDERSEN Attending Unavailable ANDERSEN, AALIYAH Yuen Consulting Unavailable ANDERSEN, AALIYAH Yuen Primary Care Unavailable ANDERSEN, AALIYAH Yuen Admitting Unavailable PROVIDER, UNKNOWN Consulting Unavailable AALIYAH ANDERSEN Consulting Unavailable CHOWDARY, JOEL T Attending Unavailable CHOWDARY, JOEL T Primary Care Unavailable CHOWDARY, JOEL T Admitting Unavailable PROVIDER, UNKNOWN Consulting Unavailable Results Test Name Value Interpretation Reference Range Facil ity Encounters Encounter Date Encounter Type Care Provider Facility Start: 06-21-2023 ambulatory AALIYAH ANDERSEN [facility] Start: 04-08-2023 End: 04-08-2023 ambulatory AALIYAH ANDERSEN [facility] Payers Date Payer Category Payer Unknown [id number] 1960 Unknown [id number] Medicare [id number] Unknown [id number] Summary Purpose Family History No Family History Records FoundNo Family History Records Found Advance Directives No Advanced Directives Records FoundNo Advanced Directives Records Found Additional Source Comments INFORMATION SOURCE (unrecogn ized section and content) DATE CREATED AUTHOR AUTHOR'S KAT ATION 06/22/2023 [facility] FOR RECORDS PERTAINING TO PATIENTS WHO [...] BE BASED ON THE PRIMARY CLINICAL RECORDS. [employer] [facility]. provides no warranty or guarantee of the accuracy or completeness of information in this document.
== END 2023-06-22 12:51 | disposition home or self-care (01) ==
LOC: MEDOUTP 12:51
PROVIDERS: PCP Physician Assistant; Referring Provider Nurse Practitioner Acute Care; Visit Provider Nurse Practitioner Acute Care
DX: J45.50 Severe persistent asthma, uncomplicated (principal)
CPT/HCPCS: 96372; J0517

== ENCOUNTER 2023-07-28 10:58 | Observation (INO) | payer MEDICARE, MEDICAID, SELFPAY ==
--- NOTE | 2023-07-15 11:52 | EKG12_ITS ---
Test Reason : PRE OP Blood Pressure : / mmHG Vent. Rate : 065 BPM Atrial Rate : 065 BPM P-R Int : 166 ms QRS Dur : 074 ms QT Int : 422 ms P-R-T Axes : 069 003 056 degrees QTc Int : 438 ms Normal sinus rhythm Normal ECG Confirmed by Stanley Adan ([id number]), rewrite editor JEANNE GARCIA ([id number]) on 07/19/2023 2:00:05 PM Referred By: Nadir Lam Confirmed By:Stanley Adan
[2023-07-15 12:25] LABS: Absolute Lymphocyte Count 2.92 X10^3/uL (0.83-4.51); Absolute Neutrophil Count 3.2 X10^3/uL (2.0-7.7); Basophil# 0.03 X10^3/uL; Basophil% 0.4 % (0-1); Eosinophils% 1.5 % (0-5); Hematocrit 44.3 % (37-47); Hemoglobin 14.8 g/dL (12.0-15.0); Lymphocyte # 2.92 X10^3/ul (0.83-4.51); Lymphocyte % 42.9 % (19-41); Mean Corp Hgb Conc 33.4 g/dL (32-36); Mean Corpuscular Volume 95.9 fL (81-99); Monocyte# 0.59 X10^3/uL; Monocyte% 8.7 % (0-10); NRBC Flagged by Analyzer 0 % (0-5); Neutrophil # 3.15 X10^3/uL (2.7-7.7); Neutrophil % 46.2 % (47-70); Platelet Count 287 K/mm3 (150-450); RBC Distribution Width CV 11.6 % (11.6-14.6); RBC Distribution Width SD 40.5 fl (35.1-43.9); Red Blood Count 4.62 M/mm3 (4.2-5.4); White Blood Count 6.8 K/mm3 (4.4-11.0)
[2023-07-15 12:55] LABS: Magnesium 2.1 mg/dL (1.6-2.6); Thyroid Stim Hormone (TSH) 0.49 uIU/mL (0.358-3.74)
[2023-07-15 13:28] LABS: HIV - WCH Non-Reactive (Nonreactive); Hepatitis B Surface Antibody Non-Reactive; Hepatitis C Antibody Non-Reactive (Nonreactive)
[2023-07-15 13:42] LABS: Anion Gap 9 (5-15); BUN 9 mg/dL (7-18); BUN/Creat Ratio 8.8 RATIO (10-20); Calcium,Total 9.5 mg/dL (8.5-10.1); Chloride 101 mmol/L (98-107); Creatinine, Serum 1.02 mg/dL (0.55-1.02); EST Glomerular Filtration Rate 58 mL/min (>60); Est Glom Filt Rate - Afr Amer 70 mL/min (>60); Glucose 100 mg/dL (74-106); Potassium 4.4 mmol/L (3.5-5.1); Sodium Level 133 mmol/L (136-145)
[2023-07-15 14:08] LABS: Hemoglobin A1c 6.3 % (3.8-5.6)
[2023-07-16 07:08] LABS: Hepatitis A AB, Total Negative (Negative)
[2023-07-28] VITALS (37 sets, daily range): BP systolic 82–134; BP diastolic 60–88; PULSE 60–98; RESP 9–18; TEMP 35.9–36.9; O2SAT 90–98; BMI 33.1
[2023-07-28] MEDS: Magnesium 1 GM over 15 mins IV (06:08)
[2023-07-28] MEDS: Acetaminophen 500 MG Tablet 1000 MG PO ×3 (06:09→22:14)
[2023-07-28] MEDS: Lactated Ringers 1,000 ML 15 ML IV ×3 (06:09→17:39)
[2023-07-28] MEDS: dexAMETHasone 10 MG/ML Vial 8 MG IV (06:09)
[2023-07-28 06:41] LABS: Bedside Glucose 246 mg/dL (74-106)
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
--- NOTE | 2023-07-28 07:36 | RAD_ITS ---
EXAM: XR CERVICAL SPINE, 4 OR 5 VIEWS CLINICAL INDICATION: Pain. TECHNIQUE: Frontal, lateral and bilateral oblique views of the cervical spine. COMPARISON: Lateral cervical spine radiographs 04/27/2023. FINDINGS: VERTEBRAE: Unremarkable. Preserved vertebral body height. No acute fracture. No spondylolisthesis. Preservation of the normal cervical lordosis. No significant facet arthropathy. DISC SPACES: These are serial crosstable lateral intraoperative radiographs of the cervical spine showing metallic probe pointing at the C4 vertebral body level followed by placement of metallic needle localizer inside the C4-C5 disc space and C5-C6 disc space. This was then followed by placement of disc implants inside the C4-C5, C5-C6 and C6-C7 disc space levels anchored by long metallic plate extending from C3 down to C6 vertebral body with transfixing screws penetrating the lower C4 vertebral body and the upper C7 vertebral body. SOFT TISSUES: Unremarkable. No prevertebral soft tissue widening. LUNG APICES: Clear. RAD/Cerv Spine 2 or 3 Views IMPRESSION: Intraoperative lateral digital spot radiographs of the cervical spine showing progression of ACDF from the lower C4 vertebral body down to upper C7 vertebral body as described above. Electronically Signed: Shalom Ngo MD at 12:09 EDT ,
[2023-07-28] MEDS: Cefazolin 2 GM in 0.9% Normal Saline (100mL Bag) 100 ML IV (07:45)
[2023-07-28 09:03] LABS: Bedside Glucose 97 mg/dL (74-106)
--- NOTE | 2023-07-28 10:54 | OP.PCM_ITS ---
Report of Operation Date of Procedure: 07/28/23 Description of Surgical Findings:: Preoperative diagnosis: C4-7 disc degeneration with stenosis Postoperative diagnosis: C4-7 disc degeneration with stenosis Name of procedure: C4-7 anterior cervical discectomy and fusion with plate instrumentation - Anterior cervical fusion C4-5, CPT code 11084 - Anterior plate instrumentation C4-7, CPT code 18629/59 - Anterior cervical fusion C5-6, CPT code 01960/51 - Anterior cervical fusion C6-7, CPT code 53132/51 - Structural allograft bone with DBX, CPT code 79834 Attending surgeon: Nadir Lam M.D. Anesthesia: Gen. endotracheal Estimated blood loss: 40 mL Complications: None Instrumentation used: [employer]onic [place] Elite plate, LASR corticocancellous block Indications: The patient is a pleasant 63-year-old lady who presented with neck pain with left worse than right upper extremity radiation, worsening weakness and balance issues. MRI showed multilevel cervical disc degeneration most severe between C4-7, with C4-5 spondylolisthesis with dynamic instability, cord indentation at C5-6 with possible cord signal changes. In order to halt the progression of myelopathy, the patient requested surgical treatment. All risks and benefits of the procedure were explained to the patient. The risks include b ut are not limited to infection, bleeding, injury to nerves and vessels, vertebral artery injury, spinal cord injury, paralysis, vocal cord paralysis, injury to esophagus, pseudoarthrosis, need for further procedures, adjacent segment degeneration. Procedure: The patient was identified in the preoperative suite using unique patient identifiers. Skin was marked consent was taken and all questions were answered. The patient was then brought back to the operative room and a timeout was performed. General endotracheal anesthesia was given. Intraoperative neuro monitoring leads were applied. The patient was carefully positioned supine on a regular OR table. A lateral view with a C-arm was done to identify the level and to define the incision. The anterior neck was then prepped and draped in the usual fashion. A final timeout was then performed. A transverse skin incision was taken to the left of midline. Subcutaneous tissue was then divided with Bovie. Platysma was identified and cut along the incision with scissors. The fascial interval between the sternocleidomastoid and the larynx was developed. Omohyoid was identified and retracted. The esophagus with the larynx was retracted medially to reach the prevertebral fascia. Marker x-ray was performed with bent spinal needle and disc space and levels were confirmed. Longus coli muscle was elevated on both sides at and above and below C4-7 discs. Self-retaining retractors were then placed. A long handle knife was then used to perform annulotomy at C4-5. Disc fragments were removed with the pituitary. Bagwell pins were placed in C4 and C5 for disc distraction. Curettes and bur was utilized to remove cartilage from the endplates. Discectomy was performed laterally up to the uncovertebral joints. Posterior osteophytes were thinned down with the bur and adequate decompression in the central and foraminal areas were performed and PLL was thinned out. Once the disc space was prepared, trials of various sizes were utilized. Thorough irrigation was given. 6 mm LASR cortical cancellous allograft bone large footprint was then fashioned in such a way that concavities were burred out inferiorly and superiorly and half cc of DBX (demineralized bone matrix) was squeezed into the cancellous portion. The graft was then inserted into the C4-5 disc space. The retractors were then repositioned and the procedure was repeat ed for C5-6 and C6-7 discs with complete discectomy. Graft sizes were 6 mm at with large footprint at C5-6 and 5 mm with large footprint at C6-7. The grafts were found to be in good apposition with good pullout strength. A 60 mm Medtronic [place] Elite plate was then fixed to C4-7 with 16 mm screws. A lateral x-ray was then taken to check the length of the screws. Both AP and lateral x-rays showed good positioning of plate and screws. The locking mechanism over the screw heads was then turned. Thorough irrigation was again given. Hemostasis was achieved. A Gilchrist drain was then inserted. Closure was done with 3-0 Vicryl for the platysma and subcutaneous tissue layers and 4-0 Monocryl for the skin. Closure was done around the drain. Steri-Strips were applied and dressing was done with 4 x 4 gauze and Tegaderm. A cervical collar was then applied. The patient was then woken up from anesthesia extubated and taken to PACU in stable condition. From here, the patient will be transitioned to the floor. Intraoperative neuro monitoring was performed throughout this procedure. Motor evoked potentials were run periodically. All potentials remained at baseline throughout the procedure. I was present for the entire surgery and performed the surgery myself. Admit VTE Documentation VTE Mechan Device Prophylaxis: SCD's Procedures Musculoskeletal [id number]: Other Procedure See Report
--- NOTE | 2023-07-28 11:21 | SUR.PHASEI ---
1100: PATIENT ARRIVED TO PACU WHILE REQUIRING JAW THRUST. CONTINUED UNTIL NPA 30FR PLACED. NPA NOT SUFFICIENT. PATIENT STILL REQUIRED JAW THRUST. ANESTHESIA CALLED AND BIPAP ORDER GIVEN. STARTED BIPAP AT [address] ZARAGOZA, RESPIRATORY AND [place] RT AND DR. KAISER ANESTHESIA AT BEDSIDE. PATIENT TOLERATING BIPAP. DR. KAISER ADMINISTERED NARCAN AT 1137. ANTERIOR PORTION ON [place] REMOVED FOR BIPAP DONNING, CLEARED PER DR. ZARAGOZA.
[2023-07-28 11:51] LABS: Bedside Glucose 149 mg/dL (74-106)
[2023-07-28] MEDS: dexAMETHasone 4 MG/ML Vial IV ×2 (12:01→20:03)
--- NOTE | 2023-07-28 12:52 | CPS ---
RT called down to AC to place Pt on BIPAP. Dr Lam at bedside along with VIN Quiroz
--- NOTE | 2023-07-28 13:35 | SUR.PHASEI ---
CALLED OUT TO GIVE FAMILY UPDATE ON PATIENT. PATIENT IS OPENING EYES TO COMMAND AND ABLE SQUEEZE HANDS BILATERALLY AND WIGGLE TOES UPON COMMAND AND THEN CLOSES EYES QUICKLY. DENIES ANY PAIN WHEN ASKED. REMAINS ON BIPAP 35% FIO2 AND 95% SPO2. RESPIRATIONS 14 AND EASY.
--- NOTE | 2023-07-28 13:47 | PCM.CONS.GEN ---
Assessment & Plan Assessment/Plan (1) S/P cervical spinal fusion: PLAN: Plan Patient is a 63-year-old female who presented [facility] on 07/28/2023 for planned cervical spine fusion procedure. Medicine consulted postoperatively for medical management. 1. Cervical stenosis s/p C4-7 anterior cervical fusion ? Orthopedic surgery primary. No intraoperative complications noted. Further management per orthopedics. 2. Postoperative somnolence, improved ? Very likely secondary to overmedication with narcotics during procedure in conjunction with anesthesia for procedure. Patient likely also more susceptible to the settings given her history of lung disease as noted below. ? ABG showed only mild hypercapnia. ? Improved back to her normal state of mentation with a dose of IV Narcan and short time on BiPAP. Monitor. 3. COPD/asthma overlap syndrome, pulmonary hypertension, BEN with CPAP nonadherence ? Follows with outpatient pulmonology, last office visit on 06/08/2023. She was cleared for this orthopedic procedure at that time. Notably has history of diagnosed sleep apnea with intolerance to CPAP, typically wears nasal cannula 2.5 L at night. ? Continue home long-acting inhalers, Spiriva and DuoNebs as needed. Okay to continue nasal cannula at night. Outpatient follow-up with pulmonology as needed. Chronic medical conditions: ? Obesity: BMI 33 on admit. Complicates hospital course, care and prognosis. ? Hypertension: Okay to continue home Toprol and isosorbide mononitrate. Will hold home hydrochlorothiazide and lisinopril for now, likely okay to restart on discharge. ? Hyperlipidemia: Continue home statin. ? GERD: Continue home PPI. ? Hypothyroidism: Continue home Synthroid. ? Psoriatic arthritis: On immunotherapy injections every 8 weeks and every 12 weeks, okay to resume on discharge. ? Type 2 diabetes mellitus: On home metformin 500 mg daily. Okay to continue home metformin, no need to check blood sugars regularly while inpatient. DVT prophylaxis: Per orthopedics Total clinical time spent by myself addressing the patient's medical issues, reviewing all the data, and collaborating with patient's care team: 35 minutes. HPI Consult Data Date of Consult: 07/28/23 HPI Narrative Reason for Consultation: Postoperative medical management HPI Narrative: SYDNIE NARANJO, is a 63 F who presented to [facility] on 07/28/2023 for planned cervical fusion procedure. Medicine consulted postoperatively for medical management. I received a call that the patient from PACU staff earlier this afternoon stating that the patient was fairly somnolent postoperatively. She has a history of cervical stenosis and underwent anterior C4-C7 spinal fusion with Dr. Lam today. No noted intraoperative complications. Postoperatively, patient was more somnolent than staff expected and had mild dip in her oxygen saturations. Patient was given a dose of Narcan at that time and put on BiPAP, and she significant improvement with these interventions. Patient was then moved over to the PCU later in the afternoon. I saw the patient at the bedside in the PCU, son present. Patient was sitting up comfortably in bedside chair, conversing normally, in no acute distress. She had cervical collar in place and was sitting up quite still but otherwise appeared comfortable. She was breathing comfortably on 3 L nasal cannula at that time. She reported mild fatigue currently but otherwise felt about back to her baseline. She denied any significant cervical pain. She got out of bed and into the bedside chair without any significant issues. She denied any fevers or chills. Denied any other pain or discomfort. She did not eat anything yet postoperatively but was looking forward to trying food soon. No other acute concerns at this time. [facility] Medical History (Updated 07/20/23 @ 16:[address] Nadir Lam MD) Abnormal finding on CT scan Acute hypoxemic respiratory failure Alcohol use Ambulates with cane Anxiety Asthma Asthma Atherosclerotic heart disease of [place] coronary artery without angina pectoris Back pain Bladder disease Calcification of aorta Cancer Cardiology follow-up encounter Chronic lumbar radiculopathy COPD (chronic obstructive pulmonary disease) COPD (chronic obstructive pulmonary disease) COPD exacerbation COVID-19 (~02/2020) CPAP (continuous positive airway pressure) dependence Degenerative joint disease Depression Depression Diabetes Diastolic dysfunction Dietary restriction Dilatation of aorta Emphysema, unspecified Essential hypertension Former smoker Gastric reflux GERD (gastroesophageal reflux disease) Hepatitis C High cholesterol History of echocardiogram History of edema History of steroid therapy History of stress test Hyperlipidemia Hypertension Hypothyroidism Injury of head and neck Lightheadedness Lung anomaly Lung nodule Memory loss Migraine headache NSAID induced gastritis Obesity On home oxygen therapy BEN (obstructive sleep apnea) Osteopenia Post-menopausal Prediabetes Psoriasis Psoriatic arthritis Pulmonary hypertension Restless legs Rheumatoid arthritis Shortness of breath on exertion Stage 2 moderate COPD by GOLD classification Tachycardia Thyroid disease Tobacco dependence in remission Walker as ambulation aid Wears dentures Wears glasses Home Medications atorvastatin 40 mg tablet 40 mg PO QHS cholesterol 03/03/15 [History Last Taken 10/10/20] albuterol sulfate 90 mcg/actuation aerosol inhaler 2 puff inhalation Q4H PRN PRN Sob &/Or Wheezing 11/22/18 [History Last Taken 11/22/18] levothyroxine 75 mcg tablet 75 mcg PO DAILY thyroid 11/22/18 [History Last Taken 07/28/23 04:00] aspirin 81 mg tablet,delayed release (Adult Low Dose Aspirin) 81 mg PO DAILY 11/08/19 [History Last Taken 10/11/20] meloxicam 15 mg tablet (Mobic) 15 mg PO DAILY arthritis 10/11/20 [History Last Taken 10/10/20] omeprazole 20 mg capsule,delayed release 20 mg PO DAILY gerd 10/11/20 [History Last Taken 07/28/23 04:00] escitalopram oxalate 10 mg tablet 10 mg PO DAILY 11/07/20 [History Last Taken Unknown] oxybutynin chloride 5 mg tablet,extended release 24 hr 5 mg PO DAILY 11/07/20 [History Last Taken Unknown] benralizumab 30 mg/mL subcutaneous auto-injector (Fasenra Pen) 30 mg subcut Q8W #1 mL 12/06/20 [Rx Last Taken Unknown] nitroglycerin 0.4 mg sublingual tablet 0.4 mg sublingual Q5-15M PRN chest pain #90 tabs 07/30/21 [Rx Last Taken Unknown] guselkumab 100 mg/mL subcutaneous auto-injector (Tremfya) 100 mg subcut Q12W 01/29/22 [History Last Taken Unknown] ipratropium 0.5 mg-albuterol 3 mg (2.5 mg base)/3 mL nebulization soln 3 ml inhalation Q4H PRN PRN SOB &/OR WHEEZING #180 mL 05/15/22 [Rx Last Taken Unknown] lisinopril 20 mg tablet 20 mg PO DAILY #90 tabs 12/01/22 [Rx Last Taken 07/28/23 04:00] cetirizine 10 mg tablet 10 mg PO DAILY #90 tabs 02/24/23 [Rx Last Taken Unknown] isosorbide mononitrate 30 mg tablet,extended release 24 hr 30 mg PO DAILY #90 tabs 02/24/23 [Rx Last Taken Unknown] montelukast 10 mg tablet (Singulair) 10 mg PO QPM #90 tabs 02/24/23 [Rx Last Taken Unknown] umeclidinium 62.5 mcg/actuation blister powder for inhalation 1 inh inhalation DAILY #30 ea 02/24/23 [Rx Last Taken Unknown] metoprolol succinate 25 mg tablet,extended release 24 hr 25 mg PO DAILY #90 tabs 07/09/23 [Rx Last Taken 07/28/23 04:00] albuterol sulfate 2.5 mg/3 mL (0.083 %) solution for nebulization 2.5 mg inhalation Q4H PRN PRN shortness of breath or wheezing 07/14/23 [History Last Taken Unknown] hydrochlorothiazide 25 mg tablet 25 mg PO DAILY 07/14/23 [History Last Taken 07/28/23 04:00] ketoconazole 2 % shampoo 1 applic topical QWEEK 07/14/23 [History Last Taken Unknown] metformin 500 mg tablet 500 mg PO QHS 07/14/23 [History Last Taken Unknown] fluticasone propionate 50 mcg/actuation nasal spray,suspension 2 spray intranasal DAILY #16 grams 07/21/23 [Rx Last Taken Unknown] fluticasone 500 mcg-salmeterol 50 mcg/dose blistr powdr for inhalation 1 inh inhalation BID #60 ea 07/22/23 [Rx Last Taken Unknown] Allergy/AdvReac Type Severity Reaction Status Date / Time No Known Allergies Allergy Verified 07/28/23 05:49 Family History Grandmother CVA (cerebral vascular accident) CAD (coronary artery disease) Diabetes Grandfather CVA (cerebral vascular accident) Diabetes Mother CAD (coronary artery disease) Hypertension Brother CAD (coronary artery disease) Hypertension Father Diabetes Surgical History (Updated 07/28/23 @ 14:[address] Nadir Lam MD) History of appendectomy History of back surgery History of hysterectomy History of incision and drainage History of left heart catheterization (LHC) (~10/14/20) History of lobectomy of lung (~2009) Hx of colonoscopy Hx of left cataract extraction Hx of right cataract extraction Social History (Reviewed 06/09/23 @ 14:03 by Zoe Ty Smoking Status: Former smoker how long ago did patient quit smokin second hand exposure: Yes alcohol intake: current alcohol intake frequency: a few times a month Alcohol type: beer and wine substance use type: does not use caffeine: Yes Type: coffee Number of servings: 1 ROS Constitutional Constitutional: Reports fatigue; Denies chills, fever(s) or weakness Eyes Eyes: Denies change in vision Cardiovascular Cardiovascular: Denies chest pain Respiratory/Chest Respiratory/Chest: Denies cough, shortness of breath at rest or wheezing Gastrointestinal Gastrointestinal: Denies abdominal pain Musculoskeletal Musculoskeletal: Reports neck pain; Denies arthralgias, back pain or myalgias Neurologic Neurologic: Denies abnormal speech, confusion, dizziness, focal weakness, headache(s), numbness or paresthesias Physical Exam Const alert, oriented x3 and no apparent distress Constitutional Narrative: Pleasant elderly female, obese, sitting up comfortably in bedside chair, conversing normally, in no acute distress. General Appearance: cooperative and comfortable HEENT normocephalic, head/scalp atraumatic, hearing grossly normal bilaterally, nasal mucous membranes and turbinates normal and moist oral mucous membranes Eyes PERRL, EOMs intact bilaterally and conjunctivae normal Neck Neck Narrative: Cervical collar in place. Anterior surgical site covered with gauze that appears clean and dry. Chest inspection of chest normal Resp normal respiratory effort and no use of accessory muscles Resp Narrative: Breathing comfortably on 3 L nasal cannula with good oxygen saturations. Mildly decreased breath sounds bilaterally throughout, no wheezing or crackles noted. Cardio regular rate, regular rhythm, no murmurs and peripheral pulses 2+ throughout GI normal to inspection, nondistended, normoactive bowel sounds, soft to palpation, non-tender and non-distended Back/Spine normal ROM Extremity normal to inspection, full ROM and no pedal edema Skin no rashes or lesions noted Neuro moves all extremities and no focal motor deficits Speech: speech normal Psych mental status grossly normal Lab / Micro Data 07/15/23 12:10 07/15/23 12:10 Labs: Laboratory Results - last 24 hr 07/28/23 05:55: POC Glucose 246 H 07/28/23 08:44: POC Glucose 97 07/28/23 11:33: POC Glucose 149 H Charges/Coding Visit Charges Inpatient E&M: 90634 Subs Hosp L2
--- NOTE | 2023-07-28 13:59 | PCM.PN.ORT ---
Subjective Subjective Postop day 0 status post C4-7 ACDF. Seen in PACU. Patient had a prolonged sedation likely related to IntraOp anesthesia medications. She was placed on BiPAP because of her sleep apnea until she awoke. Patient is now awake and following commands but still drowsy. She is on O2 by mask. She has some pain in the surgical site. Objective Data Objective Data Vital Signs: Vital Signs Temp Pulse Resp BP Pulse Ox O2 Del Method O2 Flow Rate 98.4 F 77 14 119/88 H 96 Bi-pap 30 07/28/23 11:00 07/28/23 13:30 07/28/23 13:30 07/28/23 13:30 07/28/23 13:30 07/28/23 13:30 07/28/23 12:30 FiO2 35 07/28/23 13:30 Oxygen Flow Rate (L/min) 30 Oxygen Delivery Method Bi-pap Weight: 199 lb Body Mass Index (BMI) 33.1 Intake & Output: Intake and Output for Last 24 Hours 07/26/23 07/27/23 07/28/23 23:59 23:59 23:59 Intake Total 1212 / 1212 Balance 1212 / 1212 Lab / Micro Data 07/15/23 12:10 07/15/23 12:10 Labs: Laboratory Results - last 24 hr 07/28/23 05:55: POC Glucose 246 H 07/28/23 08:44: POC Glucose 97 07/28/23 11:33: POC Glucose 149 H Micro: Microbiology 07/15/23 12:10 Swab (Method) Nasal Screen MRSA/MSSA - Final Physical Exam Narrative Dressings?CDI. Able to move all 4 extremities in all muscle groups although still drowsy for full neuroexam. Assessment & Plan Assessment/Plan (1) S/P cervical spinal fusion: PLAN: Plan Patient with prolonged sedation postoperatively. Received Narcan x 1 by anesthesia. Now somewhat awake but drowsy and able to follow commands. May require ICU versus stepdown for monitoring. Will defer to hospitalist regarding this. Appreciate anesthesia and hospitalist management. Okay to be up and ambulate with nursing help and walker when alert enough in the evening. Will remove José drain in morning, likely discharge tomorrow pending PT OT evaluation.
[2023-07-28 14:05] LABS: Base Excess -2 mmol/L (-2 to +2); Bicarbonate 24.1 mmol/L (22-26); Blood Gas Specimen Type ART; Mode Not entered; O2 Delivery Device simple mask; PO2 115 mmHG (75-100); SITE L Radial; SO2 98 % (95-99); Total Carbon Dioxide 26 mmol/L; pCO2 46.2 mmHg (35-45); pH 7.33 (7.35-7.45)
--- NOTE | 2023-07-28 14:11 | CPS ---
When RT came into room, RN had placed pt on simple mask at 10L at this time, Pt was having pain from the Bipap mask. ABG was drawn by RT. Results sent to Dr Love. Dr aviles with keeping pt off bipap at this time.
--- NOTE | 2023-07-28 14:42 | SUR.PHASEI ---
FAMILY UPDATED VIA CONTRACT ANALYST
--- NOTE | 2023-07-28 14:42 | SUR.PHASEI ---
1300; FAMILY UPDATED VIA POWER PLANT TECHNICIAN
--- NOTE | 2023-07-28 14:43 | SUR.PHASEI ---
PATIENT REVIEVED NARCAN IN PACU VIA ANESTHESIA DOCTOR AT 1137. ABG RESULT FROM [address] Malissa CERVANTES* VIA [place] RT. PATIENT CLEARED FOR ADMISSION TO PCU. AWAITING ROOM. PATIENT REMAINS STABLE ON 6L NC. ALERT AND AWAKE. ORIENTED X4.
--- NOTE | 2023-07-28 14:59 | RAD_ITS ---
EXAM: XR CHEST, 1 VIEW CLINICAL INDICATION: Hypoxia. TECHNIQUE: Frontal view of the chest. COMPARISON: No relevant prior studies available. FINDINGS: LUNGS AND PLEURAL SPACES: Suspicious 2 cm pulmonary nodule in the right upper lobe. No pneumothorax. Blunting of the left costophrenic sulcus may be pleural effusion or pleural thickening.. HEART: Unremarkable. Cardiac silhouette not enlarged. MEDIASTINUM: Central airways and mediastinal contour are unremarkable. BONES/JOINTS: Unremarkable. No acute fracture. SOFT TISSUES: Unremarkable. RAD/Chest 1 View (Portable) IMPRESSION: 1. Suspicious 2 cm pulmonary nodule in the right upper lobe. 2. Blunting of the left costophrenic sulcus suspicious for small left pleural effusion or pleural thickening. RECOMMENDATION: CT chest for further evaluation. Electronically Signed: Shalom Ngo MD at 15:22 EDT ,
--- NOTE | 2023-07-28 15:13 | SUR.PHASEII ---
HOLDING PATIENT IN PACU BAY3, PHASE 2 UNTIL PCU ROOM IS READY
[2023-07-28] MEDS: Methocarbamol 500 MG Tablet 1000 MG PO ×2 (17:39→21:00)
[2023-07-28] MEDS: Cefazolin 1 GM/50 ML BAG IV (20:01)
[2023-07-28] MEDS: Senna/Docusate Sodium 1 Tablet 2 TABLET PO (21:00)
[2023-07-28] MEDS: Montelukast 10 MG Tablet PO (21:00)
[2023-07-28] MEDS: Atorvastatin Calcium 40 MG Tablet PO (21:00)
[2023-07-29] VITALS (12 sets, daily range): BP systolic 112–172; BP diastolic 67–98; PULSE 74–82; RESP 16–20; TEMP 36.3–36.9; O2SAT 83–96
[2023-07-29] MEDS: dexAMETHasone 4 MG/ML Vial 2 MG IV ×2 (00:17→05:46)
[2023-07-29] MEDS: Cefazolin 1 GM/50 ML BAG IV (00:21)
[2023-07-29] MEDS: oxyCODONE 5 MG Tablet PO (03:09)
[2023-07-29] MEDS: Levothyroxine 75 MCG Tablet PO (05:46)
[2023-07-29] MEDS: 0.9% Saline Lock 10 ML Syringe IV (05:47)
[2023-07-29] MEDS: Acetaminophen 500 MG Tablet 1000 MG PO (05:56)
[2023-07-29] MEDS: Ipratropium/Albuterol Sulfate 3 ML AMPUL.NEB INHALATION ×2 (07:03→12:15)
[2023-07-29 07:35] LABS: Hemoglobin 13.5 g/dL (12.0-15.0); Mean Corp Hgb Conc 32.9 g/dL (32-36); Mean Corpuscular Hgb 32.3 pg (27.0-32.0); Mean Corpuscular Volume 98.1 fL (81-99); Mean Platelet Vol. 9.6 fl (6.2-12.0); Platelet Count 270 K/mm3 (150-450); RBC Distribution Width CV 11.9 % (11.6-14.6); RBC Distribution Width SD 42.8 fl (35.1-43.9); Red Blood Count 4.18 M/mm3 (4.2-5.4); White Blood Count 10.1 K/mm3 (4.4-11.0)
--- NOTE | 2023-07-29 08:05 | RAD_ITS ---
HISTORY: s/p ACDF-- Please do upright AP lateral. TECHNIQUE: XR Spine Cervical 4 or 5 Views. COMPARISON: 04/27/2023. FINDINGS: VERTEBRAE: Vertebral body heights maintained. Degenerative osteophytes of C2-3. Interval placement of anterior spinal fusion hardware and interbody fusion material of C4-7. ALIGNMENT: No significant anterior or posterior subluxation. Preservation of the cervical lordosis. INTERVERTEBRAL DISCS: Mild intervertebral disc space narrowing with degenerative endplate change of C3-4. SOFT TISSUES: No significant prevertebral soft tissue swelling. RAD/Cerv Spine 2 or 3 Views IMPRESSION: Satisfactory alignment of the cervical spine status post C4-7 ACDF. Mild degenerative change above the level of fusion at C3-4. Electronically Signed: Betty Langston MD at 10:02 EDT ,
[2023-07-29 08:20] LABS: Anion Gap 9 (5-15); BUN 9 mg/dL (7-18); BUN/Creat Ratio 9.3 RATIO (10-20); Chloride 98 mmol/L (98-107); Creatinine, Serum 0.97 mg/dL (0.55-1.02); EST Glomerular Filtration Rate 61 mL/min (>60); Est Glom Filt Rate - Afr Amer 74 mL/min (>60); Estimated Creatinine Clearance 65.03 ml/min; Glucose 166 mg/dL (74-106); Sodium Level 132 mmol/L (136-145)
[2023-07-29] MEDS: Metoprolol(XL)Succ 25 MG Tablet PO (09:23)
[2023-07-29] MEDS: Isosorbide Mononitrate 30 MG Tablet PO (09:23)
[2023-07-29] MEDS: Escitalopram Oxalate 10 MG Tablet PO (09:24)
[2023-07-29] MEDS: Senna/Docusate Sodium 1 Tablet 2 TABLET PO (09:24)
[2023-07-29] MEDS: Tolterodine Tartrate 2 MG CAP.SA PO (09:46)
[2023-07-29] MEDS: Meloxicam 15 MG Tablet PO (09:46)
[2023-07-29] MEDS: Pantoprazole Sodium 20 MG Tablet PO (09:46)
[2023-07-29] MEDS: Methocarbamol 500 MG Tablet 1000 MG PO ×2 (09:48→13:20)
--- NOTE | 2023-07-29 09:56 | NS ---
Call from dietary staff to clarify diet order. Current diet order- regular- soft and bite sized, soft solid diet. Discussed w/ RN Nelson who entered order. Dr. Lam wants a soft, easy to chew diet for pt d/t cervical collar. Described easy to chew vs soft and bite sized modifications -- will adjust order to easy to chew and RN to monitor for tolerance of texture modification. If unable to tolerate easy to chew, then would recommend downgrading diet and/or consulting LOBBYIST. Es Chavira MS, RDN, LD
--- NOTE | 2023-07-29 10:44 | CASEMGMT ---
Met with?patient to complete BARRY form. BARRY form explained to?patient who voiced understanding and signed form. Original form placed in pt?s chart and copy provided to?patient. Magi Becker, Discharge Planning Asst
--- NOTE | 2023-07-29 10:45 | CASEMGMT ---
RN CM Face to Face with patient for initial transition planning/care coordination assessment. RN CM introduced self and role at [facility]. Patient sitting in chair, alert and oriented. Patient willing to participate in assessment and is able to answer all questions appropriately. Care providers, pharmacy, and demographics verified. PCP: Dami MUNGUIA Specialists: [facility], ortho; Mike Guaman, banker mason; [facility], cardiology; Francoise Reyes Dermatology Preferred Pharmacy: [facility] Insurance: [employer] Prescription Benefit: yes Living Will/HPOA: none LNOK: sister, significant other Living Arrangements: Patient lives with significant other in a 3 story home with 5 steps and railing between her bedroom and living area. Patient states she is independent and able to ambulate stairs. Transportation: sister, boyfriend DME/HHC: Patient has shower chair, BSC, grab bars, rollator, nebuilzer, pulse ox, and home oxygen trough [employer] at . No previous HHC or SNF. Patient states she will be staying with sister when she leaves hospital. Patient wishes to discharge home, denies need for home health at this time. Patient states he has no further needs or concerns at this time. CM to follow for discharge planning needs that may arise. Disposition Plan: Patient to discharge to sister's home with family support and follow-up plans in place. Navya VILLALBA, RN, CM
--- NOTE | 2023-07-29 12:09 | DCINST_ITS ---
Discharge Instructions Follow Up Care Test Results: Test results from this visit will be discussed in further detail at your follow- up appointment, if applicable. Discharge Plan Admission Admit Date/Time: 07/28/23 10:58 Attending Provider: Nadir Lam Primary Care Provider: Suellen Lomax Consulting Providers: Giovanna Ruff; Epifanio Love; Amina Carmen; Amina Garces; Emily Garcia; Mary Horta; Naomi Perez; Ascencion Fair; Ascencion Stewart; Julian Torres; Abelardo Stafford; Jase Mustafa; Mane Lozano; Ben Kimbrough; Erica Nunez; Channing Turner; Vanessa Ramsey; Tim Velasco; Rob Arauz; Sanjeev Park; Lashonda Allred; Art Kaur; Dolly Cortez NP; Raúl Israel; Nadir Lam Discharge Orders/Prescriptions Prescriptions: No Action aspirin [Adult Low Dose Aspirin] 81 mg tablet,delayed release (DR/EC) 81 mg PO DAILY escitalopram oxalate 10 mg tablet 10 mg PO DAILY oxybutynin chloride 5 mg tablet extended release 24hr 5 mg PO DAILY nitroglycerin 0.4 mg tablet, sublingual 0.4 mg sublingual Q5-15M PRN (Reason: chest pain) Qty: 90 3RF Rx Instructions: do not exceed 3 doses per episode Fasenra Pen 30 mg/mL auto-injector 30 mg subcut Q8W Qty: 1 6RF Tremfya 100 mg/mL auto-injector 100 mg subcut Q12W ipratropium-albuterol 0.5 mg-3 mg(2.5 mg base)/3 mL solution for nebulization 3 ml inhalation Q4H PRN PRN (Reason: SOB &/OR WHEEZING) Qty: 180 6RF atorvastatin 40 MG tablet 40 mg PO QHS levothyroxine 75 MCG tablet 75 mcg PO DAILY albuterol sulfate 18 GM HFA aerosol inhaler 2 puff inhalation Q4H PRN PRN (Reason: Sob &/Or Wheezing) meloxicam [Mobic] 15 mg tablet 15 mg PO DAILY omeprazole 20 mg Capsule,Delayed Release(Dr/Ec) 20 mg PO DAILY ketoconazole 2 % shampoo 1 applic TOPICAL QWEEK Patient Comments: USE SHAMPOO EVERY OTHER DAY WASH ALTERNATING WITH OVER THE COUNTER SHAMPOO MASSAGE AND LATHER INTO THE SCALP AND LET SIT FOR 3-5 MINUTES BEFORE RINSING metformin 500 mg tablet 500 mg PO QHS hydrochlorothiazide 25 mg tablet 25 mg PO DAILY Patient Comments: TAKE ONE TABLET BY MOUTH DAILY AT 9AM albuterol sulfate 2.5 mg /3 mL (0.083 %) solution for nebulization 2.5 mg inhalation Q4H PRN PRN (Reason: shortness of breath or wheezing) Rx Instructions: Use q4 hours and PRN for wheezing lisinopril 20 mg tablet 20 mg PO DAILY Qty: 90 3RF isosorbide mononitrate 30 mg tablet extended release 24 hr 30 mg PO DAILY Qty: 90 3RF cetirizine 10 mg tablet 10 mg PO DAILY Qty: 90 3RF montelukast [Singulair] 10 mg tablet 10 mg PO QPM Qty: 90 3RF umeclidinium 62.5 mcg/actuation blister with device 1 inh inhalation DAILY Qty: 30 11RF metoprolol succinate 25 mg tablet extended release 24 hr 25 mg PO DAILY Qty: 90 3RF fluticasone propionate 50 mcg/actuation spray,suspension 2 spray intranasal DAILY Qty: 16 3RF fluticasone propion-salmeterol 500-50 mcg/dose blister with device 1 inh INHALATION BID Qty: 60 11RF Referrals / Follow Up: Suellen Lomax PA [Primary Care Provider] -
--- NOTE | 2023-07-29 14:01 | PN.HOSP_ITS ---
Reason for Visit Reason for Visit: Diagnoses Encounter for other preprocedural examination (07/28/23) Arthrodesis status (07/28/23) Subjective Subjective Patient was seen and examined today, she underwent a cervical fusion yesterday and had some problems with low pulse ox, today, I talked to nursing today, and they state the patient's pulse ox on ambulation was 83% on room air, her pulse ox at rest is 90. Patient requires 3 L of oxygen while ambulating to maintain her pulse ox at 90%. Objective Data Objective Data Vital Signs: Vital Signs Temp Pulse Resp BP Pulse Ox O2 Del Method O2 Flow Rate 98.4 F 74 20 H 112/78 87 Nasal Cannula 2 07/29/23 08:00 07/29/23 12:15 07/29/23 12:15 07/29/23 09:23 07/29/23 13:19 07/29/23 08:00 07/29/23 08:00 FiO2 30 07/28/23 13:45 Oxygen Flow Rate (L/min) 2 Oxygen Delivery Method Nasal Cannula Weight: 90.265 kg Body Mass Index (BMI) 33.1 Intake & Output: Intake and Output for Last 24 Hours 07/27/23 07/28/23 07/29/23 23:59 23:59 23:59 Intake Total 1782.5 / 1782.5 234.75 / 234.75 Balance 1782.5 / 1782.5 234.75 / 234.75 Lab / Micro Data 07/29/23 06:15 07/29/23 06:15 Labs: Laboratory Results - last 24 hr 07/29/23 06:15: WBC 10.1, RBC 4.18 L, Hgb 13.5, Hct 41.0, MCV 98.1, MCH 32.3 H, MCHC 32.9, RDW Std Deviation 42.8, RDW Coeff of Claude 11.9, Plt Count 270, MPV 9.6, Sodium 132 L, Potassium 4.0, Chloride 98, Carbon Dioxide 25.0, Anion Gap 9, BUN 9, Creatinine 0.97, Estim Creat Clear Calc 65.03, Est GFR (MDRD) Af Amer 74, Est GFR (MDRD) Non-Af 61, BUN/Creatinine Ratio 9.3 L, Glucose 166 H, Calcium 9.0 Micro: Microbiology 07/15/23 12:10 Swab (Method) Nasal Screen MRSA/MSSA - Final ABG Data ABG results: ABG 07/28/23 14:01 Specimen Type ART Sample Site L Radial pH 7.33 L Bicarbonate Actual 24.1 Total CO2 26 Base Excess -2 O2 Saturation 98 O2 % 10.0 ABG pCO2 46.2 H ABG pO2 115 H O2 Delivery Device simple mask Vent Mode Not entered Radiography Diagnostic Testing: Radiology Impression Cervical Spine X-Ray 07/28/23 07:36 IMPRESSION: Intraoperative lateral digital spot radiographs of the cervical spine showing progression of ACDF from the lower C4 vertebral body down to upper C7 vertebral body as described above. Electronically Signed: Shalom Ngo MD at 12:09 EDT , Chest X-Ray 07/28/23 14:59 IMPRESSION: 1. Suspicious 2 cm pulmonary nodule in the right upper lobe. 2. Blunting of the left costophrenic sulcus suspicious for small left pleural effusion or pleural thickening. RECOMMENDATION: CT chest for further evaluation. Electronically Signed: Shalom Ngo MD at 15:22 EDT , Cervical Spine X-Ray 07/29/23 08:05 IMPRESSION: Satisfactory alignment of the cervical spine status post C4-7 ACDF. Mild degenerative change above the level of fusion at C3-4. Electronically Signed: Betty Langston MD at 10:02 EDT , Physical Exam Const alert, oriented x3, no apparent distress and healthy appearing General Appearance: cooperative, well kempt and well developed Orientation / Consciousness: awake, oriented to person, oriented to place and or iented to time HEENT normocephalic and moist oral mucous membranes Eyes PERRL, EOMs intact bilaterally and conjunctivae normal Neck Neck Narrative: Patient has a rigid neck brace on at the time my examination precluding a thorough examination of the patient's neck Resp normal respiratory effort, no retractions, no use of accessory muscles and clear to auscultation bilaterally Auscultation: Negative for rales, rhonchi or wheezes Cardio regular rate, regular rhythm, S1 normal heart sound, S2 normal heart sound, no murmurs, no rub and no gallops GI normal to inspection, nondistended, normoactive bowel sounds, soft to palpation, non-tender and non-distended Extremity no clubbing, cyanosis or edema Skin no rashes or lesions noted General Skin Exam: no breakdown Neuro oriented x3, CN's II-XII intact bilaterally, moves all extremities, no focal motor deficits and no sensory deficits noted Sensorium / Orientation: awake and alert Speech: speech normal Psych affect normal Assessment & Plan Assessment/Plan (1) Stage 2 moderate COPD by GOLD classification: PLAN: Plan 1. Chronic obstructive pulmonary disease-patient will be discharged on her home medications by orthopedic surgery #2 chronic hypoxic respiratory failure-patient will need 3 L of oxygen via nasal cannula when ambulating, patient already has oxygen at home #3 hyperlipidemia-patient is on atorvastatin #4 chronic depression-patient is on Lexapro #5 hypothyroidism-patient is on Synthroid #6 essential hypertension-patient is on lisinopril and hydrochlorothiazide #7 type 2 diabetes-patient is on metformin #8 cervical disc disease-patient being managed by orthopedic surgery Total clinical time spent by myself addressing the patient's medical issues, reviewing all of her data, and collaborating with patient's care team: 35 minutes Charges/Coding Visit Charges Office Visits / Consults: 52822 OV L4 Est 30min
--- NOTE | 2023-07-29 15:25 | CASEMGMT ---
VIN BRAUN called and updated Hany that patient will need portable tank at discharge as patient does not have any e-tanks at home. VIN BRAUN received call back from Jacobo at [facility] and patient currently has order or 2lpm continuously. Per Jose Ramon a new script is not needed and a portable tank will be delivered to patient's room prior to discharge. Per Jacobo, bulk truck driver is in [place] and tank will be delivered between 4-5pm. VIN BRAUN updated nursing, hospitalist, and patient. Patient had no further questions or concerns.
--- NOTE | 2023-07-29 16:35 | PCM.PN.ORT ---
Subjective Subjective Postop day 1 status post C4-7 ACDF. Pain well-controlled. Was placed in PCU because of excessive somnolence postoperatively yesterday. She is awake and conversant without any dyspnea. Objective Data Objective Data Vital Signs: Vital Signs Temp Pulse Resp BP Pulse Ox O2 Del Method O2 Flow Rate 98 F 82 16 120/67 92 Nasal Cannula 0 07/29/23 12:36 07/29/23 12:36 07/29/23 12:36 07/29/23 12:36 07/29/23 14:19 07/29/23 12:36 07/29/23 14:19 FiO2 30 07/28/23 13:45 Oxygen Flow Rate (L/min) [ 3 AMBULATING with Oxygen #1] Oxygen Flow Rate (L/min) [ 0 AMBULATING on Room Air] Oxygen Flow Rate (L/min) [At 0 REST on Room Air] Oxygen Flow Rate (L/min) 3 Oxygen Delivery Method Nasal Cannula Weight: 199 lb Body Mass Index (BMI) 33.1 Intake & Output: Intake and Output for Last 24 Hours 07/27/23 07/28/23 07/29/23 23:59 23:59 23:59 Intake Total 1782.5 / 1782.5 234.75 / 234.75 Balance 1782.5 / 1782.5 234.75 / 234.75 Lab / Micro Data 07/29/23 06:15 07/29/23 06:15 Labs: Laboratory Results - last 24 hr 07/29/23 06:15: WBC 10.1, RBC 4.18 L, Hgb 13.5, Hct 41.0, MCV 98.1, MCH 32.3 H, MCHC 32.9, RDW Std Deviation 42.8, RDW Coeff of Claude 11.9, Plt Count 270, MPV 9.6, Sodium 132 L, Potassium 4.0, Chloride 98, Carbon Dioxide 25.0, Anion Gap 9, BUN 9, Creatinine 0.97, Estim Creat Clear Calc 65.03, Est GFR (MDRD) Af Amer 74, Est GFR (MDRD) Non-Af 61, BUN/Creatinine Ratio 9.3 L, Glucose 166 H, Calcium 9.0 Micro: Microbiology 07/15/23 12:10 Swab (Method) Nasal Screen MRSA/MSSA - Final Radiography Diagnostic Testing: Radiology Impression Cervical Spine X-Ray 07/28/23 07:36 IMPRESSION: Intraoperative lateral digital spot radiographs of the cervical spine showing progression of ACDF from the lower C4 vertebral body down to upper C7 vertebral body as described above. Electronically Signed: Shalom Ngo MD at 12:09 EDT , Cervical Spine X-Ray 07/29/23 08:05 IMPRESSION: Satisfactory alignment of the cervical spine status post C4-7 ACDF. Mild degenerative change above the level of fusion at C3-4. Electronically Signed: Betty Langston MD at 10:02 EDT , Physical Exam Narrative Dressing?CDI. Drain was removed morning. New dressing applied. Neurologic evaluation of upper and lower extremity shows 5 x 5 power normal shows normal sensations in all dermatomes. Assessment & Plan Assessment/Plan (1) S/P cervical spinal fusion: PLAN: Plan PT OT mobilization. Was able to ambulate with help of a walker with PT today. Cervical collar at all times. Upright x-rays obtained today, reviewed, look good. Okay for discharge home as per orthopedic standpoint. Discussed with Dr. Turner who agrees that patient is safe to go home on increased oxygen requirement. Discussed with patient about incentive spirometry, mobility, reducing opioid intake to avoid pulmonary complications. Will follow-up in orthopedic clinic in 2 weeks.
== END 2023-07-29 12:36 | disposition home or self-care (01) ==
LOC: SDC 16:22 → PCU 16:22
PROVIDERS: Anesthesiology; Admitting Provider Orthopaedic Surgery Orthopaedic Surgery of the Spine; PCP Physician Assistant; Referring Provider Orthopaedic Surgery Orthopaedic Surgery of the Spine; Visit Provider Orthopaedic Surgery Orthopaedic Surgery of the Spine
PROC: (CPT 22551; principal; 2023-07-28 07:00)
DX: M50.020 Cervical disc disorder with myelopathy, mid-cervical region, unspecified level (principal); J43.9 Emphysema, unspecified; E11.9 Type 2 diabetes mellitus without complications; M47.22 Other spondylosis with radiculopathy, cervical region; Z87.891 Personal history of nicotine dependence; E78.00 Pure hypercholesterolemia, unspecified; I10 Essential (primary) hypertension; Z79.82 Long term (current) use of aspirin; I25.10 Atherosclerotic heart disease of native coronary artery without angina pectoris; M43.12 Spondylolisthesis, cervical region; Z79.51 Long term (current) use of inhaled steroids; Z68.33 Body mass index [BMI] 33.0-33.9, adult; G47.30 Sleep apnea, unspecified; E66.9 Obesity, unspecified; Z86.16 Personal history of COVID-19; M47.10 Other spondylosis with myelopathy, site unspecified
CPT/HCPCS: 22551; 22552 ×2; 20931; 22845; 00670; 36415; 36600; 71045; 72040; 76000; 80048; 82803; 82962; 83036; 83735; 84443; 85025; 85027; 86703; 86706; 86708; 86803; 86850; 86900; 86901; 87077; 87081; 93005; 94002; 94640; 94668; 94762; 96365; 96366; 96375; 96376; 97162; 97166; 97530; 99221; C1713; J7120; A4216; G0378; J2310; J2405; J3475

== ENCOUNTER 2023-08-13 11:53 | Outpatient (CLI) | payer MEDICARE, MEDICAID, SELFPAY ==
[2023-08-13 11:55] VITALS: BP 128/74; PULSE 76; RESP 16; TEMP 36.4; O2SAT 95
[2023-08-13] MEDS: Benralizumab 30 MG/ML Syringe SC (12:06)
== END 2023-08-13 11:54 | disposition home or self-care (01) ==
LOC: MEDOUTP 11:53
PROVIDERS: PCP Physician Assistant; Referring Provider Nurse Practitioner Acute Care; Visit Provider Nurse Practitioner Acute Care
DX: J45.50 Severe persistent asthma, uncomplicated (principal)
CPT/HCPCS: 96372; J0517

== ENCOUNTER → 2023-08-26 | Outpatient (CLI) | payer MEDICARE, MEDICAID, SELFPAY ==
--- NOTE | 2023-08-26 14:05 | CT_ITS ---
INDICATION: new lung mass in high risk patient EXAMINATION: CT CHEST WITHOUT CONTRAST - CT Chest W/O Contrast Injection TECHNIQUE: Helically acquired images were obtained of the chest. A radiation dose optimization technique was used for this scan. IV Contrast dosage and agent: None. RADIATION DOSAGE (If Supplied By Facility): CTDIvol = ( 11.22 ) mGy, DLP = ( 401.02 ) mGycm COMPARISON: Prior studies dated: 11/07/2021 and 07/11/2020 FINDINGS: PULMONARY NODULES: Persistent 6 mm right apical nodule seen on image 50 series 4 unchanged since prior exam. 5 mm right upper lobe nodule unchanged seen on image 26 series 4. Pleural-based right upper lobe nodule measuring about 2 cm seen on image 36 series 4 essentially unchanged. Adjacent pleural-based flat density also unchanged. No new nodules are identified. LUNGS, PLEURA AND LARGE AIRWAYS: Emphysematous changes and scattered stranding/scarring unchanged prior exam. Postoperative changes in the right upper lobe. No focal consolidation or pleural effusions. THYROID: No thyroid lesions. VESSELS: Atherosclerotic calcifications and tortuosity of the thoracic aorta without evidence of aneurysm. MEDIASTINUM AND ERINN: No mediastinal or hilar adenopathy. Esophagus is unremarkable. No hiatal hernia. UPPER ABDOMEN: No acute pathology. BONES: No suspicious lytic or blastic abnormality. CT/Chest without Contrast IMPRESSION: 1. Stable pleural-based pulmonary nodules unchanged since prior examinations consistent with benign findings, (lung RADS category 2). 2. Emphysematous changes. 3. No acute pulmonary infiltrate, pleural effusions or adenopathy. Electronically Signed: Oliver Gomez MD at 11:43 EDT ,
== END | disposition home or self-care (01) ==
PROVIDERS: PCP Physician Assistant; Referring Provider Nurse Practitioner Acute Care; Visit Provider Nurse Practitioner Acute Care
DX: R93.89 Abnormal findings on diagnostic imaging of other specified body structures (principal)
CPT/HCPCS: 71250

== ENCOUNTER 2023-10-08 11:51 | Outpatient (CLI) | payer MEDICARE, MEDICAID, SELFPAY ==
[2023-10-08 12:04] VITALS: BP 98/70; PULSE 77; RESP 16; TEMP 36.6; O2SAT 93; BMI 32.4
[2023-10-08] MEDS: Benralizumab 30 MG/ML Syringe SC (12:07)
== END 2023-10-08 23:59 | disposition home or self-care (01) ==
LOC: MEDOUTP 11:51
PROVIDERS: PCP Physician Assistant; Referring Provider Nurse Practitioner Acute Care; Visit Provider Nurse Practitioner Acute Care
DX: J45.50 Severe persistent asthma, uncomplicated (principal)
CPT/HCPCS: 96372; J0517

== ENCOUNTER → 2023-10-25 | Outpatient (CLI) | payer MEDICARE, MEDICAID, SELFPAY ==
--- NOTE | 2023-10-25 11:19 | MRI_ITS ---
STUDY: MRI LUMBAR SPINE WITH AND WITHOUT CONTRAST REASON FOR EXAM: Female, 63 years old. back, hip, leg pain x2yrs s/p falls x2, prev lumbar surgery x6yrs, please compare to prior 2021 TECHNIQUE: Standardized fat and water weighted pulse sequences were obtained in the sagittal and axial planes. IV 18cc clariscan was administered for the contrast portion of the examination. COMPARISON: MRI the lumbar spine dated September 23, 2021 FINDINGS: Normal lumbar lordosis. There is no substantial scoliosis. Normal conus medullaris that terminates at the T12 level. No marrow edema or fracture or compression deformity is present. Stable pedicle screws and chronic postoperative changes at the L4-L5 level. T12-L1: Normal endplates. Normal disc height, hydration and morphology. Normal bilateral facet joints. Normal central canal and bilateral lateral recesses. Normal bilateral intervertebral neural foramina. L1-2: Moderate to significant disc space narrowing with a diffuse disc bulge. Mild anterior endplate spurring. Mild endplate degenerative changes. Mild central canal stenosis and bilateral lateral recess stenosis with left nerve root compression. Mild facet joint hypertrophy. Mild bilateral foraminal stenosis. L2-3: Moderate disc space narrowing with a diffuse disc bulge. Small Schmorl''s node. Mild endplate spurring. Mild central canal stenosis. Moderate facet joint and ligament of flavum hypertrophy. Mild bilateral foraminal stenosis. L3-4: Diffuse disc desiccation with moderate disc space narrowing and diffuse disc bulging. Severe central canal stenosis. Significant facet joint and ligamenta flava hypertrophy. Mild left foraminal stenosis. Normal right neural foramen. Mild endplate spurring. L4-5: Diffuse disc desiccation with mild posterior disc space narrowing and slight annular bulging. Moderate central canal stenosis. Moderate facet joint hypertrophy. Small postoperative cystic seroma in the decompressive defect measuring 1.88 cm. Normal bilateral intervertebral neural foramina. L5-S1: Normal endplates. Diffuse disc desiccation with mild posterior disc space narrowing and slight annular bulging. Mild left and moderate right facet joint hypertrophy. Mild central canal stenosis. Mild to moderate right foraminal stenosis with nerve root impingement. Mild left foraminal stenosis also with nerve root impingement due to a left foraminal disc protrusion. Normal visualized sacral ala. Normal visualized paraspinous soft tissue structures. Postcontrast images: Mild enhancement is seen in the fibrotic scar at the L4-L5 surgical bed. Otherwise there is no abnormal enhancement of the bony or soft tissue structures or nerve roots. Normal distal spinal cord. No suspicious lesions are present. MRI/Spine Lumbar W/WO Contrast IMPRESSION: 1. Multilevel degenerative changes, as described above. 2. Severe central canal stenosis at L3-L4. Electronically Signed: Yaron Godfrey MD at 10:10 EDT ,
[2023-10-25 12:09] LABS: CREATININE FINGERSTICK < 1.0 mg/dL (0.55-1.02); EGFR FINGERSTICK > 60.0000 mL/min (>60)
== END | disposition home or self-care (01) ==
LOC: MRI 10:59
PROVIDERS: PCP Physician Assistant; Referring Provider Orthopaedic Surgery Orthopaedic Surgery of the Spine; Visit Provider Orthopaedic Surgery Orthopaedic Surgery of the Spine
DX: M48.061 Spinal stenosis, lumbar region without neurogenic claudication (principal); M51.36 Other intervertebral disc degeneration, lumbar region
CPT/HCPCS: 72158; A9575

== ENCOUNTER → 2023-10-27 | Outpatient (CLI) | payer MEDICARE, MEDICAID, SELFPAY ==
[2023-10-27 15:39] LABS: Hematocrit 43.5 % (37-47); Hemoglobin 14.2 g/dL (12.0-15.0); Mean Corp Hgb Conc 32.6 g/dL (32-36); Mean Corpuscular Hgb 31.7 pg (27.0-32.0); Mean Corpuscular Volume 97.1 fL (81-99); Mean Platelet Vol. 9.4 fl (6.2-12.0); Platelet Count 362 K/mm3 (150-450); RBC Distribution Width CV 12.1 % (11.6-14.6); RBC Distribution Width SD 43.7 fl (35.1-43.9); Red Blood Count 4.48 M/mm3 (4.2-5.4); White Blood Count 8.3 K/mm3 (4.4-11.0)
[2023-10-27 16:22] LABS: Vitamin B12 612 pg/mL (211-911)
[2023-10-27 16:59] LABS: ALB/GLOB Ratio 0.8 RATIO (0.9-2.4); AST(SGOT) 59 U/L (15-37); Alanine Aminotransfer ALT/SGPT 61 U/L (13-56); Albumin, Serum 3.6 g/dL (3.2-5.0); Alkaline Phosphatase 119 U/L (45-117); Anion Gap 11 (5-15); BUN 12 mg/dL (7-18); BUN/Creat Ratio 14.1 RATIO (10-20); Calcium,Total 9.9 mg/dL (8.5-10.1); Chloride 96 mmol/L (98-107); Creatinine, Serum 0.85 mg/dL (0.55-1.02); EST Glomerular Filtration Rate 71 mL/min (>60); Est Glom Filt Rate - Afr Amer 86 mL/min (>60); Globulin 4.3 g/dL (2.2-4.2); Glucose 95 mg/dL (74-106); Potassium 4.1 mmol/L (3.5-5.1); Protein, Total 7.9 g/dL (6.4-8.2); Sodium Level 131 mmol/L (136-145); Thyroid Stim Hormone (TSH) 1.33 uIU/mL (0.358-3.74)
[2023-10-31 16:07] LABS: Vitamin B1, Thiamine 87.3 nmol/L (66.5-200.0)
== END | disposition home or self-care (01) ==
LOC: MTLAB 12:48
PROVIDERS: PCP Physician Assistant; Referring Provider Psychiatry & Neurology Neurology; Visit Provider Psychiatry & Neurology Neurology
DX: G31.84 Mild cognitive impairment of uncertain or unknown etiology (principal); E03.9 Hypothyroidism, unspecified
CPT/HCPCS: 36415; 80053; 82607; 82746; 84425; 84443; 85027

== ENCOUNTER 2023-12-03 11:01 | Outpatient (CLI) | payer MEDICARE, MEDICAID, SELFPAY ==
[2023-12-03 11:11] VITALS: BP 107/64; PULSE 58; RESP 16; TEMP 36.9; O2SAT 94; BMI 31.4
[2023-12-03] MEDS: Benralizumab 30 MG/ML Syringe SC (11:14)
== END 2023-12-03 23:59 | disposition home or self-care (01) ==
LOC: MEDOUTP 11:01
PROVIDERS: PCP Physician Assistant; Referring Provider Nurse Practitioner Acute Care; Visit Provider Nurse Practitioner Acute Care
DX: J45.50 Severe persistent asthma, uncomplicated (principal)
CPT/HCPCS: 96372; J0517

== ENCOUNTER 2024-01-28 10:29 | Outpatient (CLI) | payer MEDICARE, MEDICAID, SELFPAY ==
[2024-01-28 10:44] VITALS: BP 124/74; PULSE 62; RESP 16; TEMP 35.9; O2SAT 97; BMI 31.7
[2024-01-28] MEDS: Benralizumab 30 MG/ML Syringe SC (11:03)
== END 2024-01-28 23:59 | disposition home or self-care (01) ==
LOC: MEDOUTP 10:30
PROVIDERS: PCP Physician Assistant; Referring Provider Nurse Practitioner Acute Care; Visit Provider Nurse Practitioner Acute Care
DX: J45.50 Severe persistent asthma, uncomplicated (principal)
CPT/HCPCS: 96372; J0517

== ENCOUNTER → 2024-01-31 | Outpatient (CLI) | payer MEDICARE, MEDICAID, SELFPAY ==
[2024-01-31 10:01] LABS: Absolute Lymphocyte Count 2.56 X10^3/uL (0.83-4.51); Absolute Neutrophil Count 3.3 X10^3/uL (2.0-7.7); Basophil# 0.03 X10^3/uL; Basophil% 0.4 % (0-1); Hematocrit 38.4 % (37-47); Lymphocyte # 2.56 X10^3/ul (0.83-4.51); Lymphocyte % 37.9 % (19-41); Mean Corp Hgb Conc 33.9 g/dL (32-36); Mean Corpuscular Hgb 31.7 pg (27.0-32.0); Mean Corpuscular Volume 93.7 fL (81-99); Mean Platelet Vol. 8.7 fl (6.2-12.0); Monocyte# 0.88 X10^3/uL; NRBC Flagged by Analyzer 0 % (0-5); Neutrophil # 3.26 X10^3/uL (2.7-7.7); Neutrophil % 48.4 % (47-70); Platelet Count 285 K/mm3 (150-450); RBC Distribution Width CV 12.4 % (11.6-14.6); RBC Distribution Width SD 42.8 fl (35.1-43.9); White Blood Count 6.8 K/mm3 (4.4-11.0)
[2024-01-31 10:25] LABS: ALB/GLOB Ratio 0.9 RATIO (0.9-2.4); AST(SGOT) 40 U/L (15-37); Alanine Aminotransfer ALT/SGPT 36 U/L (13-56); Albumin, Serum 3.6 g/dL (3.2-5.0); Alkaline Phosphatase 100 U/L (45-117); Anion Gap 7 (5-15); BUN 9 mg/dL (7-18); BUN/Creat Ratio 10.5 RATIO (10-20); Calcium,Total 9.7 mg/dL (8.5-10.1); Chloride 91 mmol/L (98-107); Creatinine, Serum 0.86 mg/dL (0.55-1.02); EST Glomerular Filtration Rate 70 mL/min (>60); Est Glom Filt Rate - Afr Amer 85 mL/min (>60); Globulin 3.8 g/dL (2.2-4.2); Glucose 107 mg/dL (74-106); Potassium 4.5 mmol/L (3.5-5.1); Protein, Total 7.4 g/dL (6.4-8.2); Sodium Level 126 mmol/L (136-145)
[2024-01-31 10:57] LABS: Magnesium 1.7 mg/dL (1.6-2.6)
[2024-01-31 10:58] LABS: HIV - WCH Non-Reactive (Nonreactive); Hepatitis B Surface Antibody Non-Reactive; Hepatitis C Antibody Non-Reactive (Nonreactive)
[2024-02-01 06:09] LABS: Hepatitis A AB, Total Negative (Negative)
== END | disposition home or self-care (01) ==
LOC: LAB 09:18
PROVIDERS: Anesthesiology; Orthopaedic Surgery Orthopaedic Surgery of the Spine; PCP Physician Assistant; Referring Provider Physician Assistant; Visit Provider Physician Assistant
DX: Z01.818 Encounter for other preprocedural examination (principal); E11.69 Type 2 diabetes mellitus with other specified complication; E03.9 Hypothyroidism, unspecified
CPT/HCPCS: 36415; 80053; 83036; 83735; 84443; 85025; 86703; 86706; 86708; 86803; 86850; 86900; 86901; 87081

== ENCOUNTER 2024-03-08 14:33 | Inpatient (IN) | payer MEDICARE, MEDICAID, SELFPAY ==
--- NOTE | 2024-01-31 09:02 | EKG12_ITS ---
Test Reason : PRE OP Blood Pressure : / mmHG Vent. Rate : 059 BPM Atrial Rate : 059 BPM P-R Int : 174 ms QRS Dur : 076 ms QT Int : 424 ms P-R-T Axes : 069 010 066 degrees QTc Int : 419 ms Sinus bradycardia Otherwise normal ECG Confirmed by Stanley Adan ([id number]), food expeditor WILL SUMMERS ([id number]) on 01/31/2024 1:19:49 PM Referred By: Yoly Baez Confirmed By:Stanley Adan
[2024-03-08] VITALS (17 sets, daily range): BP systolic 84–121; BP diastolic 62–84; PULSE 67–108; RESP 14–20; TEMP 35.9–36.8; O2SAT 86–99; BMI 31.5
[2024-03-08] MEDS: Magnesium 2 GM for ERAS IV (06:21)
[2024-03-08] MEDS: Lactated Ringers 1,000 ML 15 ML IV (06:21)
[2024-03-08] MEDS: Acetaminophen 500 MG Tablet 1000 MG PO ×2 (06:21→22:08)
[2024-03-08 06:45] LABS: Bedside Glucose 144 mg/dL (74-106)
--- NOTE | 2024-03-08 06:47 | PRE.ANES_ITS ---
ASA Classification* ASA Classification ASA Classification: 3 (SEE WRITTEN PRE ANESTHESIA RECORD FOR FULL ASSESSMENT) Assessment & Plan Anesthesia* Anesthesia Assessment Anesthesia Assessment: Discussed sedation and/or anesthesia options, risks, benefits, and alternatives with patient/parents/legal guardian/POA. Questions invited. The patient/parents/legal guardian/POA seems to understand and agrees to proceed with anesthesia plan. Reviewed the physical assessment, medical history, allergy history and patient home medications list prior to surgery/procedure/anesthetic and documented any changes. Performed airway and anesthesia risk assessments. Anesthesia Type Anesthesia Type: General (SEE WRITTEN PRE ANESTHESIA RECORD FOR FULL ASSESSMENT) Anesthesia Focused Assessment* Temperature: 97.6 F Pulse Rate: 67 Blood Pressure: 121/75 Respiratory Rate: 18 Pulse Ox: 94 Airway Assessment Mouth opens: >3 cm Mallampati Score: II Focused Labs Anesthesia Preop lab: CBC WBC 6.8 K/mm3 (4.4-11.0) 01/31/24 09:29 RBC 4.10 M/mm3 (4.2-5.4) L 01/31/24 09:29 Hgb 13.0 g/dL (12.0-15.0) 01/31/24 09:29 Hct 38.4 % (37-47) 01/31/24 09:29 Plt Count 285 K/mm3 (150-450) 01/31/24 09:29 CHEMISTRY Potassium 4.5 mmol/L (3.5-5.1) 01/31/24 09:29 Sodium 126 mmol/L (136-145) L 01/31/24 09:29 Magnesium 1.7 mg/dL (1.6-2.6) 01/31/24 09:29 BUN 9 mg/dL (7-18) 01/31/24 09:29 Creatinine 0.86 mg/dL (0.55-1.02) 01/31/24 09:29 Glucose 107 mg/dL (74-106) H 01/31/24 09:29 POC Glucose 144 mg/dL (74-106) H 03/08/24 06:08 TSH 1.650 uIU/mL (0.358-3.740) 01/31/24 09:29 COAG PT 14.2 SECONDS (11.7-14.9) 10/14/20 05:04 Pre-Assessment Diagnosis/Proposed Procedure Planned Operative Procedure(s): ANTERIOR LUMBAR FUSION L3-4 AND L5-S1 REVISION POSTERIOR LUMBAR FUSION L3-4 L4-5 L5-S1 AND REMOVAL OF PREVIOUS HARDWARE Anesthesia History Anesthesia History - pillowcase folder: Anesthesia History - pillowcase folder Hx Hospitalization No 02/23/24 10:04 Any Problems With Anesthesia No 02/23/24 10:04 Cholinesterase deficiency No 02/23/24 10:04 You/Your Family Experience No 02/23/24 10:04 fever (hyperthermia) with Relationship Recent Exposure to Contagious No 03/08/24 06:17 Disease Does patient have nerve No 02/23/24 10:04 stimulator Patient instructed to have device shut off --Does patient have Pacemaker No 03/08/24 06:17 or ICD? When Was Last Pacemaker Check QUESTION #4 FULL TEXT: You/Your Family Experience fever (hyperthermia) with Anesthesia Last Oral Intake Last Oral intake: Last Oral Intake NPO since 03:30 03/08/24 06:17 Meds taken in AM with sips of Yes 03/08/24 06:17 water? Meds patient instructed to take am of surgery PONV PONV - pillowcase folder: PONV - pillowcase folder Female Yes 02/23/24 10:04 HX of Motion Sickness Yes 02/23/24 10:04 HX of N/V After Surgery No 02/23/24 10:04 Non-Smoker Yes 02/23/24 10:04 Duration of Surgery greater Yes 02/23/24 10:04 than 60 minutes Number of Risk Factors 4 02/23/24 10:04 PONV Score Severe Risk 02/23/24 10:04 Height & Weight Height & Weight: Anesthesia: Height & Weight Height 5 ft 5 in 03/08/24 06:17 Weight: 86 kg 03/08/24 06:17 Body Mass Index (BMI) 31.5 03/08/24 06:17 Respiratory Assessment Respiratory Assessment - pillowcase folder: Respiratory Tract Infection Hx - pillowcase folder Hx Respiratory Tract Infection No 02/23/24 10:04 STOP Sleep Apnea STOP Sleep Apnea - pillowcase folder: STOP Sleep Apnea - pillowcase folder Hx Hypertension Yes: CONTROLLED WITH MED 02/23/24 10:04 Hx Sleep Apnea Yes 02/23/24 10:04 CPAP Yes: NONCOMPLIANT 02/23/24 10:04 BIPAP No 02/23/24 10:04 Do you snore loudly (louder than talking or can be heard Do you often feel tired/ fatigued/ sleepy during daytime? Has anyone observed you stop breathing during sleep? STOP Results Positive 02/23/24 10:04 QUESTION #5 FULL TEXT : Do you snore loudly (louder than talking or can be heard through closed doors)? Tobacco Use History Tobacco Use History - pillowcase folder: Tobacco Use History - pillowcase folder Tobacco Use Cigarettes 05/07/23 15:05 Smoking Status Former smoker 02/23/24 10:04 Hx Tobacco Use No 02/23/24 10:04 Years Smoking Packs Smoked per Day Smoking Cessation Date was Yes - quit smoking within 15 02/23/24 10:04 within the last 15 years years Hx Smoking Cessation Date 05/10/11 02/23/24 10:04 Hx Smoking Cessation No 02/23/24 10:04 Counseling Hematologic Medial History Hematologic Hx - pillowcase folder: Hematologic Medical Hx - loom starter Hx of Blood Transfusion No 02/23/24 10:04 Hx of Transfusion in last 3 No 02/23/24 10:04 Months Date of Last Transfusion (if within last 3 months) Ever experience any problems No 02/23/24 10:04 with transfusion(s)? Specify any problems Hx of Preganancy in last 3 No 02/23/24 10:04 Months Nurse Filling Out Transfusion VCHRISTIN 02/23/24 10:04 & Questions: Date: 02/23/24 02/23/24 10:04 Time: 10:04 02/23/24 10:04 Patient unable to answer at this time (ie. confused, unrespo /Reproduction History /Reproductive History - pillowcase folder: /Reproductive Hx- pillowcase folder Hx Now No 02/23/24 10:04 Gestational Age (in weeks): EDC: Hx Hx Para Hx Section SAB No 02/23/24 10:04 Active Medications Active Medications: Current Medications Generic Name Dose Route Start Last Admin Trade Name Freq PRN Reason Stop Dose Admin Acetaminophen 1,000 mg 03/08/24 07:30 03/08/24 06:21 Acetaminophen 500 Mg Tablet PO 03/08/24 07:31 1,000 mg X1 ONE Administration Cefazolin Sodium 2 gm/ N/A 20 mls @ 400 mls/hr 03/08/24 07:30 IV 03/08/24 07:32 PREOP ONE Magnesium Sulfate 2 gm/ 104 mls @ 208 mls/hr 03/08/24 07:30 03/08/24 06:21 Dextrose IV 03/08/24 07:59 208 mls/hr X1 ONE Administration Lactated Ringer's 1,000 mls @ 15 mls/hr 03/08/24 06:00 03/08/24 06:21 IV 03/13/24 19:19 15 mls/hr .Q48H HARPREET Administration Protocol Insulin Human Lispro 1 - 6 unit 03/08/24 07:30 Insulin Lispro 100 Unit/Ml Insuln.Pen SC 03/08/24 18:00 Q4H PRN PRN BG>/= 180, SEE PROTOCOL Protocol PFSH Medical History PONV (postoperative nausea and vomiting) Wears glasses Wears dentures Post-menopausal Cancer Depression Anxiety Alcohol use History of steroid therapy Thyroid disease Diabetes Walker as ambulation aid Ambulates with cane Psoriatic arthritis Bladder disease High cholesterol Restless legs Back pain Migraine headache Injury of head and neck Lightheadedness Dietary restriction Gastric reflux Former smoker CPAP (continuous positive airway pressure) dependence On home oxygen therapy Emphysema, unspecified Asthma COPD (chronic obstructive pulmonary disease) Shortness of breath on exertion History of edema Hypertension History of echocardiogram History of stress test Cardiology follow-up encounter Abnormal finding on CT scan Dilatation of aorta Calcification of aorta COVID-19 (~02/2020) 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 Tachycardia Diastolic dysfunction Essential hypertension Stage 2 moderate COPD by GOLD classification COPD exacerbation Acute hypoxemic respiratory failure Pulmonary hypertension COPD (chronic obstructive pulmonary disease) Hepatitis C Prediabetes Memory loss Osteopenia Chronic lumbar radiculopathy Degenerative joint disease Rheumatoid arthritis Psoriasis NSAID induced gastritis GERD (gastroesophageal reflux disease) Asthma Depression Hyperlipidemia Obesity Hypothyroidism BEN (obstructive sleep apnea) Tobacco dependence in remission Lung nodule Home Medications ?Medication ?Instructions ?Recorded ?Last Taken ?Type atorvastatin 40 mg tablet 40 mg PO QHS cholesterol 03/03/15 03/07/24 History albuterol sulfate 90 mcg/actuation 2 puff inhalation Q4H PRN PRN Sob 11/22/18 11/22/18 History aerosol inhaler &/Or Wheezing levothyroxine 75 mcg tablet 75 mcg PO DAILY thyroid 11/22/18 03/08/24 History aspirin 81 mg tablet,delayed 81 mg PO DAILY heart health 11/08/19 02/21/24 History release (Adult Low Dose Aspirin) escitalopram oxalate 10 mg tablet 10 mg PO DAILY mental health 11/07/20 03/07/24 History oxybutynin chloride 5 mg 5 mg PO DAILY bladder 11/07/20 03/07/24 History tablet,extended release 24 hr benralizumab 30 mg/mL subcutaneous 30 mg subcut Q8W asthma #1 mL 12/06/20 02/25/24 Rx auto-injector (Fasenra Pen) nitroglycerin 0.4 mg sublingual 0.4 mg sublingual Q5-15M PRN chest 07/30/21 Unknown Rx tablet pain #90 tabs guselkumab 100 mg/mL subcutaneous 100 mg subcut Q12W arthritis 01/29/22 02/11/24 History auto-injector (Tremfya) lisinopril 20 mg tablet 20 mg PO DAILY blood pressure #90 12/01/22 03/07/24 Rx tabs metoprolol succinate 25 mg 25 mg PO DAILY blood pressure #90 07/09/23 07/28/23 04:00 Rx tablet,extended release 24 hr tabs albuterol sulfate 2.5 mg/3 mL 2.5 mg inhalation Q4H PRN PRN 07/14/23 Unknown History (0.083 %) solution for nebulization shortness of breath or wheezing ketoconazole 2 % shampoo 1 applic topical QWEEK DRY SCALP 07/14/23 Unknown History fluticasone 500 mcg-salmeterol 50 1 inh inhalation BID breathing 08/23/23 03/08/24 History mcg/dose blistr powdr for inhalation donepezil 10 mg tablet 10 mg PO QHS MEMORY LOSS #90 tabs 10/26/23 03/07/24 Rx isosorbide mononitrate 30 mg 30 mg PO DAILY heart #90 tabs 10/28/23 03/07/24 Rx tablet,extended release 24 hr cetirizine 10 mg tablet 10 mg PO DAILY allergies #90 tabs 01/17/24 03/07/24 Rx fluticasone propionate 50 2 spray intranasal DAILY allergies 02/14/24 03/07/24 R x mcg/actuation nasal #16 grams spray,suspension metformin 500 mg tablet,extended 500 mg PO BID dm 02/23/24 03/07/24 History release 24 hr montelukast 10 mg tablet 10 mg PO QPM allergies #90 tabs 02/28/24 03/07/24 Rx (Singulair) umeclidinium 62.5 mcg/actuation 1 inh inhalation DAILY breathing 02/28/24 03/07/24 Rx blister powder for inhalation #30 ea Allergy/AdvReac Type Severity Reaction Status Date / Time No Known Allergies Allergy Verified 03/08/24 05:52 Family History Grandmother CVA (cerebral vascular accident) CAD (coronary artery disease) Diabetes Grandfather CVA (cerebral vascular accident) Diabetes Mother CAD (coronary artery disease) Hypertension Brother CAD (coronary artery disease) Hypertension Father Diabetes CVA (cerebral vascular accident) Surgical History Cervical vertebral fusion (07/28/23) Hx of colonoscopy Hx of left cataract extraction Hx of right cataract extraction History of incision and drainage History of left heart catheterization (LHC) (~10/14/20) History of back surgery History of lobectomy of lung (~2009) History of hysterectomy History of appendectomy Social History Smoking Status: Former smoker how long ago did patient quit smokin second hand exposure: Yes alcohol intake: current alcohol intake frequency: a few times a month Alcohol type: beer and wine substance use type: does not use caffeine: Yes Type: coffee Number of servings: 1 Review of Systems (Anesthesia) ROS Narrative System reviewed and no additional complaints, except as documented.
--- NOTE | 2024-03-08 07:31 | HP.PCM_ITS ---
History and Physical Date of Admission: 03/08/24 MR#: [id number] Acct: [id number] Name: DULCE MARIA NARANJO Rep #: [id number] : 1960 Provider: Dr. Nadir Lam MD Age/Sex: 64/F Location[place] [facility] Status: Signed Intake Vital Signs 12/08/2407:42 Height 5 ft 5 in Weight: 190 lb BMI 31.6 BP 101/63 Blood Pressure Location Lt brachial Position Sitting Respiration 16 Pulse 70 Pulse Source Monitor Temp 97.3 F L Pulse Oximetry (%) 92 Oxygen Delivery Method room air Intake Visit Reasons: lumbar spine Accompanied by: Self Is patient in pain?: Yes Pain scale (1-10): 4 Allergies No Known Allergies Allergy (Verified 01/21/24 11:27) Medications ?Medication ?Instructions ?Recorded ?Confirmed ?Type atorvastatin 40 mg tablet 40 mg PO QHS cholesterol 03/03/15 01/21/24 History albuterol sulfate 90 mcg/actuation 2 puff inhalation Q4H PRN PRN Sob 11/22/18 01/21/24 History aerosol inhaler &/Or Wheezing levothyroxine 75 mcg tablet 75 mcg PO DAILY thyroid 11/22/18 01/21/24 History aspirin 81 mg tablet,delayed 81 mg PO DAILY heart health 11/08/19 01/21/24 History release (Adult Low Dose Aspirin) escitalopram oxalate 10 mg tablet 10 mg PO DAILY mental health 11/07/20 01/21/24 History oxybutynin chloride 5 mg 5 mg PO DAILY bladder 11/07/20 01/21/24 History tablet,extended release 24 hr benralizumab 30 mg/mL subcutaneous 30 mg subcut Q8W asthma #1 mL 12/06/20 01/21/24 Rx auto-injector (Fasenra Pen) nitroglycerin 0.4 mg sublingual 0.4 mg sublingual Q5-15M PRN chest 07/30/21 01/21/24 Rx tablet pain #90 tabs guselkumab 100 mg/mL subcutaneous 100 mg subcut Q12W arthritis 01/29/22 01/21/24 History auto-injector (Tremfya) ipratropium 0.5 mg-albuterol 3 mg 3 ml inhalation Q4H PRN PRN SOB 05/15/22 01/21/24 Rx (2.5 mg base)/3 mL nebulization &/OR WHEEZING #180 mL soln lisinopril 20 mg tablet 20 mg PO DAILY blood pressure #90 12/01/22 01/21/24 Rx tabs montelukast 10 mg tablet 10 mg PO QPM allergies #90 tabs 02/24/23 01/21/24 Rx (Singulair) umeclidinium 62.5 mcg/actuation 1 inh inhalation DAILY breathing 02/24/23 01/21/24 Rx blister powder for inhalation #30 ea metoprolol succinate 25 mg 25 mg PO DAILY blood pressure #90 07/09/23 12/28/23 Rx tablet,extended release 24 hr tabs albuterol sulfate 2.5 mg/3 mL 2.5 mg inhalation Q4H PRN PRN 07/14/23 01/21/24 History (0.083 %) solution for nebulization shortness of breath or wheezing hydrochlorothiazide 25 mg tablet 25 mg PO DAILY diuretic 07/14/23 01/21/24 History ketoconazole 2 % shampoo 1 applic topical QWEEK DRY SCALP 07/14/23 01/21/24 History metformin 500 mg tablet 500 mg PO QHS diabetes 07/14/23 01/21/24 History fluticasone propionate 50 2 spray intranasal DAILY allergies 07/21/23 01/21/24 Rx mcg/actuation nasal #16 grams spray,suspension fluticasone 500 mcg-salmeterol 50 1 inh inhalation BID breathing 08/23/23 01/21/24 History mcg/dose blistr powdr for inhalation donepezil 10 mg tablet 10 mg PO QHS MEMORY LOSS #90 tabs 10/26/23 01/21/24 Rx donepezil 5 mg tablet 5 mg PO QHS MEMORY LOSS #30 tabs 10/26/23 01/21/24 Rx isosorbide mononitrate 30 mg 30 mg PO DAILY heart #90 tabs 10/28/23 01/21/24 Rx tablet,extended release 24 hr cetirizine 10 mg tablet 10 mg PO DAILY allergies #90 tabs 01/17/24 01/21/24 Rx Have you fallen in the past year?: Yes PFSH Medical History PONV (postoperative nausea and vomiting) Wears glasses Wears dentures Post-menopausal Cancer Depression Anxiety Alcohol use History of steroid therapy Thyroid disease Diabetes Walker as ambulation aid Ambulates with cane Psoriatic arthritis Bladder disease High cholesterol Restless legs Back pain Migraine headache Injury of head and neck Lightheadedness Dietary restriction Gastric reflux Former smoker CPAP (continuous positive airway pressure) dependence On home oxygen therapy Emphysema, unspecified Asthma COPD (chronic obstructive pulmonary disease) Shortness of breath on exertion History of edema Hypertension History of echocardiogram History of stress test Cardiology follow-up encounter Abnormal finding on CT scan Dilatation of aorta Calcification of aorta COVID-19 (~02/2020) 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 Tachycardia Diastolic dysfunction Essential hypertension Stage 2 moderate COPD by GOLD classification COPD exacerbation Acute hypoxemic respiratory failure Pulmonary hypertension COPD (chronic obstructive pulmonary disease) Hepatitis C Prediabetes Memory loss Osteopenia Chronic lumbar radiculopathy Degenerative joint disease Rheumatoid arthritis Psoriasis NSAID induced gastritis GERD (gastroesophageal reflux disease) Asthma Depression Hyperlipidemia Obesity Hypothyroidism BEN (obstructive sleep apnea) Tobacco dependence in remission Lung nodule Surgical History Cervical vertebral fusion (07/28/23) Hx of colonoscopy Hx of left cataract extraction Hx of right cataract extraction History of incision and drainage History of left heart catheterization (LHC) (~10/14/20) History of back surgery History of lobectomy of lung (~2009) History of hysterectomy History of appendectomy Family History Grandmother CVA (cerebral vascular accident) CAD (coronary artery disease) DiabetesGrandfather CVA (cerebral vascular accident) DiabetesMother CAD (coronary artery disease) HypertensionBrother CAD (coronary artery disease) HypertensionFather Diabetes CVA (cerebral vascular accident) Social History Smoking Status: Former smoker how long ago did patient quit smokin second hand exposure: Yes alcohol intake: current alcohol intake frequency: a few times a month Alcohol type: beer and wine substance use type: does not use caffeine: Yes Type: coffee Number of servings: 1 HPI lumbar spine Details: This documentation accurately reflects the service provided and the decisions made by me, Dr. Nadir Lam MD 01/21/24 1126. Part of today?s visit was documented by Renate PATTERSON , acting as scribe. DULCE MARIA NARAJNO is a 64 year old F here today for pre-op dos 02/09/2024 Patient is having Anterior Lumbar Fusion L3-4 and L5-S1 revision posterior lumbar fusion L3-4,L4-5 and L5-S1 and removal of previous hardware. Insurance initially denied her surgery but then after an appeal they approved. Pain mostly in R buttock down R leg. She is about 6 months post op C4-7 anterior cervical discectomy and fusion with plate instrumentation DOS 07/28/2023. HPI from 10/27/23: DULCE MARIA NARANJO is a 63 year old F here today for 3 mo post op C4-7 anterior cervical discectomy and fusion with plate instrumentation DOS 07/28/2023. Pt. advises she is doing well. She states her neck does get mildly sore and achy at times. She is experiencing lumbar spine pain. She advises she had a lumbar fusion about 8 years ago but then fell about 2 years ago which has caused her low back pain to flare up. She also fell this past Wednesday which aggravated her low back pain. She states when the pain is bad she has to use her walker for ambulation. she states the pain radiates down her right leg to her knee. Dulce Maria is 3 months out of C4-7 ACDF. She is doing well as far as her neck is close concern. She continues to have low back pain that radiates down her right leg. She recently obtained MRI. She has had low back pain for many years worsened over the last 2-1/2 years. She underwent L4-5 fusion about 8 to 10 years ago. Since then she has always had low back pain which radiates down to the right buttock and thigh. She has tried multiple epidural injections which give her only temporary relief. The last injection was earlier this year. She has also tried physical therapy in the past. She is reliant on leaning on the shopping cart and is unable to walk long distances. Ortho Exam General General: Yes no acute distress Neurologic: Yes alert and Yes oriented x3 Spine SPINE TESTING CERVICAL THORACIC LUMBAR Musculoskeletal Strength 0=absent - 5=normal Details: Lower back shows midline incision scar. Neurologic mention lower extremity shows 5 out of 5 power with normal sensations in all dermatomes. Coding Level of Care Code Off vis,est,level 4 Diagnoses Spinal stenosis of lumbar region with neurogenic claudication M48.062 Fusion of lumbar spine M43.26 Lumbar adjacent segment disease with spondylolisthesis M51.36; M43.16 Time Spent (min) 35 Assessment and Plan Assessment and Plan (1) Spinal stenosis of lumbar region with neurogenic claudication: Status: Acute (2) Fusion of lumbar spine: Status: Acute (3) Lumbar adjacent segment disease with spondylolisthesis: Status: Acute Plan Again reviewed prior imaging with the patient. She has had prior L4-5 posterior instrumented fusion which is stable without any hardware failure. She has developed L3-4 and L5-S1 adjacent segment degeneration. L5-S1 shows grade 1 spondylolisthesis. Both adjacent segments show moderate to severe stenosis especially foraminal. Explained again imaging findings in detail. Recommend L3-4 and L5-S1 anterior posterior fusion, removal previous hardware and reinsertion of L3-S1 posterior instrumentation with fusion. Reviewed the benefits and risks of surgery. Risks of surgery include bleeding, infection, visceral injury, ileus, hardware failure, pseudoarthrosis, adjacent segment degeneration, pneumonia, DVT, pulmonary embolism, atelectasis, gait abnormality, persistent pain, stretch injuries, chance for future surgeries. Patient understands and agrees to proceed with surgery. Explained in detail the procedure of the lumbar fusion. Discussed post surgery restrictions such as no bending, lifting, or twisting. Answered all questions that she had today in preparation for surgery. Consent was signed. Patient is in agreement.
--- NOTE | 2024-03-08 07:36 | RAD_ITS ---
STUDY: X-RAY - LUMBAR SPINE REASON FOR EXAM: Female, 64 years old. PAIN TECHNIQUE: 26 C-arm images from the OR were obtained. 132.3 seconds fluoroscopy time. COMPARISON: None FINDINGS: These images show discectomies and posterior fusion hardware between L3-S1. Correlate with procedure note. Electronically Signed: Jr Diop MD at 21:31 EDT , RAD/Lumbar Spine 2 or 3 Views IMPRESSION: undefined
[2024-03-08] MEDS: Cefazolin 2 GM in Syringe IV ×2 (08:00→19:48)
[2024-03-08] MEDS: Ropivacaine 0.5% 30 ML Vial (14:20)
--- NOTE | 2024-03-08 14:27 | PCM.OPRPT ---
Operative Report (Standard) Operative Information Surgery/Procedure Performed: L3-4, L5-S1, and revision L4-5 oblique lumbar interbody fusion Surgeon: Nadir Lam Date of Procedure: 03/08/24 Procedure Start Time: 08:28 Procedure Stop Time: 14:26 Pre-Operative Diagnosis: L3-4, L5-S1 disc degeneration with stenosis, prior L4-5 fusion Post-Operative Diagnosis: Same Select all DRAINS/GRAFTS/IMPLANTS that apply: Graft Graft details: Allograft cancellous bone chips and Implanted device Implanted device details: DePTiVUS cougar peek cages Type of Anesthesia: General Estimated Blood Loss: 100 cc Specimen collected: No Description of surgery: Preoperative diagnosis: L3-4, L5-S1 disc degeneration, stenosis with neurogenic claudication, prior L4-5 posterior instrumented fusion Postoperative diagnosis: Same Name of procedures L3-4, L5-S1, and revision L4-5 oblique lumbar interbody fusion (OLIF), minimally invasive left sided approach, lateral decubitus: ? L3-4 anterolateral spinal fusion 50466 ? L5-S1 anterolateral fusion 16584/51 ? L4-5 revision anterolateral fusion 30925/51 ? L3-4 insertion of cage 43313 ? L4-5 insertion of cage 41691/51 ? L5-S1 insertion of cage 88718/51 . L4-5 exploration of previous fusion 33502 ? Bone graft aspirate left iliac crest separate incision ? Allograft cancellous chips Attending Surgeon: Dr. Nadir Lam Co-surgeon: Dr. Abelardo Oconnell Estimated blood loss: 100 mL for entire case Anesthesia: General Complications: None Indications: Patient is a 64-year-old pleasant lady who has had a long history of low back pain and right worse than left lower extremity radiation, difficulty walking distances. Xrays & MRI revealed L3-4 and L5-S1 adjacent segment degeneration, stenosis, prior L4-5 posterior instrumented fusion. After undergoing a prolonged period of nonoperative treatment, the patient elected to undergo surgical decompression & fusion. All surgical options were discussed with the patient including anterior and posterior approaches. All risks and benefits associated with the procedure were explained to the patient. The risks include but are not limited to infection, bleeding, injury to nerves and vessels including major vessels like IVC and aorta, persistent paresthesia, persistent pain, dural tear, need for further procedures, adjacent segment degeneration, pseudoarthrosis, hardware failure, retrograde ejaculation, paralytic ileus, etc. Procedure: The patient was identified in the preoperative holding suite using Unique patient identifiers. Skin was marked, consent was reviewed, and all questions were answered. The patient was then brought back to the operative room. A surgical timeout was performed to make sure correct procedure was being done on the correct patient and all operative room staff were on the same page. General endotracheal anesthesia was then given to the patient. Hollis catheter was inserted. The patient was then carefully positioned in right lateral decubitus position with the left side up on a regular OR table. Axillary roll was placed and all bony prominences were well- padded. Hip positioners were placed in the posterior buttocks and anterior sternal area. The surgical area was prepped and draped in usual fashion. Preoperative antibiotic was injected IV as preoperative antibiotic. A final timeout was then again done just before starting the procedure. A 2 inch incision oblique was taken in the left lower quadrant of the abdomen 2 fingerbreadths away from the iliac crest and the lower ribs. Sharp dissection with Bovie was carried out up to the fascia covering the external oblique. The external oblique, internal oblique and transversus abdominis muscles were split along the muscle fibers and retroperitoneal space was entered. Sponge sticks were utilized to move the bowel and peritoneum [id number]-way and psoas muscle was exposed staying within the retroperitoneal plane. OnKure retractor system was positioned and the retractor blade was applied onto the psoas. The interval between psoas and midline structures was developed and appropriate retractors were placed. Once adequate interval was cleared, a disc space was identified and a marker x-ray was taken. This identified the L4-5 disc level. The prepsoas interval was then traced inferiorly. An initial attempt was made to go under the bifurcation to approach the L5-S1 disc, however due to difficult anatomy of left external internal left iliac vein, a decision was made to go lateral to the bifurcation. An iliolumbar vein was identified but this was going towards the L4 body and did not need to be ligated to expose the lateral aspect of the L5-S1. Once adequate exposure of L5-S1 disc was obtained, annulotomy was done with a long handled knife. Pituitary was used to remove disc material. Curettes were used to prepare the endplates. Disc space spreaders were utilized to distract and increase the disc height. Near complete discectomy was performed. Trials of serially increasing sizes were used. A Jamshidi needle was used to aspirate bone marrow from the left anterior iliac crest through a separate incision and this aspirate was mixed with the allograft bone chips. A Depuy Ford cage of size of the 18 x 45 x 14 mm with 15 degrees lordosis was packed with corticocancellous allograft bone chips mixed with bone marrow aspirate. This was inserted into the L5-S1 disc space. The retractors were then repositioned to expose the L3-4 disc and the procedure was repeated with complete discectomy and endplate preparation. Cage size was 18 x 50 x 14 mm at L3-4. Retractors were again repositioned now to expose the L4-5 disc. The L4-5 disc was explored for possible fusion, however there did not appear to be any bony bridging. Annulotomy was done and with complete discectomy and endplate preparation. Smaller disc distractors were also used to bluntly perform a contralateral annulotomy at the L3-4 and L4-5 levels. Cage size of 18 x 40 x 10 mm packed with bone graft was placed at L4-5. AP and lateral C-arm pictures were taken to confirm good position of the cage. Some bone chips were also packed around the cages. Screw with washer was placed into the lower L3 and L5 body with a washer partially covering the cage at L3-4 and L5-S1 respectively. Hemostasis was confirmed. The retractor blades were removed. Closure was done in layers with a continuous strand of # 1 Vicryl in all muscle layers. 2-0 Vicryl was used for subcutaneous tissue and 4-0 for Monocryl for the skin. Steri-Strips were applied and 4 x 4 gauze and Tegaderm were applied. Surgical Findings: See operative note Learning Disabilities Resource Teacher brinell tester: Yes Senior Marketing Data Analyst: Abelardo Oconnell Tasks completed by diploma medical assistant: Opening, Closing, Opening & closing, Dissecting tissue, Removing tissue, Implanting device, Altering tissue, Hemostasis: Clamp, Hemostasis: Tie, Hemostasis: Electrocautery and Retracting Additional assistant federal public defender?: Yes Additional Inspector And Sorter #2: Cathie Vela Tasks completed by assistant federal public defender #2: Closing, Harvesting grafts and Retracting Complications Complications: No Admit VTE Documentation VTE Mechan Device Prophylaxis: SCD's Procedures Musculoskeletal 20xxx-29xxx: Other Procedure See Report
--- NOTE | 2024-03-08 14:42 | PCM.POST.ANE ---
Anesthesia: Postop Eval I Current Vital Signs Temperature: 98 F Pulse Rate: 106 Blood Pressure: 118/73 Respiratory Rate: 20 Pulse Ox: 94 Oxygen Delivery Method: Nasal Cannula Oxygen Flow Rate (L/min): 2 Assessment Airway patent: Yes Spontaneous unlabored respirations: Yes Mental status: Awake and Calm nausea: No Vomiting: No Anesthesia Complication: No Fluid Hydration Crystalloid volume administer (ml): 2,000 Total IV fluid infused: 2,000 Progress Note Anesthesia document: Postop Eval 1 completed: Yes
--- NOTE | 2024-03-08 14:47 | PCM.OPRPT ---
Operative Report (Standard) Operative Information Surgery/Procedure Performed: L3-4, L5-S1, and revision L4-5 oblique lumbar interbody fusion Surgeon: Co-surgeon, Dr. Kourtney Torres Date of Procedure: 03/08/24 Procedure Start Time: 08:30 Procedure Stop Time: 11:30 Pre-Operative Diagnosis: L3-4, L5-S1 disc degeneration with stenosis, prior L4-5 fusion Post-Operative Diagnosis: same Select all DRAINS/GRAFTS/IMPLANTS that apply: Prosthetic device Prosthetic device details: See Dr. Lam's note and Graft Graft details: See Dr. Lam's note Type of Anesthesia: General Estimated Blood Loss: 100 Specimen collected: No Description of surgery: HPI: Patient is a 64-year-old female with multilevel degenerative disc disease of the lumbar spine evaluated by Dr. Lam and felt to be appropriate for oblique lumbar interbody fusion. Given the levels involved vascular surgery is requested for exposure with mobilization protection of the abdominal pelvic vasculature. Description of procedure: Upon obtaining form consent and verification correct patient procedure site she was taken to the operating she was placed under general anesthesia. She was then positioned prepped and draped in usual sterile fashion a time was performed. Oblique incision was made 2 fingerbreadths superior to the iliac crest and Bovie left cautery was dissect down through subcutaneous tissue to the level the fascia. The fascia was then incised with Metzenbaum scissors parallel to the fibers of the musculature and the muscles of the abdominal wall split parallel to the fibers with retractors moved deeper into the wound. After the transversalis fascia was incised blunt dissection was utilized to mobilize the retroperitoneal structures away from the posterior aspect the abdominal wall until the psoas muscle was visualized. Syn frame self-retaining retractor was then put into position and combination of blunt and Bovie dissection utilized to mobilize the psoas muscle and the remaining retroperitoneal structures from the lateral aspect of the spine. The L4-L5 disc space was then marked and dissection carried distally down to the iliac vessels. We then mobilized the vessels along the medial aspect retracting them laterally and exposing the lateral anterior surface of the L5-S1 disc space and the vertebral bodies. Given the angulation of the space the internal iliac vein was directly overlying the anticipated operative position despite efforts to fully mobilized the vein this we were unable to obtain adequate visualization of the L5-S1 disc. We then shifted our dissection to lateral to the vessels and retracted them in anteromedially exposing the lateral aspect of the L5-S1 disc space with satisfactory visualization. 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 With satisfactory visualization of the space Dr. Lam then performed the discectomy and implant placement which he will describe separately in further detail. After this was completed we then turned our attention to the L3-L4 disc space which was dissected free with blunt and Bovie dissection until satisfactory visualization of the disc space was obtained. Again discectomy and implant placement will be described separately Dr. Lam's dictation. Finally the L4-L5 disc was exposed and discectomy and implant performed. After these were completed the retroperitoneum was inspected and satisfactory hemostasis noted. Self-retaining retractors then withdrawn along the intra-abdominal contents to return to their kalispel position. The superficial wound was then irrigated copiously with saline and the muscle layers closed with running Vicryl. After the abdominal wall closure was completed the skin incision was closed and sterile dressing applied. At this point patient was repositioned for posterior approach dictated separately by Dr. Lam Surgical Findings: See Dr. Lam's dictation Security Assurance Specialist leather novelty parts cutter: No Complications Complications: No
--- NOTE | 2024-03-08 14:50 | OP.PCM_ITS ---
Operative Report (Standard) Operative Information Surgery/Procedure Performed: L3-S1 revision posterior instrumented fusion Surgeon: Nadir Lam Date of Procedure: 03/08/24 Procedure Start Time: 08:28 Procedure Stop Time: 14:26 Pre-Operative Diagnosis: L3-4, L5-S1 disc degeneration, stenosis, prior L4-5 posterior instrumented fusion Post-Operative Diagnosis: Same Select all DRAINS/GRAFTS/IMPLANTS that apply: Graft Graft details: Allograft cancellous bone chips and Implanted device Implanted device details: DePuy Viper prime pedicle screw system Type of Anesthesia: General Estimated Blood Loss: 100 cc Specimen collected: No Description of surgery: Preoperative diagnosis: L3-4, L5-S1 disc degeneration, stenosis, neurogenic claudication, prior L4-5 posterior instrumented fusion Postoperative diagnosis: Same Name of procedures: L3-S1 revision posterior percutaneous pedicle screw instrumented fusion, prone: ? L3-4 posterior spinal fusion 67003 ? L3-S1 posterior pedicle screw instrumentation 29595 ? L5-S1 posterior fusion 82986/51 . L4-5 revision posterior fusion 99903/51 -L4-5 posterior removal of instrumentation 69745 -L4-5 posterior exploration of fusion 43524 ? Allograft cancellous chips [id number] Attending Surgeon: Dr. Nadir Lam Estimated blood loss: 100 mL (total for entire case) Anesthesia: General Complications: None Description of procedure: After the anterior procedure was complete, the patient was then turned supine. The patient was then transferred to Angel Luis table in prone position. Back was prepped and draped in usual fashion. C-arm AP view was then taken. C-arm was positioned in a way that L3 was centralized and superior endplate of was parallel to the beam. Spinous process was centered between the pedicles. Midline was marked with skin marker and lateral borders of the pedicles were also marked. Skin marker was also utilized to nga transversely across the middle of the pedicles at L3. 2 transverse paramedian incisions of 1 inch were placed. The fascia was incised vertically. Finger dissection was utilized to palpate the transverse process and facet joint. Viper Prime screws with towers were inserted and docked onto the transverse processes. This was then slowly moved medially to reach the superior articular process of L3. This was then confirmed on C-arm and then a mallet was utilized to drive the trocar into the pedicle going up to the medial wall of the pedicle on AP view. This was performed both sides. C-arm lateral view confirmed that the tip of the trocar was in the vertebral body, and the screw was advanced into the pedicle and vertebral body. Screw sizes were 7 x 50 mm at L3 on both sides. A paramedian vertical incision was then taken for about 1 inch. Vertical fascial incision was placed. Finger dissection was utilized to palpate the previous L4-5 instrumentation. Campbell retractor was utilized to expose the previous L4-5 instrumentation. Setscrews were removed, prem was pulled out, and previous screws were removed using the [employer] removal system. Previous posterior L4-5 facet fusion was explored, and was felt to be incomplete. Left L5 screw was mildly loose when removed. Bilateral L4 pedicle screws were not reinserted, and only bilateral L5 screws were reinserted with a larger diameter. Screw sizes were 7 x 45 mm at L5 on both sides. Using the earlier method S1 pedicle screws were placed bilaterally with size 7 x 45 bilaterally. 100 mm precontoured titanium 5.5 mm lordotic prem on both sides were then passed through the screw extensions and reduced down to the screws with the help of Unique Propertyer instrumentation system on both sides. AP and lateral view of the C-arm showed good positioning of the screws and cages. Final tightening with the torque screwdriver was then completed. Ada was utilized to roughen the facet joint at L3-4, L4-5, and L5-S1 on the right side. Cancellous allograft bone chips mixed with bone marrow aspirate were then placed over this decorticated area. Hemostasis was achieved. Closure was done in layers with 0 Vicryls for the fascia, 2-0 Vicryls for the subcutaneous tissue, and Monocryl for the skin. Dermabond was applied. Dressings were applied covered with Tegaderm. The patient was then turned supine onto a hospital bed. The patient was extubated and taken to PACU in stable condition. The patient tolerated the procedure well and no complications occurred. Depuy [place] cage & Viper Prime minimally invasive pedicle screw instrumentation system was utilized in this case. No dural tear was identified intraoperatively. I was present for the entirety of the case and performed the surgery. Surgical Findings: See operative note Roofer Assistant reading teacher: Yes Public Opinion Survey Taker: Cathie Vela Tasks completed by records management assistant: Closing, Removing tissue, Implanting device and Retracting Complications Complications: No Admit VTE Documentation VTE Mechan Device Prophylaxis: SCD's Procedures Musculoskeletal 20xxx-29xxx: Other Procedure See Report
--- NOTE | 2024-03-08 15:36 | POSTOPAN2_ITS ---
Anesthesia Postop Eval I Sum Postop Eval Completion status Anesthesia document: Postop Eval 1 completed: Yes Anesthesia Postop Eval I Summary Anesthesia Postop Eval I Summary: Anesthesia Postop Eval I: Assessment Summary Airway patent Yes 03/08/24 14:44 [email or web address] Spontaneous unlabored Yes 03/08/24 14:44 [email or web address] [email or web address] respirations Mental status Awake,Calm 03/08/24 14:44 [email or web address] nausea No 03/08/24 14:44 [email or web address] Vomiting No 03/08/24 14:44 [email or web address] Anesthesia Postop Eval I: Fluid Summary Crystalloid volume administer 2,000 03/08/24 14:44 [email or web address] (ml) Colloids volume administered ( ml) Blood Product volume administered (ml) Total IV fluid infused 2,000 03/08/24 14:44 [email or web address] Anesthesia Postop Eval I: Summary Notes Anesthesia Complication No 03/08/24 14:44 [email or web address] Anesthesia Complication Comment: Post-operative progress note Anesthesia: Postop Eval II Evaluation Mental status: Awake Pain Level: 0 nausea: No Vomiting: No
--- NOTE | 2024-03-08 15:36 | PCM.POSTANE2 ---
Anesthesia Postop Eval I Sum Postop Eval Completion status Anesthesia document: Postop Eval 1 completed: Yes Anesthesia Postop Eval I Summary Anesthesia Postop Eval I Summary: Anesthesia Postop Eval I: Assessment Summary Airway patent Yes 03/08/24 14:44 [email or web address] Spontaneous unlabored Yes 03/08/24 14:44 SOLDERER [email or web address] respirations Mental status Awake,Calm 03/08/24 14:44 [email or web address] nausea No 03/08/24 14:44 SOLDERER [email or web address] Vomiting No 03/08/24 14:44 [email or web address] Anesthesia Postop Eval I: Fluid Summary Crystalloid volume administer 2,000 03/08/24 14:44 [email or web address] (ml) Colloids volume administered ( ml) Blood Product volume administered (ml) Total IV fluid infused 2,000 03/08/24 14:44 SOLDERER [email or web address] Anesthesia Postop Eval I: Summary Notes Anesthesia Complication No 03/08/24 14:44 SOLDERER [email or web address] Anesthesia Complication Comment: Post-operative progress note Anesthesia: Postop Eval II Evaluation Mental status: Awake Pain Level: 0 nausea: No Vomiting: No
[2024-03-08] MEDS: 0.9% Saline Lock 10 ML Syringe IV ×2 (17:05→19:47)
[2024-03-08] MEDS: Ketorolac 15 MG/ML Vial IV (17:05)
[2024-03-08 17:31] LABS: Bedside Glucose 152 mg/dL (74-106)
--- NOTE | 2024-03-08 17:31 | PCM.PN.HOSP ---
Reason for Visit Reason for Visit: Diagnoses Encounter for other preprocedural examination (03/08/24) Subjective Subjective Consult requested by Dr. Roberto for postoperative medical management Patient states that she hurts all over. Objective Data Objective Data Vital Signs: Vital Signs Temp Pulse Resp BP Pulse Ox O2 Del Method O2 Flow Rate 36.6 C 84 18 84/62 L 97 Nasal Cannula 5 03/08/24 15:50 03/08/24 16:15 03/08/24 16:15 03/08/24 16:15 03/08/24 16:15 03/08/24 16:15 03/08/24 16:15 Oxygen Flow Rate (L/min) 5 Oxygen Delivery Method Nasal Cannula Weight: 86 kg Body Mass Index (BMI) 31.5 Intake & Output: Intake and Output for Last 24 Hours 03/06/24 03/07/24 03/08/24 23:59 23:59 23:59 Intake Total 124 / 124 Output Total 200 / 200 Balance -76 / -76 Lab / Micro Data Labs: Laboratory Results - last 24 hr 03/08/24 06:08: POC Glucose 144 H Physical Exam Const Constitutional Narrative: . Slightly uncomfortable. Alert. Nontoxic. HEENT head/scalp atraumatic and moist oral mucous membranes Resp normal respiratory effort, no retractions, no use of accessory muscles and clear to auscultation bilaterally Cardio regular rate, regular rhythm, S1 normal heart sound and S2 normal heart sound GI normal to inspection, nondistended, normoactive bowel sounds, soft to palpation, non-tender and non-distended Extremity General Extremity: Negative for edema Neuro Sensorium / Orientation: awake and alert Assessment & Plan Assessment/Plan (1) Lumbar adjacent segment disease with spondylolisthesis: PLAN: Plan CAD: Resume aspirin when okay with spine surgery. Continue with isosorbide, lisinopril, atorvastatin, metoprolol succinate Diabetes mellitus type 2: Continue with metformin. Will change sliding scale from every 4 hours as needed to with meals Status post L3-S1 revision of posterior instrumented fusion. Management per spine surgery VTE prophylaxis: Management per spine surgery. Thank for the consult. The hospital service will follow along as medically necessary. Charges/Coding Visit Charges Inpatient E&M: 09541 Subs Hosp L2
[2024-03-08] MEDS: Ipratropium 0.5 MG/2.5 ML SOLUTION INHALATION (19:20)
[2024-03-08] MEDS: Ondansetron 4 MG/2 ML Vial IV (19:47)
[2024-03-08] MEDS: Glycerin/Hypromellose/PEG400 15 ml Bottle 1 DRP EACH EYE (20:38)
[2024-03-08] MEDS: Montelukast 10 MG Tablet PO (22:07)
[2024-03-08] MEDS: Senna/Docusate Sodium 1 Tablet 2 TABLET PO (22:07)
[2024-03-08] MEDS: Atorvastatin Calcium 40 MG Tablet PO (22:08)
[2024-03-08] MEDS: Donepezil HCl 10 MG Tablet PO (22:08)
[2024-03-09] VITALS (13 sets, daily range): BP systolic 96–135; BP diastolic 61–88; PULSE 70–91; RESP 16–18; TEMP 36.3–36.9; O2SAT 94–100
[2024-03-09] MEDS: Glycerin/Hypromellose/PEG400 15 ml Bottle 1 DRP EACH EYE ×2 (00:10→04:51)
[2024-03-09] MEDS: Ketorolac 15 MG/ML Vial IV ×2 (00:11→04:51)
[2024-03-09] MEDS: Methocarbamol 500 MG Tablet 1000 MG PO ×4 (00:11→17:34)
[2024-03-09] MEDS: 0.9% Saline Lock 10 ML Syringe IV ×3 (00:13→04:51)
[2024-03-09] MEDS: Morphine 2 MG/ML Syringe IV (00:29)
[2024-03-09] MEDS: proCHLORPERazine 10 MG/2 ML Vial 5 MG IV (01:05)
[2024-03-09] MEDS: Cefazolin 2 GM in Syringe IV (04:50)
[2024-03-09] MEDS: Acetaminophen 500 MG Tablet 1000 MG PO ×3 (04:50→20:30)
[2024-03-09] MEDS: Levothyroxine 75 MCG Tablet PO (04:51)
[2024-03-09] MEDS: oxyCODONE 5 MG Tablet PO (05:11)
[2024-03-09 06:23] LABS: Hematocrit 32.1 % (37-47); Hemoglobin 10.7 g/dL (12.0-15.0); Mean Corp Hgb Conc 33.3 g/dL (32-36); Mean Corpuscular Hgb 32.4 pg (27.0-32.0); Mean Corpuscular Volume 97.3 fL (81-99); Mean Platelet Vol. 8.8 fl (6.2-12.0); Platelet Count 273 K/mm3 (150-450); RBC Distribution Width CV 12.7 % (11.6-14.6); RBC Distribution Width SD 45.3 fl (35.1-43.9); White Blood Count 8.8 K/mm3 (4.4-11.0)
[2024-03-09 06:40] LABS: Bedside Glucose 128 mg/dL (74-106)
[2024-03-09 06:51] LABS: Anion Gap 8 (5-15); BUN 10 mg/dL (7-18); Calcium,Total 8.4 mg/dL (8.5-10.1); Chloride 91 mmol/L (98-107); EST Glomerular Filtration Rate 59 mL/min (>60); Est Glom Filt Rate - Afr Amer 72 mL/min (>60); Estimated Creatinine Clearance 60.74 ml/min; Glucose 122 mg/dL (74-106); Potassium 4.6 mmol/L (3.5-5.1); Sodium Level 126 mmol/L (136-145)
--- NOTE | 2024-03-09 07:00 | RAD_ITS ---
INDICATION: s/p lumbar fusion EXAMINATION/TECHNIQUE: X-RAY - XR Spine Lumbar 2 or 3 Views COMPARISON: Prior study dated: 10/27/2023 FINDINGS: VERTEBRAE: Posterior fusion from L3 to S1. This bridges L4. Disc spacers at all 3 levels. There are also separate lateral screws in place at L3 and L5. Preserved vertebral body height. No fracture. No spondylolisthesis. Preservation of the normal lumbar lordosis. No significant facet arthropathy. DISCS: Disc space narrowing at the upper lumbar spine. Small endplate osteophytes. INCLUDED ABDOMEN: Included bowel gas pattern is non-obstructive. RAD/Lumbar Spine 2 or 3 Views IMPRESSION: Extension of lumbar fusion hardware, now L3-S1. Disc spacers in place. Appropriate alignment. Electronically Signed: Dre Redd MD at 6:53 EDT ,
[2024-03-09] MEDS: Ipratropium 0.5 MG/2.5 ML SOLUTION INHALATION ×3 (07:45→19:26)
[2024-03-09] MEDS: Isosorbide Mononitrate 30 MG Tablet PO (09:03)
[2024-03-09] MEDS: Loratadine 10 MG Tablet PO (09:03)
[2024-03-09] MEDS: Escitalopram Oxalate 10 MG Tablet PO (09:03)
[2024-03-09] MEDS: Tolterodine Tartrate 2 MG CAP.SA PO (09:03)
[2024-03-09] MEDS: Senna/Docusate Sodium 1 Tablet 2 TABLET PO ×2 (09:03→20:30)
[2024-03-09] MEDS: metFORMIN (XR) 500 MG Tablet PO ×2 (09:03→17:34)
[2024-03-09] MEDS: Meloxicam 15 MG Tablet PO (09:04)
[2024-03-09] MEDS: 0.9% Normal Saline (1000mL) 1,000 ML 999 ML IV (09:55)
[2024-03-09 10:26] LABS: Bedside Glucose 142 mg/dL (74-106)
--- NOTE | 2024-03-09 11:16 | EKG12_ITS ---
Test Reason : syncope Blood Pressure : */* mmHG Vent. Rate : 70 BPM Atrial Rate : 70 BPM P-R Int : 182 ms QRS Dur : 74 ms QT Int : 422 ms P-R-T Axes : 44 2 20 degrees QTcB Int : 455 ms Normal sinus rhythm Normal ECG When compared with ECG of 31-Jan-2024 09:06, No significant change was found Confirmed by AGUSTIN TITUS, SUSANA ([id number]), medical editor JEANNE GARCIA ([id number]) on 03/10/2024 11:15:42 AM Referred By: Nadir Lam Confirmed By: SUSANA VELEZ MD
[2024-03-09] MEDS: Bisacodyl 5 MG Tablet 10 MG PO ×2 (12:12→19:11)
--- NOTE | 2024-03-09 12:46 | PN.ORTHO_ITS ---
Subjective Subjective Seen with Dr. Lam. Patient is POD #1 lumbar fusion and revision. Her pain has been well-managed. She has attempted to walk with physical therapy however she could only do 2 steps before needing to sit down due to dizziness. They have not been back to see her. She has not been able to void since surgery. They did a straight catheterization this morning. No flatus. She is wearing 3 L of oxygen and has been well-maintained today. Her plan is to discharge home when appropriate with her sister and a [id number] helping to take care of her. Objective Data Objective Data Vital Signs: Vital Signs Temp Pulse Resp BP Pulse Ox O2 Del Method O2 Flow Rate 98.3 F 80 18 100/61 98 Nasal Cannula 3 03/09/24 11:00 03/09/24 11:00 03/09/24 11:00 03/09/24 11:00 03/09/24 11:00 03/09/24 11:00 03/09/24 11:00 Oxygen Flow Rate (L/min) 3 Oxygen Delivery Method Nasal Cannula Weight: 189 lb 9.561 oz Body Mass Index (BMI) 31.5 Intake & Output: Intake and Output for Last 24 Hours 03/07/24 03/08/24 03/09/24 23:59 23:59 23:59 Intake Total 361.75 / 361.75 1020 / 1020 Output Total 200 / 200 400 / 400 Balance 161.75 / 161.75 620 / 620 Lab / Micro Data 03/09/24 06:08 03/09/24 06:08 Labs: Laboratory Results - last 24 hr 03/08/24 17:04: POC Glucose 152 H 03/09/24 06:08: WBC 8.8, RBC 3.30 L, Hgb 10.7 L, Hct 32.1 L, MCV 97.3, MCH 32.4 H, MCHC 33.3, RDW Std Deviation 45.3 H, RDW Coeff of Claude 12.7, Plt Count 273, MPV 8.8, Sodium 126 L, Potassium 4.6, Chloride 91 L, Carbon Dioxide 27.0, Anion Gap 8, BUN 10, Creatinine 1.00, Estim Creat Clear Calc 60.74, Est GFR (MDRD) Af Amer 72, Est GFR (MDRD) Non-Af 59 L, BUN/Creatinine Ratio 10.0, Glucose 122 H, C alcium 8.4 L 03/09/24 06:12: POC Glucose 128 H 03/09/24 09:51: POC Glucose 142 H Radiography Diagnostic Testing: Radiology Impression Lumbar Spine X-Ray 03/09/24 07:00 IMPRESSION: Extension of lumbar fusion hardware, now L3-S1. Disc spacers in place. Appropriate alignment. Electronically Signed: Dre Redd MD at 6:53 EDT , Physical Exam Narrative Physical examination shows surgical incisions covered by gauze and Tegaderm. Neurological exam of the lower extremity shows 5X5 power. Normal sensation across all dermatomes. Assessment & Plan Assessment/Plan (1) Status post lumbar spinal fusion: PLAN: Plan Postop day 1 lumbar fusion and revision. Encouraged her to continue to walk with physical therapy and to sit edge of bed or in the chair. Said that she gets dizzy when she moves, this is most likely related to her medications that she is on for pain and that she has not eaten a lot. Last hemoglobin was 10.7. Also encouraged her to continue to use the incentive spirometer while in bed. Spoke with her nurse who will also attempt to continue to get her up to the bedside commode in order to attempt voiding. Obtained x-rays today which look good. When she is cleared by physical therapy and has passed flatus and tolerated a solid meal then she can be discharged home. No bending lifting or twisting. She will follow-up in the clinic in 2 weeks. Patient is in agreement.
--- NOTE | 2024-03-09 12:56 | CASEMGMT ---
VIN BRAUN Assessment Face to Face with patient for initial transition planning/care coordination assessment. RN KADE introduced self and role at [facility], pt voices understanding. Pt is A&Ox4 and is resting comfortably in bed and is calm. Care providers, pharmacy, and demographics verified. Admitting dx: Lumbar Fusion L3-4 LACE Strata: 2 PCP: Suellen Lomax Specialists: Dr. Lam (Ortho), Mike Guaman (Pulm), [facility], [facility], [facility] Preferred Pharmacy: [facility] Insurance: JANEL MCR DUAL ADV, MELISSA/[employer] Prescription Benefit: Yes LNOK: Jeff Albert (Sister), Gerald Friend (Ex-BF) Living Arrangements: Pt lives alone in a 2 story home with a FFSU and 2 steps to enter with a handrail ADLs/IADLs: Pt currently requires assistance. Pt states that her DIL is able to help some but states she is not in good health either. Pt states that her Ex-boyfriend also provides assistance Transportation: Self, Ex-BF, Sister DME: Home oxygen through [employer]. Pt states that she wears 2.5L continuous. Pt has a concentrator, portable tanks, and a pulse ox. Pt does not have a portable tank here at [facility] but states that someone can bring one in for her if she were to DC home. Pt has a BGM with sufficient supplies. Hospital bed. Rollator. Cane. Grab bars. HHC/SNF: Denies history Pt?s goal: Return to PLOF Plan: Anticipate Home with HH vs SNF. Pt states that she prefers to go home with HH but would be willing to go to a SNF if warranted. Pt denies wanting to review a list of local in-network HH companies and states that she would like to go through [facility] HH. CM to follow and make referral once appropriate. See PT evaluation. CM and SW to continue to follow pt progression in the hospital to decipher the safest DC plan moving forward. Report given to MS3 VIN BRAUN and MAGDALENA. Alberta Quintanilla RN, CM
--- NOTE | 2024-03-09 13:00 | CASEMGMT ---
VIN BRAUN informed [facility] CM would like a phone call with updates and to receive fax of discharge paperwork and medications at time of discharge. Called and left message with VIN BRAUN at [facility], will fax DC information when pt is discharged.
--- NOTE | 2024-03-09 15:26 | PCM.PROGNOTE ---
Subjective Subjective Patient seen and examined. She was working with therapy and became lightheaded. She admitted to the lightheadedness, but denied any dizziness, headache, chest pain, nausea, vomiting or any other symptoms. She is POD1 for L3-S1 revision of posterior instumented fusion. Objective Data Objective Data Vital Signs: Vital Signs Temp Pulse Resp BP Pulse Ox O2 Del Method O2 Flow Rate 98.3 F 74 18 100/61 98 Nasal Cannula 3 03/09/24 11:00 03/09/24 13:19 03/09/24 13:19 03/09/24 11:00 03/09/24 11:00 03/09/24 11:00 03/09/24 11:00 Oxygen Flow Rate (L/min) 3 Oxygen Delivery Method Nasal Cannula Weight: 189 lb 9.561 oz Body Mass Index (BMI) 31.5 Intake & Output: Intake and Output for Last 24 Hours 03/07/24 03/08/24 03/09/24 23:59 23:59 23:59 Intake Total 361.75 / 361.75 1020 / 1020 Output Total 200 / 200 750 / 750 Balance 161.75 / 161.75 270 / 270 Lab / Micro Data 03/09/24 06:08 03/09/24 06:08 Labs: Laboratory Results - last 24 hr 03/08/24 17:04: POC Glucose 152 H 03/09/24 06:08: WBC 8.8, RBC 3.30 L, Hgb 10.7 L, Hct 32.1 L, MCV 97.3, MCH 32.4 H, MCHC 33.3, RDW Std Deviation 45.3 H, RDW Coeff of Claude 12.7, Plt Count 273, MPV 8.8, Sodium 126 L, Potassium 4.6, Chloride 91 L, Carbon Dioxide 27.0, Anion Gap 8, BUN 10, Creatinine 1.00, Estim Creat Clear Calc 60.74, Est GFR (MDRD) Af Amer 72, Est GFR (MDRD) Non-Af 59 L, BUN/Creatinine Ratio 10.0, Glucose 122 H, Calcium 8.4 L 03/09/24 06:12: POC Glucose 128 H 03/09/24 09:51: POC Glucose 142 H Radiography Diagnostic Testing: Radiology Impression Lumbar Spine X-Ray 03/09/24 07:00 IMPRESSION: Extension of lumbar fusion hardware, now L3-S1. Disc spacers in place. Appropriate alignment. Electronically Signed: Dre Redd MD at 6:53 EDT , Physical Exam Const alert and oriented x3 Constitutional Narrative: obese, lying in bed with a towel on her forehead. Frail General Appearance: cooperative Orientation / Consciousness: lethargic HEENT normocephalic and head/scalp atraumatic Mouth: dry mucous membranes Neck no lymphadenopathy and supple Lymph Lymphatic: no lymphadenopathy noted and no lymphedema noted Resp Resp Narrative: mildly diminished breath sounds bibasally, no wheezes or crackles. Cardio regular rate, regular rhythm, S1 normal heart sound, S2 normal heart sound and no murmurs GI normal to inspection, nondistended, normoactive bowel sounds, soft to palpation and non-tender GI Narrative: obese Extremity no clubbing, cyanosis or edema and no calf tenderness General Extremity: no tenderness to palpation of joints or extremities Skin Skin Narrative: intact dressing over surgical site on lower back Neuro CN's II-XII intact bilaterally, no focal motor deficits, no sensory deficits noted and deep tendon reflexes 2+ bilaterally Motor Exam: strength 5/5 throughout and general weakness Psych thought process normal and cooperative Appearance: appropriate Assessment & Plan Assessment/Plan (1) Status post lumbar spinal fusion: PLAN: Plan #Lightheadedness and dizziness Patient felt lightheaded and dizzy today when she got up to work with therapy BP whcn checked was in the 100s systolic Vitals were otherwise stable and EKG done normal sinus rhythm with no acute ST changes. Blood sugar was also within normal limits Hydrate with IV fluid normal saline. Check orthostatics. Hold BP meds. PT OT on board. Fall precautions. #Lumbar spinal stenosis s/p revision of L3-S1 posterior instrumented fusion Management as per spine surgery today is POD 1 PT/OT on board. Incentive spirometry fall precautions #Type 2 diabetes mellitus: On metformin. ISS. Accuchecks ACHS #Hypothyroidism: On Synthroid DVT prophylaxis; SCDs. No anticoagulation due to spine surgery Thank you for the consult. The hospitalist service will continue to follow with you. Charges/Coding Visit Charges Inpatient E&M: 56000 Subs Hosp L2
[2024-03-09 16:19] LABS: Bedside Glucose 96 mg/dL (74-106)
[2024-03-09] MEDS: Montelukast 10 MG Tablet PO (20:30)
[2024-03-09] MEDS: Donepezil HCl 10 MG Tablet PO (20:30)
[2024-03-09] MEDS: Atorvastatin Calcium 40 MG Tablet PO (20:30)
[2024-03-10] MEDS: Methocarbamol 500 MG Tablet 1000 MG PO ×5 (00:18→23:42)
[2024-03-10] MEDS: Levothyroxine 75 MCG Tablet PO (04:56)
[2024-03-10] MEDS: Acetaminophen 500 MG Tablet 1000 MG PO ×3 (04:56→20:25)
[2024-03-10 05:03] VITALS: BP 116/64; PULSE 76; RESP 16; TEMP 36.5; O2SAT 100
[2024-03-10 06:39] LABS: Bedside Glucose 99 mg/dL (74-106)
[2024-03-10 06:40] LABS: Anion Gap 6 (5-15); BUN 10 mg/dL (7-18); BUN/Creat Ratio 13.1 RATIO (10-20); Calcium,Total 8.1 mg/dL (8.5-10.1); Chloride 92 mmol/L (98-107); Creatinine, Serum 0.76 mg/dL (0.55-1.02); EST Glomerular Filtration Rate 81 mL/min (>60); Est Glom Filt Rate - Afr Amer 98 mL/min (>60); Estimated Creatinine Clearance 75.92 ml/min; Glucose 88 mg/dL (74-106); Potassium 4.2 mmol/L (3.5-5.1); Sodium Level 124 mmol/L (136-145)
[2024-03-10 06:41] LABS: Absolute Lymphocyte Count 2.14 X10^3/uL (0.83-4.51); Absolute Neutrophil Count 6.2 X10^3/uL (2.0-7.7); Basophil# 0.03 X10^3/uL; Basophil% 0.3 % (0-1); Hemoglobin 9.2 g/dL (12.0-15.0); Lymphocyte # 2.14 X10^3/ul (0.83-4.51); Lymphocyte % 22.7 % (19-41); Mean Corp Hgb Conc 32.9 g/dL (32-36); Mean Corpuscular Hgb 32.1 pg (27.0-32.0); Mean Corpuscular Volume 97.6 fL (81-99); Mean Platelet Vol. 9.1 fl (6.2-12.0); Monocyte# 1.05 X10^3/uL; Monocyte% 11.1 % (0-10); NRBC Flagged by Analyzer 0 % (0-5); Neutrophil # 6.18 X10^3/uL (2.7-7.7); Neutrophil % 65.5 % (47-70); Platelet Count 199 K/mm3 (150-450); RBC Distribution Width CV 12.5 % (11.6-14.6); RBC Distribution Width SD 45.1 fl (35.1-43.9); Red Blood Count 2.87 M/mm3 (4.2-5.4); White Blood Count 9.4 K/mm3 (4.4-11.0)
[2024-03-10] MEDS: Isosorbide Mononitrate 30 MG Tablet PO (08:19)
[2024-03-10] MEDS: metFORMIN (XR) 500 MG Tablet PO ×2 (08:19→16:53)
[2024-03-10] MEDS: Escitalopram Oxalate 10 MG Tablet PO (08:20)
[2024-03-10] MEDS: Senna/Docusate Sodium 1 Tablet 2 TABLET PO ×2 (08:20→20:25)
[2024-03-10] MEDS: Meloxicam 15 MG Tablet PO (08:20)
[2024-03-10] MEDS: Tolterodine Tartrate 2 MG CAP.SA PO (08:21)
[2024-03-10] MEDS: Loratadine 10 MG Tablet PO (08:21)
[2024-03-10 09:01] VITALS: BP 113/67; PULSE 74; RESP 18; TEMP 36.4; O2SAT 98
[2024-03-10 09:02] VITALS: RESP 18
--- NOTE | 2024-03-10 10:08 | CASEMGMT ---
VIN BRAUN into pt room to discuss DC plan. Pt would like to go home with [facility]. Pt states DIL will be staying with her a couple days when DC home. Pt states has additional family able to assist as well. Pt would like [facility], denies wanting list of local [place] agencies covered by insurance. Denies additional questions or concerns at this time. VIN BRAUN called [facility] for referral, waiting to hear if able to accept.
--- NOTE | 2024-03-10 10:18 | PN_ITS ---
Subjective Subjective Patient seen and examined. She had no active complaints and felt much better. She had an uneventful night. Review of systems is otherwise negative. Sodium is 124 this morning. Pain is much better controlled. Objective Data Objective Data Vital Signs: Vital Signs Temp Pulse Resp BP Pulse Ox O2 Del Method O2 Flow Rate 97.5 F L 74 18 113/67 98 Room Air 3 03/10/24 09:01 03/10/24 09:01 03/10/24 09:02 03/10/24 09:01 03/10/24 09:01 03/10/24 09:02 03/10/24 07:28 Oxygen Flow Rate (L/min) 3 Oxygen Delivery Method Room Air Weight: 189 lb 9.561 oz Body Mass Index (BMI) 31.5 Intake & Output: Intake and Output for Last 24 Hours 03/08/24 03/09/24 03/10/24 23:59 23:59 23:59 Intake Total 361.75 / 361.75 1020 / 1020 Output Total 200 / 200 750 / 750 200 / 200 Balance 161.75 / 161.75 270 / 270 -200 / -200 Lab / Micro Data 03/10/24 05:10 03/10/24 05:10 Labs: Laboratory Results - last 24 hr 03/09/24 09:51: POC Glucose 142 H 03/09/24 16:01: POC Glucose 96 03/10/24 05:10: WBC 9.4, RBC 2.87 L, Hgb 9.2 L, Hct 28.0 L, MCV 97.6, MCH 32.1 H , MCHC 32.9, RDW Std Deviation 45.1 H, RDW Coeff of Claude 12.5, Plt Count 199, MPV 9.1, Immature Gran % (Auto) 0.400, Neut % (Auto) 65.5, Lymph % (Auto) 22.7, [place] % (Auto) 11.1 H, Eos % (Auto) 0.0, Baso % (Auto) 0.3, Absolute Neuts (auto) 6.2, Absolute Lymphs (auto) 2.14, Nucleated RBC % 0, Sodium 124 L, Potassium 4.2, C hloride 92 L, Carbon Dioxide 27.0, Anion Gap 6, BUN 10, Creatinine 0.76, Estim Creat Clear Calc 75.92, Est GFR (MDRD) Af Amer 98, Est GFR (MDRD) Non-Af 81, BUN/Creatinine Ratio 13.1, Glucose 88, Calcium 8.1 L 03/10/24 06:19: POC Glucose 99 Radiography Diagnostic Testing: Radiology Impression Lumbar Spine X-Ray 03/08/24 07:36 IMPRESSION: undefined Physical Exam Const alert and oriented x3 Constitutional Narrative: obese, lying in bed with a towel on her forehead. Frail General Appearance: cooperative HEENT normocephalic, head/scalp atraumatic and moist oral mucous membranes Neck no lymphadenopathy and supple Lymph Lymphatic: no lymphadenopathy noted and no lymphedema noted Resp normal respiratory effort, no retractions, no use of accessory muscles and clear to auscultation bilaterally Resp Narrative: mildly diminished breath sounds bibasally, no wheezes or crackles. Cardio regular rate, regular rhythm, S1 normal heart sound, S2 normal heart sound and no murmurs GI normal to inspection, nondistended, normoactive bowel sounds, soft to palpation, non-tender and non-distended GI Narrative: obese Extremity no clubbing, cyanosis or edema and no calf tenderness General Extremity: no tenderness to palpation of joints or extremities; Negative for edema Skin Skin Narrative: intact dressing over surgical site on lower back Neuro CN's II-XII intact bilaterally, no focal motor deficits, no sensory deficits noted and deep tendon reflexes 2+ bilaterally Sensorium / Orientation: awake and alert Motor Exam: strength 5/5 throughout and general weakness Psych thought process normal and cooperative Appearance: appropriate Assessment & Plan Assessment/Plan (1) Status post lumbar spinal fusion: PLAN: Plan #Lightheadedness and dizziness * resolved. Patient feels much better today. * PT/OT on board * fall precautions * #Hyponatremia * Sodium is 124 today. Patient does have chronic hyponatremia going back to April 2022. Sodium is however usually around 130. Is 124 today. * Hydrate gently with IV fluids. Check urine electrolytes as well as urine and serum osmolality * Trend sodium. * #Lumbar spinal stenosis s/p revision of L3-S1 posterior instrumented fusion * Management as per spine surgery * today is POD 2 * PT/OT on board. * Incentive spirometry * fall precautions * #Type 2 diabetes mellitus: On metformin. ISS. Accuchecks ACHS #Hypothyroidism: On Synthroid DVT prophylaxis; SCDs. No anticoagulation due to spine surgery Thank you for the consult. The hospitalist service will continue to follow with you. Charges/Coding Visit Charges Inpatient E&M: 44583 Subs Hosp L2
[2024-03-10 11:08] LABS: Osmolality, Serum 266 mOsm/KG (280-301)
--- NOTE | 2024-03-10 12:12 | CASEMGMT ---
Addendum entered by Trinidad Walters 03/10/24 13:01: DC Order in, RN KDAE notified Pt [facility] accepted and SOC will be 03/13/24. Pt verbalized understanding and denies any questions or concerns at this time. RN KADE notified [facility] DC order in. VIN BRAUN faxed DC information and medication list to Atif BANUELOS CM. Original Note: [facility] called RN KADE to notify of acceptance. If pt is DC today, SOC will be 03/13/24.
[2024-03-10] MEDS: 0.9% Normal Saline (1000mL) 1,000 ML 100 ML IV ×2 (12:18→22:12)
[2024-03-10 12:39] LABS: Bedside Glucose 98 mg/dL (74-106)
--- NOTE | 2024-03-10 12:49 | PCM.PN.ORT ---
Subjective Subjective Seen with Dr. Lam. POD #2 lumbar fusion. She has walked with therapy and was only able to do about 7 feet before needing to turn around and sit back down. She has voided on her own and passed flatus and tolerated a solid meal. Objective Data Objective Data Vital Signs: Vital Signs Temp Pulse Resp BP Pulse Ox O2 Del Method O2 Flow Rate 97.5 F L 74 18 113/67 98 Room Air 3 03/10/24 09:01 03/10/24 09:01 03/10/24 09:02 03/10/24 09:01 03/10/24 09:01 03/10/24 09:02 03/10/24 07:28 Oxygen Flow Rate (L/min) 3 Oxygen Delivery Method Room Air Weight: 189 lb 9.561 oz Body Mass Index (BMI) 31.5 Intake & Output: Intake and Output for Last 24 Hours 03/08/24 03/09/24 03/10/24 23:59 23:59 23:59 Intake Total 361.75 / 361.75 1020 / 1020 Output Total 200 / 200 750 / 750 200 / 200 Balance 161.75 / 161.75 270 / 270 -200 / -200 Lab / Micro Data 03/10/24 05:10 03/10/24 05:10 Labs: Laboratory Results - last 24 hr 03/09/24 16:01: POC Glucose 96 03/10/24 05:10: WBC 9.4, RBC 2.87 L, Hgb 9.2 L, Hct 28.0 L, MCV 97.6, MCH 32.1 H, MCHC 32.9, RDW Std Deviation 45.1 H, RDW Coeff of Claude 12.5, Plt Count 199, MPV 9.1, Immature Gran % (Auto) 0.400, Neut % (Auto) 65.5, Lymph % (Auto) 22.7, [place] % (Auto) 11.1 H, Eos % (Auto) 0.0, Baso % (Auto) 0.3, Absolute Neuts (auto) 6.2, Absolute Lymphs (auto) 2.14, Nucleated RBC % 0, Sodium 124 L, Potassium 4.2, Chloride 92 L, Carbon Dioxide 27.0, Anion Gap 6, BUN 10, Creatinine 0.76, Estim Creat Clear Calc 75.92, Est GFR (MDRD) Af Amer 98, Est GFR (MDRD) Non-Af 81, BUN/Creatinine Ratio 13.1, Glucose 88, Serum Osmolality 266 L, Calcium 8.1 L 03/10/24 06:19: POC Glucose 99 03/10/24 12:12: POC Glucose 98 Radiography Diagnostic Testing: Radiology Impression Lumbar Spine X-Ray 03/08/24 07:36 IMPRESSION: undefined Physical Exam Narrative Physical examination shows surgical incisions covered by gauze and Tegaderm. Tegaderm on the back is starting to peel back. Neurological exam of the lower extremity shows 5X5 power. Normal sensation across all dermatomes. Assessment & Plan Assessment/Plan (1) Status post lumbar spinal fusion: PLAN: Plan POD #2. PT/OT cleared. Home with home health. Encouraged the patient to walk at home as much as possible and to avoid long periods of inactivity to decrease risk of blood clots. Patient understands. Home meds include oxycodone, meloxicam, Robaxin, acetaminophen, senna. Continue aspirin tomorrow. Follow up in clinic in 2 weeks. No bending, lifting, or twisting.
[2024-03-10 16:56] VITALS: BP 118/66; PULSE 77; RESP 18; TEMP 36.6; O2SAT 98
[2024-03-10 17:00] VITALS: RESP 18
[2024-03-10 17:15] LABS: Bedside Glucose 108 mg/dL (74-106)
[2024-03-10 18:52] LABS: Urine Sodium 7 mmol/L (Not Establ.)
[2024-03-10 19:31] LABS: Osmolality, Urine 452 mOsm/KG
[2024-03-10] MEDS: Donepezil HCl 10 MG Tablet PO (20:25)
[2024-03-10] MEDS: Montelukast 10 MG Tablet PO (20:25)
[2024-03-10] MEDS: Atorvastatin Calcium 40 MG Tablet PO (20:26)
[2024-03-10 20:46] VITALS: BP 131/81; PULSE 91; RESP 16; TEMP 37.1; O2SAT 95
[2024-03-11 02:40] VITALS: BP 114/71; PULSE 88; RESP 18; TEMP 37.2; O2SAT 92
[2024-03-11 04:47] LABS: Absolute Lymphocyte Count 2.48 X10^3/uL (0.83-4.51); Absolute Neutrophil Count 5.8 X10^3/uL (2.0-7.7); Basophil# 0.02 X10^3/uL; Basophil% 0.2 % (0-1); Hematocrit 24.9 % (37-47); Hemoglobin 8.7 g/dL (12.0-15.0); Lymphocyte # 2.48 X10^3/ul (0.83-4.51); Lymphocyte % 26.6 % (19-41); Mean Corp Hgb Conc 34.9 g/dL (32-36); Mean Corpuscular Hgb 33.2 pg (27.0-32.0); Mean Platelet Vol. 8.9 fl (6.2-12.0); Monocyte% 10.7 % (0-10); NRBC Flagged by Analyzer 0 % (0-5); Neutrophil # 5.79 X10^3/uL (2.7-7.7); Platelet Count 199 K/mm3 (150-450); RBC Distribution Width CV 12.5 % (11.6-14.6); RBC Distribution Width SD 43.7 fl (35.1-43.9); Red Blood Count 2.62 M/mm3 (4.2-5.4); White Blood Count 9.3 K/mm3 (4.4-11.0)
[2024-03-11 05:11] LABS: Anion Gap 5 (5-15); BUN 9 mg/dL (7-18); BUN/Creat Ratio 11.2 RATIO (10-20); Chloride 98 mmol/L (98-107); Creatinine, Serum 0.81 mg/dL (0.55-1.02); EST Glomerular Filtration Rate 76 mL/min (>60); Est Glom Filt Rate - Afr Amer 92 mL/min (>60); Estimated Creatinine Clearance 74.99 ml/min; Glucose 102 mg/dL (74-106); Potassium 3.9 mmol/L (3.5-5.1); Sodium Level 128 mmol/L (136-145)
[2024-03-11] MEDS: Levothyroxine 75 MCG Tablet PO (06:10)
[2024-03-11] MEDS: Acetaminophen 500 MG Tablet 1000 MG PO (06:11)
[2024-03-11] MEDS: Methocarbamol 500 MG Tablet 1000 MG PO ×2 (06:11→11:46)
[2024-03-11 06:45] LABS: Bedside Glucose 105 mg/dL (74-106)
[2024-03-11 07:25] VITALS: PULSE 78; RESP 19; O2SAT 94
[2024-03-11] MEDS: Ipratropium 0.5 MG/2.5 ML SOLUTION INHALATION (07:25)
[2024-03-11 08:16] VITALS: BP 131/81; PULSE 90; RESP 18; TEMP 36.9; O2SAT 95
[2024-03-11] MEDS: metFORMIN (XR) 500 MG Tablet PO (08:22)
[2024-03-11] MEDS: Ensure Surgery 237 ML LIQUID PO (08:22)
[2024-03-11] MEDS: Isosorbide Mononitrate 30 MG Tablet PO (08:23)
[2024-03-11] MEDS: Tolterodine Tartrate 2 MG CAP.SA PO (08:23)
[2024-03-11] MEDS: Loratadine 10 MG Tablet PO (08:23)
[2024-03-11] MEDS: Escitalopram Oxalate 10 MG Tablet PO (08:23)
[2024-03-11] MEDS: Senna/Docusate Sodium 1 Tablet 2 TABLET PO (08:24)
[2024-03-11] MEDS: Meloxicam 15 MG Tablet PO (08:24)
--- NOTE | 2024-03-11 11:50 | PN_ITS ---
Subjective Subjective Patient seen and examined. She had no active complaints. Review of systems is otherwise negative. She has remained hemodynamically stable. Objective Data Objective Data Vital Signs: Vital Signs Temp Pulse Resp BP Pulse Ox O2 Del Method O2 Flow Rate 98.4 F 90 18 131/81 H 95 Room Air 3 03/11/24 08:16 03/11/24 08:16 03/11/24 08:16 03/11/24 08:16 03/11/24 08:16 03/11/24 08:16 03/10/24 07:28 Oxygen Flow Rate (L/min) 3 Oxygen Delivery Method Room Air Weight: 189 lb 9.561 oz Body Mass Index (BMI) 31.5 Intake & Output: Intake and Output for Last 24 Hours 03/09/24 03/10/24 03/11/24 23:59 23:59 23:59 Intake Total 1020 / 1020 1490 / 1490 120 / 120 Output Total 750 / 750 200 / 200 Balance 270 / 270 1290 / 1290 120 / 120 Lab / Micro Data 03/11/24 03:55 03/11/24 03:55 Labs: Laboratory Results - last 24 hr 03/10/24 12:12: POC Glucose 98 03/10/24 16:47: POC Glucose 108 H 03/10/24 18:30: Urine Osmolality 452, Ur Random Sodium 7 03/11/24 03:55: WBC 9.3, RBC 2.62 L, Hgb 8.7 L, Hct 24.9 L, MCV 95.0, MCH 33.2 H , MCHC 34.9 D, RDW Std Deviation 43.7, RDW Coeff of Claude 12.5, Plt Count 199, MPV 8.9, Immature Gran % (Auto) 0.500, Neut % (Auto) 62.0, Lymph % (Auto) 26.6, [place] % (Auto) 10.7 H, Eos % (Auto) 0.0, Baso % (Auto) 0.2, Absolute Neuts (auto) 5.8, Absolute Lymphs (auto) 2.48, Nucleated RBC % 0, Sodium 128 L, Potassium 3.9, Chloride 98, Carbon Dioxide 25.0, Anion Gap 5, BUN 9, Creatinine 0.81, Estim Creat Clear Calc 74.99, Est GFR (MDRD) Af Amer 92, Est GFR (MDRD) Non-Af 76, BUN/Creatinine Ratio 11.2, Glucose 102, Calcium 8.0 L 03/11/24 06:14: POC Glucose 105 Physical Exam Const alert, oriented x3 and no apparent distress General Appearance: cooperative and well developed HEENT normocephalic, head/scalp atraumatic and moist oral mucous membranes Eyes PERRL and EOMs intact bilaterally Neck no lymphadenopathy and supple Lymph Lymphatic: no lymphadenopathy noted and no lymphedema noted Resp normal respiratory effort, no retractions, no use of accessory muscles and clear to auscultation bilaterally Cardio regular rate, regular rhythm, S1 normal heart sound, S2 normal heart sound and no murmurs GI normal to inspection, nondistended, normoactive bowel sounds, soft to palpation, non-tender and non-distended GI Narrative: obese Extremity no clubbing, cyanosis or edema and no calf tenderness General Extremity: no tenderness to palpation of joints or extremities; Negative for edema Skin Skin Narrative: intact dressing over surgical site on lower back Neuro CN's II-XII intact bilaterally, no focal motor deficits, no sensory deficits noted and deep tendon reflexes 2+ bilaterally Sensorium / Orientation: awake and alert Motor Exam: strength 5/5 throughout and general weakness Psych thought process normal and cooperative Appearance: appropriate Assessment & Plan Assessment/Plan (1) Status post lumbar spinal fusion: PLAN: Plan #Lightheadedness and dizziness * resolved. * PT/OT on board * fall precautions * #Hyponatremia * Sodium is up to 128 from 124 yesterday. She does have chronic hyponatremia * Sodium is 124 today. Patient does have chronic hyponatremia going back to April 2022. Sodium is however usually around 130. * She was gently hydrated with IV fluids. * #Lumbar spinal stenosis s/p revision of L3-S1 posterior instrumented fusion * Management as per spine surgery * today is POD 3 * PT/OT on board. * Incentive spirometry * fall precautions * #Type 2 diabetes mellitus: On metformin. ISS. Accuchecks ACHS #Hypothyroidism: On Synthroid DVT prophylaxis; SCDs. No anticoagulation due to spine surgery Thank you for the consult. Patient stable for discharge from hospitalist standpoint. Charges/Coding Visit Charges Inpatient E&M: 69284 Subs Hosp L2
[2024-03-11 12:10] LABS: Bedside Glucose 88 mg/dL (74-106)
[2024-03-11 12:39] VITALS: BP 129/81; PULSE 95; RESP 18; TEMP 37.1; O2SAT 94
== END 2024-03-11 12:59 | disposition home health service (06) | DRG 448 ==
LOC: MS3 15:07 → ACINP 15:07
PROVIDERS: Student in an Organized Health Care Education/Training Program; Admitting Provider Orthopaedic Surgery Orthopaedic Surgery of the Spine; PCP Physician Assistant; Referring Provider Orthopaedic Surgery Orthopaedic Surgery of the Spine; Visit Provider Orthopaedic Surgery Orthopaedic Surgery of the Spine
PROC: 0SG13AJ Fusion of 2 or more Lumbar Vertebral Joints with Interbody Fusion Device, Posterior Approach, Anterior Column, Percutaneous Approach (ICD-10-PCS; principal; 2024-03-08 07:00)
DX: M48.062 Spinal stenosis, lumbar region with neurogenic claudication (principal); E87.1 Hypo-osmolality and hyponatremia; J96.11 Chronic respiratory failure with hypoxia; E11.9 Type 2 diabetes mellitus without complications; J43.9 Emphysema, unspecified; E03.9 Hypothyroidism, unspecified; I10 Essential (primary) hypertension; E78.5 Hyperlipidemia, unspecified; E78.00 Pure hypercholesterolemia, unspecified; M43.19 Spondylolisthesis, multiple sites in spine; I25.10 Atherosclerotic heart disease of native coronary artery without angina pectoris; M43.26 Fusion of spine, lumbar region; Z82.3 Family history of stroke; Z79.84 Long term (current) use of oral hypoglycemic drugs; Z87.891 Personal history of nicotine dependence; Z90.710 Acquired absence of both cervix and uterus; Z86.16 Personal history of COVID-19
CPT/HCPCS: 36415; 72100; 76000; 80048; 82962; 83930; 83935; 84300; 85025; 85027; 93005; 94640; 94668; 97110; 97116; 97162; 97166; A4648; C1713; J7030; J7120; A4216; J2405

== ENCOUNTER 2024-03-31 13:40 | Outpatient (CLI) | payer MEDICARE, MEDICAID, SELFPAY ==
[2024-03-31 13:48] VITALS: BP 127/75; PULSE 68; RESP 16; TEMP 35.8; O2SAT 98; BMI 32.1
[2024-03-31] MEDS: Benralizumab 30 MG/ML Syringe SC (14:01)
== END 2024-03-31 23:59 | disposition home or self-care (01) ==
LOC: MEDOUTP 13:40
PROVIDERS: PCP Physician Assistant; Referring Provider Nurse Practitioner Acute Care; Visit Provider Nurse Practitioner Acute Care
DX: J45.50 Severe persistent asthma, uncomplicated (principal)
CPT/HCPCS: 96372; J0517

== ENCOUNTER → 2024-05-18 | Outpatient (CLI) | payer MEDICARE, MEDICAID, SELFPAY ==
[2024-05-23 16:08] LABS: Hepatitis B Core Ab Total Negative (Negative); QNTFERON TB Mitogen Value > 10.00 IU/mL (.); QNTFERON TB Nil Value 0 IU/mL (.); QNTFERON TB1+ Ag Value 0.02 IU/mL (.); QNTFERON TB2+ Ag Value 0.02 IU/mL (.); QNTIFERON TB Positive Criteria Negative (Negative)
== END | disposition home or self-care (01) ==
LOC: MTLAB 13:16
PROVIDERS: PCP Physician Assistant; Referring Provider Physician Assistant; Visit Provider Physician Assistant
DX: L40.0 Psoriasis vulgaris (principal); Z79.899 Other long term (current) drug therapy
CPT/HCPCS: 36415; 86480; 86704

== ENCOUNTER → 2024-06-22 | Outpatient (CLI) | payer MEDICARE, MEDICAID, SELFPAY ==
[2024-06-22 12:14] LABS: Cholesterol 158 mg/dL (200); High Density Lipoprotein 68 mg/dL; Triglycerides 109 mg/dL; Very Low Density Lipoprotein 22 mg/dL (5-40)
== END | disposition home or self-care (01) ==
LOC: LAB 11:17
PROVIDERS: PCP Physician Assistant; Referring Provider Internal Medicine Cardiovascular Disease; Visit Provider Internal Medicine Cardiovascular Disease
DX: E78.5 Hyperlipidemia, unspecified (principal)
CPT/HCPCS: 36415; 80061

== ENCOUNTER 2024-07-14 19:43 | Emergency (ER) | payer MEDICARE, MEDICAID, SELFPAY ==
[2024-07-14 19:44] VITALS: BP 140/99; PULSE 81; RESP 20; TEMP 36.2; O2SAT 95; BMI 30.9
--- NOTE | 2024-07-14 19:50 | RAD_ITS ---
PROCEDURE: CHEST PA AND LATERAL REASON FOR EXAM: Cough TECHNIQUE: Frontal and lateral views of the chest. COMPARISON: August 26, 2023 FINDINGS: Cardiomediastinal silhouette is within normal limits. Lungs are clear. No sizable pneumothorax. Emphysema. RAD/Chest PA and Lateral IMPRESSION: No acute airspace abnormality. Reading Location: [facility]
--- NOTE | 2024-07-14 21:01 | EDS_ITS ---
HPI History of Present Illness Chief Complaint: Asthma [facility] Medical History PONV (postoperative nausea and vomiting) Wears glasses Wears dentures Post-menopausal Cancer Depression Anxiety Alcohol use History of steroid therapy Thyroid disease Diabetes Walker as ambulation aid Ambulates with cane Psoriatic arthritis Bladder disease High cholesterol Restless legs Back pain Migraine headache Injury of head and neck Lightheadedness Dietary restriction Gastric reflux Former smoker CPAP (continuous positive airway pressure) dependence On home oxygen therapy Emphysema, unspecified Asthma COPD (chronic obstructive pulmonary disease) Shortness of breath on exertion History of edema Hypertension History of echocardiogram History of stress test Cardiology follow-up encounter Abnormal finding on CT scan Dilatation of aorta Calcification of aorta COVID-19 (~02/2020) 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 Tachycardia Diastolic dysfunction Essential hypertension Stage 2 moderate COPD by GOLD classification COPD exacerbation Acute hypoxemic respiratory failure Pulmonary hypertension COPD (chronic obstructive pulmonary disease) Hepatitis C Prediabetes Memory loss Osteopenia Chronic lumbar radiculopathy Degenerative joint disease Rheumatoid arthritis Psoriasis NSAID induced gastritis GERD (gastroesophageal reflux disease) Asthma Depression Hyperlipidemia Obesity Hypothyroidism BEN (obstructive sleep apnea) Tobacco dependence in remission Lung nodule Home Medications ?Medication ?Instructions ?Recorded ?Last Taken ?Type atorvastatin 40 mg tablet 40 mg PO QHS cholesterol 03/07/24 History levothyroxine 75 mcg tablet 75 mcg PO DAILY thyroid 03/08/24 History aspirin 81 mg tablet,delayed 81 mg PO DAILY heart heal th 11/08/19 02/21/24 History release (Adult Low Dose Aspirin) escitalopram oxalate 10 mg tablet 10 mg PO DAILY [facility] 11/07/20 03/07/24 History oxybutynin chloride 5 mg 5 mg PO DAILY bladder 03/07/24 History tablet,extended release 24 hr benralizumab 30 mg/mL subcutaneous 30 mg subcut Q8W as thma #1 mL 12/06/20 02/25/24 Rx auto-injector (Fasenra Pen) guselkumab 100 mg/mL subcutaneous 100 mg subcut Q12W a rthritis 01/29/22 02/11/24 History auto-injector (Tremfya) ketoconazole 2 % shampoo 1 applic topical QWEEK DRY S CALP 07/14/23 Unknown History isosorbide mononitrate 30 mg 30 mg PO DAILY heart #90 tabs 10/28/23 03/07/24 Rx tablet,extended release 24 hr cetirizine 10 mg tablet 10 mg PO DAILY allergies #90 tabs 01/17/24 03/07/24 Rx fluticasone propionate 50 2 spray intranasal DAILY all ergies 02/14/24 03/07/24 Rx mcg/actuation nasal #16 grams spray,suspension metformin 500 mg tablet,extended 500 mg PO BID dm 02/0703/07/24 History release 24 hr montelukast 10 mg tablet 10 mg PO QPM allergies #90 t abs 02/28/24 03/07/24 Rx (Singulair) donepezil 10 mg tablet 10 mg PO QHS MEMORY LOSS #90 tabs 05/09/24 Unknown Rx umeclidinium 62.5 mcg/actuation 1 inh inhalation DAILY breathing 05/22/24 Unknown Rx blister powder for inhalation #30 ea metoprolol succinate 25 mg 25 mg PO DAILY blood pressu re #30 06/21/24 Unknown Rx tablet,extended release 24 hr tabs amlodipine 5 mg tablet 5 mg PO QDAY #90 tabs Unknown Rx lisinopril 5 mg tablet 5 mg PO QDAY #90 tabs Unknown Rx nitroglycerin 0.4 mg sublingual 0.4 mg sublingual Q5-1 5M PRN chest 06/22/24 Unknown Rx tablet pain #90 tabs albuterol sulfate 2.5 mg/3 mL 2.5 mg (3 mL) inhalation Q4H PRN 07/05/24 Unknown Rx (0.083 %) solution for nebulization PRN shortness of b reath or wheezing #90 vials albuterol sulfate 90 mcg/actuation 2 puff inhalation Q 4H PRN PRN Sob 07/05/24 Unknown Rx aerosol inhaler &/Or Wheezing #8.5 grams albuterol sulfate 90 mcg/actuation 2 inh inhalation Q4 H PRN shortness 07/14/24 Unknown Rx breath activated powder inhaler of breath or wheezing #1 ea ondansetron 4 mg disintegrating 4 mg PO Q8H PRN PRN Na usea #10 tabs 07/14/24 Unknown Rx tablet pantoprazole 20 mg tablet,delayed 20 mg PO DAILY 07/14 Unknown History release prednisone 50 mg tablet 50 mg PO DAILY #5 tabs 07/14 Unknown Rx Allergy/AdvReac Type Severity Reaction Status Date / Time No Known Allergies Allergy Verified 07/14/24 19:44 Family History Grandmother CVA (cerebral vascular accident) CAD (coronary artery disease) Diabetes Grandfather CVA (cerebral vascular accident) Diabetes Mother CAD (coronary artery disease) Hypertension Brother CAD (coronary artery disease) Hypertension Father Diabetes CVA (cerebral vascular accident) Surgical History Cervical vertebral fusion (07/28/23) Hx of colonoscopy Hx of left cataract extraction Hx of right cataract extraction History of incision and drainage History of left heart catheterization (LHC) (~10/14/20) History of back surgery History of lobectomy of lung (~2009) History of hysterectomy History of appendectomy Social History Smoking Status: Current some day smoker tobacco type: cigarettes how long ago did patient quit smokin second hand exposure: Yes alcohol intake: current alcohol intake frequency: a few times a month Alcohol type: beer and wine substance use type: does not use caffeine: Yes Type: coffee Number of servings: 1 EXAM Physical Exam Const Vital Signs: 07/14/24 19:44 07/14/24 21:17 07/14/24 21:17 Temperature 97.2 F L Temperature Source Temporal Pulse Rate 81 Respiratory Rate 20 H 18 Respiratory Effort Respiratory Depth Respiratory Pattern Blood Pressure 140/99 H Blood Pressure Mean 112 Pulse Ox 95 97 97 Oxygen Delivery Method Room Air Room Air Room Air 07/14/24 21:17 07/14/24 21:27 07/14/24 21:43 Temperature Temperature Source Pulse Rate 84 92 Respiratory Rate 18 18 Respiratory Effort Normal Non-Labored Respiratory Depth Normal Respiratory Pattern Normal Normal Blood Pressure 118/88 H Blood Pressure Mean 98 Pulse Ox 100 Oxygen Delivery Method Room Air Room Air 07/14/24 23:00 Temperature Temperature Source Pulse Rate 80 Respiratory Rate 20 H Respiratory Effort Respiratory Depth Respiratory Pattern Blood Pressure 145/84 H Blood Pressure Mean 104 Pulse Ox 91 Oxygen Delivery Method Room Air MDM MDM MDM Narrative Medical decision making narrative: HISTORY OF PRESENT ILLNESS: 64-year-old female history of asthma, hyperlipidemia, hypertension, type 2 diabetes, CAD, COPD, GERD, BEN presents with concern for an asthma flare for last 3 days. She notes her inhaler is not working. Denies sick contacts. Notes cough is nonproductive. Denies chest pain. The patient denies recent surgery in the last 4 weeks or immobilization in the last 3 days, denies previous diagnosis of DVT or PE, hemoptysis, unilateral leg swelling or malignancy with treatment the last 6 months or palliative. No estrogen use noted. Denies leg swelling REVIEW OF SYSTEMS: Pertinent positives: Shortness of breath Pertinent negatives: Syncope, leg swelling, chest pain PHYSICAL EXAM: Nursing triage notes reviewed, Vital signs reviewed Constitutional: please see mdm HENT: MMM Eyes: Pupils equal round and reactive to light, Extraocular muscles intact Neck: No stridor, no JVD, full neck ROM Lungs: Clear to auscultation, No wheezing or rales. No increased work of breathing, no conversational dyspnea, no accessory muscle use, no nasal flaring. No respiratory distress noted Heart: Regular rate and rhythm, No murmurs, No rubs and No gallops, 2+ distal pulses (radial, femoral, posterior tibial) in all extremities Abdomen: Soft, there is no tenderness, rigidity, rebound or guarding, no obvious peritoneal signs, no palpable pulsatile abdominal masses, no auscultated abdominal bruit : No CVAT Extremities: No edema Neuro: No new focal neurological deficits, cranial nerves II through XII intact, 5/5 strength in all present extremities. Intact sensation to light touch in all present extremities, 2+ reflexes bilateral patella tendons. Skin: No rash or lesions noted MEDICAL DECISION MAKING: Chief Complaint: Shortness of breath External records reviewed: Reviewed prior imaging Factors affecting care: As per HPI Social determinants of health: current tobacco use History obtained from others: Consults: none [facility] Narrative: Patient was initially hemodynamically stable, afebrile, nontoxic-appearing, saturating 95% on room air. Lungs without obvious wheezing, no focal consolidation I considered the following differential diagnosis: Asthma exacerbation/COPD exacerbation, pneumonia, anemia, electrolyte disturbance, COVID/RSV/flu, ACS, arrhythmia, PE I obtained a broad lab and imaging workup to further elucidate etiology of helena fine's complaints Initially treated the patient with p.o. Tylenol 3, DuoNeb breathing treatment and Solu-Medrol ALL IMAGES (IF OBTAINED) HAVE BEEN PERSONALLY REVIEWED AND INTERPRETED BY MYSELF. I have personally reviewed the patient's chest x-ray. Chest x-ray is unremarkable for pulmonary edema, pneumothorax, pneumonia or focal cardiopulmonary abnormality. EKG with ventricular paced rhythm, left axis deviation, no STEMI High-sensitivity troponin is negative, no evidence of myocardial ischemia CBC without leukocytosis, severe anemia, no thrombocytopenia. BMP with mild hyponatremia, no other significant electrolyte abnormalities, no acute kidney COVID/flu/RSV swab is pending at this time. Discussed the patient discharge was awaiting swab. 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 Not a candidate for Tamiflu. The synthesis of the patient's history, physical exam, labs images suggest likely asthma/COPD exacerbation. Will give prednisone for anti-inflammatory effect. Will refill the patient's albuterol prescription. There is no indication for inpatient mission at this time. While I considered pulmonary embolism as a potential etiology the patient low risk [place] coronary such as a low risk for PE she also has focal lung findings more consistent with asthma/COPD. Strict return precautions were discussed. All questions answered. The patient and/or family, caregivers express understanding. The patient and/or family, caregivers agrees with the plan. Shared decision making: I will have a discussion with the patient and or visitors regarding risk/benefits of further testing or admission. They will be made aware of of the risk/benefits inherent in this decision they will be given the opportunity to voice understanding. Total critical care time today provided was at least 0 minutes. This excludes separately billable procedures. Critical care time (if documented) is secondary to the patient having high probability of clinically significant/life threatening deterioration in the patient's condition which required my urgent intervention. Impression: 1. COPD/asthma exacerbation Dispo: Discharge home This note was generated with [employer] dictation software. It may contain incorrect words, spelling, and punctuation that were not noted in review of the chart prior to signing. Lab Data Labs: Laboratory Results - last 24 hr 07/14/24 21:42 WBC 6.9 RBC 4.16 L Hgb 13.0 Hct 39.0 MCV 93.8 MCH 31.3 MCHC 33.3 RDW Std Deviation 45.7 H RDW Coeff of Claude 13.3 Plt Count 245 MPV 8.8 Immature Gran % (Auto) 0.300 Neut % (Auto) 48.2 Lymph % (Auto) 38.5 Banner % (Auto) 12.4 H Eos % (Auto) 0.0 Baso % (Auto) 0.6 Absolute Neuts (auto) 3.3 Absolute Lymphs (auto) 2.64 Nucleated RBC % 0 Sodium 132 L Potassium 4.2 Chloride 96 L Carbon Dioxide 23.0 Anion Gap 13 BUN 7 Creatinine 0.71 Estim Creat Clear Calc 72.54 Est GFR (MDRD) Non-Af 94 BUN/Creatinine Ratio 10.3 Glucose 123 H Calcium 9.5 Troponin T High Sens 7 Radiography Diagnostic Testing: Clinical Impression(s) from Imaging Studies Chest X-Ray 07/14/24 19:50 IMPRESSION: No acute airspace abnormality. [facility] Dis[facility] Plan Triage Chief Complaint: Asthma ED Provider: Alexy Enriquez Dx/Rx/DC Orders Instructions: ED Asthma, Acute (Adult) Prescriptions: New albuterol sulfate 90 mcg/actuation aerosol powdr breath activated 2 inh inhalation Q4H PRN (Reason: shortness of breath or wheezing) Qty: 1 0RF prednisone 50 mg tablet 50 mg PO DAILY Qty: 5 0RF ondansetron 4 mg tablet,disintegrating 4 mg PO Q8H PRN PRN (Reason: Nausea) Qty: 10 0RF No Action aspirin [Adult Low Dose Aspirin] 81 mg tablet,delayed release (DR/EC) 81 mg PO DAILY escitalopram oxalate 10 mg tablet 10 mg PO DAILY oxybutynin chloride 5 mg tablet extended release 24hr 5 mg PO DAILY Fasenra Pen 30 mg/mL auto-injector 30 mg subcut Q8W Qty: 1 6RF Tremfya 100 mg/mL auto-injector 100 mg subcut Q12W nitroglycerin 0.4 mg tablet, sublingual 0.4 mg sublingual Q5-15M PRN (Reason: chest pain) Qty: 90 3RF Rx Instructions: do not exceed 3 doses per episode lisinopril 5 mg tablet 5 mg PO QDAY Qty: 90 3RF amlodipine 5 mg tablet 5 mg PO QDAY Qty: 90 3RF atorvastatin 40 MG tablet 40 mg PO QHS levothyroxine 75 MCG tablet 75 mcg PO DAILY ketoconazole 2 % shampoo 1 applic TOPICAL QWEEK Patient Comments: USE SHAMPOO EVERY OTHER DAY WASH ALTERNATING WITH OVER THE COUNTER SHAMPOO MA SSAGE AND LATHER INTO THE SCALP AND LET SIT FOR 3-5 MINUTES BEFORE RINSING metformin 500 mg tablet extended release 24 hr 500 mg PO BID pantoprazole 20 mg tablet,delayed release (DR/EC) 20 mg PO DAILY isosorbide mononitrate 30 mg tablet extended release 24 hr 30 mg PO DAILY Qty: 90 3RF cetirizine 10 mg tablet 10 mg PO DAILY Qty: 90 3RF fluticasone propionate 50 mcg/actuation spray,suspension 2 spray intranasal DAILY Qty: 16 3RF montelukast [Singulair] 10 mg tablet 10 mg PO QPM Qty: 90 3RF donepezil 10 mg tablet 10 mg PO QHS Qty: 90 0RF umeclidinium 62.5 mcg/actuation blister with device 1 inh inhalation DAILY Qty: 30 11RF metoprolol succinate 25 mg tablet extended release 24 hr 25 mg PO DAILY Qty: 30 11RF albuterol sulfate 90 mcg/actuation HFA aerosol inhaler 2 puff inhalation Q4H PRN PRN (Reason: Sob &/Or Wheezing) Qty: 8.5 11RF albuterol sulfate 2.5 mg /3 mL (0.083 %) solution for nebulization 2.5 mg inhalation Q4H PRN PRN (Reason: shortness of breath or wheezing) Qty: 90 11RF Rx Instructions: Use q4 hours and PRN for wheezing Primary Care Provider: Suellen Lomax Referrals: Suellen Lomax PA [Primary Care Provider] - Activity Restrictions/Additional Instructions: Thank you for trusting us with your care today! Your history and physical exam are consistent with COPD/asthma exacerbation. Please take the inhaler has been prescribed. Please take prednisone as been prescribed Please take Tylenol (2 pills, 650 mg), ibuprofen (2 pills, 400 mg) every 6 hours as needed for pain and fever control. Please return to the emergency department if your symptoms change or worsen. Please follow with your primary care physician for further outpatient evaluation and management. Print Language: Colombian Disposition Disposition: Home, Self Care
[2024-07-14 21:17] VITALS: RESP 18; O2SAT 97
[2024-07-14 21:27] VITALS: PULSE 84; RESP 18
[2024-07-14] MEDS: Ipratropium/Albuterol Sulfate 3 ML AMPUL.NEB INHALATION (21:27)
[2024-07-14] MEDS: MethylPREDNISolone 125 MG/2 ML Vial IV (21:39)
[2024-07-14] MEDS: Acetaminophen/Codeine #3 Tablet 1 TABLET PO (21:39)
[2024-07-14 21:43] VITALS: BP 118/88; PULSE 92; RESP 18; O2SAT 100
[2024-07-14 22:02] LABS: Absolute Lymphocyte Count 2.64 X10^3/uL (0.83-4.51); Absolute Neutrophil Count 3.3 X10^3/uL (2.0-7.7); Basophil# 0.04 X10^3/uL; Basophil% 0.6 % (0-1); Lymphocyte # 2.64 X10^3/ul (0.83-4.51); Lymphocyte % 38.5 % (19-41); Mean Corp Hgb Conc 33.3 g/dL (32-36); Mean Corpuscular Hgb 31.3 pg (27.0-32.0); Mean Corpuscular Volume 93.8 fL (81-99); Mean Platelet Vol. 8.8 fl (6.2-12.0); Monocyte# 0.85 X10^3/uL; Monocyte% 12.4 % (0-10); NRBC Flagged by Analyzer 0 % (0-5); Neutrophil % 48.2 % (47-70); Platelet Count 245 K/mm3 (150-450); RBC Distribution Width CV 13.3 % (11.6-14.6); RBC Distribution Width SD 45.7 fl (35.1-43.9); Red Blood Count 4.16 M/mm3 (4.2-5.4); White Blood Count 6.9 K/mm3 (4.4-11.0)
[2024-07-14 22:19] LABS: Anion Gap 13 (5-15); BUN 7 mg/dL (4-19); BUN/Creat Ratio 10.3 RATIO (10-20); Calcium,Total 9.5 mg/dL (7.6-11.0); Chloride 96 mmol/L (98-108); Creatinine, Serum 0.71 mg/dL (0.70-1.20); EST Glomerular Filtration Rate 94 (>60); Estimated Creatinine Clearance 72.54 ml/min (50-250); Glucose 123 mg/dL (70-99); Potassium 4.2 mmol/L (3.3-5.1); Sodium Level 132 mmol/L (133-145); Troponin T High Sensitivity 7 ng/L (<=14)
[2024-07-14 23:00] VITALS: BP 145/84; PULSE 80; RESP 20; O2SAT 91
[2024-07-14] MEDS: Ondansetron 4 MG/2 ML Vial IV (23:39)
[2024-07-14 23:49] VITALS: BP 138/85; PULSE 80; RESP 18; TEMP 36.8; O2SAT 92
== END 2024-07-14 23:50 | disposition home or self-care (01) ==
PROVIDERS: Emergency Provider Emergency Medicine; PCP Physician Assistant; Referring Provider Emergency Medicine; Visit Provider Emergency Medicine
DX: J45.901 Unspecified asthma with (acute) exacerbation (principal); J43.9 Emphysema, unspecified; J44.1 Chronic obstructive pulmonary disease with (acute) exacerbation; E11.9 Type 2 diabetes mellitus without complications; I10 Essential (primary) hypertension; E78.00 Pure hypercholesterolemia, unspecified; E87.1 Hypo-osmolality and hyponatremia; I25.10 Atherosclerotic heart disease of native coronary artery without angina pectoris; F17.210 Nicotine dependence, cigarettes, uncomplicated; K21.9 Gastro-esophageal reflux disease without esophagitis; Z79.899 Other long term (current) drug therapy
CPT/HCPCS: 71046; 80048; 84484; 85025; 87631; 93005; 94640; 94760; 96374; 96375; 99284; A4216; J2405

== ENCOUNTER 2024-07-25 11:43 | Outpatient (CLI) | payer MEDICARE, MEDICAID, SELFPAY ==
[2024-07-25 11:52] VITALS: BP 122/67; PULSE 69; RESP 16; TEMP 35.9; O2SAT 94
[2024-07-25] MEDS: Benralizumab 30 MG/ML Syringe SC (12:00)
== END 2024-07-25 23:59 | disposition home or self-care (01) ==
LOC: MEDOUTP 11:44
PROVIDERS: PCP Physician Assistant; Referring Provider Nurse Practitioner Acute Care; Visit Provider Nurse Practitioner Acute Care
DX: J45.50 Severe persistent asthma, uncomplicated (principal)
CPT/HCPCS: 96372; J0517

== ENCOUNTER → 2024-08-04 | Outpatient (CLI) | payer MEDICARE, MEDICAID, SELFPAY ==
--- NOTE | 2024-08-04 15:01 | CDU_ITS ---
Reason For Study Reason For Study: Dizziness Rt. Velocities/BP Lt. Velocities/BP Prox CCA 85.3/17.1 cm/sec. Prox CCA 65.5/12.7 cm/sec. Mid CCA 61.1/18.2 cm/sec. Mid CCA 62.2/16.0 cm/sec. Dist CCA 51.6/13.8 cm/sec. Dist CCA 60.0/17.1 cm/sec. Prox ICA 58.2/8.1 cm/sec. Prox ICA 47.8/14.7 cm/sec. Mid ICA 62.9/23.2 cm/sec. Mid ICA 47.8/11.9 cm/sec. Dist ICA 80.9/24.8 cm/sec. Dist ICA 67.6/27.0 cm/sec. Rt. ICA/CCA = 1.3. Lt. ICA/CCA = 1.1. Prox ECA 75.4/12.7 cm/sec. Prox ECA 74.3/12.7 cm/sec. Rt. Vert. 48.5/15.4 cm/sec. Lt. Vert. 48.7/16.6 cm/sec. Right Extracranial There is intimal thickening but no significant atherosclerotic plaque noted in the right common carotid artery. There is heterogeneous, smooth atherosclerotic plaque noted in the right internal carotid artery. There is intimal thickening but no significant atherosclerotic plaque noted in the right external carotid artery. Antegrade flow is noted in the right vertebral artery. Left Extracranial There is intimal thickening but no significant atherosclerotic plaque noted in the left common carotid artery. There is heterogeneous, irregular atherosclerotic plaque noted in the left internal carotid artery. There is intimal thickening but no significant atherosclerotic plaque noted in the left external carotid artery. Procedure Carotid Duplex 10591. This is a Carotid Duplex examination using B-mode, color flow and specral Doppler. Exam performed in department. VL/Carotid Duplex Ultrasound Interpretation Summary Mild (<50%) stenosis right extracranial internal carotid. Mild (<50%) stenosis left extracranial internal carotid. Patent and antegrade vertebrals bilaterally. Ordering Physician: Ayan Aldana Referring Physician: Ayan Aldana MD Performed By: Berkley Lacy RVT
== END | disposition home or self-care (01) ==
LOC: CVS 14:59
PROVIDERS: PCP Physician Assistant; Referring Provider Internal Medicine Cardiovascular Disease; Visit Provider Internal Medicine Cardiovascular Disease
DX: R42 Dizziness and giddiness (principal); G31.84 Mild cognitive impairment of uncertain or unknown etiology
CPT/HCPCS: 93880

== ENCOUNTER → 2024-08-11 | Outpatient (CLI) | payer MEDICARE, MEDICAID, SELFPAY ==
--- NOTE | 2024-08-11 07:28 | ECHOD_ITS ---
Reason For Study Reason For Study: CAD/ASHD Procedure This was a 2D Doppler, Color Flow transthoracic echocardiogram. Exam performed in department. Left Ventricle Normal LV size. Mild concentric left ventricular hypertrophy. The left ventricular ejection fraction is 65 %. Stage 1 diastolic dysfunction. Right Ventricle Normal right ventricle. Atria The left and right atria are normal. Mitral Valve Mild mitral annular calcification. Trivial mitral valve insufficiency. Tricuspid Valve Trivial tricuspid valve insufficiency. Normal pulmonary artery pressure. Aortic Valve Trisinus/trileaflet aortic valve. Pulmonic Valve The pulmonic valve is not well visualized. Trivial pulmonic valve insufficiency. Great Vessels Normal sized aortic root. Pericardium/Pleural No pericardial effusion. MMode/2D Measurements & Calculations LVIDd: 4.3 cm IVSd: 1.2 cm Ao root diam: 3.5 cm LVIDs: 2.5 cm LVPWd: 1.1 cm RVDd: 3.0 cm FS: 42.6 % asc Aorta Diam: 3.1 cm LAV(MOD-bp): 29.1 ml LVAd ap4: 20.0 cm2 LAV(MOD-bp) Indexed: 15.5 ml/m2 LVLd ap4: 7.6 cm LAV(MOD-sp2): 31.9 ml EDV(MOD-sp4): 44.5 ml LAV(MOD-sp4): 27.1 ml EDV(sp4-el): 44.6 ml LVAs ap4: 9.0 cm2 LVLs ap4: 5.8 cm ESV(MOD-sp4): 12.6 ml ESV(sp4-el): 11.8 ml EF(MOD-sp4): 71.6 % EF(sp4-el): 73.6 % SV(MOD-sp4): 31.8 ml SV(sp4-el): 32.8 ml LA A4 area: 12.5 cm2 SI(MOD-sp4): 16.9 ml/m2 LA dimension(2D): 3.7 cm RA A4 area: 13.0 cm2 TAPSE: 1.9 cm Time Measurements MV dec time: 0.27 sec Doppler Measurements & Calculations MV E max refugio: 63.7 cm/sec Lat Peak E' Refugio: 9.6 cm/sec Med Peak E' Refugio: 9.4 cm/sec MV A max refugio: 83.0 cm/sec E/E' lat: 6.7 E/E' med: 6.8 MV E/A: 0.77 MV V2 max: 102.9 cm/sec MV P1/2t max refugio: 85.4 cm/sec Ao V2 max: 132.2 cm/sec MV max P.2 mmHg MV P1/2t: 111.0 msec Ao max P.0 mmHg MV V2 mean: 58.8 cm/sec Ao V2 mean: 84.1 cm/sec MV mean P.6 mmHg MV dec slope: 225.3 cm/sec2 Ao mean P.3 mmHg MV V2 VTI: 30.0 cm MVA(P1/2t): 2.0 cm2 Ao V2 VTI: 29.6 cm AV (velocity ratio): 0.92 LV V1 max: 124.8 cm/sec PA V2 max: 83.9 cm/sec TR max refugio: 254.3 cm/sec LV V1 max P.2 mmHg TR max P.9 mmHg LV V1 mean P.1 mmHg LV V1 mean: 82.2 cm/sec LV V1 VTI: 27.4 cm ECHO/Echo Complete Interpretation Summary Mild concentric left ventricular hypertrophy. The left ventricular ejection fraction is 65 %. Stage 1 diastolic dysfunction. Mild mitral annular calcification. Ordering Physician: Ayan Aldana Referring Physician: Ayan Aldana Performed By: Nicolas Mayberry RCS
--- NOTE | 2024-08-14 08:53 | STRESSREP ---
Stress Test Report Date: 08/11/2024 Procedure: Pharmacologic stress nuclear imaging study Indications: Chest pain Consent: Per the patient Procedure: The patient underwent pharmacologic (Regadenoson 0.4mg ) evaluation with a peak heart rate of 91 beats per minute (58%predicted maximal heart rate) and a peak blood pressure of 104/68 mmHg. The baseline ECG demonstrated sinus rhythm with nonspecific ST changes. The peak pharmacologic ECG revealed no diagnostic ischemic changes. There were no cardiac dysrhythmias pretest, during pharmacologic infusion, or recovery. There was no complaint of chest discomfort during pharmacologic infusion or recovery. The patient was injected with 15.0 millicuries of technetium 99m Cardiolite and subsequently rest SPECT Cardiolite nuclear imaging was obtained in the horizontal long, vertical long, and short axis views. The patient underwent pharmacologic (Regadenoson) evaluation. The patient was injected with 45.0 millicuries of technetium 99m Cardiolite and subsequently stress SPECT Cardiolite nuclear imaging was obtained in the horizontal long, vertical long, and short axis views. A gated Cardiolite study at peak stress was obtained. The examination was stopped secondary to completion of protocol. Rest and stress SPECT Cardiolite nuclear imaging status post realignment, normalization, and attenuation correction demonstrate no fixed or reversible perfusion defects. There is end systolic thickening and brightening. The gated Cardiolite study demonstrates myocardial thickening and inward wall motion. The reported LVEF is 87%. Impression: 1. Pharmacologic (Regadenoson) evaluation 2. Peak pharmacologic ECG with no ischemic changes. 3. There were no cardiac dysrhythmias pretest, during pharmacologic infusion, or recovery. 5. Rest and stress SPECT Cardiolite nuclear imaging demonstrate relative uniform tracer uptake and myocardial perfusion appearing within normal limits. 6. The gated Cardiolite study reports an LVEF of 87%. This note was generated with [employer] software. It may contain incorrect words, spelling, and punctuation that were not noted in checking the note before signing.
== END | disposition home or self-care (01) ==
PROVIDERS: PCP Physician Assistant; Referring Provider Internal Medicine Cardiovascular Disease; Visit Provider Internal Medicine Cardiovascular Disease
DX: I11.9 Hypertensive heart disease without heart failure (principal); I25.10 Atherosclerotic heart disease of native coronary artery without angina pectoris; R53.83 Other fatigue
CPT/HCPCS: 78452; 93017; 93306; A9500; A4216; J2785

== ENCOUNTER → 2024-08-15 | Outpatient (CLI) | payer MEDICARE, MEDICAID, SELFPAY ==
--- NOTE | 2024-08-15 14:50 | CT_ITS ---
PROCEDURE: CHEST WITHOUT CONTRAST 08/15/2024 REASON FOR EXAM: LUNG NODULES TECHNIQUE: Chest CT without contrast. Coronal and Sagittal reconstruction series were provided. One or more dose reduction techniques were used (e.g., Automated exposure control, adjustment of the mA and/or kV according to patient size, use of iterative reconstruction technique RADIATION DOSE SUMMARY: CTDlvol: 406.5 mGy DLP: 406.6 mGycm COMPARISON: None available FINDINGS: Hardware: None Lymph nodes: No lymphadenopathy Heart and Vasculature: The heart is normal in size. The great vessels are normal in size and caliber. Calcified atherosclerotic plaque within the thoracic aorta Coronary Artery Calcifications: Present Lungs and Airways: Central airways are patent. Mild upper lobe predominant centrilobular emphysematous changes within the bilateral lungs. Linear opacity within the bilateral lower lobes, and upper lobes, likely representing scarring and/or subsegmental atelectasis. Pleura: No pleural effusion or pneumothorax. Upper Abdomen: Partially visualized upper abdomen demonstrates no acute abnormality. Bones: Multilevel degenerative changes throughout the spine. CT/Chest without Contrast IMPRESSION: *Coronary artery calcification (CAC) is present. *Mild upper lobe predominant centrilobular emphysematous changes within bilater al lungs. *Linear opacity within the bilateral lower lobes and upper lobes, likely repres enting scarring and/or subsegmental atelectasis. Reading Location: [facility]
== END | disposition home or self-care (01) ==
LOC: CT 14:49
PROVIDERS: PCP Physician Assistant; Referring Provider Internal Medicine Critical Care Medicine; Visit Provider Internal Medicine Critical Care Medicine
DX: R91.1 Solitary pulmonary nodule (principal)
CPT/HCPCS: 71250

== ENCOUNTER 2024-09-26 14:23 | Outpatient (CLI) | payer MEDICARE, MEDICAID, SELFPAY ==
[2024-09-26 14:43] VITALS: BP 125/80; PULSE 63; RESP 16; TEMP 36.2; O2SAT 97; BMI 29.7
[2024-09-26] MEDS: Benralizumab 30 MG/ML Syringe SC (14:45)
== END 2024-09-26 23:59 | disposition home or self-care (01) ==
LOC: MEDOUTP 14:23
PROVIDERS: PCP Physician Assistant; Referring Provider Nurse Practitioner Acute Care; Visit Provider Nurse Practitioner Acute Care
DX: J45.50 Severe persistent asthma, uncomplicated (principal)
CPT/HCPCS: 96372; J0517

== ENCOUNTER 2024-11-09 13:35 | Outpatient (CLI) | payer MEDICARE, MEDICAID, SELFPAY ==
[2024-11-09 13:48] VITALS: BP 126/75; PULSE 67; RESP 16; TEMP 35.7; O2SAT 94; BMI 28.8
== END 2024-11-09 23:59 | disposition home or self-care (01) ==
LOC: MEDOUTP 13:36
PROVIDERS: PCP Physician Assistant; Referring Provider Nurse Practitioner Acute Care; Visit Provider Nurse Practitioner Acute Care
DX: J45.50 Severe persistent asthma, uncomplicated (principal)
CPT/HCPCS: 96372; J0517

== ENCOUNTER → 2024-12-20 | Outpatient (CLI) | payer MEDICARE, MEDICAID, SELFPAY ==
[2024-12-20 15:42] LABS: Hematocrit 40.7 % (37-47); Hemoglobin 13.8 g/dL (12.0-15.0); Immature Granulocytes Count 0.040 X10^3/uL (0.0-0.0); Mean Corp Hgb Conc 33.9 g/dL (32-36); Mean Corpuscular Volume 95.1 fL (81-99); Mean Platelet Vol. 8.9 fl (6.2-12.0); NRBC Flagged by Analyzer 0 % (0-5); Platelet Count 360 K/mm3 (150-450); RBC Distribution Width CV 12.9 % (11.6-14.6); RBC Distribution Width SD 44.8 fl (35.1-43.9); Red Blood Count 4.28 M/mm3 (4.2-5.4); White Blood Count 10.7 K/mm3 (4.4-11.0)
[2024-12-20 16:24] LABS: AST(SGOT) 21 U/L (<=31); Alanine Aminotransfer ALT/SGPT 12 U/L (<=34); Albumin, Serum 4.3 g/dL (3.4-4.8); Alkaline Phosphatase 116 U/L (35-104); Anion Gap 16 (5-15); BUN 7 mg/dL (4-19); BUN/Creat Ratio 9.3 RATIO (10-20); Calcium,Total 9.6 mg/dL (7.6-11.0); Carbon Dioxide 22.9 mmol/L (21.0-32.0); Chloride 90 mmol/L (98-108); Cholesterol 175 mg/dL (<=200); Globulin 3.0 g/dL (2.2-4.2); Glucose 80 mg/dL (70-99); Low Density Lipoprotein Calc. 67 mg/dL; Magnesium 1.8 mg/dL (1.5-2.2); Potassium 4.0 mmol/L (3.3-5.1); Pro- Brain NATRIURETIC PEPTIDE 369 pg/mL (<=900); Triglycerides 111 mg/dL; Very Low Density Lipoprotein 22 mg/dL (5-40); cholesterol:hdl ratio screen 2.03
== END | disposition home or self-care (01) ==
LOC: LAB 14:22
PROVIDERS: PCP Physician Assistant; Referring Provider Student in an Organized Health Care Education/Training Program; Visit Provider Student in an Organized Health Care Education/Training Program
DX: E78.5 Hyperlipidemia, unspecified (principal); R00.0 Tachycardia, unspecified; R06.02 Shortness of breath; I10 Essential (primary) hypertension; R00.2 Palpitations
CPT/HCPCS: 36415; 80053; 80061; 83735; 83880; 84443; 85025

== ENCOUNTER 2025-01-16 13:21 | Outpatient (CLI) | payer MEDICARE, MEDICAID, SELFPAY ==
[2025-01-16 13:47] VITALS: BP 134/77; PULSE 57; RESP 16; TEMP 36.1; O2SAT 98; BMI 29.2
== END 2025-01-16 23:59 | disposition home or self-care (01) ==
LOC: MEDOUTP 13:21
PROVIDERS: PCP Physician Assistant; Referring Provider Nurse Practitioner Acute Care; Visit Provider Nurse Practitioner Acute Care
DX: J45.50 Severe persistent asthma, uncomplicated (principal)
CPT/HCPCS: 96372; J0517

== ENCOUNTER 2025-02-22 15:12 | Observation (INO) | payer MEDICARE, MEDICAID, SELFPAY ==
[2025-02-22 15:12] VITALS: BP 140/91; PULSE 63; RESP 16; TEMP 36.6; O2SAT 96; BMI 29.2
[2025-02-22] MEDS: 0.9% Normal Saline (1000mL) 1,000 ML 1000 ML IV (15:45)
[2025-02-22 16:07] LABS: Hematocrit 41.0 % (37-47); Hemoglobin 14.2 g/dL (12.0-15.0); Immature Granulocytes Count 0.030 X10^3/uL (0.0-0.0); Mean Corp Hgb Conc 34.6 g/dL (32-36); Mean Corpuscular Volume 95.6 fL (81-99); Mean Platelet Vol. 8.5 fl (6.2-12.0); NRBC Flagged by Analyzer 0 % (0-5); Platelet Count 350 K/mm3 (150-450); RBC Distribution Width CV 12.4 % (11.6-14.6); RBC Distribution Width SD 43.5 fl (35.1-43.9); Red Blood Count 4.29 M/mm3 (4.2-5.4); White Blood Count 10.6 K/mm3 (4.4-11.0)
[2025-02-22 16:12] VITALS: BP 160/92; PULSE 59; RESP 18; O2SAT 98
[2025-02-22 17:00] VITALS: BP 166/86; PULSE 61; RESP 18; O2SAT 100
[2025-02-22 17:10] LABS: Anion Gap 13 (5-15); BUN 10 mg/dL (4-19); BUN/Creat Ratio 14.5 RATIO (10-20); Calcium,Total 9.5 mg/dL (7.6-11.0); Carbon Dioxide 22.9 mmol/L (21.0-32.0); Chloride 87 mmol/L (98-108); Estimated Creatinine Clearance 69.61 ml/min (50-250); Glucose 87 mg/dL (70-99); Potassium 4.5 mmol/L (3.3-5.1)
[2025-02-22 17:35] VITALS: BP 155/86; PULSE 60; RESP 18; TEMP 36.6; O2SAT 100
[2025-02-22 17:58] VITALS: BMI 29.2
[2025-02-22 18:18] VITALS: BP 159/80; PULSE 61; RESP 17; TEMP 36.4; O2SAT 100
[2025-02-22 21:19] VITALS: BP 122/74; PULSE 61; RESP 14; TEMP 36.6; O2SAT 94
[2025-02-23 00:37] LABS: Osmolality, Urine 308 mOsm/KG
[2025-02-23 03:46] VITALS: BP 142/71; PULSE 60; RESP 15; TEMP 36.4; O2SAT 95
[2025-02-23 06:39] LABS: Osmolality, Serum 274 mOsm/KG (280-301)
[2025-02-23 06:46] LABS: Anion Gap 10 (5-15); BUN 10 mg/dL (4-19); BUN/Creat Ratio 14.0 RATIO (10-20); Calcium,Total 9.2 mg/dL (7.6-11.0); Carbon Dioxide 25.9 mmol/L (21.0-32.0); Chloride 91 mmol/L (98-108); Estimated Creatinine Clearance 69.61 ml/min (50-250); Glucose 115 mg/dL (70-99); Potassium 4.7 mmol/L (3.3-5.1)
[2025-02-23 08:00] VITALS: BP 147/93; PULSE 57; RESP 14; TEMP 36.3; O2SAT 95
[2025-02-23] MEDS: Memantine Hydrochloride 10 MG Tablet PO (08:08)
[2025-02-23 08:09] VITALS: PULSE 57
[2025-02-23] MEDS: Aspirin E.C. 81 MG Tablet PO (08:10)
[2025-02-23] MEDS: Umeclidinium Bromide Inhaler 1 PUFF INHALATION (10:48)
== END 2025-02-23 11:44 | disposition home or self-care (01) ==
LOC: ED 16:16 → MS3 17:45
PROVIDERS: Admitting Provider Hospitalist; Emergency Provider Emergency Medicine; PCP Physician Assistant; Visit Provider Family Medicine
DX: E87.1 Hypo-osmolality and hyponatremia (principal); L40.50 Arthropathic psoriasis, unspecified; M06.9 Rheumatoid arthritis, unspecified; I11.0 Hypertensive heart disease with heart failure; I50.32 Chronic diastolic (congestive) heart failure; I27.20 Pulmonary hypertension, unspecified; F03.90 Unspecified dementia, unspecified severity, without behavioral disturbance, psychotic disturbance, mood disturbance, and anxiety; J43.9 Emphysema, unspecified; J44.89 Other specified chronic obstructive pulmonary disease; I48.91 Unspecified atrial fibrillation; E11.9 Type 2 diabetes mellitus without complications; I25.10 Atherosclerotic heart disease of native coronary artery without angina pectoris; E03.9 Hypothyroidism, unspecified; E78.00 Pure hypercholesterolemia, unspecified; K21.9 Gastro-esophageal reflux disease without esophagitis; N32.81 Overactive bladder; F41.9 Anxiety disorder, unspecified; F32.A Depression, unspecified; G25.81 Restless legs syndrome; M85.80 Other specified disorders of bone density and structure, unspecified site; M54.16 Radiculopathy, lumbar region; E66.9 Obesity, unspecified; Z68.29 Body mass index [BMI] 29.0-29.9, adult; Z79.899 Other long term (current) drug therapy; Z79.82 Long term (current) use of aspirin; Z99.81 Dependence on supplemental oxygen; Z87.891 Personal history of nicotine dependence; Z79.84 Long term (current) use of oral hypoglycemic drugs; Z98.1 Arthrodesis status
CPT/HCPCS: 36415; 80048; 83930; 83935; 84300; 85025; 96360; 96372; 99221; 99284; A4216; G0378

== ENCOUNTER 2025-03-21 13:59 | Outpatient (CLI) | payer MEDICARE, MEDICAID, SELFPAY ==
[2025-03-21 14:20] VITALS: BP 99/66; PULSE 73; RESP 16; TEMP 36.4; O2SAT 96
== END 2025-03-21 23:59 | disposition home or self-care (01) ==
LOC: MEDOUTP 14:00
PROVIDERS: PCP Physician Assistant; Referring Provider Nurse Practitioner Acute Care; Visit Provider Nurse Practitioner Acute Care
DX: J45.50 Severe persistent asthma, uncomplicated (principal)
CPT/HCPCS: 96372; J0517

== ENCOUNTER → 2025-03-21 | Outpatient (CLI) | payer MEDICARE, MEDICAID, SELFPAY ==
[2025-03-23 14:09] LABS: QNTFERON TB Mitogen Value > 10.00 IU/mL (.); QNTFERON TB Nil Value 0.02 IU/mL (.); QNTFERON TB1+ Ag Value 0.02 IU/mL (.); QNTFERON TB2+ Ag Value 0.01 IU/mL (.); QNTIFERON TB Positive Criteria Negative (Negative)
== END | disposition home or self-care (01) ==
LOC: MTLAB 13:34
PROVIDERS: PCP Physician Assistant; Referring Provider Physician Assistant; Visit Provider Physician Assistant
DX: L40.0 Psoriasis vulgaris (principal)
CPT/HCPCS: 36415; 86480